=== PATIENT | male | born 1965 | race Caucasian/White ===

== ENCOUNTER 2019-04-03 09:02 | Inpatient (IN) | payer OTHER ==
--- NOTE | 2019-04-03 09:32 | ED ---
General Adult HPI - General Chief complaint: Shortness of Breath Stated complaint: Diff Breathing Time Seen by Provider: 04/03/19 09:10 Source: patient Mode of arrival: ambulatory Limitations: no limitations - History of Present Illness Initial comments: Dictation was produced using [employer] dictation software. please excuse any grammatical, word or spelling errors. Chief Complaint: 53-year-old male past medical history of anemia, atrial fibrillation, dyslipidemia presents with shortness of breath and 20 pound weight gain. History of Present Illness: Is a 53-year-old male chief complaint is dyspnea. Patient states he's been short of breath that spent acutely worsening for the last several days. Patient has a history of this. He states the last time he was short of breath he was found to have critically low anemia with a hemoglobin level in the sixes. He received transfusion and felt fine. Patient had endosco py and GI workup for concerns of anemia. States he had negative workup so for. Patient denies any history of heart failure. He states he does take water pills. States that his symptoms are worse with exertion. Symptoms are worse with lying flat. Denies any fever, chills or night sweats. No cough. No constitutional symptoms. The ROS documented in this emergency department record has been reviewed and confirmed by me. Those systems with pertinent positive or negative responses have been documented in the HPI. All other systems are other negative and/or noncontributory. PHYSICAL EXAM: General Impression: Alert and oriented x3, not in acute distress, morbidly obese HEENT: Normocephalic atraumatic, extra-ocular movements intact, pupils equal and reactive to light bilaterally, mucous membranes moist. Cardiovascular: Heart regular rate and rhythm, S1&S2 audible, no murmurs, rubs o r gallops Chest: Lungs clear to auscultation bilaterally, no rhonchi, no wheeze, no rales Abdomen: Bowel sounds present, abdomen soft, non-tender, non-distended, no organomegaly Musculoskeletal: Pulses present and equal in all extremities, no peripheral edema Motor: no focal deficits noted Neurological: CN II-XII grossly intact, no focal motor or sensory deficits noted Skin: Intact with no visualized rashes Psych: Normal affect and mood Rectal: No gross blood, no melanotic stool ED course: 53-year-old male presents with exertional shortness of breath. Upon arrival shows 86% on oxygen, rest of vital signs within acceptable limits. Laboratory evaluation obtained. Hemoglobin of 7.6 with elevated RDW, metabolic panel is unremarkable. Stool occult blood is negative. Cardiac enzymes negati ve. Prematurity peptide is 631. Chest x-ray obtained. Chest x-ray shows fluid overload likely on the basis of congestive heart failure with trace pleural effusion and pulmonary vascular prominence. Discussed patient case with Dr. Ramos who is willing to accept patients care. Dr. Ramos request the patient be given transfusion 1 unit of blood and to have a high resolution CT ordered for his chest. Dr. Ramos will follow up with the results. EKG interpretation: Ventricular rate 72, normal sinus rhythm,. Interval 172, QS 114, QTc 422. No MA prolongation, no QTC prolongation, no ST or T-wave changes noted. EKG compared to 02/18/2018 showing no changes. Overall, this EKG is unremarkable - Related Data Home Medications Medication Instructions Recorded Confirmed Albuterol Inhaler [Ventolin Hfa 2 puff INHALATION RT-Q4H PRN 04/08/15 04/03/19 Inhaler] Carvedilol [Coreg*] 12.5 mg PO BID 04/08/15 04/03/19 Gabapentin 600 mg PO TID 04/08/15 04/03/19 Levothyroxine Sodium [Synthroid] 50 mcg PO DAILY 04/08/15 04/03/19 metFORMIN HCL [metFORMIN HCL ER] 1,000 mg PO BID 04/08/15 04/03/19 Atorvastatin [Lipitor] 20 mg PO QAM 02/18/18 04/03/19 Furosemide [Lasix] 40 mg PO BID 02/18/18 04/03/19 Potassium Chloride ER [K-Dur 20] 20 meq PO HS 02/18/18 04/03/19 Rivaroxaban [Xarelto] 20 mg PO HS 02/18/18 04/03/19 Acetaminophen Tab [Tylenol Tab] 325 mg PO Q4H PRN 04/03/19 04/03/19 Allopurinol [Zyloprim] 300 mg PO DAILY 04/03/19 04/03/19 Cetirizine HCl [Zyrtec] 10 mg PO DAILY 04/03/19 04/03/19 Fluticasone Nasal [place] [Flonase 1 spray EA NOSTRIL DAILY 04/03/19 04/03/19 Nasal [place]] Multivitamins, Thera [Multivitamin 1 tab PO HS 04/03/19 04/03/19 (formulary)] diphenhydrAMINE HCL [Benadryl] 25 mg PO HS 04/03/19 04/03/19 Allergies Allergy/AdvReac Type Severity Reaction Status Date / Time No Known Allergies Allergy Verified 04/03/19 09:51 Review of Systems ROS Statement: Those systems with pertinent positive or pertinent negative responses have been documented in the HPI. ROS Other: All systems not noted in ROS Statement are negative. Past Medical History Past Medical History: Atrial Fibrillation, Diabetes Mellitus, Hyperlipidemia, Hypertension, Thyroid Disorder Additional Past Medical History / Comment(s): nerve pain, chronic back pain History of Any Multi-Drug Resistant Organisms: MRSA Date of last positivie culture/infection: 2012 MDRO Source:: unknown Past Surgical History: Orthopedic Surgery, Tonsillectomy Additional Past Surgical History / Comment(s): right knee, right shoulder Past Anesthesia/Blood Transfusion Reactions: No Reported Reaction Past Psychological History: No Psychological Hx Reported Smoking Status: Former smoker Past Alcohol Use History: Heavy Past Drug Use History: None Reported - Past Family History Father Family Medical History: No Reported History Mother Family Medical History: No Reported History General Exam Limitations: no limitations Course Vital Signs 04/03/19 04/03/19 09:05 10:08 Temperature 99.2 F 98.3 F Pulse Rate 77 78 Respiratory 20 20 Rate Blood Pressure 130/74 154/67 O2 Sat by Pulse 86 L 96 Oximetry Medical Decision Making - Lab Data Result diagrams: 04/03/19 10:12 04/03/19 10:12 Lab Results 04/03/19 04/03/19 04/03/19 Range/Units 10:12 10:12 10:12 WBC 6.2 (3.8-10.6) k/uL RBC 3.02 L (4.30-5.90) m/uL Hgb 7.6 L (13.0-17.5) gm/dL Hct 25.6 L (39.0-53.0) % MCV 84.7 (80.0-100.0) fL MCH 25.0 (25.0-35.0) pg MCHC 29.6 L (31.0-37.0) g/dL RDW 19.5 H (11.5-15.5) % Plt Count 193 (150-450) k/uL Neutrophils % 81 % Lymphocytes % 8 % Monocytes % 5 % Eosinophils % 3 % Basophils % 1 % Neutrophils # 5.1 (1.3-7.7) k/uL Lymphocytes # 0.5 L (1.0-4.8) k/uL Monocytes # 0.3 (0-1.0) k/uL Eosinophils # 0.2 (0-0.7) k/uL Basophils # 0.1 (0-0.2) k/uL Hypochromasia Marked Poikilocytosis Slight Anisocytosis Slight Microcytosis Slight Sodium 140 (137-145) mmol/L Potassium 4.7 (3.5-5.1) mmol/L Chloride 101 (98-107) mmol/L Carbon Dioxide 34 H (22-30) mmol/L Anion Gap 5 mmol/L BUN 15 (9-20) mg/dL Creatinine 0.96 (0.66-1.25) mg/dL Est GFR (CKD-EPI)AfAm >90 (>60 ml/min/1.73 sqM) Est GFR (CKD-EPI)NonAf 90 (>60 ml/min/1.73 sqM) Glucose 127 H (74-99) mg/dL Calcium 8.8 (8.4-10.2) mg/dL Troponin I (0.000-0.034) ng/mL NT-Pro-B Natriuret Pep 631 pg/mL Stool Occult Blood (Negative) 04/03/19 04/03/19 Range/Units 10:12 10:12 WBC (3.8-10.6) k/uL RBC (4.30-5.90) m/uL Hgb (13.0-17.5) gm/dL Hct (39.0-53.0) % MCV (80.0-100.0) fL MCH (25.0-35.0) pg MCHC (31.0-37.0) g/dL RDW (11.5-15.5) % Plt Count (150-450) k/uL Neutrophils % % Lymphocytes % % Monocytes % % Eosinophils % % Basophils % % Neutrophils # (1.3-7.7) k/uL Lymphocytes # (1.0-4.8) k/uL Monocytes # (0-1.0) k/uL Eosinophils # (0-0.7) k/uL Basophils # (0-0.2) k/uL Hypochromasia Poikilocytosis Anisocytosis Microcytosis Sodium (137-145) mmol/L Potassium (3.5-5.1) mmol/L Chloride (98-107) mmol/L Carbon Dioxide (22-30) mmol/L Anion Gap mmol/L BUN (9-20) mg/dL Creatinine (0.66-1.25) mg/dL Est GFR (CKD-EPI)AfAm (>60 ml/min/1.73 sqM) Est GFR (CKD-EPI)NonAf (>60 ml/min/1.73 sqM) Glucose (74-99) mg/dL Calcium (8.4-10.2) mg/dL Troponin I <0.012 (0.000-0.034) ng/mL NT-Pro-B Natriuret Pep pg/mL Stool Occult Blood Negative (Negative) Disposition Clinical Impression: Dyspnea Disposition: ADMITTED IP TO THIS HOSP Condition: Fair Referrals: Levar Crystal MD [Primary Care Provider] - 1-2 days Decision Time: 11:44
--- NOTE | 2019-04-03 10:35 | XR ---
EXAMINATION TYPE: XR chest 2V DATE OF EXAM: 04/03/2019 COMPARISON: 02/18/2018 HISTORY: Shortness of breath and low hemoglobin. TECHNIQUE: Frontal and lateral views of the chest are obtained. FINDINGS: There are trace bilateral pleural effusions blunting the costophrenic angles. Cardiomedias tinal silhouette is enlarged as seen on the prior. Very mild pulmonary vascular prominence. Mild dege nerative changes of the spine. IMPRESSION: Fluid overload, likely on the basis of congestive heart failure with trace pleural effus ions and mild pulmonary vascular prominence.
[2019-04-03 10:48] LABS: African American GFR (CKD) >90 (>60 ml/min/1.73 sqM); Anion Gap 5 mmol/L; Blood Urea Nitrogen 15 mg/dL (9-20); Calcium 8.8 mg/dL (8.4-10.2); Carbon Dioxide 34 mmol/L (22-30); Chloride 101 mmol/L (98-107); Glucose 127 mg/dL (74-99); Potassium 4.7 mmol/L (3.5-5.1); Sodium 140 mmol/L (137-145)
[2019-04-03 11:00] LABS: Anisocytosis Slight; Basophils # (A) 0.1 k/uL (0-0.2); Basophils % (A) 1 %; Eosinophils # (A) 0.2 k/uL (0-0.7); Eosinophils % (A) 3 %; HCT 25.6 % (39.0-53.0); HGB 7.6 gm/dL (13.0-17.5); Hypochromasia Marked; Lymphocytes # (A) 0.5 k/uL (1.0-4.8); Lymphocytes % (A) 8 %; MCHC 29.6 g/dL (31.0-37.0); MCV 84.7 fL (80.0-100.0); Mean Platelet Volume 6.7; Microcytosis Slight; Monocytes # (A) 0.3 k/uL (0-1.0); Monocytes % (A) 5 %; Neutrophils # (A) 5.1 k/uL (1.3-7.7); Neutrophils % (A) 81 %; Platelet Count 193 k/uL (150-450); Poikilocytosis Slight; RBC 3.02 m/uL (4.30-5.90); RDW 19.5 % (11.5-15.5); WBC 6.2 k/uL (3.8-10.6)
[2019-04-03] MEDS ORDERED: SODIUM CHLORIDE 0.9% 1,000 ML IV SCH (11:45)
[2019-04-03] MEDS ORDERED: NALOXONE 0.4 MG/ML 1 ML VIAL IV PRN (11:45)
--- NOTE | 2019-04-03 12:47 | CT ---
EXAMINATION TYPE: CT chest wo con DATE OF EXAM: 04/03/2019 COMPARISON: Chest x-ray 04/03/2019 HISTORY: Shortness of breath. CT DLP: 943.7 mGycm. Automated Exposure Control for Dose Reduction was Utilized. TECHNIQUE: CT scan of the thorax is performed without IV contrast. FINDINGS: The heart is enlarged. Coronary artery calcification noted. There is groundglass interstitial changes with bilateral consolidation and small effusion. Respiratory motion artifact noted. No sizable pneumothorax. Tiny pericardial effusion noted. Aorta of normal caliber with mild atherosclerotic changes. Hypertrophic changes and degenerative espinosa ge of the vertebral column. Assessment for adenopathy limited due to noncontrast high-resolution technique. No gross pathologic. The thyroid is symmetric in appearance. IMPRESSION: 1. Cardiomegaly with bilateral pleural effusions and consolidation correlate for pneumonia, interstit ial pneumonitis or very mild venous congestion. There is no significant interlobular septal thickenin g as visualized to suggest chronic interstitial lung disease or pulmonary fibrosis. 2. Tiny pericardial effusion.
[2019-04-03 13:53] VITALS: BMI 56.2
[2019-04-03] MEDS ORDERED: INFLUENZA VACCINE (6 MOS+) 60 MCG/0.5 ML SYRINGE IM ONE (13:58)
[2019-04-03 16:25] LABS: Appearance,Urine Clear (Clear); Bacteria,Urine Rare /hpf; Bilirubin,Urine Negative (Negative); Blood,Urine Negative (Negative); Color,Urine Yellow; Glucose,Urine (UA) Negative (Negative); Hyaline Casts,Urine 3 /lpf (0-2); Ketones,Urine Negative (Negative); Leukocyte Esterase,Urine Trace (Negative); Mucus,Urine Rare /hpf; Nitrite,Urine Negative (Negative); Protein,Urine 1+ (Negative); RBC,Urine 1 /hpf (0-5); Specific Gravity,Urine 1.016 (1.001-1.035); Urobilinogen,Urine <2.0 mg/dL (<2.0); WBC,Urine 4 /hpf (0-5)
[2019-04-03 20:44] LABS: Glucose,Whole Blood 119 mg/dL (75-99)
[2019-04-03] MEDS ORDERED: RIVAROXABAN 20 MG TAB PO SCH (21:00)
[2019-04-03] MEDS: metFORMIN 500 MG TAB PO SCH (22:16)
[2019-04-03] MEDS: MULTIVITAMINS, THERA 1 EACH TAB PO SCH (22:16)
[2019-04-03] MEDS: GABAPENTIN 300 MG CAP PO SCH (22:17)
[2019-04-03] MEDS: CARVEDILOL 12.5 MG TAB PO SCH (22:17)
[2019-04-03] MEDS: ACETAMINOPHEN TAB 500 MG TAB PO PRN (22:17)
[2019-04-03] MEDS: POTASSIUM CHLORIDE ER 20 MEQ TAB.ER PO SCH (22:17)
[2019-04-03] MEDS: diphenhydrAMINE 25 MG CAP PO SCH (22:17)
[2019-04-04] MEDS: IPRATROPIUM-ALBUTEROL 3 ML NEB INHALATION SCH ×5 (02:25→19:20)
[2019-04-04] MEDS ORDERED: FUROSEMIDE 10 MG/ML 10 ML VIAL IV STA (05:16)
[2019-04-04 06:05] LABS: Glucose,Whole Blood 125 mg/dL (75-99)
[2019-04-04] MEDS: CARVEDILOL 12.5 MG TAB PO SCH ×2 (06:42→15:05)
[2019-04-04] MEDS: LEVOTHYROXINE 50 MCG TAB PO SCH (06:42)
[2019-04-04 07:20] LABS: African American GFR (CKD) >90 (>60 ml/min/1.73 sqM); Anion Gap 6 mmol/L; Anisocytosis Slight; Basophils # (A) 0.1 k/uL (0-0.2); Basophils % (A) 1 %; Blood Urea Nitrogen 16 mg/dL (9-20); Calcium 9.1 mg/dL (8.4-10.2); Carbon Dioxide 35 mmol/L (22-30); Chloride 100 mmol/L (98-107); Eosinophils # (A) 0.2 k/uL (0-0.7); Eosinophils % (A) 3 %; Glucose 131 mg/dL (74-99); HCT 28.5 % (39.0-53.0); HGB 8.5 gm/dL (13.0-17.5); Hypochromasia Marked; Lymphocytes # (A) 0.5 k/uL (1.0-4.8); Lymphocytes % (A) 8 %; MCH 25.4 pg (25.0-35.0); MCHC 29.7 g/dL (31.0-37.0); MCV 85.4 fL (80.0-100.0); Mean Platelet Volume 6.9; Microcytosis Slight; Monocytes # (A) 0.3 k/uL (0-1.0); Monocytes % (A) 6 %; Neutrophils # (A) 4.7 k/uL (1.3-7.7); Neutrophils % (A) 79 %; Platelet Count 183 k/uL (150-450); Poikilocytosis Slight; Potassium 4.4 mmol/L (3.5-5.1); Prothrombin Time 10.6 sec (9.0-12.0); RBC 3.34 m/uL (4.30-5.90); RDW 19.3 % (11.5-15.5); Sodium 141 mmol/L (137-145); WBC 5.9 k/uL (3.8-10.6)
--- NOTE | 2019-04-04 07:39 | XR ---
EXAMINATION TYPE: XR chest 1V portable DATE OF EXAM: 04/04/2019 COMPARISON: 04/03/2019 chest x-ray and CT HISTORY: Congestive heart failure. Shortness of breath. TECHNIQUE: Single frontal view of the chest is obtained. FINDINGS: Cardiomediastinal silhouette is mildly enlarged. Bibasilar hazy opacities are seen with pa rtial obscuration of the hemidiaphragms. Mild pulmonary vascular congestion. Trace pleural effusions blunt the costophrenic angles. No acute osseous pathology. IMPRESSION: Findings similar to the prior CT chest dated 04/03/2019 with trace pleural effusions and mild pulmonary vascular congestion as well as bibasilar atelectasis. Consider congestive heart failu re are less likely noncardiogenic fluid overload.
[2019-04-04 08:22] LABS: Glucose,Whole Blood 116 mg/dL (75-99)
[2019-04-04] MEDS: GABAPENTIN 300 MG CAP PO SCH ×3 (09:44→21:56)
[2019-04-04] MEDS: FUROSEMIDE 40 MG TAB PO SCH ×2 (09:44→22:01)
[2019-04-04] MEDS: LORATADINE 10 MG TAB PO SCH (09:44)
[2019-04-04] MEDS: metFORMIN 500 MG TAB PO SCH ×2 (09:44→21:56)
[2019-04-04] MEDS: ATORVASTATIN 20 MG TAB PO SCH (09:44)
[2019-04-04] MEDS: ALLOPURINOL 300 MG TAB PO SCH (10:00)
[2019-04-04] MEDS: ACETAMINOPHEN TAB 500 MG TAB PO PRN (12:09)
--- NOTE | 2019-04-04 12:48 | ECHOF ---
Referral Reason:Shortness of breath MEASUREMENTS -------- HEIGHT: 175.3 cm WEIGHT: 172.8 kg BP: RVIDd: 3.7 cm (< 3.3) IVSd: 1.3 cm (0.6 - 1.1) LVIDd: 5.8 cm (3.9 - 5.3) LVPWd: 1.6 cm (0.6 - 1.1) IVSs: 1.4 cm LVIDs: 3.7 cm LVPWs: 2.1 cm LA Diam: 3.9 cm (2.7 - 3.8) Ao Diam: 3.4 cm (2.0 - 3.7) AV Cusp: 1.9 cm (1.5 - 2.6) LA Diam: 4.0 cm (2.7 - 3.8) MV EXCURSION: 27.202 mm (> 18.000) MV EF SLOPE: 87 mm/s (70 - 150) EPSS: 0.7 cm MV E Jonnathan: 0.74 m/s MV DecT: 190 ms MV A Jonnathan: 0.60 m/s MV E/A Ratio: 1.22 RAP: 5.00 mmHg RVSP: 32.71 mmHg FINDINGS -------- Sinus rhythm. Morbid Obesity This was a techncally difficult study with suboptimal views, , Lumason utilized for enhancement of im ages. The left ventricular size is normal. There is mild concentric left ventricular hypertrophy. Overa ll left ventricular systolic function is normal with, an EF between 55 - 60 %. The right ventricle is mild to moderately enlarged. The left atrial size is normal. The right atrial size is normal. 5.0mg OF Lumason UTLIZED: 2 OR MORE WALL SEGMENTS NOT VISUALIZED. The aortic valve was not well visualized. Mild mitral regurgitation is present. The tricuspid valve was not well visualized. The pulmonic valve was not well visualized. The aortic root size is normal. There is no pericardial effusion. CONCLUSIONS -------- 1. Sinus rhythm. 2. Morbid Obesity 3. This was a techncally difficult study with suboptimal views, , Lumason utilized for enhancement of images. 4. The left ventricular size is normal. 5. There is mild concentric left ventricular hypertrophy. 6. Overall left ventricular systolic function is normal with, an EF between 55 - 60 %. 7. The right ventricle is mild to moderately enlarged. 8. The left atrial size is normal. 9. The right atrial size is normal. 10. 5.0mg OF Lumason UTLIZED: 2 OR MORE WALL SEGMENTS NOT VISUALIZED. 11. The aortic valve was not well visualized. 12. Mild mitral regurgitation is present. 13. The tricuspid valve was not well visualized. 14. The pulmonic valve was not well visualized. 15. The aortic root size is normal. 16. There is no pericardial effusion. DISABILITY COORDINATOR: Brianna Naqvi RDCS
--- NOTE | 2019-04-04 13:01 | P.CRDCN ---
History of Present Illness History of present illness: This is Amber Desai PA-C dictating a consult on this patient The patient was interviewed and examined by me as well as by Dr. Bravo Case discussed with Dr. Bravo and he agrees with the plan of care IMPRESSION / ASSESSMENT: Increased shortness of breath likely secondary to combination of anemia and fluid overload, pleural effusions on chest x-ray Anemia status post blood transfusion, hemoglobin 8.5 History of atrial fibrillation, anticoagulation on hold secondary to anemia Diabetes Hypertension, blood pressure has been elevated in the 150s to 160s systolic over 90s diastolic previous echocardiogram showed EF 50-55% PLAN: A repeat echocardiogram has been ordered Add losartan 25 mg daily for blood pressure control, patient is a diabetic Continue with Lasix Continue holding Xarelto for now 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 Patient states that he recently moved so he has been off of his Lasix 40 mg daily for e last 2-3 weeks. He has had progressively worsening shortness of breath on exertion and orthopnea. No palpitations or chest pain. He was also recently diagnosed with anemia and received a blood transfusion at [facility] [place]. He underwent workup with an EGD and colonoscopy and states that there were no sources of bleeding found. States he follows with a drug safety specialist in the [place] area. He had a stress test 3 years ago and it was negative per the patient. He does not believe he's ever had an angiogram. He has also been diagnosed with atrial fibrillation a few years ago and takes Xarelto. He was seen here in the emergency department about a month ago after he had been drinking heavily and fell. Echocardiogram at that time showed LV systolic function low normal with EF 50-55%. Upon presentation to the emergency department yesterday his oxygen saturation was 86%. Chest x-ray showed trace pleural effusions and mild pulmonary vascular prominence. EKG showed sinus mechanism with incomplete right bundle branch block, no acute ST or T-wave abnormalities. Chest CT showed bilat eral pleural effusions concerning for possible pneumonia, interstitial pneumonitis, or mild venous congestion. Labs were significant for hemoglobin of 7.6. Troponin negative 1. TSH 0.654. He did receive a blood transfusion. He was transferred to the ICU and started on Lasix. Patient seen and examined sitting in bed. States his breathing has improved somewhat but he remained short of breath. Denies any chest pain, dizziness lightheadedness or syncope. ROS: No fevers, chills or rigors, no cough, phlegm or expectoration, no nausea, vomiting or diarrhea, no hematuria, dysuria, no musculoskeletal complaints, no strokes or seizures, no skin lesions. EXAMINATION: Patient is afebrile, pulse 66, respirations 15, blood pressure 153/92, oxygen saturation 95% on 5 L nasal cannula Patient seen and examined sitting up in bed, appears comfortable, no acute distress Lungs are mildly diminished at the bases Heart is regular, normal S1-S2, no murmurs noted Trace lower extremity edema No elevated JVD REVIEW OF LABS, ECG & MEDICAL DATA WBC 5.4, hemoglobin 8.5, platelets 183, potassium 4.4, BUN 16, creatinine 1.01 Past Medical History Past Medical History: Atrial Fibrillation, Heart Failure, COPD, Diabetes Mellitus, Hyperlipidemia, Hypertension, Thyroid Disorder Additional Past Medical History / Comment(s): NIDDM type II, neuropathy bilateral feet, 2012 acute respiratory failure-d/t obesity/hypoventilatory syndrome/DELORES/bronchospasms, DELORES-pt states he has not been wearing device lately, trach/vent-had renal failure with dialysis for 5 weeks, chronic anemia, hypothyroid, gout L arm, pt states he is a binge drinker. History of Any Multi-Drug Resistant Organisms: MRSA Date of last positivie culture/infection: 2012 MDRO Source:: bronchial washing Past Surgical History: Orthopedic Surgery, Tonsillectomy Additional Past Surgical History / Comment(s): EGD, colonoscopies, R knee arthroscopy, R shoulder arthroscopy, trach, peg, BAL left lower lobe, cardioversion. Past Anesthesia/Blood Transfusion Reactions: No Reported Reaction Additional Past Anesthesia/Blood Transfusion Reaction / Comment(s): Pt has received blood in past without reaction. Smoking Status: Former smoker - Past Family History Father History Unknown: Yes Family Medical History: No Reported History Mother Family Medical History: No Reported History Additional Family Medical History / Comment(s): Mother is healthy. Medications and Allergies Home Medications Medication Instructions Recorded Confirmed Type Albuterol Inhaler [Ventolin Hfa 2 puff INHALATION RT-Q4H PRN 04/08/15 04/03/19 History Inhaler] Carvedilol [Coreg*] 12.5 mg PO BID 04/08/15 04/03/19 History Gabapentin 600 mg PO TID 04/08/15 04/03/19 History Levothyroxine Sodium [Synthroid] 50 mcg PO DAILY 04/08/15 04/03/19 History metFORMIN HCL [metFORMIN HCL ER] 1,000 mg PO BID 04/08/15 04/03/19 History Atorvastatin [Lipitor] 20 mg PO QAM 02/18/18 04/03/19 History Furosemide [Lasix] 40 mg PO BID 02/18/18 04/03/19 History Potassium Chloride ER [K-Dur 20] 20 meq PO HS 02/18/18 04/03/19 History Rivaroxaban [Xarelto] 20 mg PO HS 02/18/18 04/03/19 History Acetaminophen Tab [Tylenol Tab] 325 mg PO Q4H PRN 04/03/19 04/03/19 History Allopurinol [Zyloprim] 300 mg PO DAILY 04/03/19 04/03/19 History Cetirizine HCl [Zyrtec] 10 mg PO DAILY 04/03/19 04/03/19 History Fluticasone Nasal [place] [Flonase 1 spray EA NOSTRIL DAILY 04/03/19 04/03/19 History Nasal [place]] Multivitamins, Thera [Multivitamin 1 tab PO HS 04/03/19 04/03/19 History (formulary)] diphenhydrAMINE HCL [Benadryl] 25 mg PO HS 04/03/19 04/03/19 History Allergies Allergy/AdvReac Type Severity Reaction Status Date / Time No Known Allergies Allergy Verified 04/03/19 09:51 Physical Exam Vitals: Vital Signs Temp Pulse Pulse Resp BP BP Pulse Ox 04/04/19 12:04 66 04/04/19 11:58 69 04/04/19 11:00 71 20 145/66 95 04/04/19 10:00 68 20 174/93 97 04/04/19 09:00 66 15 153/92 95 04/04/19 08:12 64 04/04/19 08:00 97.9 F 64 20 131/77 94 L 04/04/19 07:00 97.8 F 20 182/85 92 L 04/04/19 06:05 72 04/04/19 05:27 72 22 180/92 90 L 04/04/19 03:58 20 04/04/19 02:40 84 04/04/19 02:25 84 04/04/19 00:24 20 04/03/19 23:52 98.3 F 82 17 161/80 92 L 04/03/19 23:13 80 04/03/19 23:05 72 95 04/03/19 20:15 20 04/03/19 20:11 99.1 F 78 20 169/76 93 L 04/03/19 16:23 16 04/03/19 15:00 97.9 F 80 16 173/91 93 L 04/03/19 13:47 98.9 F 76 20 162/75 04/03/19 13:31 98.3 F 04/03/19 13:17 98.3 F 76 20 167/53 04/03/19 13:07 98.5 F 75 18 163/74 Intake and Output 04/03/19 04/04/19 04/04/19 22:59 06:59 14:59 Intake Total 310 240 Output Total 600 3800 Balance 310 600 -3560 Intake: Oral 240 Blood Product 310 Rc As-1 Unit 310 [id number] Output: Urine 600 3800 Other: Voiding Method Toilet Urinal # Voids 3 1 # Bowel Movements 1 Results 04/04/19 06:28 04/04/19 06:28 Coagulation 04/04/19 Range/Units 06:28 PT 10.6 (9.0-12.0) sec CBC 04/04/19 Range/Units 06:28 WBC 5.9 (3.8-10.6) k/uL RBC 3.34 L (4.30-5.90) m/uL Hgb 8.5 L (13.0-17.5) gm/dL Hct 28.5 L (39.0-53.0) % Plt Count 183 (150-450) k/uL Comprehensive Metabolic Panel 04/04/19 Range/Units 06:28 Sodium 141 (137-145) mmol/L Potassium 4.4 (3.5-5.1) mmol/L Chloride 100 (98-107) mmol/L Carbon Dioxide 35 H (22-30) mmol/L BUN 16 (9-20) mg/dL Creatinine 1.01 (0.66-1.25) mg/dL Glucose 131 H (74-99) mg/dL Calcium 9.1 (8.4-10.2) mg/dL Current Medications Generic Name Dose Route Start Last Admin Trade Name Freq PRN Reason Stop Dose Admin Acetaminophen 500 mg 04/03/19 22:03 04/04/19 12:09 Tylenol Tab PO 500 mg Q6HR PRN Administration Fever and/ or Pain Albuterol/Ipratropium 3 ml 04/04/19 04:00 04/04/19 11:56 Duoneb 0.5 Mg-3 Mg/3 Ml Soln INHALATION 3 ml RT-QID [facility] Administration Allopurinol 300 mg 04/04/19 09:00 04/04/19 10:00 Zyloprim PO 300 mg DAILY [facility] Administration Atorvastatin Calcium 20 mg 04/04/19 09:00 04/04/19 09:44 Lipitor PO 20 mg QAM [place] Administration Carvedilol 12.5 mg 04/03/19 21:15 04/04/19 06:42 Coreg PO 12.5 mg BID-W/MEALS [facility]T Administration Diphenhydramine HCl 25 mg 04/03/19 21:15 04/03/19 22:17 Benadryl PO 25 mg HS [facility] Administration Furosemide 40 mg 04/04/19 09:00 04/04/19 09:44 Lasix PO 40 mg BID [place] Administration Gabapentin 600 mg 04/03/19 22:00 04/04/19 09:44 Neurontin PO 600 mg TID [facility] Administration Levothyroxine Sodium 50 mcg 04/04/19 06:30 04/04/19 06:42 Synthroid PO 50 mcg DAILY@0630 [facility] Administration Loratadine 10 mg 04/04/19 09:00 04/04/19 09:44 Claritin PO 10 mg DAILY [facility] Administration Metformin HCl 1,000 mg 04/03/19 21:15 04/04/19 09:44 Glucophage PO 1,000 mg BID [facility] Administration Multivitamins 1 each 04/03/19 21:15 04/03/19 22:16 Theragran PO 1 each HS [facility] Administration Naloxone HCl 0.2 mg 04/03/19 11:45 Narcan IV Q2M PRN Opioid Reversal Potassium Chloride 20 meq 04/03/19 21:15 04/03/19 22:17 K-Dur 20 PO 20 meq HS [facility] Administration Intake and Output 04/03/19 04/04/19 04/04/19 22:59 06:59 14:59 Intake Total 310 240 Output Total 600 3800 Balance 310 -388 -1765 Intake: Oral 240 Blood Product 310 Rc As-1 Unit 310 [id number] Output: Urine 600 3800 Other: Voiding Method Toilet Urinal # Voids 3 1 # Bowel Movements 1 04/04/19 06:28 04/04/19 06:28
[2019-04-04 13:15] LABS: Reticulocyte % 1.4 % (0.5-2.0)
[2019-04-04] MEDS: LOSARTAN 25 MG TAB PO SCH (13:18)
[2019-04-04 13:25] LABS: C Reactive Protein 64.3 mg/L (<10.0)
--- NOTE | 2019-04-04 16:27 | P.CNPUL ---
History of Present Illness Consult date: 04/04/19 Reason for consult: dyspnea History of present illness: 53-year-old morbidly obese male patient with a BMI 56 with obvious features of obstructive sleep apnea and obesity hypoventilation syndrome who also has history of atrial fibrillation, hypertension and hyperlipidemia and diabetes mellitus. The patient presented yesterday because of significant volume overload as the patient stopped his Lasix for the past 2-3 weeks and he has gained significant amount of weight in excess of 20 pounds. He became progressively more short of breath. He presented to ED yesterday and the patient was also found to be anemic with a hemoglobin of 7.6. He did not have any acute GI bleed.His anemia is chronic. Has undergone previous EGD and colonoscopy in [facility] without any positive findings. Denied having any acute GI bleeding. Patient having any chest pain. He became progressively more short of breath mainly exertional. No dyspnea at rest. No cough or sputum production. No fever chills or night sweats. No pleurisy or hemoptysis. He has not had any previous history of DVT or pulmonary embolism. Overnight, the patient got transferred to the intensive care unit. He was given a unit of packed RBC. He was given a dose of Lasix 60 mg IV push. There was significant improvement following that the patient diuresed more than 4 L. He is not having any shortness of breath this morning. CAT scan of the chest was done yesterday that showed better pleural effusion and interstitial edema and pulmonary vessel congestion. Troponin times all was negative. TSH was 0.6. His subsequent hemoglobin is up to 8.5. He is currently receiving Lasix 40 mg by mouth twice a day. He is on 3 L of oxygen by nasal cannula with a pulse oximeter of 90%. No tachycardia. No fever. No hemodynamic instability. The BP is 150/75. Review of Systems Constitutional: Reports daytime sleepiness, Reports fatigue, Reports weakness, Reports weight gain Eyes: denies blurred vision, denies bulging eye, denies decreased vision Ears: deny: decreased hearing, ear discharge, earache, tinnitus Ears, nose, mouth and throat: Reports as per HPI Cardiovascular: Reports decreased exercise tolerance, Reports dyspnea on exertion, Reports high blood pressure, Reports shortness of breath Respiratory: Reports sleep apnea Gastrointestinal: Reports as per HPI Genitourinary: Reports as per HPI Musculoskeletal: Reports as per HPI Musculoskeletal: bilateral: ankle swelling, absent: ankle pain, ankle stiffness Integumentary: Denies pruritus, Denies rash Neurological: Reports as per HPI Psychiatric: Reports as per HPI Endocrine: Reports as per HPI Hematologic/Lymphatic: Reports as per HPI Allergic/Immunologic: Reports as per HPI Past Medical History Past Medical History: Atrial Fibrillation, Heart Failure, COPD, Diabetes Mellitus, Hyperlipidemia, Hypertension, Thyroid Disorder Additional Past Medical History / Comment(s): NIDDM type II, neuropathy bilateral feet, 2013 acute respiratory failure-d/t obesity/hypoventilatory syndrome/DELORES/bronchospasms, DELORES-pt states he has not been wearing device lately, trach/vent-had renal failure with dialysis for 5 weeks, chronic anemia, hypothyroid, gout L arm, pt states he is a binge drinker. History of Any Multi-Drug Resistant Organisms: MRSA Date of last positivie culture/infection: 2012 MDRO Source:: bronchial washing Past Surgical History: Orthopedic Surgery, Tonsillectomy Additional Past Surgical History / Comment(s): EGD, colonoscopies, R knee arthroscopy, R shoulder arthroscopy, trach, peg, BAL left lower lobe, cardioversion. Past Anesthesia/Blood Transfusion Reactions: No Reported Reaction Additional Past Anesthesia/Blood Transfusion Reaction / Comment(s): Pt has received blood in past without reaction. Smoking Status: Former smoker - Past Family History Father History Unknown: Yes Family Medical History: No Reported History Mother Family Medical History: No Reported History Additional Family Medical History / Comment(s): Mother is healthy. Medications and Allergies Home Medications Medication Instructions Recorded Confirmed Type Albuterol Inhaler [Ventolin Hfa 2 puff INHALATION RT-Q4H PRN 04/08/15 04/03/19 History Inhaler] Carvedilol [Coreg*] 12.5 mg PO BID 04/08/15 04/03/19 History Gabapentin 600 mg PO TID 04/08/15 04/03/19 History Levothyroxine Sodium [Synthroid] 50 mcg PO DAILY 04/08/15 04/03/19 History metFORMIN HCL [metFORMIN HCL ER] 1,000 mg PO BID 04/08/15 04/03/19 History Atorvastatin [Lipitor] 20 mg PO QAM 02/18/18 04/03/19 History Furosemide [Lasix] 40 mg PO BID 02/18/18 04/03/19 History Potassium Chloride ER [K-Dur 20] 20 meq PO HS 02/18/18 04/03/19 History Rivaroxaban [Xarelto] 20 mg PO HS 02/18/18 04/03/19 History Acetaminophen Tab [Tylenol Tab] 325 mg PO Q4H PRN 04/03/19 04/03/19 History Allopurinol [Zyloprim] 300 mg PO DAILY 04/03/19 04/03/19 History Cetirizine HCl [Zyrtec] 10 mg PO DAILY 04/03/19 04/03/19 History Fluticasone Nasal [place] [Flonase 1 spray EA NOSTRIL DAILY 04/03/19 04/03/19 History Nasal [place]] Multivitamins, Thera [Multivitamin 1 tab PO HS 04/03/19 04/03/19 History (formulary)] diphenhydrAMINE HCL [Benadryl] 25 mg PO HS 04/03/19 04/03/19 History Allergies Allergy/AdvReac Type Severity Reaction Status Date / Time No Known Allergies Allergy Verified 04/03/19 09:51 Physical Exam Vitals: Vital Signs Temp Pulse Pulse Resp BP BP Pulse Ox 04/04/19 16:08 68 16 98 04/04/19 14:35 18 04/04/19 14:05 97.9 F 71 18 150/75 97 04/04/19 13:20 156/68 04/04/19 12:04 66 04/04/19 11:58 69 04/04/19 11:00 71 20 145/66 95 04/04/19 10:00 68 20 174/93 97 04/04/19 09:00 66 15 153/92 95 04/04/19 08:12 64 04/04/19 08:00 97.9 F 64 20 131/77 94 L 04/04/19 07:00 97.8 F 20 182/85 92 L 04/04/19 06:05 72 04/04/19 05:27 72 22 180/92 90 L 04/04/19 03:58 20 04/04/19 02:40 84 04/04/19 02:25 84 04/04/19 00:24 20 04/03/19 23:52 98.3 F 82 17 161/80 92 L 04/03/19 23:13 80 04/03/19 23:05 72 95 04/03/19 20:15 20 04/03/19 20:11 99.1 F 78 20 169/76 93 L 04/03/19 16:23 16 Intake and Output 04/04/19 04/04/19 04/04/19 06:59 14:59 22:59 Intake Total 480 540 Output Total 600 4175 Balance -600 -3695 540 Intake: Oral 480 540 Output: Urine 600 4175 Other: Voiding Method Toilet Urinal # Voids 1 # Bowel Movements 1 Amanda is obese, comfortable likely distress. Head exam was generally normal. There was no scleral icterus or corneal arcus. Mucous membranes were moist. Neck was supple and without jugular venous distension, thyromegaly, or carotid bruits. Carotids were easily palpable bilaterally. There was no adenopathy. Mild hepatic as for an significant crowding of posterior pharynx. Lungs sounds are diminished in lung bases bilaterally. Cardiac exam revealed the PMI to be normally situated and sized. The rhythm was regular and no extrasystoles were noted during several minutes of auscultation. The first and second heart sounds were normal and physiologic splitting of the second heart sound was noted. There were no murmurs, rubs, clicks, or gallops. Abdomen is soft CANNOT be accurately palpated due to morbid obesity. No direct tenderness about this or guarding. No ascites. Extremities reveal trace edema and there is no cyanosis or clubbing. Examination of the skin revealed no evidence of significant rashes, suspicious appearing nevi or other concerning lesions. Neurologically awake and alert and there is no focal logical deficits. Results - Laboratory Findings CBC and BMP: 04/04/19 06:28 04/04/19 15:29 PT/INR, D-dimer PT 10.6 sec (9.0-12.0) 04/04/19 06:28 INR 1.0 (<1.2) 04/04/19 06:28 Abnormal lab findings: Abnormal Labs 04/03/19 04/03/19 04/03/19 10:12 10:12 10:12 RBC 3.02 L Hgb 7.6 L Hct 25.6 L MCHC 29.6 L RDW 19.5 H Lymphocytes # 0.5 L ESR Carbon Dioxide 34 H Glucose 127 H POC Glucose (mg/dL) C-Reactive Protein 64.3 H Urine Protein Ur Leukocyte Esterase Urine Bacteria Hyaline Casts Urine Mucus Crossmatch 04/03/19 04/03/19 04/03/19 10:55 16:18 20:36 RBC Hgb Hct MCHC RDW Lymphocytes # ESR Carbon Dioxide Glucose POC Glucose (mg/dL) 119 H C-Reactive Protein Urine Protein 1+ H Ur Leukocyte Esterase Trace H Urine Bacteria Rare H Hyaline Casts 3 H Urine Mucus Rare H Crossmatch See Detail 04/04/19 04/04/19 04/04/19 06:03 06:28 06:28 RBC 3.34 L Hgb 8.5 L Hct 28.5 L MCHC 29.7 L RDW 19.3 H Lymphocytes # 0.5 L ESR Carbon Dioxide 35 H Glucose 131 H POC Glucose (mg/dL) 125 H C-Reactive Protein Urine Protein Ur Leukocyte Esterase Urine Bacteria Hyaline Casts Urine Mucus Crossmatch 04/04/19 04/04/19 06:28 08:20 RBC Hgb Hct MCHC RDW Lymphocytes # ESR 93 H Carbon Dioxide Glucose POC Glucose (mg/dL) 116 H C-Reactive Protein Urine Protein Ur Leukocyte Esterase Urine Bacteria Hyaline Casts Urine Mucus Crossmatch - Diagnostic Findings Chest x-ray: image reviewed Assessment and Plan Plan: 1 chronic dyspnea with acute exacerbation of shortness of breath likely secondary to fluid overload as the patient reports 20 pound weight gain while being off his diuretics. In addition the patient had worsening in his anemia which have contributed to her shortness of breath. Transfused with a unit of packed RBC. Given Lasix. Clinically improved. 2 chronic anemia with interval drop in hemoglobin. Currently under investigation. EGD and colonoscopy apparently done over the past year was negative. The patient was taken IV iron the past. 3 history of atrial fibrillation current rhythm is sinus. Patient is on long- term anticoagulation. 4 diabetes mellitus 5 hypertension 6 hyperlipidemia 7 hypothyroidism 8 morbid obesity with BMI 56 9 structures sleep apnea and obesity hypoventilation syndrome not wearing a CPAP therapy at this point 10 diabetic peripheral neuropathy involving lower extremity 11 previous history of ventilator dependent respiratory failure due to complications of kidney failure 12 gout 13 major alcohol drinker Plan We will continue diuretics with oral Lasix. Obtain a follow-up echocardiogram. Hematology evaluation regarding the anemia. Check TSH, B12 and folate and iron studies. Resume outpatient medication. The patient can which is out of the intensive care unit. Cardiology consultation. We'll continue to follow.
[2019-04-04 18:31] LABS: Rheumatoid Factor <4 IU/mL (0-13)
[2019-04-04 18:40] LABS: Folate, Serum 16.6 ng/mL; Iron Saturation 5.14 (15.00-50.00)
--- NOTE | 2019-04-04 19:09 | P.CONS ---
History of Present Illness - Reason for Consult Consult date: 04/04/19 Chronic Anemia Requesting physician: Giorgio Bishop - Chief Complaint Symptomatic anemia sob - History of Present Illness 53-year-old male patient with sleep apnea and obesity, atrial fibrillation, hypertension and hyperlipidemia and diabetes mellitus and chronic anemia. The patient presented yesterday with increased SOB apparently he stopped his Lasix for the past 2-3 weeks, unknown why, on presentation had gained significant amount of weight His CC was short of breath. His hemoglobin of 7.6. Denied any Signs of bleeding. Has undergone previous EGD and colonoscopy in [facility] without any positive findings. Denied having any acute GI bleeding. No fever chills or night sweats. He has not had any previous history of DVT or pulmonary embolism. Overnight, the patient got transferred to the intensive care unit. He was given a unit of packed RBC. He was given a dose of Lasix 60 mg IV push. He is feeling better without significant shortness of breath during evaluation this am. CT scan of the chest showed evidence of pleural effusion and interstitial edema and pulmonary vessel congestion. Troponin times all was negative. He denies ever seeing handle maker or finding cause of anemia. Review of Systems A 14 point review of systems was assessed and completed and are all negative ex cept for HPI Past Medical History Past Medical History: Atrial Fibrillation, Heart Failure, COPD, Diabetes Mellitus, Hyperlipidemia, Hypertension, Thyroid Disorder Additional Past Medical History / Comment(s): NIDDM type II, neuropathy bilateral feet, 2013 acute respiratory failure-d/t obesity/hypoventilatory syndrome/DELORES/bronchospasms, DELORES-pt states he has not been wearing device lately, trach/vent-had renal failure with dialysis for 5 weeks, chronic anemia, hypothyroid, gout L arm, pt states he is a binge drinker. History of Any Multi-Drug Resistant Organisms: MRSA Year Discovered:: 2012 MDRO Source:: bronchial washing Past Surgical History: Orthopedic Surgery, Tonsillectomy Additional Past Surgical History / Comment(s): EGD, colonoscopies, R knee arthroscopy, R shoulder arthroscopy, trach, peg, BAL left lower lobe, cardioversion. Past Anesthesia/Blood Transfusion Reactions: No Reported Reaction Additional Past Anesthesia/Blood Transfusion Reaction / Comm: Pt has received blood in past without reaction. Smoking Status: Former smoker - Past Family History Father History Unknown: Yes Family Medical History: No Reported History Mother Family Medical History: No Reported History Additional Family Medical History / Comment(s): Mother is healthy. Medications and Allergies Home Medications Medication Instructions Recorded Confirmed Type Albuterol Inhaler [Ventolin Hfa 2 puff INHALATION RT-Q4H PRN 04/08/15 04/03/19 History Inhaler] Carvedilol [Coreg*] 12.5 mg PO BID 04/08/15 04/03/19 History Gabapentin 600 mg PO TID 04/08/15 04/03/19 History Levothyroxine Sodium [Synthroid] 50 mcg PO DAILY 04/08/15 04/03/19 History metFORMIN HCL [metFORMIN HCL ER] 1,000 mg PO BID 04/08/15 04/03/19 History Atorvastatin [Lipitor] 20 mg PO QAM 02/18/18 04/03/19 History Furosemide [Lasix] 40 mg PO BID 02/18/18 04/03/19 History Potassium Chloride ER [K-Dur 20] 20 meq PO HS 02/18/18 04/03/19 History Rivaroxaban [Xarelto] 20 mg PO HS 02/18/18 04/03/19 History Acetaminophen Tab [Tylenol Tab] 325 mg PO Q4H PRN 04/03/19 04/03/19 History Allopurinol [Zyloprim] 300 mg PO DAILY 04/03/19 04/03/19 History Cetirizine HCl [Zyrtec] 10 mg PO DAILY 04/03/19 04/03/19 History Fluticasone Nasal [place] [Flonase 1 spray EA NOSTRIL DAILY 04/03/19 04/03/19 History Nasal [place]] Multivitamins, Thera [Multivitamin 1 tab PO HS 04/03/19 04/03/19 History (formulary)] diphenhydrAMINE HCL [Benadryl] 25 mg PO HS 04/03/19 04/03/19 History Allergies Allergy/AdvReac Type Severity Reaction Status Date / Time No Known Allergies Allergy Verified 04/03/19 09:51 Physical Exam Vitals: Vital Signs Temp Pulse Pulse Resp BP BP Pulse Ox 04/04/19 12:04 66 04/04/19 11:58 69 04/04/19 11:00 71 20 145/66 95 04/04/19 10:00 68 20 174/93 97 04/04/19 09:00 66 15 153/92 95 04/04/19 08:12 64 04/04/19 08:00 97.9 F 64 20 131/77 94 L 04/04/19 07:00 97.8 F 20 182/85 92 L 04/04/19 06:05 72 04/04/19 05:27 72 22 180/92 90 L 04/04/19 03:58 20 04/04/19 02:40 84 04/04/19 02:25 84 04/04/19 00:24 20 04/03/19 23:52 98.3 F 82 17 161/80 92 L 04/03/19 23:13 80 04/03/19 23:05 72 95 04/03/19 20:15 20 04/03/19 20:11 99.1 F 78 20 169/76 93 L 04/03/19 16:23 16 04/03/19 15:00 97.9 F 80 16 173/91 93 L 04/03/19 13:47 98.9 F 76 20 162/75 04/03/19 13:31 98.3 F 04/03/19 13:17 98.3 F 76 20 167/53 04/03/19 13:07 98.5 F 75 18 163/74 Intake and Output 04/03/19 04/04/19 04/04/19 22:59 06:59 14:59 Intake Total 310 480 Output Total 600 4175 Balance 310 -322 -3695 Intake: Oral 480 Blood Product 310 Rc As-1 Unit 310 [id number] Output: Urine 600 4175 Other: Voiding Method Toilet Urinal # Voids 3 1 # Bowel Movements 1 Gen: Alert and Oriented, NAD Head: NCNT Neck Supple Heart RRR Lungs No increased effort CTA B Abdomen: S/ND/NT Ext: No Rash, No Edema, Equal Strength Psych: Calm and Coroperative Neuro: No Focal Deficits Noted. Results CBC & Chem 7: 04/04/19 06:28 04/04/19 15:29 Labs: Abnormal Lab Results - Last 24 Hours (Table) 04/03/19 04/03/19 04/03/19 Range/Units 10:55 16:18 20:36 RBC (4.30-5.90) m/uL Hgb (13.0-17.5) gm/dL Hct (39.0-53.0) % MCHC (31.0-37.0) g/dL RDW (11.5-15.5) % Lymphocytes # (1.0-4.8) k/uL Carbon Dioxide (22-30) mmol/L Glucose (74-99) mg/dL POC Glucose (mg/dL) 119 H (75-99) mg/dL Urine Protein 1+ H (Negative) Ur Leukocyte Esterase Trace H (Negative) Urine Bacteria Rare H (None) /hpf Hyaline Casts 3 H (0-2) /lpf Urine Mucus Rare H (None) /hpf Crossmatch See Detail 04/04/19 04/04/19 04/04/19 Range/Units 06:03 06:28 06:28 RBC 3.34 L (4.30-5.90) m/uL Hgb 8.5 L (13.0-17.5) gm/dL Hct 28.5 L (39.0-53.0) % MCHC 29.7 L (31.0-37.0) g/dL RDW 19.3 H (11.5-15.5) % Lymphocytes # 0.5 L (1.0-4.8) k/uL Carbon Dioxide 35 H (22-30) mmol/L Glucose 131 H (74-99) mg/dL POC Glucose (mg/dL) 125 H (75-99) mg/dL Urine Protein (Negative) Ur Leukocyte Esterase (Negative) Urine Bacteria (None) /hpf Hyaline Casts (0-2) /lpf Urine Mucus (None) /hpf Crossmatch 04/04/19 Range/Units 08:20 RBC (4.30-5.90) m/uL Hgb (13.0-17.5) gm/dL Hct (39.0-53.0) % MCHC (31.0-37.0) g/dL RDW (11.5-15.5) % Lymphocytes # (1.0-4.8) k/uL Carbon Dioxide (22-30) mmol/L Glucose (74-99) mg/dL POC Glucose (mg/dL) 116 H (75-99) mg/dL Urine Protein (Negative) Ur Leukocyte Esterase (Negative) Urine Bacteria (None) /hpf Hyaline Casts (0-2) /lpf Urine Mucus (None) /hpf Crossmatch Assessment and Plan Plan: Assessment and Recommendations: Normocytic anemia: Likely from multifact chronic inflammation - Full anemia work-up in progress, iron studies maybe altered secondary to transfusions All other medical problems per primary team, cardiology and pulmonary. Will follow with further recs Physician attest: I have completed the full history and physcial and agree with above dictation by diamante moyer, Dictated as a scribe.
--- NOTE | 2019-04-04 21:52 | P.HPIM ---
History of Present Illness H&P Date: 04/04/19 Chief Complaint: Short of breath History of presenting complaint: This is a 53-year-old patient, who follows with Dr. Crystal. Chronic stable medical conditions include paroxysmal atrial fibrillation for which she's on 02, diabetes mellitus type 2, hypertension, hyperlipidemia, hypothyroid, chronic low back pain. Patient is a long-standing history of increased alcohol intake. For last 2 weeks patient's process of moving about 2 miles from his current residence. Because he was busy with the [employer] decided not to drink any alcohol also not take his Lasix. He progressively became very short of breath. No cough no fever no chills. Increasing edema lower extremity. More bloating of the abdomen. Was admitted for pulmonary edema. Was admitted to the medical floor. That became more hypoxic and was transferred to the ICU. Dr. Bishop. Did receive IV Lasix and diuresed well. Breathing improved. Review of systems: GEN.: Tired EYES: None HEENT: None NECK: None RESPIRATORY: As above CARDIOVASCULAR: As above GASTROINTESTINAL: None GENITOURINARY: None MUSCULOSKELETAL: Back pain LYMPHATICS: None HEMATOLOGICAL: None PSYCHIATRY: None NEUROLOGICAL: None Social history: History of significant alcohol intake. Did smoke for about 10 years stopped about 10 years ago. Lives with his fiance. Is on disability. Family history: Reviewed, noncontributory to presentation Physical examination: VITAL SIGNS: 99.2, 77, 20, 130/74, 86% room air GENERAL: BMI 56.3, laying in bed tired. EYES: Pupils equal. Conjunctiva normal. HEENT: External appearance of nose and ears normal, oral cavity grossly normal. NECK: JVD unable to assess; masses not palpable. HEART: Distant heart sounds, edema present;. LUNGS: Respiratory rate increased, distant breath sounds. ABDOMEN: Soft, distended, nontender, liver spleen not palpable, no masses palpable. PSYCH: Alert and oriented x3; mood and affect normal. NEUROLOGICAL: Cranial nerves grossly intact; no facial asymmetry, power and sensation grossly intact. LYMPHATICS: No lymph nodes palpable in the axilla and neck INVESTIGATIONS, reviewed in the clinical context: White count 6.2 hemoglobin 7.6 MCV 25.6 platelets 193 progression 4.7. 15 creatinine 0.96 proBNP 631 EKG tracing personally reviewed by me-right bundle-branch block 2-D echo-EF 55-60% Chest x-ray film-personally reviewed by me shows pulmonary edema Chest CTA negative for any probably fibrosis Assessment: -Securing chronic congestive heart failure from diastolic dysfunction EF 55-60% -Morbid obesity BMI 56.3 -History of excessive chronic alcohol intake -Macrocytic anemia cause undetermined, could be a slow bleed GI tract lesion. Note that patient is on Xarelto -Paroxysmal atrial fibrillation, chronically anticoagulated -Diabetes because type II on oral hypoglycemic -Hyperlipidemia -Essential hypertension -Hypothyroid -Chronic low back pain from arthritis Plan: Patient is to report to the ICU. Did get IV Lasix. That is really well. Patient did improve. Put back on oral Lasix. 2-D echo results noted. Cardiology consulted. Given the microcytic anemia and being on Xarelto also get a GI consultation regarding r endoscopy. Also hematology consultation was requested. Care was discussed with the patient. Compliance of medication and abstinence from alcohol was discussed. Past Medical History Past Medical History: Atrial Fibrillation, Heart Failure, COPD, Diabetes Mellitus, Hyperlipidemia, Hypertension, Thyroid Disorder Additional Past Medical History / Comment(s): NIDDM type II, neuropathy bilateral feet, 2012 acute respiratory failure-d/t obesity/hypoventilatory syndrome/DELORES/bronchospasms, DELORES-pt states he has not been wearing device lately, trach/vent-had renal failure with dialysis for 5 weeks, chronic anemia, hypothyroid, gout L arm, pt states he is a binge drinker. History of Any Multi-Drug Resistant Organisms: MRSA Date of last positivie culture/infection: 2012 MDRO Source:: bronchial washing Past Surgical History: Orthopedic Surgery, Tonsillectomy Additional Past Surgical History / Comment(s): EGD, colonoscopies, R knee arthroscopy, R shoulder arthroscopy, trach, peg, BAL left lower lobe, cardioversion. Past Anesthesia/Blood Transfusion Reactions: No Reported Reaction Additional Past Anesthesia/Blood Transfusion Reaction / Comment(s): Pt has recei cynthia blood in past without reaction. Smoking Status: Former smoker - Past Family History Father History Unknown: Yes Family Medical History: No Reported History Mother Family Medical History: No Reported History Additional Family Medical History / Comment(s): Mother is healthy. Medications and Allergies Home Medications Medication Instructions Recorded Confirmed Type Albuterol Inhaler [Ventolin Hfa 2 puff INHALATION RT-Q4H PRN 04/08/15 04/03/19 History Inhaler] Carvedilol [Coreg*] 12.5 mg PO BID 04/08/15 04/03/19 History Gabapentin 600 mg PO TID 04/08/15 04/03/19 History Levothyroxine Sodium [Synthroid] 50 mcg PO DAILY 04/08/15 04/03/19 History metFORMIN HCL [metFORMIN HCL ER] 1,000 mg PO BID 04/08/15 04/03/19 History Atorvastatin [Lipitor] 20 mg PO QAM 02/18/18 04/03/19 History Furosemide [Lasix] 40 mg PO BID 02/18/18 04/03/19 History Potassium Chloride ER [K-Dur 20] 20 meq PO HS 02/18/18 04/03/19 History Rivaroxaban [Xarelto] 20 mg PO HS 02/18/18 04/03/19 History Acetaminophen Tab [Tylenol Tab] 325 mg PO Q4H PRN 04/03/19 04/03/19 History Allopurinol [Zyloprim] 300 mg PO DAILY 04/03/19 04/03/19 History Cetirizine HCl [Zyrtec] 10 mg PO DAILY 04/03/19 04/03/19 History Fluticasone Nasal Jewell [Flonase 1 spray EA NOSTRIL DAILY 04/03/19 04/03/19 History Nasal Jewell] Multivitamins, Thera [Multivitamin 1 tab PO HS 04/03/19 04/03/19 History (formulary)] diphenhydrAMINE HCL [Benadryl] 25 mg PO HS 04/03/19 04/03/19 History Allergies Allergy/AdvReac Type Severity Reaction Status Date / Time No Known Allergies Allergy Verified 04/03/19 09:51 Physical Exam Vitals: Vital Signs Temp Pulse Pulse Resp BP BP Pulse Ox 04/04/19 09:00 66 15 153/92 95 04/04/19 08:12 64 04/04/19 08:00 97.9 F 64 20 131/77 94 L 04/04/19 07:00 97.8 F 20 182/85 92 L 04/04/19 06:05 72 04/04/19 05:27 72 22 180/92 90 L 04/04/19 03:58 20 04/04/19 02:40 84 04/04/19 02:25 84 04/04/19 00:24 20 04/03/19 23:52 98.3 F 82 17 161/80 92 L 04/03/19 23:13 80 04/03/19 23:05 72 95 04/03/19 20:15 20 04/03/19 20:11 99.1 F 78 20 169/76 93 L 04/03/19 16:23 16 04/03/19 15:00 97.9 F 80 16 173/91 93 L 04/03/19 13:47 98.9 F 76 20 162/75 04/03/19 13:31 98.3 F 04/03/19 13:17 98.3 F 76 20 167/53 04/03/19 13:07 98.5 F 75 18 163/74 04/03/19 12:00 98.5 F 74 18 150/79 97 04/03/19 11:00 70 21 165/63 94 L 04/03/19 10:30 79 17 90 L 04/03/19 10:08 98.3 F 78 20 154/67 96 Intake and Output 04/03/19 04/04/19 04/04/19 22:59 06:59 14:59 Intake Total 310 240 Output Total 600 3800 Balance 310 600 -3560 Intake: Oral 240 Blood Product 310 Rc As-1 Unit 310 [id number] Output: Urine 600 3800 Other: # Voids 3 1 # Bowel Movements 1 Results CBC & Chem 7: 04/04/19 06:28 04/04/19 15:29 Labs: Abnormal Lab Results - Last 24 Hours (Table) 04/03/19 04/03/19 04/03/19 Range/Units 10:12 10:12 10:55 RBC 3.02 L (4.30-5.90) m/uL Hgb 7.6 L (13.0-17.5) gm/dL Hct 25.6 L (39.0-53.0) % MCHC 29.6 L (31.0-37.0) g/dL RDW 19.5 H (11.5-15.5) % Lymphocytes # 0.5 L (1.0-4.8) k/uL Carbon Dioxide 34 H (22-30) mmol/L Glucose 127 H (74-99) mg/dL POC Glucose (mg/dL) (75-99) mg/dL Urine Protein (Negative) Ur Leukocyte Esterase (Negative) Urine Bacteria (None) /hpf Hyaline Casts (0-2) /lpf Urine Mucus (None) /hpf Crossmatch See Detail 04/03/19 04/03/19 04/04/19 Range/Units 16:18 20:36 06:03 RBC (4.30-5.90) m/uL Hgb (13.0-17.5) gm/dL Hct (39.0-53.0) % MCHC (31.0-37.0) g/dL RDW (11.5-15.5) % Lymphocytes # (1.0-4.8) k/uL Carbon Dioxide (22-30) mmol/L Glucose (74-99) mg/dL POC Glucose (mg/dL) 119 H 125 H (75-99) mg/dL Urine Protein 1+ H (Negative) Ur Leukocyte Esterase Trace H (Negative) Urine Bacteria Rare H (None) /hpf Hyaline Casts 3 H (0-2) /lpf Urine Mucus Rare H (None) /hpf Crossmatch 04/04/19 04/04/19 04/04/19 Range/Units 06:28 06:28 08:20 RBC 3.34 L (4.30-5.90) m/uL Hgb 8.5 L (13.0-17.5) gm/dL Hct 28.5 L (39.0-53.0) % MCHC 29.7 L (31.0-37.0) g/dL RDW 19.3 H (11.5-15.5) % Lymphocytes # 0.5 L (1.0-4.8) k/uL Carbon Dioxide 35 H (22-30) mmol/L Glucose 131 H (74-99) mg/dL POC Glucose (mg/dL) 116 H (75-99) mg/dL Urine Protein (Negative) Ur Leukocyte Esterase (Negative) Urine Bacteria (None) /hpf Hyaline Casts (0-2) /lpf Urine Mucus (None) /hpf Crossmatch Thrombosis Risk Factor Assmnt - Choose All That Apply Any of the Below Risk Factors Present?: Yes Each Factor Represents 1 point: Age 41-60 years, Obesity (BMI >25) Other Risk Factors: No Other congenital or acquired thrombophilia - If yes, enter type in comment: No Thrombosis Risk Factor Assessment Total Risk Factor Score: 2 Thrombosis Risk Factor Assessment Level: Low Risk
[2019-04-04] MEDS ORDERED: IPRATROPIUM-ALBUTEROL 3 ML NEB INHALATION SCH (21:54)
[2019-04-04] MEDS: MULTIVITAMINS, THERA 1 EACH TAB PO SCH (21:56)
[2019-04-04] MEDS: POTASSIUM CHLORIDE ER 20 MEQ TAB.ER PO SCH (21:56)
[2019-04-04] MEDS: diphenhydrAMINE 25 MG CAP PO SCH (21:57)
[2019-04-05 01:11] LABS: Ferritin 24.2 ng/mL (22.0-322.0)
[2019-04-05 01:55] LABS: Protein, Total 5.7 g/dL (6.2-8.2)
[2019-04-05] MEDS: LEVOTHYROXINE 50 MCG TAB PO SCH (06:16)
[2019-04-05] MEDS: LORATADINE 10 MG TAB PO SCH (07:38)
[2019-04-05] MEDS: FUROSEMIDE 40 MG TAB PO SCH (07:38)
[2019-04-05] MEDS: ALLOPURINOL 300 MG TAB PO SCH (07:38)
[2019-04-05] MEDS: GABAPENTIN 300 MG CAP PO SCH (07:38)
[2019-04-05] MEDS: LOSARTAN 25 MG TAB PO SCH (07:38)
[2019-04-05] MEDS: CARVEDILOL 12.5 MG TAB PO SCH (07:38)
[2019-04-05] MEDS: metFORMIN 500 MG TAB PO SCH (07:38)
[2019-04-05] MEDS: ATORVASTATIN 20 MG TAB PO SCH (07:38)
--- NOTE | 2019-04-05 07:39 | XR ---
EXAMINATION TYPE: XR chest 1V portable DATE OF EXAM: 04/05/2019 HISTORY: CHF. REFERENCE: Previous study dated 04/04/2019. FINDINGS: The heart is enlarged. There is vascular congestion and pulmonary edema. Suspect small effu sions. IMPRESSION: CONTINUING CHANGES OF CONGESTIVE HEART FAILURE.
[2019-04-05] MEDS: IPRATROPIUM-ALBUTEROL 3 ML NEB INHALATION SCH ×2 (08:02→11:23)
[2019-04-05 08:06] LABS: Anisocytosis Slight; Basophils % (A) 1 %; Eosinophils # (A) 0.3 k/uL (0-0.7); Eosinophils % (A) 4 %; HCT 29.5 % (39.0-53.0); HGB 8.4 gm/dL (13.0-17.5); Hypochromasia Marked; Lymphocytes # (A) 0.5 k/uL (1.0-4.8); Lymphocytes % (A) 8 %; MCH 24.7 pg (25.0-35.0); MCHC 28.4 g/dL (31.0-37.0); MCV 86.7 fL (80.0-100.0); Mean Platelet Volume 7.6; Monocytes # (A) 0.4 k/uL (0-1.0); Monocytes % (A) 7 %; Neutrophils # (A) 4.8 k/uL (1.3-7.7); Neutrophils % (A) 78 %; Platelet Count 206 k/uL (150-450); Poikilocytosis Slight; RDW 19.5 % (11.5-15.5); WBC 6.1 k/uL (3.8-10.6)
[2019-04-05 08:20] LABS: African American GFR (CKD) >90 (>60 ml/min/1.73 sqM); Anion Gap 5 mmol/L; Blood Urea Nitrogen 19 mg/dL (9-20); Calcium 8.6 mg/dL (8.4-10.2); Carbon Dioxide 37 mmol/L (22-30); Chloride 97 mmol/L (98-107); Glucose 139 mg/dL (74-99); Potassium 4.1 mmol/L (3.5-5.1); Sodium 139 mmol/L (137-145)
--- NOTE | 2019-04-05 10:43 | P.PN ---
Subjective Progress Note Date: 04/05/19 53-year-old morbidly obese male patient with a BMI 56 with obvious features of obstructive sleep apnea and obesity hypoventilation syndrome who also has history of atrial fibrillation, hypertension and hyperlipidemia and diabetes mellitus. The patient presented yesterday because of significant volume ov erload as the patient stopped his Lasix for the past 2-3 weeks and he has gained significant amount of weight in excess of 20 pounds. He became progressively more short of breath. He presented to ED yesterday and the patient was also found to be anemic with a hemoglobin of 7.6. He did not have any acute GI bleed.His anemia is chronic. Has undergone previous EGD and colonoscopy in [facility] without any positive findings. Denied having any acute GI bleeding. Patient having any chest pain. He became progressively more short of breath mainly exertional. No dyspnea at rest. No cough or sputum production. No fever chills or night sweats. No pleurisy or hemoptysis. He has not had any previous history of DVT or pulmonary embolism. Overnight, the patient got transferred to the intensive care unit. He was given a unit of packed RBC. He was given a dose of Lasix 60 mg IV push. There was significant improvement following that the patient diuresed more than 4 L. He is not having any shortness of breath this morning. CAT scan of the chest was done yesterday that showed better pleural effusion and interstitial edema and pulmonary vessel congestion. Troponin times all was negative. TSH was 0.6. His subsequent hemoglobin is up to 8.5. He is currently receiving Lasix 40 mg by mouth twice a day. He is on 3 L of oxygen by nasal cannula with a pulse oximeter of 90%. No tachycardia. No fever. No hemodynamic instability. The BP is 150/75. On 04/05/2019 and seeing this patient for a follow-up. Overall the patient is doing well. He got transferred to the medical floor. He has no specific complaints. His been on oxygen which is currently at 6 L per minute cannula. The patient is still being diuresed. He underwent an echocardiogram that showed a normal LV function with an EF of around 55-60%. No significant valvular abnormalities. Chest x-ray from today shows small lung volumes and there is still pulmonary vessel congestion. The patient remains on IV Lasix. Hemoglobin is stable. might he is in a negative fluid balance of 1.6 L over the past 24 hours. His current weight is 172 KG's. His communicating. Denies having any chest pain. No fever or chills. He does have home oxygen. The serum iron was low at 9.1. Hematology consultation was requested. Objective - Vital Signs Vital signs: Vital Signs Temp 97.8 F 04/05/19 05:00 Pulse 68 04/05/19 08:13 Resp 20 04/05/19 05:00 BP 170/70 04/05/19 05:00 Pulse Ox 95 04/05/19 05:00 Intake & Output 04/04/19 04/05/19 04/05/19 18:59 06:59 18:59 Intake Total 1560 1000 200 Output Total 4175 0 Balance -2615 1000 200 Intake: Oral 1560 1000 200 Output: Urine 4175 0 Other: Voiding Method Toilet Toilet Urinal Urinal # Voids 1 2 # Bowel Movements 1 0 - Exam Amanda is obese, comfortable likely distress. Head exam was generally normal. There was no scleral icterus or corneal arcus. Mucous membranes were moist. Neck was supple and without jugular venous distension, thyromegaly, or carotid bruits. Carotids were easily palpable bilaterally. There was no adenopathy. Mild hepatic as for an significant crowding of posterior pharynx. Lungs sounds are diminished in lung bases bilaterally. Cardiac exam revealed the PMI to be normally situated and sized. The rhythm was regular and no extrasystoles were noted during several minutes of auscultation. The first and second heart sounds were normal and physiologic splitting of the second heart sound was noted. There were no murmurs, rubs, clicks, or gallops. Abdomen is soft CANNOT be accurately palpated due to morbid obesity. No direct tenderness about this or guarding. No ascites. Extremities reveal trace edema and there is no cyanosis or clubbing. Examination of the skin revealed no evidence of significant rashes, suspicious appearing nevi or other concerning lesions. Neurologically awake and alert and there is no focal logical deficits. - Labs CBC & Chem 7: 04/05/19 07:31 04/05/19 07:31 Labs: Abnormal Lab Results - Last 24 Hours (Table) 04/03/19 04/04/19 04/04/19 Range/Units 10:12 06:28 06:28 RBC (4.30-5.90) m/uL Hgb (13.0-17.5) gm/dL Hct (39.0-53.0) % MCH (25.0-35.0) pg MCHC (31.0-37.0) g/dL RDW (11.5-15.5) % Lymphocytes # (1.0-4.8) k/uL ESR 93 H (0-15) mm/hr Chloride (98-107) mmol/L Carbon Dioxide (22-30) mmol/L Glucose (74-99) mg/dL Iron 18 L (65-175) ug/dL Iron Saturation 5.14 L (15.00-50.00) C-Reactive Protein 64.3 H (<10.0) mg/L Total Protein (PEP) (6.2-8.2) g/dL 04/04/19 04/05/19 04/05/19 Range/Units 15:29 07:31 07:31 RBC 3.40 L (4.30-5.90) m/uL Hgb 8.4 L (13.0-17.5) gm/dL Hct 29.5 L (39.0-53.0) % MCH 24.7 L (25.0-35.0) pg MCHC 28.4 L (31.0-37.0) g/dL RDW 19.5 H (11.5-15.5) % Lymphocytes # 0.5 L (1.0-4.8) k/uL ESR (0-15) mm/hr Chloride 97 L (98-107) mmol/L Carbon Dioxide 37 H (22-30) mmol/L Glucose 139 H (74-99) mg/dL Iron (65-175) ug/dL Iron Saturation (15.00-50.00) C-Reactive Protein (<10.0) mg/L Total Protein (PEP) 5.7 L (6.2-8.2) g/dL Assessment and Plan Plan: 1 chronic dyspnea with acute exacerbation of shortness of breath likely secondary to fluid overload as the patient reports 20 pound weight gain while being off his diuretics. In addition the patient had worsening in his anemia which have contributed to her shortness of breath. Transfused with a unit of packed RBC. Given Lasix. Clinically improved. The patient continues to be on 6 L of oxygen by nasal cannula. This needs to be gradually weaned off. His chronic hypoxic and has chronic hypoxic and hypercapnic respiratory failure related to his obesity and a breast hypoventilation syndrome. His hemoglobin is stable. He was diagnosed having iron deficiency anemia. 2 chronic anemia with interval drop in hemoglobin. Currently under investigation. EGD and colonoscopy apparently done over the past year was negative. The patient was taken IV iron the past. The blood work shows iron deficiency and the serum total iron is 9. 3 history of atrial fibrillation current rhythm is sinus. Patient is on long- term anticoagulation. 4 diabetes mellitus 5 hypertension 6 hyperlipidemia 7 hypothyroidism 8 morbid obesity with BMI 56 9 structures sleep apnea and obesity hypoventilation syndrome not wearing a CPAP therapy at this point 10 diabetic peripheral neuropathy involving lower extremity 11 previous history of ventilator dependent respiratory failure due to complications of kidney failure 12 gout 13 major alcohol drinker Plan The patient needs to be started on iron replacement therapy. The patient is on oral Lasix 40 mg by mouth twice a day. He is diuresing well. We should be able to wean off his oxygen tubing and down below 5 L knowing that the patient is on 4 L at home. Discharge planning is in progress. Patient follow-up regarding noninvasive positive pressure ventilation regarding his obesity hypoventilation syndrome and treatment of his DELORES
[2019-04-05] MEDS ORDERED: guaiFENesin-DM 100-10MG/5ML 10 ML CUP PO PRN (10:57)
[2019-04-05 11:21] VITALS: BP 144/69; RESP 16; TEMP 98.5
[2019-04-05 11:38] VITALS: PULSE 70
--- NOTE | 2019-04-05 11:40 | P.PN ---
Subjective Progress Note Date: 04/05/19 Patient is a 53-year-old male with a past medical history significant for atrial fibrillation, anemia, diabetes, hypertension, dyslipidemia who presented with complaints of worsening shortness of breath and 20 pound weight gain. Patient states that he recently moved so he has been off of his Lasix 40 mg daily for the last 2-3 weeks. He has had progressively worsening shortness of breath on exertion and orthopnea. No palpitations or chest pain. He was also recently diagnosed with anemia and received a blood transfusion at [facility]. He underwent workup with an EGD and colonoscopy and states that there were no sources of bleeding found. States he follows with a inside sales territory manager in the [place] area. He had a stress test 3 years ago and it was negative per the patient. He does not believe he's ever had an angiogram. He has also been diagnosed with atrial fibrillation a few years ago and takes Xarelto. He was seen here in the emergency department about a month ago after he had been drinking heavily and fell. Echocardiogram at that time showed LV systolic function low normal with EF 50-55%. Upon presentation to the emergency department yesterday his oxygen saturation was 86%. Chest x-ray showed trace pleural effusions and mild pulmonary vascular prominence. EKG showed sinus mechanism with incomplete right bundle branch block, no acute ST or T-wave abnormalities. Chest CT showed bilateral pleural effusions concerning for possible pneumonia, interstitial pneumonitis, or mild venous congestion. Labs were significant for hemoglobin of 7.6. Troponin negative 1. TSH 0.654. He did receive a blood transfusion. He was transferred to the ICU and started on Lasix. 04/04/19 Breathing improved. Repeat echocardiogram. Add losartan 25 mg daily for blood pressure control and contiue Lasix. Continue to hold Xarelto for anemia. 04/05/19 patient states he is overall doing well. He only gets short of breath when he is up ambulating to the restroom without his oxygen. Continue current medication regimen, however we will consider increasing ARB for blood pressure management. his hemoglobin continues to be stable at 8.4. Objective - Vital Signs Vital signs: Vital Signs Temp 98.5 F 04/05/19 11:20 Pulse 72 04/05/19 11:24 Resp 16 04/05/19 11:20 BP 144/69 10/19/19 11:20 Pulse Ox 97 04/05/19 11:20 Intake & Output 04/04/19 04/05/19 04/05/19 18:59 06:59 18:59 Intake Total 1560 1000 200 Output Total 4175 0 Balance -2615 1000 200 Intake: Oral 1560 1000 200 Output: Urine 4175 0 Other: Voiding Method Toilet Toilet Urinal Urinal # Voids 1 2 # Bowel Movements 1 0 - Exam GENERAL: Well-appearing, well-nourished and in no acute distress. NECK: Supple without JVD or thyromegaly. LUNGS: Breath sounds clear to auscultation bilaterally. Respiration equal and unlabored. bilateral expiratory wheezes noted. No rales or rhonchi. HEART: Regular rate and rhythm without murmurs, rubs or gallops. S1 and S2 heard. EXTREMITIES: Normal range of motion, mild edema. No clubbing or cyanosis. Perip heral pulses intact and strong. - Labs CBC & Chem 7: 04/05/19 07:31 04/05/19 07:31 Labs: Abnormal Lab Results - Last 24 Hours (Table) 04/03/19 04/04/19 04/04/19 Range/Units 10:12 06:28 06:28 RBC (4.30-5.90) m/uL Hgb (13.0-17.5) gm/dL Hct (39.0-53.0) % MCH (25.0-35.0) pg MCHC (31.0-37.0) g/dL RDW (11.5-15.5) % Lymphocytes # (1.0-4.8) k/uL ESR 93 H (0-15) mm/hr Chloride (98-107) mmol/L Carbon Dioxide (22-30) mmol/L Glucose (74-99) mg/dL Iron 18 L (65-175) ug/dL Iron Saturation 5.14 L (15.00-50.00) C-Reactive Protein 64.3 H (<10.0) mg/L Total Protein (PEP) (6.2-8.2) g/dL 04/04/19 04/05/19 04/05/19 Range/Units 15:29 07:31 07:31 RBC 3.40 L (4.30-5.90) m/uL Hgb 8.4 L (13.0-17.5) gm/dL Hct 29.5 L (39.0-53.0) % MCH 24.7 L (25.0-35.0) pg MCHC 28.4 L (31.0-37.0) g/dL RDW 19.5 H (11.5-15.5) % Lymphocytes # 0.5 L (1.0-4.8) k/uL ESR (0-15) mm/hr Chloride 97 L (98-107) mmol/L Carbon Dioxide 37 H (22-30) mmol/L Glucose 139 H (74-99) mg/dL Iron (65-175) ug/dL Iron Saturation (15.00-50.00) C-Reactive Protein (<10.0) mg/L Total Protein (PEP) 5.7 L (6.2-8.2) g/dL Assessment and Plan Assessment: Increased shortness of breath likely secondary to combination of anemia and fluid overload Bilateral pleural effusions Anemia status post blood transfusion, hemoglobin 8.5 History of atrial fibrillation, anticoagulation on hold secondary to anemia Diabetes Hypertension, uncontrolled Plan: echocardiogram to be performed today. No changes to current medication regimen. Continue to monitor.
[2019-04-05 11:45] LABS: Immunoglobulin M 83.7 mg/dL (40.0-280.0)
[2019-04-05] MEDS ORDERED: FUROSEMIDE 40 MG TAB PO SCH (16:00)
--- NOTE | 2019-04-06 00:54 | P.PN ---
Subjective Progress Note Date: 04/03/19 The patient denies any new complaints. No fever/chills/nausea/ vomiting. No obvious bleeding. No or recurrence of chest pain or shortness of breath Objective - Vital Signs Vital signs: Vital Signs Temp 98.5 F 04/05/19 11:20 Pulse 70 04/05/19 11:37 Resp 16 04/05/19 11:20 BP 144/69 04/05/19 11:20 Pulse Ox 97 04/05/19 11:20 Intake & Output 04/05/19 04/05/19 04/06/19 06:59 18:59 06:59 Intake Total 1000 200 Output Total 0 Balance 1000 200 Intake: Oral 1000 200 Output: Urine 0 Other: Voiding Method Toilet Urinal # Voids 2 # Bowel Movements 0 - Constitutional General appearance: Present: no acute distress - EENT Eyes: Present: EOMI ENT: Present: hearing grossly normal, normal oropharynx - Respiratory Respiratory: bilateral: CTA - Cardiovascular Rhythm: regular Heart sounds: normal: S1, S2 - Gastrointestinal General gastrointestinal: Present: normal bowel sounds, soft - Integumentary Integumentary: Present: normal - Neurologic Neurologic: Present: CNII-XII intact - Musculoskeletal Musculoskeletal: Present: generalized weakness, strength equal bilaterally - Labs CBC & Chem 7: 04/05/19 07:31 04/05/19 07:31 Labs: Abnormal Lab Results - Last 24 Hours (Table) 04/04/19 04/05/19 04/05/19 Range/Units 15:29 07:31 07:31 RBC 3.40 L (4.30-5.90) m/uL Hgb 8.4 L (13.0-17.5) gm/dL Hct 29.5 L (39.0-53.0) % MCH 24.7 L (25.0-35.0) pg MCHC 28.4 L (31.0-37.0) g/dL RDW 19.5 H (11.5-15.5) % Lymphocytes # 0.5 L (1.0-4.8) k/uL Haptoglobin 302.0 H (31.2-198.0) mg/dL Chloride 97 L (98-107) mmol/L Carbon Dioxide 37 H (22-30) mmol/L Glucose 139 H (74-99) mg/dL Total Protein (PEP) 5.7 L (6.2-8.2) g/dL Free [place] LC, Quant 6.90 H (0.33-1.94) mg/dL Free Lambda LC, Quant 5.97 H (0.57-2.63) mg/dL Assessment and Plan (1) Anemia Narrative/Plan: labs indicate iron deficiency. This is despite treatment having received blood transfusions recently. 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 Plan IV iron as outpatient Status: Acute Code(s): D64.9 - ANEMIA, UNSPECIFIED SNOMED Code(s): 158427516 (2) Chest pain Narrative/Plan: this has resolved and not recurred. Symptoms may improve as hemoglobin recovers as expected after IV iron Status: Acute Code(s): R07.9 - CHEST PAIN, UNSPECIFIED SNOMED Code(s): 81176522
--- NOTE | 2019-04-07 00:35 | P.DS ---
Providers Date of admission: 04/03/19 11:45 Expected date of discharge: 04/05/19 Attending physician: Eugenio Ramos Consults: 04/03/19 22:06 Consult Physician Routine Consulting Provider: Giorgio Bishop Consult Reason/Comments: Dyspnea Do you want consulting provider notified?: Yes, Notify in am 04/03/19 22:07 Consult Physician Routine Consulting Provider: Stanton Zeng Consult Reason/Comments: Dyspnea Do you want consulting provider notified?: Yes, Notify in am 04/04/19 11:25 Consult Physician Routine Consulting Provider: Nehemiah Henderson Consult Reason/Comments: Chronic anemia Do you want consulting provider notified?: Yes 04/04/19 21:42 Consult Physician Routine Consulting Provider: Dana Cavazos Consult Reason/Comments: Anemia Do you want consulting provider notified?: Yes Primary care physician: Levar Crystal [facility] Course: Chief Complaint: Short of breath Hospital course: This is a 53-year-old patient, who follows with Dr. Crystal. Chronic stable medical conditions include paroxysmal atrial fibrillation for which she's on 02, diabetes mellitus type 2, hypertension, hyperlipidemia, hypothyroid, chronic low back pain. Patient is a long-standing history of increased alcohol intake. For last 2 weeks patient's process of moving about 2 miles from his current residence. Because he was busy with the moving, he decided not to drink any alcohol also not take his Lasix. He progressively became very short of breath. No cough no fever no chills. Increasing edema lower extremity. More bloating of the abdomen. Was admitted for pulmonary edema. Was admitted to the medical floor. That became more hypoxic and was transferred to the ICU. Dr. Bishop. Did receive IV Lasix and diuresed well. Breathing improved. Patient very keen to go home. We'll follow with his consultants. Anemia felt to be from chronic GI bleed. Consultants: Dr. Henderson from hematology Dr. Bravo from cardiology Dr. Bishop from pulmonary Physical examination: VITAL SIGNS: 98.5, 69, 16, 144/69, 97% on room air GENERAL: Sitting up in a chair, comfortable EYES: Pupils equal. Conjunctiva normal. HEENT: External appearance of nose and ears normal, oral cavity grossly normal. NECK: JVD unable to assess; masses not palpable. HEART: Distant heart sounds, edema present;. LUNGS: Respiratory rate increased, distant breath sounds. ABDOMEN: Soft, distended, nontender, liver spleen not palpable, no masses palpable. PSYCH: Alert and oriented x3; mood and affect normal. INVESTIGATIONS, reviewed in the clinical context: White count 6.1 hemoglobin 8.4 crit is 206 creatinine 0.97 Previous testing White count 6.2 hemoglobin 7.6 MCV 25.6 platelets 193 progression 4.7. 15 creatinine 0.96 proBNP 631 EKG tracing personally reviewed by me-right bundle-branch block 2-D echo-EF 55-60% Chest x-ray film-personally reviewed by me shows pulmonary edema Chest CTA negative for any probably fibrosis Hyaline lower 18 iron saturation low at 5.14 TIBC 354 rate normal TSH 0.654 lety B12 604 Free couple light chain increased at 6.90, free lambda light chain increased at 5.97 Discharge diagnosis: -Acute on chronic congestive heart failure from diastolic dysfunction EF 55-60% -Morbid obesity BMI 56.3 -History of excessive chronic alcohol intake -Macrocytic anemia cause undetermined, could be a slow bleed GI tract lesion. Note that patient is on Xarelto -Paroxysmal atrial fibrillation, chronically anticoagulated -Diabetes because type II on oral hypoglycemic -Hyperlipidemia -Essential hypertension -Hypothyroid -Chronic low back pain from arthritis Disposition: Home Patient Condition at Discharge: Stable Plan - Discharge Summary Discharge Rx Participant: No New Discharge Prescriptions: New Melatonin 3 mg PO HS #30 tablet Continue Gabapentin 600 mg PO TID Albuterol Inhaler [Ventolin Hfa Inhaler] 2 puff INHALATION RT-Q4H PRN PRN Reason: Shortness Of Breath Levothyroxine Sodium [Synthroid] 50 mcg PO DAILY Carvedilol [Coreg*] 12.5 mg PO BID metFORMIN HCL [metFORMIN HCL ER] 1,000 mg PO BID Rivaroxaban [Xarelto] 20 mg PO HS Potassium Chloride ER [K-Dur 20] 20 meq PO HS Furosemide [Lasix] 40 mg PO BID Atorvastatin [Lipitor] 20 mg PO QAM Multivitamins, Thera [Multivitamin (formulary)] 1 tab PO HS Fluticasone Nasal [place] [Flonase Nasal [place]] 1 spray EA NOSTRIL DAILY Acetaminophen Tab [Tylenol] 325 mg PO Q4H PRN PRN Reason: Pain Cetirizine HCl [Zyrtec] 10 mg PO DAILY Allopurinol [Zyloprim] 300 mg PO DAILY Discontinued diphenhydrAMINE HCL [Benadryl] 25 mg PO HS Discharge Medication List Albuterol Inhaler [Ventolin Hfa Inhaler] 2 puff INHALATION RT-Q4H PRN 04/08/15 [History] Carvedilol [Coreg*] 12.5 mg PO BID 04/08/15 [History] Gabapentin 600 mg PO TID 04/08/15 [History] Levothyroxine Sodium [Synthroid] 50 mcg PO DAILY 04/08/15 [History] metFORMIN HCL [metFORMIN HCL ER] 1,000 mg PO BID 04/08/15 [History] Atorvastatin [Lipitor] 20 mg PO QAM 02/18/18 [History] Furosemide [Lasix] 40 mg PO BID 02/18/18 [History] Potassium Chloride ER [K-Dur 20] 20 meq PO HS 02/18/18 [History] Rivaroxaban [Xarelto] 20 mg PO HS 02/18/18 [History] Acetaminophen Tab [Tylenol] 325 mg PO Q4H PRN 04/03/19 [History] Allopurinol [Zyloprim] 300 mg PO DAILY 04/03/19 [History] Cetirizine HCl [Zyrtec] 10 mg PO DAILY 04/03/19 [History] Fluticasone Nasal [place] [Flonase Nasal [place]] 1 spray EA NOSTRIL DAILY 04/03/19 [History] Multivitamins, Thera [Multivitamin (formulary)] 1 tab PO HS 04/03/19 [History] Melatonin 3 mg PO HS #30 tablet 04/05/19 [Rx] Follow up Appointment(s)/Referral(s): [facility] [Other] - 1 Week Nehemiah Henderson MD [STAFF PHYSICIAN] - 1 Week Levar Crystal MD [Primary Care Provider] - 1-2 days [facility] [NON-STAFF] - As Needed (Provider that can work through your insurance to supply home and portable oxygen concentration if you choose to change DME suppliers. ) Ambulatory/Diagnostic Orders: Basic Metabolic Panel [LAB.AMB] Time Frame: 3 Days, Location: None Selected Complete Blood Count w/diff [LAB.AMB] Time Frame: 3 Days, Location: None Selected Patient Instructions/Handouts: Heart Failure (DC), Iron Deficiency Anemia (DC) Discharge Disposition: HOME SELF-CARE
[2019-04-09 11:34] LABS: Gamma Globulin 1.01 g/dL (0.70-1.50)
== END 2019-04-05 13:00 | disposition home or self-care (01) | DRG 292 ==
LOC: EC 09:02 → 4SSUR 11:45 → 2SICU 04-04 06:43 → 4MS4W 04-04 14:16
PROVIDERS: ADMIT Hospitalist; ATTEND Hospitalist
PROC: 30233N1 Transfusion of Nonautologous Red Blood Cells into Peripheral Vein, Percutaneous Approach (ICD-10-PCS; principal; 2019-04-03)
DX: I11.0 Hypertensive heart disease with heart failure (principal); E66.2 Morbid (severe) obesity with alveolar hypoventilation; Z68.43 Body mass index [BMI] 50.0-59.9, adult; I50.33 Acute on chronic diastolic (congestive) heart failure; D50.9 Iron deficiency anemia, unspecified; D53.9 Nutritional anemia, unspecified; E03.9 Hypothyroidism, unspecified; E11.9 Type 2 diabetes mellitus without complications; E78.5 Hyperlipidemia, unspecified; G89.29 Other chronic pain; I45.10 Unspecified right bundle-branch block; I48.0 Paroxysmal atrial fibrillation; J44.9 Chronic obstructive pulmonary disease, unspecified; K55.20 Angiodysplasia of colon without hemorrhage; M19.90 Unspecified osteoarthritis, unspecified site; R09.02 Hypoxemia; Z79.01 Long term (current) use of anticoagulants; Z79.890 Hormone replacement therapy; Z79.899 Other long term (current) drug therapy; Z87.891 Personal history of nicotine dependence; Z79.51 Long term (current) use of inhaled steroids; Z86.14 Personal history of Methicillin resistant Staphylococcus aureus infection; Y63.6 Underdosing and nonadministration of necessary drug, medicament or biological substance; M54.5 Low back pain
CPT/HCPCS: 36415; 36430; 71045; 71046; 71250; 80048; 81001; 82272; 82607; 82668; 82728; 82746; 82784; 83010; 83540; 83550; 83615; 83880; 83883; 83921; 84132; 84165; 84443; 84484; 85025; 85045; 85610; 85652; 86038; 86140; 86334; 86431; 86850; 86900; 86901; 86920; 93005; 93306; 94640; 94760; 99285

== ENCOUNTER 2020-02-23 14:36 | Inpatient (IN) | payer OTHER ==
[2020-02-23 15:37] LABS: Anisocytosis Slight; Basophils % (A) 0 %; Eosinophils # (A) 0.5 k/uL (0-0.7); Eosinophils % (A) 6 %; HCT 23.1 % (39.0-53.0); Hypochromasia Marked; Lymphocytes # (A) 0.2 k/uL (1.0-4.8); Lymphocytes % (A) 3 %; MCHC 28.8 g/dL (31.0-37.0); MCV 83.3 fL (80.0-100.0); Mean Platelet Volume 9.1; Monocytes # (A) 0.3 k/uL (0-1.0); Monocytes % (A) 4 %; Neutrophils # (A) 6.4 k/uL (1.3-7.7); Neutrophils % (A) 85 %; Platelet Count 196 k/uL (150-450); RBC 2.77 m/uL (4.30-5.90); RDW 17.5 % (11.5-15.5); WBC 7.5 k/uL (3.8-10.6)
[2020-02-23 15:38] LABS: HGB 6.7 gm/dL (13.0-17.5)
[2020-02-23 15:39] LABS: Partial Thromboplastin Time 30.2 sec (22.0-30.0); Prothrombin Time 10.5 sec (9.0-12.0)
[2020-02-23 15:47] LABS: Albumin 3.2 g/dL (3.5-5.0); Calcium 8.1 mg/dL (8.4-10.2); Potassium 4.6 mmol/L (3.5-5.1); Total Bilirubin 0.5 mg/dL (0.2-1.3); Total Protein 6.2 g/dL (6.3-8.2)
--- NOTE | 2020-02-23 15:53 | XR ---
EXAMINATION TYPE: XR chest 2V DATE OF EXAM: 02/23/2020 COMPARISON: 04/05/2019 HISTORY: 54 year-old male shortness of breath, difficulty breathing TECHNIQUE: AP and lateral views FINDINGS: Heart is mild to moderately enlarged. Diffuse interstitial/vascular prominence. Trace effusions on th e lateral view. IMPRESSION: Mild to moderate cardiomegaly with vascular prominence and trace effusions. Correlate for mild CHF.
--- NOTE | 2020-02-23 16:11 | ED ---
SOB HPI - General Chief Complaint: Shortness of Breath Stated Complaint: JONE Time Seen by Provider: 02/23/20 14:40 Source: patient, EMS Mode of arrival: EMS Limitations: no limitations - History of Present Illness Initial Comments: Patient is a 54-year-old male with past medical history of A. fib, COPD, diabetes, chronically on 3 L of home O2 presents emergency room with reported shortness of breath. Patient reports that for the past week he has been extremely weak and short of breath. Reports exertional shortness of breath. Denies any chest pain. Admits cough, chills with productive yellow sputum. Also has concern for covid as he has been exposed to positive contacts. Patient admits to chronic lower externally swelling which is mildly worse. Does have a history of heart failure and is on Lasix. Has been taking his medications as directed. Patient has had history of similar in the past. Reported that he was anemic and required blood transfusion 2. Patient does not know the reason behind his anemia. He continues to takes her also for his A. fib. Denies any melanic stools or hematochezia. No hematuria. Denies hemoptysis. Review the patient's chart demonstrates anemia felt to be chronic GI bleed. - Related Data Home Medications Medication Instructions Recorded Confirmed Gabapentin 600 mg PO TID@0830,1430,202904/08/15 02/23/20 Levothyroxine Sodium [Synthroid] 50 mcg PO QAM 04/08/15 02/23/20 carvediloL [Coreg*] 12.5 mg PO BID@0830,202904/08/15 02/23/20 Atorvastatin [Lipitor] 20 mg PO QAM 02/18/18 02/23/20 Furosemide [Lasix] 40 mg PO BID@0830,202902/18/18 02/23/20 Rivaroxaban [Xarelto] 20 mg PO HS 02/18/18 02/23/20 Acetaminophen Tab [Tylenol] 325 mg PO Q4H PRN 04/03/19 02/23/20 Cetirizine HCl [Zyrtec] 10 mg PO QAM 04/03/19 02/23/20 Fluticasone Nasal [place] [Flonase 1 spray EA NOSTRIL DAILY PRN 04/03/19 02/23/20 Nasal [place]] Multivitamins, Thera [Multivitamin 1 tab PO HS 04/03/19 02/23/20 (formulary)] allopurinoL [Zyloprim] 300 mg PO HS 04/03/19 02/23/20 Albuterol Inhaler [Ventolin Hfa 2 puff INHALATION RT-Q4H PRN 02/23/20 02/23/20 Inhaler] Cholecalciferol [Vitamin D3 (25 2,000 unit PO HS 02/23/20 02/23/20 Mcg = 1000 Iu)] Fluticasone/Salmeterol 1 puff INHALATION RT-BID 02/23/20 02/23/20 [Fluticasone-Salmeterol 232-14] Losartan [Cozaar] 25 mg PO QAM 02/23/20 02/23/20 Omeprazole [PriLOSEC] 40 mg PO QAM 02/23/20 02/23/20 Vitamin E 450mg 1 tab PO HS 02/23/20 02/23/20 diphenhydrAMINE [Benadryl] 50 mg PO HS 02/23/20 02/23/20 metFORMIN HCL 1,000 mg PO BID@0830,2030 02/23/20 02/23/20 Allergies Allergy/AdvReac Type Severity Reaction Status Date / Time No Known Allergies Allergy Verified 02/23/20 20:38 Review of Systems ROS Statement: Those systems with pertinent positive or pertinent negative responses have been documented in the HPI. ROS Other: All systems not noted in ROS Statement are negative. Past Medical History Past Medical History: Atrial Fibrillation, Heart Failure, COPD, Diabetes Mellitus, Hyperlipidemia, Hypertension, Thyroid Disorder Additional Past Medical History / Comment(s): NIDDM type II, neuropathy bilateral feet, 2012 acute respiratory failure-d/t obesity/hypoventilatory syndrome/DELORES/bronchospasms, DELORES-pt states he has not been wearing device lately, trach/vent-had renal failure with dialysis for 5 weeks, chronic anemia, hypothyroid, gout L arm, pt states he is a binge drinker. History of Any Multi-Drug Resistant Organisms: MRSA Date of last positivie culture/infection: 2012 MDRO Source:: bronchial washing Past Surgical History: Orthopedic Surgery, Tonsillectomy Additional Past Surgical History / Comment(s): EGD, colonoscopies, R knee arthroscopy, R shoulder arthroscopy, trach, peg, BAL left lower lobe, cardioversion. Past Anesthesia/Blood Transfusion Reactions: No Reported Reaction Additional Past Anesthesia/Blood Transfusion Reaction / Comment(s): Pt has received blood in past without reaction. Past Psychological History: No Psychological Hx Reported Smoking Status: Former smoker Past Alcohol Use History: Abuse, Heavy Past Drug Use History: None Reported - Past Family History Father History Unknown: Yes Family Medical History: No Reported History Mother Family Medical History: No Reported History Additional Family Medical History / Comment(s): Mother is healthy. General Exam Limitations: no limitations General appearance: alert, in no apparent distress, obese Head exam: Present: atraumatic, normocephalic, normal inspection Eye exam: Present: normal appearance, PERRL, EOMI. Absent: scleral icterus, conjunctival injection, periorbital swelling ENT exam: Present: normal exam, mucous membranes moist Neck exam: Present: normal inspection. Absent: tenderness, meningismus, lymphadenopathy Respiratory exam: Present: normal lung sounds bilaterally. Absent: respiratory distress, wheezes, rales, rhonchi, stridor Cardiovascular Exam: Present: regular rate, normal rhythm, normal heart sounds. Absent: systolic murmur, diastolic murmur, rubs, gallop, clicks GI/Abdominal exam: Present: soft, normal bowel sounds. Absent: distended, te nderness, guarding, rebound, rigid Extremities exam: Present: normal inspection, full ROM, normal capillary refill. Absent: tenderness, pedal edema, joint swelling, calf tenderness Back exam: Present: normal inspection Neurological exam: Present: alert, oriented X3, CN II-XII intact Psychiatric exam: Present: normal affect, normal mood Skin exam: Present: warm, dry, intact, normal color. 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 A thorough history and physical exam was performed. Peripheral IV is established. 12-lead EKG is performed which demonstrates of the patient's in a controlled A. fib rhythm. Laboratory studies were conducted which demonstrates a hemoglobin of 6.7. This is fall from patient's previous value of 8.4. Sodium 134. BUN 164. Creatinine 6.4. BNP elevated at 4810. A fecal occult was performed and is negative. Patient has no pain in his abdomen. Denies any retention. He was given a 500 mL bolus because his prerenal azotemia. Cort[place] was placed. Specimen sent for urinalysis. I discussed case with Dr. Mathew who accepted admission for the patient. Patient was informed of all of his laboratory results. He did consent for transfusion of 1 unit of blood. Patient remains in hemodynamically stable condition. Dr. Angulo presents to the emergency department to evaluate the patient. Patient is awaiting transfer to the floor in stable condition - Lab Data Result diagrams: 02/28/20 06:15 02/28/20 06:15 Lab Results 02/23/20 02/23/20 02/23/20 Range/Units 15:23 15:23 15:23 WBC 7.5 (3.8-10.6) k/uL RBC 2.77 L (4.30-5.90) m/uL Hgb 6.7 L* (13.0-17.5) gm/dL Hct 23.1 L (39.0-53.0) % MCV 83.3 (80.0-100.0) fL MCH 24.0 L (25.0-35.0) pg MCHC 28.8 L (31.0-37.0) g/dL RDW 17.5 H (11.5-15.5) % Plt Count 196 (150-450) k/uL Neutrophils % 85 % Lymphocytes % 3 % Monocytes % 4 % Eosinophils % 6 % Basophils % 0 % Neutrophils # 6.4 (1.3-7.7) k/uL Lymphocytes # 0.2 L (1.0-4.8) k/uL Monocytes # 0.3 (0-1.0) k/uL Eosinophils # 0.5 (0-0.7) k/uL Basophils # 0.0 (0-0.2) k/uL Hypochromasia Marked Anisocytosis Slight PT 10.5 (9.0-12.0) sec INR 1.0 (<1.2) APTT 30.2 H (22.0-30.0) sec Sodium 134 L (137-145) mmol/L Potassium 4.6 (3.5-5.1) mmol/L Chloride 93 L (98-107) mmol/L Carbon Dioxide 27 (22-30) mmol/L Anion Gap 14 mmol/L BUN 164 H* (9-20) mg/dL Creatinine 6.45 H (0.66-1.25) mg/dL Est GFR (CKD-EPI)AfAm 10 (>60 ml/min/1.73 sqM) Est GFR (CKD-EPI)NonAf 9 (>60 ml/min/1.73 sqM) Glucose 175 H (74-99) mg/dL Plasma Lactic Acid Ishan (0.7-2.0) mmol/L Calcium 8.1 L (8.4-10.2) mg/dL Total Bilirubin 0.5 (0.2-1.3) mg/dL AST 16 L (17-59) U/L ALT 10 (4-49) U/L Alkaline Phosphatase 99 (38-126) U/L Creatine Kinase 37 L (55-170) U/L Troponin I (0.000-0.034) ng/mL NT-Pro-B Natriuret Pep pg/mL Total Protein 6.2 L (6.3-8.2) g/dL Albumin 3.2 L (3.5-5.0) g/dL Stool Occult Blood (Negative) Coronavirus (PCR) (Not Detected) 02/23/20 02/23/20 02/23/20 Range/Units 15:23 15:23 15:23 WBC (3.8-10.6) k/uL RBC (4.30-5.90) m/uL Hgb (13.0-17.5) gm/dL Hct (39.0-53.0) % MCV (80.0-100.0) fL MCH (25.0-35.0) pg MCHC (31.0-37.0) g/dL RDW (11.5-15.5) % Plt Count (150-450) k/uL Neutrophils % % Lymphocytes % % Monocytes % % Eosinophils % % Basophils % % Neutrophils # (1.3-7.7) k/uL Lymphocytes # (1.0-4.8) k/uL Monocytes # (0-1.0) k/uL Eosinophils # (0-0.7) k/uL Basophils # (0-0.2) k/uL Hypochromasia Anisocytosis PT (9.0-12.0) sec INR (<1.2) APTT (22.0-30.0) sec Sodium (137-145) mmol/L Potassium (3.5-5.1) mmol/L Chloride (98-107) mmol/L Carbon Dioxide (22-30) mmol/L Anion Gap mmol/L BUN (9-20) mg/dL Creatinine (0.66-1.25) mg/dL Est GFR (CKD-EPI)AfAm (>60 ml/min/1.73 sqM) Est GFR (CKD-EPI)NonAf (>60 ml/min/1.73 sqM) Glucose (74-99) mg/dL Plasma Lactic Acid Ishan 0.9 (0.7-2.0) mmol/L Calcium (8.4-10.2) mg/dL Total Bilirubin (0.2-1.3) mg/dL AST (17-59) U/L ALT (4-49) U/L Alkaline Phosphatase (38-126) U/L Creatine Kinase (55-170) U/L Troponin I <0.012 (0.000-0.034) ng/mL NT-Pro-B Natriuret Pep 4810 pg/mL Total Protein (6.3-8.2) g/dL Albumin (3.5-5.0) g/dL Stool Occult Blood (Negative) Coronavirus (PCR) (Not Detected) 02/23/20 02/23/20 Range/Units 15:23 16:14 WBC (3.8-10.6) k/uL RBC (4.30-5.90) m/uL Hgb (13.0-17.5) gm/dL Hct (39.0-53.0) % MCV (80.0-100.0) fL MCH (25.0-35.0) pg MCHC (31.0-37.0) g/dL RDW (11.5-15.5) % Plt Count (150-450) k/uL Neutrophils % % Lymphocytes % % Monocytes % % Eosinophils % % Basophils % % Neutrophils # (1.3-7.7) k/uL Lymphocytes # (1.0-4.8) k/uL Monocytes # (0-1.0) k/uL Eosinophils # (0-0.7) k/uL Basophils # (0-0.2) k/uL Hypochromasia Anisocytosis PT (9.0-12.0) sec INR (<1.2) APTT (22.0-30.0) sec Sodium (137-145) mmol/L Potassium (3.5-5.1) mmol/L Chloride (98-107) mmol/L Carbon Dioxide (22-30) mmol/L Anion Gap mmol/L BUN (9-20) mg/dL Creatinine (0.66-1.25) mg/dL Est GFR (CKD-EPI)AfAm (>60 ml/min/1.73 sqM) Est GFR (CKD-EPI)NonAf (>60 ml/min/1.73 sqM) Glucose (74-99) mg/dL Plasma Lactic Acid Ishan (0.7-2.0) mmol/L Calcium (8.4-10.2) mg/dL Total Bilirubin (0.2-1.3) mg/dL AST (17-59) U/L ALT (4-49) U/L Alkaline Phosphatase (38-126) U/L Creatine Kinase (55-170) U/L Troponin I (0.000-0.034) ng/mL NT-Pro-B Natriuret Pep pg/mL Total Protein (6.3-8.2) g/dL Albumin (3.5-5.0) g/dL Stool Occult Blood Negative (Negative) Coronavirus (PCR) Not Detected (Not Detected) - EKG Data EKG Comments: EKG demonstrates A. fib with a ventricular rate of 92. QRS 120. QTC is 457. No specific elevations or depressions concerning for ischemic changes Critical Care Time Critical Care Time: Yes Critical Care Time: 32 minutes Disposition Clinical Impression: Anemia, Congestive heart failure, GI bleed, PRIYANKA (acute kidney injury), Prerenal azotemia Disposition: ADMITTED IP TO THIS HOSP Condition: Serious Is patient prescribed a controlled substance at d/c from ED?: No Decision to Admit Reason: Admit from EC Decision Date: 02/23/20 Decision Time: 16:23
[2020-02-23] MEDS ORDERED: SODIUM CHLORIDE 0.9% 500 ML 500 ML IV ONE (16:24)
[2020-02-23] MEDS ORDERED: NALOXONE 0.4 MG/ML 1 ML VIAL IV PRN ×2 (16:40→17:15)
[2020-02-23] MEDS ORDERED: SODIUM CHLORIDE 0.9% 1,000 ML IV SCH (16:45)
[2020-02-23] MEDS ORDERED: FUROSEMIDE 10 MG/ML 4 ML VIAL IV PRN (17:17)
[2020-02-23 17:57] LABS: Amorphous Sediment,Urine Rare /hpf; Appearance,Urine Clear (Clear); Bacteria,Urine Rare /hpf; Bilirubin,Urine Negative (Negative); Blood,Urine Negative (Negative); Color,Urine Light Yellow; Glucose,Urine (UA) Negative (Negative); Ketones,Urine Negative (Negative); Leukocyte Esterase,Urine Small (Negative); Mucus,Urine Rare /hpf; Nitrite,Urine Negative (Negative); Protein,Urine Negative (Negative); RBC,Urine 4 /hpf (0-5); Specific Gravity,Urine 1.012 (1.001-1.035); Urobilinogen,Urine <2.0 mg/dL (<2.0); WBC,Urine 5 /hpf (0-5)
--- NOTE | 2020-02-23 17:58 | P.HPIM ---
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 Patient tells me that for the last week he's been experiencing increasing swelling in his legs, belly, and has felt acutely short of breath with even minimal exertion. In addition to this is also felt disoriented upon sitting or standing and immediate short of breath, much better on his baseline. He tells me that preceding the symptoms, approximately 10 days ago he had a viral type syndrome and thought he had the flu, has never been tested for covid. During that episode he had fevers, chills, muscle aches, however, has since recovered from the symptoms. He denies sick contacts with coronavirus. Presently, he complains of headache, dyspnea on exertion, orthopnea. Otherwise, denies: There is, chills, nausea, vomiting, chest pain, abdominal pain, dysuria, dyschezia, loss of appetite, numbness/weakness of the extremities. On arrival patient was afebrile, 134/56, heart rate 102, 100% requiring 4 L of nasal cannula. CBC is significant for hemoglobin of 6.7 down from previous value of 8.4, lymphopenia of 0.2, PTT of 30. Chemistries are remarkable for sodium of 134, chloride of 93, BUN 164, creatinine of 6.5, glucose 175. Calcium was 8.1. Lactic acid was 0.9. BNP was 4810. Troponin was negative. LFTs are otherwise at baseline. Fecal occult blood was negative. Chest x-ray showed significant vascular congestion as well as cardiomegaly and trace bilateral pleural effusions. Review of Systems All Systems reviewed and pertinent positives and negatives noted in HPI, all other symptoms are negative Past Medical History Past Medical History: Atrial Fibrillation, Heart Failure, COPD, Diabetes Mellitus, Hyperlipidemia, Hypertension, Thyroid Disorder Additional Past Medical History / Comment(s): NIDDM type II, neuropathy bilat eral feet, 2013 acute respiratory failure-d/t obesity/hypoventilatory syndrome/DELORES/bronchospasms, DELORES-pt states he has not been wearing device lately, trach/vent-had renal failure with dialysis for 5 weeks, chronic anemia, hypothyroid, gout L arm, pt states he is a binge drinker. History of Any Multi-Drug Resistant Organisms: MRSA Date of last positivie culture/infection: 2012 MDRO Source:: bronchial washing Past Surgical History: Orthopedic Surgery, Tonsillectomy Additional Past Surgical History / Comment(s): EGD, colonoscopies, R knee arthroscopy, R shoulder arthroscopy, trach, peg, BAL left lower lobe, cardioversion. Past Anesthesia/Blood Transfusion Reactions: No Reported Reaction Additional Past Anesthesia/Blood Transfusion Reaction / Comment(s): Pt has received blood in past without reaction. Past Psychological History: No Psychological Hx Reported Smoking Status: Former smoker Past Alcohol Use History: Abuse, Heavy Past Drug Use History: None Reported - Past Family History Father History Unknown: Yes Family Medical History: No Reported History Mother Family Medical History: No Reported History Additional Family Medical History / Comment(s): Mother is healthy. Medications and Allergies Home Medications Medication Instructions Recorded Confirmed Type Albuterol Inhaler (Mhu) [Ventolin 2 puff INHALATION RT-Q4H PRN 04/08/15 04/03/19 History Hfa Inhaler (Mhu)] Gabapentin 600 mg PO TID 04/08/15 04/03/19 History Levothyroxine Sodium [Synthroid] 50 mcg PO DAILY 04/08/15 04/03/19 History carvediloL [Coreg*] 12.5 mg PO BID 04/08/15 04/03/19 History metFORMIN HCL [metFORMIN HCL ER] 1,000 mg PO BID 04/08/15 04/03/19 History Atorvastatin [Lipitor] 20 mg PO QAM 02/18/18 04/03/19 History Furosemide [Lasix] 40 mg PO BID 02/18/18 04/03/19 History Potassium Chloride ER [K-Dur 20] 20 meq PO HS 02/18/18 04/03/19 History Rivaroxaban [Xarelto] 20 mg PO HS 02/18/18 04/03/19 History Acetaminophen Tab [Tylenol] 325 mg PO Q4H PRN 04/03/19 04/03/19 History Cetirizine HCl [Zyrtec] 10 mg PO DAILY 04/03/19 04/03/19 History Fluticasone Nasal [place] [Flonase 1 spray EA NOSTRIL DAILY 04/03/19 04/03/19 History Nasal [place]] Multivitamins, Thera [Multivitamin 1 tab PO HS 04/03/19 04/03/19 History (formulary)] allopurinoL [Zyloprim] 300 mg PO DAILY 04/03/19 04/03/19 History Melatonin 3 mg PO HS #30 tablet 04/05/19 Rx Allergies Allergy/AdvReac Type Severity Reaction Status Date / Time No Known Allergies Allergy Verified 04/03/19 09:51 Physical Exam Osteopathic Statement: *. No significant issues noted on an osteopathic structural exam other than those noted in the History and Physical/Consult. Vitals: Vital Signs Temp Pulse Resp BP Pulse Ox 02/23/20 16:18 22 02/23/20 14:41 98.2 F 102 H 22 134/56 100 Intake and Output 02/23/20 02/23/20 02/23/20 06:59 14:59 22:59 Other: Weight 178.262 kg Gen: awake, alert, obese HEENT: normocephalic, atraumatic, good hearing acuity, moist mucous membranes Resp: Diffuse posterior crackles and end-expiratory wheezing, no accessory muscle use CVS: good distal perfusion x 4, RRR, no murmurs, clicks, gallops GI: soft, NTTP, ND : no SPT, no CVAT, collazo catheter not present MSK: + pitting edema, no clubbing Neuro: non-focal, no sensory deficits, appropriate tone Psych: cooperative, euthymic mood Results CBC & Chem 7: 02/23/20 15:23 02/23/20 15:23 Labs: Abnormal Lab Results - Last 24 Hours (Table) 02/23/20 02/23/20 02/23/20 Range/Units 15:23 15:23 15:23 RBC 2.77 L (4.30-5.90) m/uL Hgb 6.7 L* (13.0-17.5) gm/dL Hct 23.1 L (39.0-53.0) % MCH 24.0 L (25.0-35.0) pg MCHC 28.8 L (31.0-37.0) g/dL RDW 17.5 H (11.5-15.5) % Lymphocytes # 0.2 L (1.0-4.8) k/uL APTT 30.2 H (22.0-30.0) sec Sodium 134 L (137-145) mmol/L Chloride 93 L (98-107) mmol/L BUN 164 H* (9-20) mg/dL Creatinine 6.45 H (0.66-1.25) mg/dL Glucose 175 H (74-99) mg/dL Calcium 8.1 L (8.4-10.2) mg/dL AST 16 L (17-59) U/L Creatine Kinase 37 L (55-170) U/L Total Protein 6.2 L (6.3-8.2) g/dL Albumin 3.2 L (3.5-5.0) g/dL Assessment and Plan Assessment: 1. Acute on chronic hypoxemic respiratory failure 2. Acute on chronic diastolic heart failure exacerbation 3. Acute kidney injury 4. COPD exacerbation 5. Anemia of chronic disease 6. Chronic atrial fibrillation, rate controlled 7. Obstructive sleep apnea/obesity hypoventilation syndrome 8. 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 Type 2 diabetes, uncontrolled with polyneuropathy 10. Hypertension, essential 11. Hyperlipidemia 12. 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 Plan: #RF #HF #PRIYANKA #Anemia - I/Os, daily weights - repeat echocardiogram to ensure no reduction in EF in this last week or pericardial fluid - lasix 60mg IV BID, anticipate improvement in kidney function with optimization of overall fluid status, but monitor closely - nephrology c/s - cardiology c/s - oxygen PRN, now requiring 4L to baseline 3L of oxygen - PT/OT - transfuse for goal Hgb > 7, 1U PRBCs (02/22) - GI c/s to rule out GI Bleed, low suspicion given chronicity and negative FOBT - will hold xarelto, resume if appropriate response to blood transfusion #COPD #DELORES/OHS #Pulmonary HTN - duonebs q4h - will hold off on steroids/abx as I anticipate improvement with diuretics - pulm c/s #DM Type II - accuchecks qAC/HS - low dose SSI aspart Chronic Conditions: #HTN #HLD #Hypothyroidism - will reconcile remaining home meds pending confirmation of med history DNAR DVT PPx: deferred for anemia I expended greater than 60 minutes in the care of this patient.
[2020-02-23] MEDS: INSULIN ASPART (NovoLOG) 100 UNIT/ML VIAL SQ SCH (19:26)
[2020-02-23] MEDS: ACETAMINOPHEN TAB 325 MG TAB PO PRN (19:59)
[2020-02-23] MEDS: IPRATROPIUM-ALBUTEROL 3 ML NEB INHALATION SCH ×2 (20:15→23:38)
[2020-02-23 20:19] LABS: Glucose,Whole Blood 180 mg/dL (75-99)
[2020-02-23] MEDS ORDERED: ACETAMINOPHEN TAB 325 MG TAB PO PRN (22:09)
[2020-02-23] MEDS ORDERED: MORPHINE SULFATE 4 MG/ML SYRINGE IVP PRN (22:18)
[2020-02-23] MEDS: diphenhydrAMINE 25 MG CAP PO SCH (23:10)
[2020-02-23] MEDS: carvediloL 12.5 MG TAB PO SCH (23:10)
[2020-02-23] MEDS: FUROSEMIDE 10 MG/ML 10 ML VIAL IV SCH (23:11)
[2020-02-23] MEDS: PANTOPRAZOLE 40 MG TABLET PO SCH (23:21)
[2020-02-24] MEDS: IPRATROPIUM-ALBUTEROL 3 ML NEB INHALATION SCH ×5 (03:47→20:00)
[2020-02-24 06:16] LABS: Glucose,Whole Blood 128 mg/dL (75-99)
[2020-02-24] MEDS: INSULIN ASPART (NovoLOG) 100 UNIT/ML VIAL SQ SCH ×3 (06:31→17:18)
[2020-02-24] MEDS: LEVOTHYROXINE 50 MCG TAB PO SCH (06:36)
[2020-02-24] MEDS: PANTOPRAZOLE 40 MG TABLET PO SCH ×2 (06:49→17:18)
[2020-02-24 07:14] LABS: Anisocytosis Slight; Basophils % (A) 1 %; Eosinophils # (A) 0.5 k/uL (0-0.7); Eosinophils % (A) 9 %; HCT 22.7 % (39.0-53.0); Hypochromasia Marked; Lymphocytes # (A) 0.4 k/uL (1.0-4.8); Lymphocytes % (A) 7 %; MCH 24.4 pg (25.0-35.0); MCHC 29.4 g/dL (31.0-37.0); MCV 83.1 fL (80.0-100.0); Mean Platelet Volume 7.8; Monocytes # (A) 0.4 k/uL (0-1.0); Monocytes % (A) 7 %; Neutrophils # (A) 4.5 k/uL (1.3-7.7); Neutrophils % (A) 75 %; Platelet Count 189 k/uL (150-450); RBC 2.73 m/uL (4.30-5.90); RDW 17.3 % (11.5-15.5)
[2020-02-24 07:37] LABS: HGB 6.7 gm/dL (13.0-17.5)
[2020-02-24 07:44] LABS: Calcium 7.5 mg/dL (8.4-10.2); Magnesium 1.9 mg/dL (1.6-2.3); Potassium 4.7 mmol/L (3.5-5.1)
[2020-02-24] MEDS: Fluticasone/Salmeterol [Fluticasone-Salmeterol 232-14] 1 PUFF INHALATION SCH ×2 (08:05→20:00)
[2020-02-24] MEDS: ATORVASTATIN 20 MG TAB PO SCH (08:21)
[2020-02-24] MEDS: carvediloL 12.5 MG TAB PO SCH ×2 (08:21→21:29)
[2020-02-24] MEDS: LORATADINE 10 MG TAB PO SCH (08:21)
[2020-02-24 09:06] LABS: C Reactive Protein 163.4 mg/L (<10.0)
--- NOTE | 2020-02-24 10:15 | US ---
EXAMINATION TYPE: US venous doppler duplex LE DATE OF EXAM: 02/24/2020 8:53 AM COMPARISON: NONE CLINICAL HISTORY: swelling, high d-dimer. SIDE PERFORMED: Bilateral TECHNIQUE: The lower extremity deep venous system is examined utilizing real time linear array sonog sebastian with graded compression, doppler sonography and color-flow sonography. VESSELS IMAGED: Femoral Vein Popliteal Vein Small Saphenous Vein * Patient morbidly obese with limited mobility. Unable to lift his panus for technologist. Right Leg: Appears negative for DVT in this very limited exam due to technical difficulties. The onl y vessels able to be visualized were femoral vein and popliteal vein in color doppler only. Left Leg: Appears negative for DVT in this very limited exam due to technical difficulties. The only vessels able to be visualized were femoral vein and popliteal vein in color doppler only. Grayscale, color doppler, spectral doppler imaging performed of the deep veins of the bilateral lower extremities as attempted. IMPRESSION: Suboptimal study, no ultrasound evidence for acute DVT on images saved. Bilateral lower extremity pain however cannot be visualized in their entirety.
--- NOTE | 2020-02-24 10:23 | US ---
EXAMINATION TYPE: US kidneys/renal and bladder DATE OF EXAM: 02/24/2020 COMPARISON: Renal ultrasound April 18, 2013. CLINICAL HISTORY: PRIYANKA. EXAM MEASUREMENTS: Right Kidney: 12.7 x 6.6 x 6.2 cm Left Kidney: 14.2 x 6.8 x 6.9 cm Morbidly obese patient, technically difficult very limited study. Right Kidney: no obvious masses, unable to well assess, measures large Left Kidney: no obvious masses, unable to well assess, measures large Bladder: unable to visualize/patient large panus prohibits this. Suboptimal study due to patient's large body habitus. No obvious concerning solid or cystic renal mas s on the images saved. Kidneys remain normal in size without hydronephrosis. Bladder cannot be assess ed. IMPRESSION: Suboptimal study without hydronephrosis noted bilaterally.
--- NOTE | 2020-02-24 11:03 | P.CRDCN ---
History of Present Illness Consult date: 02/24/20 History of present illness: CHIEF COMPLAINT: Heart failure, A. fib HISTORY OF PRESENT ILLNESS: 54-year-old male with history of atrial fibrillation, congestive heart failure, COPD, diabetes mellitus, hyperlipidemia, hypertension, COPD with home O2 use, and obstructive sleep apnea who presented to the emergency room with a chief complaint short of breath. Patient follows up outpatient with Dr. Bravo's physician construction management assistant. Patient examined this point I think. He reports he has been feeling short of breath for the last 7 days. He states his shortness got worse yesterday so he came to the ER for evaluation. He also reports swelling in his lower extremities. He denies chest pain or pressure. Denies palpitations. Patient's creatinine was 6.45 on admission. His creatinine 2019 was 0.97. Patient states he has an appointment outpatient with a seating upholsterer soon. Patient's hemoglobin was also found to be 6.7 on admission. He takes Xarelto for his atrial fibrillation. He denies any bright red blood in his stools or dark tarry stools. He received 1 unit of RBCs yesterday. Repeat hemoglobin today is 6.7. DIAGNOSTICS: EKG reveals atrial fibrillation. Heart rate 92. Chest xray mild to moderate cardiomegaly with vascular prominence and trace effusions. Correlate for mild CHF Laboratory data: WBC 6.0. Hemoglobin 6.7. Platelet count 189. Sodium 134. Potassium 4.7. BUN 162. Creatinine 6.80. Troponin negative 1. BNP 4810. Current home cardiac medications include Coreg 12.5 mg twice a day, Lasix 40 mg by mouth twice a day, Cozaar 25 mg daily, Xarelto 20 mg daily, and Lipitor 20 mg daily REVIEW OF SYSTEMS: CONSTITUTIONAL: Denies fever or chills. HEENT: Denies blurred vision, vision changes, or eye pain. Denies hemoptysis CARDIOVASCULAR: Denies chest pain, orthopnea, PND or palpitations RESPIRATORY: Reports shortness of breath. GASTROINTESTINAL: Denies abdominal pain. Denies nausea or vomiting. HEMATOLOGIC: Denies bleeding disorders. GENITOURINARY: Denies any blood in urine. SKIN: Denies pruitis. Denies rash. PHYSICAL EXAM: VITAL SIGNS: Reviewed. GENERAL: Well-developed in no acute distress. HEENT: Head is normocephalic. Pupils are equal, round. Sclerae anicteric. Mucous membranes of the mouth are moist. Neck supple. No JVD or thyromegaly LUNGS: Respirations even and unlabored. Lungs essentially clear to auscultation bilaterally. HEART: Irregular rate and rhythm. S1 and S2 heard. ABDOMEN: Soft. Nondistended. Nontender. EXTREMITIES: Normal range of motion. No clubbing or cyanosis. Peripheral pulses intact. 2-3+ bilateral lower extremity edema NEUROLOGIC: Awake and alert. Oriented x 3. ASSESSMENT: Acute exacerbation of diastolic congestive heart failure, ejection fraction 55-6 0% in 2019 Chronic atrial fibrillation, on long-term anticoagulation with Xarelto Anemia, rule out acute blood loss anemia Acute kidney injury Hypertension Hyperlipidemia COPD with home O2 use Obstructive sleep apnea Diabetes mellitus, type II Morbid obesity: BMI 58.0 Alcohol abuse PLAN: Continue IV Lasix Daily weight Accurate I&O Nephrology consulted for evaluation of PRIYANKA Dr. Cavazos consulted for anemia. Await evaluation Repeat 2-D echo to assess cardiac structure and function Nurse practitioner note has been reviewed by physician. Signing provider agrees with the documented findings, assessment, and plan of care. Past Medical History Past Medical History: Atrial Fibrillation, Heart Failure, COPD, Diabetes Mellitus, Hyperlipidemia, Hypertension, Thyroid Disorder Additional Past Medical History / Comment(s): NIDDM type II, neuropathy bilateral feet, 2012 acute respiratory failure-d/t obesity/hypoventilatory syndrome/DELORES/bronchospasms, DELORES-pt states he has not been wearing device lately, trach/vent-had renal failure with dialysis for 5 weeks, chronic anemia, hypothyroid, gout L arm, pt states he is a binge drinker. History of Any Multi-Drug Resistant Organisms: MRSA Date of last positivie culture/infection: 2012 MDRO Source:: bronchial washing Past Surgical History: Orthopedic Surgery, Tonsillectomy Additional Past Surgical History / Comment(s): EGD, colonoscopies, R knee arthroscopy, R shoulder arthroscopy, trach, peg, BAL left lower lobe, cardioversion. Past Anesthesia/Blood Transfusion Reactions: No Reported Reaction Additional Past Anesthesia/Blood Transfusion Reaction / Comment(s): Pt has received blood in past without reaction. Past Psychological History: No Psychological Hx Reported Smoking Status: Former smoker Past Alcohol Use History: Abuse, Heavy Past Drug Use History: None Reported - Past Family History Father History Unknown: Yes Family Medical History: No Reported History Mother Family Medical History: No Reported History Additional Family Medical History / Comment(s): Mother is healthy. Medications and Allergies Home Medications Medication Instructions Recorded Confirmed Type Gabapentin 600 mg PO TID@0830,1430,202904/08/15 02/23/20 History Levothyroxine Sodium [Synthroid] 50 mcg PO QAM 04/08/15 02/23/20 History carvediloL [Coreg*] 12.5 mg PO BID@0830,202904/08/15 02/23/20 History Atorvastatin [Lipitor] 20 mg PO QAM 02/18/18 02/23/20 History Furosemide [Lasix] 40 mg PO BID@0830,202902/18/18 02/23/20 History Rivaroxaban [Xarelto] 20 mg PO HS 02/18/18 02/23/20 History Acetaminophen Tab [Tylenol] 325 mg PO Q4H PRN 04/03/19 02/23/20 History Cetirizine HCl [Zyrtec] 10 mg PO QAM 04/03/19 02/23/20 History Fluticasone Nasal [place] [Flonase 1 spray EA NOSTRIL DAILY PRN 04/03/19 02/23/20 History Nasal [place]] Multivitamins, Thera [Multivitamin 1 tab PO 04/03/19 02/23/20 History (formulary)] allopurinoL [Zyloprim] 300 mg PO 04/03/19 02/23/20 History Albuterol Inhaler [Ventolin Hfa 2 puff INHALATION RT-Q4H PRN 02/23/20 02/23/20 History Inhaler] Cholecalciferol [Vitamin D3 (25 2,000 unit PO 02/23/20 02/23/20 History Mcg = 1000 Iu)] Fluticasone/Salmeterol 1 puff INHALATION RT-BID 02/23/20 02/23/20 History [Fluticasone-Salmeterol 232-14] Losartan [Cozaar] 25 mg PO QAM 02/23/20 02/23/20 History Omeprazole [PriLOSEC] 40 mg PO QAM 02/23/20 02/23/20 History Vitamin E 450mg 1 tab PO 02/23/20 02/23/20 History diphenhydrAMINE [Benadryl] 50 mg PO HS 02/23/20 02/23/20 History metFORMIN HCL 1,000 mg PO BID@0830,2030 02/23/20 02/23/20 History Allergies Allergy/AdvReac Type Severity Reaction Status Date / Time No Known Allergies Allergy Verified 02/23/20 20:38 Physical Exam Vitals: Vital Signs Temp Pulse Pulse Resp BP BP Pulse Ox 02/24/20 08:00 97.8 F 103 H 16 116/49 100 02/24/20 04:41 98.3 F 18 L 18 114/72 02/24/20 04:00 98.3 F 88 18 112/60 98 02/24/20 02:20 98 18 119/60 02/24/20 02:05 97.7 F 97 18 93/50 02/24/20 01:35 97.9 F 97 16 132/65 98 02/24/20 01:25 98.7 F 89 18 117/14 97 02/24/20 00:00 97.8 F 96 18 145/95 96 02/23/20 20:24 78 02/23/20 20:16 76 02/23/20 20:00 20 02/23/20 19:53 98.2 F 91 20 129/58 99 02/23/20 17:30 98.2 F 909 H 19 94/59 98 02/23/20 16:54 98.1 F 86 18 146/65 94 L 02/23/20 16:18 22 02/23/20 14:41 98.2 F 102 H 22 134/56 100 Intake and Output 02/23/20 02/24/20 02/24/20 22:59 06:59 14:59 Intake Total 1930 240 Output Total 550 700 Balance -550 1230 240 Intake: Oral 1620 240 Blood Product 310 Rc As-3 Unit 310 [id number] Output: Urine 550 700 Uretheral ([place]) 550 Other: Voiding Method Indwelling Catheter Indwelling Catheter Weight 178.262 kg Results 02/24/20 06:13 02/24/20 06:13 Cardiac Enzymes 02/23/20 02/23/20 02/24/20 Range/Units 15:23 15:23 06:13 AST 16 L (17-59) U/L Lactate Dehydrogenase 376 (313-618) U/L Troponin I <0.012 (0.000-0.034) ng/mL Coagulation 02/23/20 Range/Units 15:23 PT 10.5 (9.0-12.0) sec APTT 30.2 H (22.0-30.0) sec CBC 02/23/20 02/24/20 Range/Units 15:23 06:13 WBC 7.5 6.0 (3.8-10.6) k/uL RBC 2.77 L 2.73 L (4.30-5.90) m/uL Hgb 6.7 L* 6.7 L* (13.0-17.5) gm/dL Hct 23.1 L 22.7 L (39.0-53.0) % Plt Count 196 189 (150-450) k/uL Comprehensive Metabolic Panel 02/23/20 02/24/20 Range/Units 15:23 06:13 Sodium 134 L 134 L (137-145) mmol/L Potassium 4.6 4.7 (3.5-5.1) mmol/L Chloride 93 L 92 L (98-107) mmol/L Carbon Dioxide 27 29 (22-30) mmol/L BUN 164 H* 162 H* (9-20) mg/dL Creatinine 6.45 H 6.80 H (0.66-1.25) mg/dL Glucose 175 H 112 H (74-99) mg/dL Calcium 8.1 L 7.5 L (8.4-10.2) mg/dL AST 16 L (17-59) U/L ALT 10 (4-49) U/L Alkaline Phosphatase 99 (38-126) U/L Total Protein 6.2 L (6.3-8.2) g/dL Albumin 3.2 L (3.5-5.0) g/dL Current Medications Generic Name Dose Route Start Last Admin Trade Name Freq PRN Reason Stop Dose Admin Acetaminophen 650 mg 02/23/20 17:17 02/23/20 19:59 Tylenol Tab PO 650 mg Q6HR PRN Administration Mild Pain or Fever > 100.5 Acetaminophen 325 mg 02/23/20 22:09 Tylenol Tab PO Q4H PRN Pain Albuterol/Ipratropium 3 ml 02/23/20 20:00 02/24/20 08:04 Duoneb 0.5 Mg-3 Mg/3 Ml Soln INHALATION 3 ml RT-Q4H [facility] Administration Atorvastatin Calcium 20 mg 02/24/20 09:00 02/24/20 08:21 Lipitor PO 20 mg QAM [facility] Administration Carvedilol 12.5 mg 02/23/20 22:09 02/24/20 08:21 Coreg PO 12.5 mg BID@0830,2030 [facility] Administration Diphenhydramine HCl 50 mg 02/23/20 22:15 02/23/20 23:10 Benadryl PO 50 mg HS [facility] Administration Furosemide 60 mg 02/23/20 21:00 02/23/20 23:11 Lasix IV 60 mg Q12HR [facility] Administration Insulin Aspart 0 unit 02/23/20 17:30 02/24/20 06:31 Novolog SQ Not Given AC-TID [facility] Protocol Levothyroxine Sodium 50 mcg 02/24/20 06:30 02/24/20 06:36 Synthroid PO 50 mcg QAM@0630 [facility] Administration Loratadine 10 mg 02/24/20 09:00 02/24/20 08:21 Claritin PO 10 mg QAM [facility] Administration Morphine Sulfate 4 mg 02/23/20 22:18 02/23/20 23:10 Morphine Sulfate (Inj) IVP 4 mg Q4HR PRN Administration Pain Naloxone HCl 0.2 mg 02/23/20 16:40 Narcan IV Q2M PRN Opioid Reversal Naloxone HCl 0.2 mg 02/23/20 17:15 Narcan IV Q2M PRN Opioid Reversal Fluticasone/ 1 puff 02/24/20 08:00 02/24/20 08:05 Salmeterol [ INHALATION Not Given Fluticasone- RT-BID [facility] Salmeterol 232-14] 1 Puff Pantoprazole Sodium 40 mg 02/23/20 22:30 02/24/20 06:49 Protonix PO 40 mg AC-BID [facility] Administration Intake and Output 02/23/20 02/24/20 02/24/20 22:59 06:59 14:59 Intake Total 1930 240 Output Total 550 700 Balance -550 1230 240 Intake: Oral 1620 240 Blood Product 310 Rc As-3 Unit 310 [id number] Output: Urine 550 700 Uretheral ([place]) 550 Other: Voiding Method Indwelling Catheter Indwelling Catheter Weight 178.262 kg 02/24/20 06:13 02/24/20 06:13
[2020-02-24 11:08] LABS: Ferritin 78.1 ng/mL (22.0-322.0)
--- NOTE | 2020-02-24 11:18 | P.NPCON ---
History of Present Illness - Reason for Consult acute renal failure - History of Present Illness Reason for consultation: Acute kidney injury History of present illness: Patient is a 54-year-old male seen in renal consultation for acute kidney injury. Patient's creatinine in March 2019 was near 1. He was elevated at 6.45 this admission and is 6.8 today. Patient presented to the hospital for shortness of breath and generalized weakness. He denies any melena or hematochezia. Good urine output. No hematuria or dysuria. Currently has a Cortez catheter. Nonoliguric. Chest x-ray suggestive of fluid overload. He does have history of diabetes and is maintained on metformin. Denies use of nonsteroidals. Denies family history of renal disease. Oral intake is good. No vomiting or diarrhea. Hemoglobin was 6.7 on admission and he did receive a unit of blood on admission and is currently receiving second unit. No fever or chills. No cough. Vital signs are stable. General: The patient appeared well nourished and normally developed. HEENT: Head exam is unremarkable. Neck is without jugular venous distension. LUNGS: Breath sounds decreased. HEART: Rate and Rhythm are regular. ABDOMEN: Soft, nontender. Obese. EXTREMITITES: 1+ edema. Past Medical History Past Medical History: Atrial Fibrillation, Heart Failure, COPD, Diabetes Mellitus, Hyperlipidemia, Hypertension, Thyroid Disorder Additional Past Medical History / Comment(s): NIDDM type II, neuropathy bilateral feet, 2012 acute respiratory failure-d/t obesity/hypoventilatory syndrome/DELORES/bronchospasms, DELORES-pt states he has not been wearing device lately, trach/vent-had renal failure with dialysis for 5 weeks, chronic anemia, hypothyroid, gout L arm, pt states he is a binge drinker. History of Any Multi-Drug Resistant Organisms: MRSA Date of last positivie culture/infection: 2012 MDRO Source:: bronchial washing Past Surgical History: Orthopedic Surgery, Tonsillectomy Additional Past Surgical History / Comment(s): EGD, colonoscopies, R knee arthroscopy, R shoulder arthroscopy, trach, peg, BAL left lower lobe, cardioversion. Past Anesthesia/Blood Transfusion Reactions: No Reported Reaction Additional Past Anesthesia/Blood Transfusion Reaction / Comment(s): Pt has received blood in past without reaction. Past Psychological History: No Psychological Hx Reported Smoking Status: Former smoker Past Alcohol Use History: Abuse, Heavy Past Drug Use History: None Reported - Past Family History Father History Unknown: Yes Family Medical History: No Reported History Mother Family Medical History: No Reported History Additional Family Medical History / Comment(s): Mother is healthy. Medications and Allergies Home Medications Medication Instructions Recorded Confirmed Type Gabapentin 600 mg PO TID@0830,1430,202904/08/15 02/23/20 History Levothyroxine Sodium [Synthroid] 50 mcg PO QAM 04/08/15 02/23/20 History carvediloL [Coreg*] 12.5 mg PO BID@0830,202904/08/15 02/23/20 History Atorvastatin [Lipitor] 20 mg PO QAM 02/18/18 02/23/20 History Furosemide [Lasix] 40 mg PO BID@0830,202902/18/18 02/23/20 History Rivaroxaban [Xarelto] 20 mg PO 02/18/18 02/23/20 History Acetaminophen Tab [Tylenol] 325 mg PO Q4H PRN 04/03/19 02/23/20 History Cetirizine HCl [Zyrtec] 10 mg PO QAM 04/03/19 02/23/20 History Fluticasone Nasal [place] [Flonase 1 spray EA NOSTRIL DAILY PRN 04/03/19 02/23/20 History Nasal [place]] Multivitamins, Thera [Multivitamin 1 tab PO 04/03/19 02/23/20 History (formulary)] allopurinoL [Zyloprim] 300 mg PO 04/03/19 02/23/20 History Albuterol Inhaler [Ventolin Hfa 2 puff INHALATION RT-Q4H PRN 02/23/20 02/23/20 History Inhaler] Cholecalciferol [Vitamin D3 (25 2,000 unit PO HS 02/23/20 02/23/20 History Mcg = 1000 Iu)] Fluticasone/Salmeterol 1 puff INHALATION RT-BID 02/23/20 02/23/20 History [Fluticasone-Salmeterol 232-14] Losartan [Cozaar] 25 mg PO QAM 02/23/20 02/23/20 History Omeprazole [PriLOSEC] 40 mg PO QAM 02/23/20 02/23/20 History Vitamin E 450mg 1 tab PO HS 02/23/20 02/23/20 History diphenhydrAMINE [Benadryl] 50 mg PO HS 02/23/20 02/23/20 History metFORMIN HCL 1,000 mg PO BID@0830,2030 02/23/20 02/23/20 History Allergies Allergy/AdvReac Type Severity Reaction Status Date / Time No Known Allergies Allergy Verified 02/23/20 20:38 Physical Exam Vitals: Vital Signs Temp Pulse Pulse Resp BP BP Pulse Ox 02/24/20 11:05 97.6 F 91 18 118/51 97 02/24/20 10:55 98.3 F 86 16 99/46 97 02/24/20 08:00 97.8 F 103 H 16 116/49 100 02/24/20 04:41 98.3 F 18 L 18 114/72 02/24/20 04:00 98.3 F 88 18 112/60 98 02/24/20 02:20 98 18 119/60 02/24/20 02:05 97.7 F 97 18 93/50 02/24/20 01:35 97.9 F 97 16 132/65 98 02/24/20 01:25 98.7 F 89 18 117/14 97 02/24/20 00:00 97.8 F 96 18 145/95 96 02/23/20 20:24 78 02/23/20 20:16 76 02/23/20 20:00 20 02/23/20 19:53 98.2 F 91 20 129/58 99 02/23/20 17:30 98.2 F 909 H 19 94/59 98 02/23/20 16:54 98.1 F 86 18 146/65 94 L 02/23/20 16:18 22 02/23/20 14:41 98.2 F 102 H 22 134/56 100 Intake and Output 02/23/20 02/24/20 02/24/20 22:59 06:59 14:59 Intake Total 1930 240 Output Total 550 700 Balance -550 1230 240 Intake: Oral 1620 240 Blood Product 310 0 Rc As-1 Unit 0 [id number] Rc As-3 Unit 310 [id number] Output: Urine 550 700 Uretheral ([place]ez) 550 Other: Voiding Method Indwelling Catheter Indwelling Catheter Indwelling Catheter Weight 178.262 kg Results - Lab Results Most recent lab results Calcium 7.5 mg/dL (8.4-10.2) L 02/24/20 06:13 Magnesium 1.9 mg/dL (1.6-2.3) 02/24/20 06:13 02/24/20 06:13 02/24/20 06:13 Assessment and Plan Plan: Assessment: 1. Acute kidney injury secondary to ATN secondary to acute blood loss anemia. Also component of cardiorenal syndrome. Creatinine 6.8 today. Baseline creatinine near 1 from March 2019. No evidence of hydronephrosis noted on kidney ultrasound. 2. Acute blood loss anemia. Hemoglobin 6.7. Currently receiving second unit of blood. GI consulted. 3. Fluid overload. 4. CHF. Prior ejection fraction normal. Plan: Maintain IV Lasix 60 mg twice daily. Monitor hemoglobin and transfuse as needed. IV DDAVP 1 dose today. Add Aranesp. Follow-up echocardiogram. No urgent need for renal replacement therapy at this time. Continue to assess on daily basis. Discussed with the patient. Thank you for the consultation. I will continue to follow the patient with you during his hospital stay.
[2020-02-24] MEDS ORDERED: DESMOPRESSIN ACETATE 22 MCG in SODIUM CHLORIDE 0.9% 50 ML IVPB ONE (11:30)
[2020-02-24 12:23] LABS: Glucose,Whole Blood 140 mg/dL (75-99)
--- NOTE | 2020-02-24 13:00 | ECHOF ---
Referral Reason:cardiomyopathy MEASUREMENTS -------- HEIGHT: 152.4 cm WEIGHT: 181.4 kg BP: RVIDd: 3.9 cm (< 3.3) IVSd: 1.2 cm (0.6 - 1.1) LVIDd: 5.9 cm (3.9 - 5.3) LVPWd: 1.4 cm (0.6 - 1.1) IVSs: 1.5 cm LVIDs: 5.6 cm LVPWs: 1.6 cm LA Diam: 4.5 cm (2.7 - 3.8) Ao Diam: 3.4 cm (2.0 - 3.7) FINDINGS -------- Sinus rhythm. Morbid Obesity This was a techncally difficult study with suboptimal views, , Lumason utilized for enhancement of im ages. The left ventricular size is normal. Overall left ventricular systolic function is low-normal with, an EF between 50 - 55 %. The right ventricle is moderately enlarged. The left atrium is moderately dilated. The right atrial size is normal. 5.0mg OF Lumason UTLIZED: 2 OR MORE WALL SEGMENTS NOT VISUALIZED. The aortic valve was not well visualized. The mitral valve was not well visualized. The tricuspid valve was not well visualized. The pulmonic valve was not well visualized. The aortic root size is normal. There is a small, generalized pericardial effusion present. CONCLUSIONS -------- 1. Morbid Obesity 2. This was a techncally difficult study with suboptimal views, , Lumason utilized for enhancement of images. 3. The left ventricular size is normal. 4. Overall left ventricular systolic function is low-normal with, an EF between 50 - 55 %. 5. The right ventricle is moderately enlarged. 6. The left atrium is moderately dilated. 7. The right atrial size is normal. 8. 5.0mg OF Lumason UTLIZED: 2 OR MORE WALL SEGMENTS NOT VISUALIZED. 9. The aortic valve was not well visualized. 10. The mitral valve was not well visualized. 11. The tricuspid valve was not well visualized. 12. The pulmonic valve was not well visualized. 13. The aortic root size is normal. 14. There is a small, generalized pericardial effusion present. JV BASEBALL COACH: Brianna Naqvi RDCS
[2020-02-24] MEDS: FUROSEMIDE 10 MG/ML 10 ML VIAL IV SCH ×2 (13:29→21:29)
[2020-02-24 16:48] LABS: Glucose,Whole Blood 162 mg/dL (75-99)
[2020-02-24] MEDS: DARBEPOETIN ALFA 40 MCG/0.4 ML SYRINGE SQ SCH (16:59)
--- NOTE | 2020-02-24 17:26 | P.PN ---
Subjective Progress Note Date: 02/24/20 Patient is awake and alert. Hemoglobin remained low despite one unit of blood transfusion last night. No improvement in his creatinine. No evidence of GI bleed. Objective - Vital Signs Vital signs: Vital Signs Temp 97.7 F 02/24/20 16:39 Pulse 100 02/24/20 16:39 Resp 17 02/24/20 16:39 BP 96/56 02/24/20 16:39 Pulse Ox 93 L 02/24/20 16:39 Intake & Output 02/23/20 02/24/20 02/24/20 18:59 06:59 18:59 Intake Total 1930 650 Output Total 550 700 350 Balance -550 1230 300 Weight 178.262 kg Intake: Oral 1620 340 Blood Product 310 310 Rc As-1 Unit 310 [id number] Rc As-3 Unit 310 [id number] Output: Urine 550 700 350 Uretheral ([place]) 550 Other: Voiding Method Indwelling Catheter Indwelling Catheter - Exam General: The patient is awake and alert, in no distress Eye: there is normal conjunctiva bilaterally. Neck: The neck is supple, there is no JVD. Cardiovascular: Normal S1-S2, no S3-S4, no murmurs. Respiratory: Lungs clear to auscultation bilaterally Gastrointestinal: Abdomen is soft, nontender Musculoskeletal: There is +2 pedal edema. Neurological:. Speech is normal. Skin: Skin is warm and dry - Labs CBC & Chem 7: 02/24/20 06:13 02/24/20 06:13 Labs: Abnormal Lab Results - Last 24 Hours (Table) 02/23/20 02/23/20 02/23/20 Range/Units 16:45 16:47 20:18 RBC (4.30-5.90) m/uL Hgb (13.0-17.5) gm/dL Hct (39.0-53.0) % MCH (25.0-35.0) pg MCHC (31.0-37.0) g/dL RDW (11.5-15.5) % Lymphocytes # (1.0-4.8) k/uL D-Dimer (<0.60) mg/L FEU Sodium (137-145) mmol/L Chloride (98-107) mmol/L BUN (9-20) mg/dL Creatinine (0.66-1.25) mg/dL Glucose (74-99) mg/dL POC Glucose (mg/dL) 180 H (75-99) mg/dL Calcium (8.4-10.2) mg/dL C-Reactive Protein (<10.0) mg/L Procalcitonin (0.02-0.09) ng/mL Ur Leukocyte Esterase Small H (Negative) Amorphous Sediment Rare H (None) /hpf Urine Bacteria Rare H (None) /hpf Urine Mucus Rare H (None) /hpf Crossmatch See Detail 02/24/20 02/24/20 02/24/20 Range/Units 06:13 06:13 06:13 RBC (4.30-5.90) m/uL Hgb (13.0-17.5) gm/dL Hct (39.0-53.0) % MCH (25.0-35.0) pg MCHC (31.0-37.0) g/dL RDW (11.5-15.5) % Lymphocytes # (1.0-4.8) k/uL D-Dimer 1.62 H (<0.60) mg/L FEU Sodium 134 L (137-145) mmol/L Chloride 92 L (98-107) mmol/L BUN 162 H* (9-20) mg/dL Creatinine 6.80 H (0.66-1.25) mg/dL Glucose 112 H (74-99) mg/dL POC Glucose (mg/dL) (75-99) mg/dL Calcium 7.5 L (8.4-10.2) mg/dL C-Reactive Protein 163.4 H (<10.0) mg/L Procalcitonin 0.58 H (0.02-0.09) ng/mL Ur Leukocyte Esterase (Negative) Amorphous Sediment (None) /hpf Urine Bacteria (None) /hpf Urine Mucus (None) /hpf Crossmatch 02/24/20 02/24/20 02/24/20 Range/Units 06:13 06:14 12:21 RBC 2.73 L (4.30-5.90) m/uL Hgb 6.7 L* (13.0-17.5) gm/dL Hct 22.7 L (39.0-53.0) % MCH 24.4 L (25.0-35.0) pg MCHC 29.4 L (31.0-37.0) g/dL RDW 17.3 H (11.5-15.5) % Lymphocytes # 0.4 L (1.0-4.8) k/uL D-Dimer (<0.60) mg/L FEU Sodium (137-145) mmol/L Chloride (98-107) mmol/L BUN (9-20) mg/dL Creatinine (0.66-1.25) mg/dL Glucose (74-99) mg/dL POC Glucose (mg/dL) 128 H 140 H (75-99) mg/dL Calcium (8.4-10.2) mg/dL C-Reactive Protein (<10.0) mg/L Procalcitonin (0.02-0.09) ng/mL Ur Leukocyte Esterase (Negative) Amorphous Sediment (None) /hpf Urine Bacteria (None) /hpf Urine Mucus (None) /hpf Crossmatch 02/24/20 Range/Units 16:46 RBC (4.30-5.90) m/uL Hgb (13.0-17.5) gm/dL Hct (39.0-53.0) % MCH (25.0-35.0) pg MCHC (31.0-37.0) g/dL RDW (11.5-15.5) % Lymphocytes # (1.0-4.8) k/uL D-Dimer (<0.60) mg/L FEU Sodium (137-145) mmol/L Chloride (98-107) mmol/L BUN (9-20) mg/dL Creatinine (0.66-1.25) mg/dL Glucose (74-99) mg/dL POC Glucose (mg/dL) 162 H (75-99) mg/dL Calcium (8.4-10.2) mg/dL C-Reactive Protein (<10.0) mg/L Procalcitonin (0.02-0.09) ng/mL Ur Leukocyte Esterase (Negative) Amorphous Sediment (None) /hpf Urine Bacteria (None) /hpf Urine Mucus (None) /hpf Crossmatch Assessment and Plan Assessment: This is a 54-year-old male with complex past medical history noted below who presented to the emergency room with worsening shortness of breath. Patient was evaluated and admitted to the hospital for further management of his medical problems noted below 1. Acute on chronic hypoxemic respiratory failure: Secondary to CHF exacerbation. Wean off O2 as tolerated for O2 sats greater than 90%. 2. Acute on chronic diastolic heart failure exacerbation: Continue diuresis with IV Lasix as directed by cardiology. Strict I's and O's. Fluid restriction. Daily weight. 3. Acute kidney injury: Creatinine 6.8 on presentation. Mostly secondary to ATN and acute on chronic anemia. Questionable cardiorenal syndrome. Seen and evaluated by nephrology. Ultrasound showed no hydronephrosis. Received 1 dose of DDAVP as ordered by nephrology. 4. COPD with no evidence of exacerbation exacerbation with chronic hypoxic respiratory failure on 3 L of oxygen at home 5. Anemia of chronic disease: Aranesp added by nephrology. GI consulted given severity of anemia. Hemoccult is negative. No evidence of active GI bleed. May benefit from upper and lower endoscopy when stable 6. Chronic atrial fibrillation, rate controlled. Anticoagulation on hold given severe anemia 7. Obstructive sleep apnea/obesity hypoventilation syndrome 8. 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 Type 2 diabetes, uncontrolled with polyneuropathy 10. Hypertension, essential 11. Hyperlipidemia 12. Hypothyroidism Today, I reviewed his medication list and lab work results. Continue current management. Appreciate principal consultant's recommendations. Repeat lab work in the morning.
--- NOTE | 2020-02-24 17:40 | CONS ---
CONSULTATION PULMONARY/CRITICAL CARE CONSULTATION: DATE OF SERVICE: 02/24/2020 This is a 54-year-old male who apparently presented to the emergency room via EMS with complaints of shortness of breath. He apparently carries with him a diagnosis of atrial fibrillation, COPD, diabetes mellitus, chronic hypoxemic respiratory failure, on home oxygen at 3 L, and obesity. Apparently for the last week or so he has been feeling very weak and short of breath. In addition, he has gained quite a bit of weight and has some significant lower extremity edema. He apparently was also complaining of a cough and chills with productive yellow phlegm. He apparently had been exposed to individuals with COVID infection. Because of these reasons, he came in to be evaluated. He does have a history of congestive heart failure and currently takes Lasix for that. He believes his current issue relates to fluid overload and heart failure. He apparently has been compliant with his medications. He denies any chest pain or chest pressure. He denied any nausea, vomiting or diarrhea. In addition, he apparently has a history of chronic anemia and required a couple of units of blood. That may have caused his fluid overload state. Currently he is resting comfortably lying nearly flat in bed. He states he is feeling a bit better. He was a bit upset because apparently a number of doctors have come into the room today to ask him about his history. His home medications are reviewed. He is on a Ventolin inhaler, gabapentin, Synthroid, Coreg, metformin, Lipitor, Lasix, potassium, Xarelto, Tylenol, Zyrtec, Flonase nasal spray, multivitamins and Zyloprim. He also was previously or is on melatonin. ALLERGIES: DENIED. MEDICAL HISTORY: His medical history is extensive and includes obesity, atrial fibrillation, CHF, COPD, diabetes, hyperlipidemia, hypertension and hypothyroidism. In addition, he suffers from diabetic neuropathy, an episode of acute respiratory failure back in 2012, sleep apnea syndrome, previous long-term mechanical ventilation with tracheostomy, and hemodialysis. In addition, the patient does have a history of gout, and he is a binge drinker. He has also had previous history of MRSA infection. SURGICAL HISTORY: Surgical history includes EGD, colonoscopy, right knee arthroscopy, right shoulder arthroscopy, tracheostomy, PEG tube placement, bronchoscopy with BAL, cardioversion and tonsillectomy. SOCIAL HISTORY: Positive for previous heavy tobacco use. He does have a history of heavy alcohol abuse. He denies illicit drug use. FAMILY HISTORY: Family history is apparently essentially negative. Both mother and father were healthy. REVIEW OF SYSTEMS: CONSTITUTIONAL: Weakness. NEUROLOGIC: Negative. HEENT: Negative. CARDIOVASCULAR: Negative. PULMONARY: Shortness of breath. GI: Negative. : Negative. RHEUMATOLOGIC: Negative. IMMUNOLOGIC: Negative. ENDOCRINOLOGIC: Negative. DERMATOLOGIC: Negative. PHYSICAL EXAMINATION: VITAL SIGNS: Current vital signs are reviewed. Temperature is 97.6, heart rate 83, respiratory rate 18, blood pressure 98/68, mean 78. Saturations are 94% on 3 L. Since he has been here in this hospital, he has been afebrile. GENERAL APPEARANCE: He appears in no acute distress. Lying nearly flat in bed. No respiratory difficulty. Nasal oxygen in place. NECK: Supple. Full range of motion. No adenopathy. Neck veins are flat. CARDIOVASCULAR: Examination reveals regular rhythm and rate. Heart sounds are very distant. Heart rate about mid 80s. S1, S2 normal. LUNGS: Lungs reveal bibasilar crackles. There are some coarse rhonchi. No wheezes. ABDOMEN: Obese. Bowel sounds are heard. EXTREMITIES: Extremities reveal edema. It is 1 to 2+. There is pitting. He also has significant erythema of his lower extremities. No cyanosis or clubbing. SKIN: Without rash. NEUROLOGIC: Neurologic examination is brief but nonfocal. LABS: Reviewed. White count 6, hemoglobin 6.7, hematocrit 22.7, platelet count 189,000. D- dimer 1.62. Sodium 134, potassium 4.7, chloride 92, CO2 29. Anion gap 13. BUN and creatinine were 162 and 6.80. Procalcitonin 0.58. N-terminal proBNP is 4810. Microbiology is pending or negative. Chest x-ray is consistent with mild CHF with venous congestion and cardiomegaly. Dopplers of the legs are negative for DVT. CURRENT MEDICATIONS: Reviewed. He is on Tylenol, Lipitor, Coreg, Aranesp, Benadryl, Advair, Lasix, insulin, DuoNeb, levothyroxine, loratadine, morphine, Narcan and Protonix. ASSESSMENT: 1. Shortness of breath, likely multifactorial, probably mostly related to underlying congestive heart failure, but certainly components of chronic obstructive pulmonary disease exacerbation and/or pneumonia could be contributing factors. 2. History of atrial fibrillation. 3. Congestive heart failure. 4. Chronic obstructive pulmonary disease. 5. Diabetes mellitus. 6. Hyperlipidemia. 7. Diabetic neuropathy. 8. Hypertension. 9. Hypothyroidism. 10.Morbid obesity. 11.History of sleep apnea syndrome, noncompliant with CPAP. 12.Prior episode of acute respiratory failure requiring long-term intubation and mechanical ventilation and subsequent tracheostomy and PEG tube placement. 13.History of chronic tobacco use. 14.History of chronic alcohol use/abuse. PLAN: Currently the patient's medications are appropriate. We will continue to follow. He looks very comfortable. The patient's procalcitonin is elevated. We will place him on some oral antibiotic. Additional recommendations and suggestions are forthcoming. Prognosis is guarded. He remains on Advair and DuoNeb. He should have outpatient followup. [id number] / KAYLA: [id number] /
[2020-02-24 18:23] LABS: Anisocytosis Slight; HCT 23.6 % (39.0-53.0); Hypochromasia Marked; MCH 24.8 pg (25.0-35.0); MCHC 29.8 g/dL (31.0-37.0); Mean Platelet Volume 7.7; Platelet Count 166 k/uL (150-450); Poikilocytosis Slight; RBC 2.85 m/uL (4.30-5.90); WBC 6.1 k/uL (3.8-10.6)
[2020-02-24 20:37] LABS: Glucose,Whole Blood 181 mg/dL (75-99)
[2020-02-24] MEDS: AMOXIC-POT CLAV 500-125 MG 1 EACH TAB PO SCH (21:29)
[2020-02-24] MEDS: diphenhydrAMINE 25 MG CAP PO SCH (21:30)
[2020-02-25] MEDS: IPRATROPIUM-ALBUTEROL 3 ML NEB INHALATION SCH ×6 (01:01→19:47)
[2020-02-25 03:46] LABS: Glucose,Whole Blood 170 mg/dL (75-99)
[2020-02-25 06:08] LABS: Glucose,Whole Blood 149 mg/dL (75-99)
[2020-02-25 07:06] LABS: Glucose,Whole Blood 172 mg/dL (75-99)
[2020-02-25] MEDS: INSULIN ASPART (NovoLOG) 100 UNIT/ML VIAL SQ SCH ×3 (07:08→17:16)
[2020-02-25] MEDS: LEVOTHYROXINE 50 MCG TAB PO SCH (07:08)
[2020-02-25] MEDS: PANTOPRAZOLE 40 MG TABLET PO SCH ×2 (07:08→17:16)
--- NOTE | 2020-02-25 07:35 | P.CONS ---
History of Present Illness - Reason for Consult Consult date: 02/24/20 Anemia Requesting physician: Griselda Mathew - Chief Complaint Anemia - History of Present Illness 54-year-old male with multiple medical comorbidities including morbid obesity, atrial fibrillation, congestive heart failure, pulmonary hypertension, COPD on home oxygen therapy who presented due to increasing swelling and shortness of breath. Patient has a known history of anemia and has been evaluated in the past. He underwent EGD and colonoscopy within the past year which were negative for any source of bleeding, he also reports evaluation with EGD and colonoscopy at the age of 49 or 19 were also normal. Patient has never had any video capsule endoscopy. He denies any signs or symptoms of GI bleeding. He denies any abdominal pain. He denies any nausea or vomiting. Fecal occult testing on presentation was negative. Previously he has been seen by the hematology service in evaluation of his anemia with suspicion for small bowel source of bleeding as a cause of his anemia. Laboratory evaluation on presentation significant for WBC 6, hemoglobin 6.7, platelet count 188,000, INR 1.0, total bilirubin 0.5, alkaline phosphatase 99, AST 16 and ALT 10. Review of Systems REVIEW OF SYSTEMS: CONSTITUTIONAL: Denies any fevers, chills, weight change or fatigue. CARDIOVASCULAR: Denies any chest pain, palpitations high or low blood pressures RESPIRATORY: Denies any hemoptysis or cough, but does report to shortness of breath. GENITOURINARY: No dysuria or hematuria. MUSCULOSKELETAL: No weakness reported. SKIN: Denies any new rashes or lesions, jaundice or pallor. PSYCHIATRIC: Denies any depression or anxiety. NEUROLOGY: Denies headache, denies any new focal deficits. EARS/NOSE/THROAT: No recent hearing change, congestion, nasal discharge or sore throat. EYES: No pain in eyes, discharge or change in vision. GASTROINTESTINAL: As per HPI. Past Medical History Past Medical History: Atrial Fibrillation, Heart Failure, COPD, Diabetes Mellitus, Hyperlipidemia, Hypertension, Thyroid Disorder Additional Past Medical History / Comment(s): NIDDM type II, neuropathy bilateral feet, 2012 acute respiratory failure-d/t obesity/hypoventilatory syndrome/DELORES/bronchospasms, DELORES-pt states he has not been wearing device lately, trach/vent-had renal failure with dialysis for 5 weeks, chronic anemia, hypothyroid, gout L arm, pt states he is a binge drinker. History of Any Multi-Drug Resistant Organisms: MRSA Year Discovered:: 2012 MDRO Source:: bronchial washing Past Surgical History: Orthopedic Surgery, Tonsillectomy Additional Past Surgical History / Comment(s): EGD, colonoscopies, R knee arthroscopy, R shoulder arthroscopy, trach, peg, BAL left lower lobe, cardioversion. Past Anesthesia/Blood Transfusion Reactions: No Reported Reaction Additional Past Anesthesia/Blood Transfusion Reaction / Comm: Pt has received blood in past without reaction. Past Psychological History: No Psychological Hx Reported Smoking Status: Former smoker Past Alcohol Use History: Abuse, Heavy Past Drug Use History: None Reported - Past Family History Father History Unknown: Yes Family Medical History: No Reported History Mother Family Medical History: No Reported History Additional Family Medical History / Comment(s): Mother is healthy. Medications and Allergies Home Medications Medication Instructions Recorded Confirmed Type Gabapentin 600 mg PO TID@0830,1430,202904/08/15 02/23/20 History Levothyroxine Sodium [Synthroid] 50 mcg PO QAM 04/08/15 02/23/20 History carvediloL [Coreg*] 12.5 mg PO BID@0830,202904/08/15 02/23/20 History Atorvastatin [Lipitor] 20 mg PO QAM 02/18/18 02/23/20 History Furosemide [Lasix] 40 mg PO BID@0830,202902/18/18 02/23/20 History Rivaroxaban [Xarelto] 20 mg PO HS 02/18/18 02/23/20 History Acetaminophen Tab [Tylenol] 325 mg PO Q4H PRN 04/03/19 02/23/20 History Cetirizine HCl [Zyrtec] 10 mg PO QAM 04/03/19 02/23/20 History Fluticasone Nasal Bernard [Flonase 1 spray EA NOSTRIL DAILY PRN 04/03/19 02/23/20 History Nasal Bernard] Multivitamins, Thera [Multivitamin 1 tab PO HS 04/03/19 02/23/20 History (formulary)] allopurinoL [Zyloprim] 300 mg PO HS 04/03/19 02/23/20 History Albuterol Inhaler [Ventolin Hfa 2 puff INHALATION RT-Q4H PRN 02/23/20 02/23/20 History Inhaler] Cholecalciferol [Vitamin D3 (25 2,000 unit PO HS 02/23/20 02/23/20 History Mcg = 1000 Iu)] Fluticasone/Salmeterol 1 puff INHALATION RT-BID 02/23/20 02/23/20 History [Fluticasone-Salmeterol 232-14] Losartan [Cozaar] 25 mg PO QAM 02/23/20 02/23/20 History Omeprazole [PriLOSEC] 40 mg PO QAM 02/23/20 02/23/20 History Vitamin E 450mg 1 tab PO HS 02/23/20 02/23/20 History diphenhydrAMINE [Benadryl] 50 mg PO HS 02/23/20 02/23/20 History metFORMIN HCL 1,000 mg PO BID@0830,2030 02/23/20 02/23/20 History Allergies Allergy/AdvReac Type Severity Reaction Status Date / Time No Known Allergies Allergy Verified 02/23/20 20:38 Physical Exam Vitals: Vital Signs Temp Pulse Pulse Resp BP BP Pulse Ox 02/24/20 16:39 97.7 F 100 17 96/56 93 L 02/24/20 15:34 88 02/24/20 15:21 92 02/24/20 13:21 97.6 F 83 18 98/68 94 L 02/24/20 11:35 97.8 F 90 18 124/66 98 02/24/20 11:29 96 02/24/20 11:19 88 02/24/20 11:05 97.6 F 91 18 118/51 97 02/24/20 10:55 98.3 F 86 16 99/46 97 02/24/20 08:20 80 02/24/20 08:06 76 02/24/20 08:00 97.8 F 103 H 16 116/49 100 02/24/20 04:41 98.3 F 18 L 18 114/72 02/24/20 04:00 98.3 F 88 18 112/60 98 02/24/20 02:20 98 18 119/60 02/24/20 02:05 97.7 F 97 18 93/50 02/24/20 01:35 97.9 F 97 16 132/65 98 02/24/20 01:25 98.7 F 89 18 117/14 97 02/24/20 00:00 97.8 F 96 18 145/95 96 02/23/20 20:24 78 02/23/20 20:16 76 02/23/20 20:00 20 02/23/20 19:53 98.2 F 91 20 129/58 99 Intake and Output 02/24/20 02/24/20 02/24/20 06:59 14:59 22:59 Intake Total 1930 650 Output Total 700 350 Balance 1230 300 Intake: Oral 1620 340 Blood Product 310 310 Rc As-1 Unit 310 [id number] Rc As-3 Unit 310 [id number] Output: Urine 700 350 Other: Voiding Method Indwelling Catheter Indwelling Catheter On physical examination, patient appears comfortable in no apparent distress. HEAD: Normocephalic, atraumatic. EYES: No scleral icterus. No conjunctival injection. MOUTH: No lesions, tongue midline. NECK: Trachea midline, no gross abnormalities. CHEST: decreased air entry in all zimmerman. HEART: S1-S2 appreciated. ABDOMEN: Soft, morbidly obese. Bowel sounds are positive. No organomegaly. No guarding or rigidity. EXTREMITIES: Bilateral pedal edema. SKIN: No rashes, no jaundice. NEUROLOGIC: Alert and oriented x3. No focal deficits. Results CBC & Chem 7: 02/24/20 17:57 02/24/20 06:13 Labs: Abnormal Lab Results - Last 24 Hours (Table) 02/23/20 02/23/20 02/23/20 Range/Units 16:45 16:47 20:18 RBC (4.30-5.90) m/uL Hgb (13.0-17.5) gm/dL Hct (39.0-53.0) % MCH (25.0-35.0) pg MCHC (31.0-37.0) g/dL RDW (11.5-15.5) % Lymphocytes # (1.0-4.8) k/uL D-Dimer (<0.60) mg/L FEU Sodium (137-145) mmol/L Chloride (98-107) mmol/L BUN (9-20) mg/dL Creatinine (0.66-1.25) mg/dL Glucose (74-99) mg/dL POC Glucose (mg/dL) 180 H (75-99) mg/dL Calcium (8.4-10.2) mg/dL C-Reactive Protein (<10.0) mg/L Procalcitonin (0.02-0.09) ng/mL Ur Leukocyte Esterase Small H (Negative) Amorphous Sediment Rare H (None) /hpf Urine Bacteria Rare H (None) /hpf Urine Mucus Rare H (None) /hpf Crossmatch See Detail 02/24/20 02/24/20 02/24/20 Range/Units 06:13 06:13 06:13 RBC (4.30-5.90) m/uL Hgb (13.0-17.5) gm/dL Hct (39.0-53.0) % MCH (25.0-35.0) pg MCHC (31.0-37.0) g/dL RDW (11.5-15.5) % Lymphocytes # (1.0-4.8) k/uL D-Dimer 1.62 H (<0.60) mg/L FEU Sodium 134 L (137-145) mmol/L Chloride 92 L (98-107) mmol/L BUN 162 H* (9-20) mg/dL Creatinine 6.80 H (0.66-1.25) mg/dL Glucose 112 H (74-99) mg/dL POC Glucose (mg/dL) (75-99) mg/dL Calcium 7.5 L (8.4-10.2) mg/dL C-Reactive Protein 163.4 H (<10.0) mg/L Procalcitonin 0.58 H (0.02-0.09) ng/mL Ur Leukocyte Esterase (Negative) Amorphous Sediment (None) /hpf Urine Bacteria (None) /hpf Urine Mucus (None) /hpf Crossmatch 02/24/20 02/24/20 02/24/20 Range/Units 06:13 06:14 12:21 RBC 2.73 L (4.30-5.90) m/uL Hgb 6.7 L* (13.0-17.5) gm/dL Hct 22.7 L (39.0-53.0) % MCH 24.4 L (25.0-35.0) pg MCHC 29.4 L (31.0-37.0) g/dL RDW 17.3 H (11.5-15.5) % Lymphocytes # 0.4 L (1.0-4.8) k/uL D-Dimer (<0.60) mg/L FEU Sodium (137-145) mmol/L Chloride (98-107) mmol/L BUN (9-20) mg/dL Creatinine (0.66-1.25) mg/dL Glucose (74-99) mg/dL POC Glucose (mg/dL) 128 H 140 H (75-99) mg/dL Calcium (8.4-10.2) mg/dL C-Reactive Protein (<10.0) mg/L Procalcitonin (0.02-0.09) ng/mL Ur Leukocyte Esterase (Negative) Amorphous Sediment (None) /hpf Urine Bacteria (None) /hpf Urine Mucus (None) /hpf Crossmatch 02/24/20 Range/Units 16:46 RBC (4.30-5.90) m/uL Hgb (13.0-17.5) gm/dL Hct (39.0-53.0) % MCH (25.0-35.0) pg MCHC (31.0-37.0) g/dL RDW (11.5-15.5) % Lymphocytes # (1.0-4.8) k/uL D-Dimer (<0.60) mg/L FEU Sodium (137-145) mmol/L Chloride (98-107) mmol/L BUN (9-20) mg/dL Creatinine (0.66-1.25) mg/dL Glucose (74-99) mg/dL POC Glucose (mg/dL) 162 H (75-99) mg/dL Calcium (8.4-10.2) mg/dL C-Reactive Protein (<10.0) mg/L Procalcitonin (0.02-0.09) ng/mL Ur Leukocyte Esterase (Negative) Amorphous Sediment (None) /hpf Urine Bacteria (None) /hpf Urine Mucus (None) /hpf Crossmatch US - abdomen: report reviewed (no hydronephrosis noted on ultrasound of the kidneys) Assessment and Plan (1) Anemia Narrative/Plan: 54-year-old male with multiple medical comorbidities and a known history of anemia, evaluated in the past year with EGD and colonoscopy which were negative for source of bleeding. No prior video capsule endoscopy. Denies any signs or symptoms of GI bleeding. Previously seen by the hematology service who felt that the patient had an iron deficiency anemia which was likely secondary to an occultsmall bowel GI bleed. Stool testing on current presentation negative for occult blood. Patient has multiple medical comorbidities. Anemia likely multifactorial and secondary to anemia of chronic disease, cannot rule out a component of GI bleed and will plan for video capsule endoscopy for completeness of evaluationand to rule out any small bowel source of bleeding. Current Visit: Yes Status: Acute Code(s): D64.9 - ANEMIA, UNSPECIFIED SNOMED Code(s): 271598805 Plan: supportive care Clear liquid diet Plan for magnesium citrate tomorrow and for video capsule endoscopy the following day Continue to monitor hemoglobin and hematocrit Would recommend hematology consult Repeatlaboratory evaluation of anemia No plans for EGD or colonoscopy at this time given recent evaluation will plan for video capsule endoscopy Thank you for allowing us to participate in the care of the patient
[2020-02-25 07:41] LABS: Anisocytosis Slight; Basophils % (A) 0 %; Eosinophils # (A) 0.4 k/uL (0-0.7); Eosinophils % (A) 5 %; HCT 23.8 % (39.0-53.0); Hypochromasia Marked; Lymphocytes # (A) 0.3 k/uL (1.0-4.8); Lymphocytes % (A) 3 %; MCH 24.6 pg (25.0-35.0); MCHC 29.3 g/dL (31.0-37.0); Mean Platelet Volume 8.3; Monocytes # (A) 0.4 k/uL (0-1.0); Monocytes % (A) 5 %; Neutrophils # (A) 6.8 k/uL (1.3-7.7); Neutrophils % (A) 85 %; Platelet Count 178 k/uL (150-450); Poikilocytosis Slight; RBC 2.84 m/uL (4.30-5.90)
[2020-02-25 07:54] LABS: Calcium 7.7 mg/dL (8.4-10.2); Magnesium 1.9 mg/dL (1.6-2.3); Potassium 4.8 mmol/L (3.5-5.1)
[2020-02-25] MEDS: FUROSEMIDE 10 MG/ML 10 ML VIAL IV SCH ×2 (08:26→22:39)
[2020-02-25] MEDS: ATORVASTATIN 20 MG TAB PO SCH (08:26)
[2020-02-25] MEDS: carvediloL 12.5 MG TAB PO SCH ×2 (08:26→22:40)
[2020-02-25] MEDS: LORATADINE 10 MG TAB PO SCH (08:26)
[2020-02-25] MEDS: AMOXIC-POT CLAV 500-125 MG 1 EACH TAB PO SCH ×2 (08:26→22:40)
[2020-02-25] MEDS: Fluticasone/Salmeterol [Fluticasone-Salmeterol 232-14] 1 PUFF INHALATION SCH ×2 (08:34→19:47)
--- NOTE | 2020-02-25 09:39 | P.PN ---
Subjective patient is seen in follow-up for acute kidney injury. No improvement in creatinine.maintained on IV Lasix. Nonoliguric. Urine output over 2 L in the last 24 hours. Does complain of dyspnea. Oral intake is fair. No active bleeding. Hemoglobin 7.0 today. Vital signs are stable. General: The patient appeared well nourished and normally developed. HEENT: Head exam is unremarkable. Neck is without jugular venous distension. LUNGS: Breath sounds decreased. HEART: Rate and Rhythm are regular. ABDOMEN: soft, nontender. Obese. EXTREMITITES: 1+ edema. Objective - Vital Signs Vital signs: Vital Signs Temp 98.5 F 02/25/20 08:00 Pulse 101 H 02/25/20 08:00 Resp 18 02/25/20 08:00 BP 110/62 02/25/20 08:00 Pulse Ox 98 02/25/20 08:00 Intake & Output 02/24/20 02/25/20 02/25/20 18:59 06:59 18:59 Intake Total 890 540 240 Output Total 950 650 Balance -60 -110 240 Weight 185.5 kg Intake: Oral 580 540 240 Blood Product 310 Rc As-1 Unit 310 [id number] Output: Urine 950 650 Other: Voiding Method Indwelling Catheter Indwelling Catheter Indwelling Catheter - Labs CBC & Chem 7: 02/25/20 06:49 02/25/20 06:49 Labs: Abnormal Lab Results - Last 24 Hours (Table) 02/23/20 02/24/20 02/24/20 Range/Units 16:45 06:13 12:21 RBC (4.30-5.90) m/uL Hgb (13.0-17.5) gm/dL Hct (39.0-53.0) % MCH (25.0-35.0) pg MCHC (31.0-37.0) g/dL RDW (11.5-15.5) % Lymphocytes # (1.0-4.8) k/uL Sodium (137-145) mmol/L Chloride (98-107) mmol/L BUN (9-20) mg/dL Creatinine (0.66-1.25) mg/dL Glucose (74-99) mg/dL POC Glucose (mg/dL) 140 H (75-99) mg/dL Calcium (8.4-10.2) mg/dL Procalcitonin 0.58 H (0.02-0.09) ng/mL Crossmatch See Detail 02/24/20 02/24/20 02/24/20 Range/Units 16:46 17:57 20:35 RBC 2.85 L (4.30-5.90) m/uL Hgb 7.0 L (13.0-17.5) gm/dL Hct 23.6 L (39.0-53.0) % MCH 24.8 L (25.0-35.0) pg MCHC 29.8 L (31.0-37.0) g/dL RDW 17.0 H (11.5-15.5) % Lymphocytes # (1.0-4.8) k/uL Sodium (137-145) mmol/L Chloride (98-107) mmol/L BUN (9-20) mg/dL Creatinine (0.66-1.25) mg/dL Glucose (74-99) mg/dL POC Glucose (mg/dL) 162 H 181 H (75-99) mg/dL Calcium (8.4-10.2) mg/dL Procalcitonin (0.02-0.09) ng/mL Crossmatch 02/25/20 02/25/20 02/25/20 Range/Units 03:45 06:07 06:49 RBC (4.30-5.90) m/uL Hgb (13.0-17.5) gm/dL Hct (39.0-53.0) % MCH (25.0-35.0) pg MCHC (31.0-37.0) g/dL RDW (11.5-15.5) % Lymphocytes # (1.0-4.8) k/uL Sodium 134 L (137-145) mmol/L Chloride 94 L (98-107) mmol/L BUN 169 H* (9-20) mg/dL Creatinine 6.74 H (0.66-1.25) mg/dL Glucose 134 H (74-99) mg/dL POC Glucose (mg/dL) 170 H 149 H (75-99) mg/dL Calcium 7.7 L (8.4-10.2) mg/dL Procalcitonin (0.02-0.09) ng/mL Crossmatch 02/25/20 02/25/20 Range/Units 06:49 07:05 RBC 2.84 L (4.30-5.90) m/uL Hgb 7.0 L (13.0-17.5) gm/dL Hct 23.8 L (39.0-53.0) % MCH 24.6 L (25.0-35.0) pg MCHC 29.3 L (31.0-37.0) g/dL RDW 17.0 H (11.5-15.5) % Lymphocytes # 0.3 L (1.0-4.8) k/uL Sodium (137-145) mmol/L Chloride (98-107) mmol/L BUN (9-20) mg/dL Creatinine (0.66-1.25) mg/dL Glucose (74-99) mg/dL POC Glucose (mg/dL) 172 H (75-99) mg/dL Calcium (8.4-10.2) mg/dL Procalcitonin (0.02-0.09) ng/mL Crossmatch Assessment and Plan Plan: Assessment: 1. Acute kidney injury secondary to ATN secondary to acute blood loss anemia. Also component of cardiorenal syndrome. Creatinine 6.74 today. Baseline creatinine near 1 from March 2019. No evidence of hydronephrosis noted on [facility] ultrasound. urinalysis is benign. R/o myeloma/monoclonal gammopathy. 2. Acute blood loss anemia. status post 2 units of blood transfusion. status post IV DDAVP on February 23. Hemoglobin 7.0 today. No active bleeding noted. GI following. 3. Fluid overload. 4. acute on chronic diastolic CHF. Plan: Maintain IV Lasix 60 mg twice daily. transfuse 1 unit of packed red blood cells today. maintain Aranesp. No urgent need for renal replacement therapy at this time. Continue to assess on daily basis. Discussed with the patient. capsule endoscopy pending. check electrophoresis studies and immunofixation. repeat chest x-ray tomorrow.
--- NOTE | 2020-02-25 10:21 | CT ---
EXAMINATION TYPE: CT abdomen pelvis wo con DATE OF EXAM: 02/25/2020 COMPARISON: Anemia HISTORY: Anemia. CT DLP: 3045 mGycm Automated exposure control for dose reduction was used. TECHNIQUE: Helical acquisition of images was performed from the lung bases through the pelvis. FINDINGS: Exam limited by motion artifact. LUNG BASES: Heart is enlarged and there is coronary artery calcification with bilateral consolidation and small effusion. LIVER/GB: No significant abnormality is appreciated. PANCREAS: No significant abnormality is seen. SPLEEN: No significant abnormality is seen. ADRENALS: No significant abnormality is seen. KIDNEYS: Nonobstructing 3 mm left renal calculus noted with additional bilateral punctate 1 to 2 mm c alculi. No hydronephrosis. RETROPERITONEAL ADENOPATHY: None visualized REPRODUCTIVE ORGANS: No significant abnormality is seen URINARY BLADDER: Bladder is nondistended and there is air within the bladder correlate for Cortez cat heter placement.. PELVIC ADENOPATHY: None visualized. OSSEOUS STRUCTURES: Hypertrophic and degenerative changes of the spine.. BOWEL: No significant abnormality is seen. OTHER: Subcutaneous edema compatible with anasarca. Atherosclerotic change aorta. No evidence of aneu rysm. IMPRESSION: 1. Bilateral nephrolithiasis with no evidence of hydronephrosis. 2. Nonspecific gas pattern with no obstruction. 3. Bilateral lower lobe infiltrate 4. Cardiomegaly with coronary artery calcification
[2020-02-25] MEDS: ACETAMINOPHEN TAB 325 MG TAB PO PRN (10:37)
--- NOTE | 2020-02-25 11:23 | P.PN ---
Subjective Progress Note Date: 02/25/20 Patient is awake and alert. No evidence of bleeding since admission. Hemoglobin is still 7.0 after 2 units of PRBCs. Creatinine not improving significantly. Good urine output. Patient himself denies any shortness of breath or chest pain. No abdominal pain. Objective - Vital Signs Vital signs: Vital Signs Temp 98.8 F 02/25/20 11:08 Pulse 94 02/25/20 11:08 Resp 18 02/25/20 11:08 BP 95/54 02/25/20 11:08 Pulse Ox 97 02/25/20 11:08 Intake & Output 02/24/20 02/25/20 02/25/20 18:59 06:59 18:59 Intake Total 890 540 240 Output Total 950 650 475 Balance -60 -110 -235 Weight 185.5 kg Intake: Oral 580 540 240 Blood Product 310 0 Rc As-1 Unit 310 [id number] Rc Irr As1 Unit 0 [id number] Output: Urine 950 650 475 Other: Voiding Method Indwelling Catheter Indwelling Catheter Indwelling Catheter - Exam General: The patient is awake and alert, in no distress Eye: there is normal conjunctiva bilaterally. Neck: The neck is supple, there is no JVD. Cardiovascular: Normal S1-S2, no S3-S4, no murmurs. Respiratory: Lungs clear to auscultation bilaterally Gastrointestinal: Abdomen is soft, nontender Musculoskeletal: There is +2 pedal edema. Neurological:. Speech is normal. Skin: Skin is warm and dry - Labs CBC & Chem 7: 02/25/20 06:49 02/25/20 06:49 Labs: Abnormal Lab Results - Last 24 Hours (Table) 02/23/20 02/24/20 02/24/20 Range/Units 16:45 06:13 12:21 RBC (4.30-5.90) m/uL Hgb (13.0-17.5) gm/dL Hct (39.0-53.0) % MCH (25.0-35.0) pg MCHC (31.0-37.0) g/dL RDW (11.5-15.5) % Lymphocytes # (1.0-4.8) k/uL Sodium (137-145) mmol/L Chloride (98-107) mmol/L BUN (9-20) mg/dL Creatinine (0.66-1.25) mg/dL Glucose (74-99) mg/dL POC Glucose (mg/dL) 140 H (75-99) mg/dL Calcium (8.4-10.2) mg/dL Procalcitonin 0.58 H (0.02-0.09) ng/mL Crossmatch See Detail 02/24/20 02/24/20 02/24/20 Range/Units 16:46 17:57 20:35 RBC 2.85 L (4.30-5.90) m/uL Hgb 7.0 L (13.0-17.5) gm/dL Hct 23.6 L (39.0-53.0) % MCH 24.8 L (25.0-35.0) pg MCHC 29.8 L (31.0-37.0) g/dL RDW 17.0 H (11.5-15.5) % Lymphocytes # (1.0-4.8) k/uL Sodium (137-145) mmol/L Chloride (98-107) mmol/L BUN (9-20) mg/dL Creatinine (0.66-1.25) mg/dL Glucose (74-99) mg/dL POC Glucose (mg/dL) 162 H 181 H (75-99) mg/dL Calcium (8.4-10.2) mg/dL Procalcitonin (0.02-0.09) ng/mL Crossmatch 02/25/20 02/25/20 02/25/20 Range/Units 03:45 06:07 06:49 RBC (4.30-5.90) m/uL Hgb (13.0-17.5) gm/dL Hct (39.0-53.0) % MCH (25.0-35.0) pg MCHC (31.0-37.0) g/dL RDW (11.5-15.5) % Lymphocytes # (1.0-4.8) k/uL Sodium 134 L (137-145) mmol/L Chloride 94 L (98-107) mmol/L BUN 169 H* (9-20) mg/dL Creatinine 6.74 H (0.66-1.25) mg/dL Glucose 134 H (74-99) mg/dL POC Glucose (mg/dL) 170 H 149 H (75-99) mg/dL Calcium 7.7 L (8.4-10.2) mg/dL Procalcitonin (0.02-0.09) ng/mL Crossmatch 02/25/20 02/25/20 Range/Units 06:49 07:05 RBC 2.84 L (4.30-5.90) m/uL Hgb 7.0 L (13.0-17.5) gm/dL Hct 23.8 L (39.0-53.0) % MCH 24.6 L (25.0-35.0) pg MCHC 29.3 L (31.0-37.0) g/dL RDW 17.0 H (11.5-15.5) % Lymphocytes # 0.3 L (1.0-4.8) k/uL Sodium (137-145) mmol/L Chloride (98-107) mmol/L BUN (9-20) mg/dL Creatinine (0.66-1.25) mg/dL Glucose (74-99) mg/dL POC Glucose (mg/dL) 172 H (75-99) mg/dL Calcium (8.4-10.2) mg/dL Procalcitonin (0.02-0.09) ng/mL Crossmatch Assessment and Plan Assessment: This is a 54-year-old male with complex past medical history noted below who presented to the emergency room with worsening shortness of breath. Patient was evaluated and admitted to the hospital for further management of his medical problems noted below 1. Acute on chronic hypoxemic respiratory failure: Secondary to CHF exacerbation. Wean off O2 as tolerated for O2 sats greater than 90%. 2. Acute on chronic diastolic heart failure exacerbation: Continue diuresis with IV Lasix as directed by cardiology. Strict I's and O's. Fluid restriction. Daily weight. 3. Acute kidney injury: Creatinine 6.8 on presentation. Mostly secondary to ATN and acute on chronic anemia. Questionable cardiorenal syndrome. Seen and evaluated by nephrology. Ultrasound showed no hydronephrosis. Received DDAVP as ordered by nephrology. 4. COPD with no evidence of exacerbation exacerbation with chronic hypoxic respiratory failure on 3 L of oxygen at home 5. Acute on chronic anemia, status post 3 units of PRBC transfusion. I will consult hematology for further evaluation. Probably anemia of chronic disease: Aranesp added by nephrology. No evidence of GI bleed. Hemoccult is negative. Noncontrast CT of the abdomen with no intra-abdominal bleed or hematoma. Seen and evaluated by GI. Patient had upper and lower scope within the past year reported unremarkable per GI notes. Scheduled for capsule endoscopy. 6. Chronic atrial fibrillation, rate controlled. Anticoagulation on hold given severe anemia 7. Obstructive sleep apnea/obesity hypoventilation syndrome 8. 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 Type 2 diabetes, uncontrolled with polyneuropathy 10. Hypertension, essential 11. Hyperlipidemia 12. Hypothyroidism Today, I reviewed his medication list and lab work results. Continue current management. Appreciate storage consultant's recommendations. Repeat lab work in the morning.
[2020-02-25 11:26] LABS: Protein/Creatinine Ratio,Urine 0.231
[2020-02-25 11:59] LABS: Glucose,Whole Blood 174 mg/dL (75-99)
--- NOTE | 2020-02-25 12:38 | P.PN ---
Subjective Progress Note Date: 02/25/20 Principal diagnosis: Shortness of breath, multifactorial, related to CHF, COPD, and possibility of pneumonia On 02/25/2020 patient seen in follow-up on selective care unit, he is awake and alert, calm and comfortable, sitting up in a chair in no acute distress, he is currently on 3 L of oxygen the pulse ox 95%, hemodynamically patient is stable, no fever or chills, no reports of chest pain. No altered mentation. No evidence of any active bleeding, complaints of abdominal pain, today's hemoglobin is 7, patient is status post transfusion with 2 units of packed red blood cells, and his third and is transfusing this morning. Blood pressure is 95/54 on today's vital signs. Objective - Vital Signs Vital signs: Vital Signs Temp 98.1 F 02/25/20 12:00 Pulse 92 02/25/20 12:00 Resp 18 02/25/20 12:00 BP 96/53 02/25/20 12:00 Pulse Ox 95 02/25/20 12:00 Intake & Output 02/24/20 02/25/20 02/25/20 18:59 06:59 18:59 Intake Total 890 540 240 Output Total 950 650 475 Balance -60 -110 -235 Weight 185.5 kg Intake: Oral 580 540 240 Blood Product 310 0 Rc As-1 Unit 310 [id number] Rc Irr As1 Unit 0 [id number] Output: Urine 950 650 475 Other: Voiding Method Indwelling Catheter Indwelling Catheter Indwelling Catheter - Exam GENERAL EXAM: Alert, very pleasant, 54-year-old white male, on 3 L of oxygen with pulse ox of 95% comfortable in no apparent distress. HEAD: Normocephalic/atraumatic. EYES: Normal reaction of pupils, equal size. Conjunctiva pink, sclera white. NOSE: Clear with pink turbinates. THROAT: No erythema or exudates. NECK: No masses, no JVD, no thyroid enlargement, no adenopathy. CHEST: No chest wall deformity. Symmetrical expansion. LUNGS: Equal air entry with no crackles, wheeze, rhonchi or dullness. CVS: Regular rate and rhythm, normal S1 and S2, no gallops, no murmurs, no rubs ABDOMEN: Soft, nontender. No hepatosplenomegaly, normal bowel sounds, no guarding or rigidity. EXTREMITIES: No clubbing, no edema, no cyanosis, 2+ pulses and upper and lower extremities. MUSCULOSKELETAL: Muscle strength and tone normal. SPINE: No scoliosis or deformity SKIN: No rashes CENTRAL NERVOUS SYSTEM: Alert and oriented -3. No focal deficits, tone is normal in all 4 extremities. PSYCHIATRIC: Alert and oriented -3. Appropriate affect. Intact judgment and insight. - Labs CBC & Chem 7: 02/25/20 06:49 02/25/20 06:49 Labs: Abnormal Lab Results - Last 24 Hours (Table) 02/23/20 02/24/20 02/24/20 Range/Units 16:45 16:46 17:57 RBC 2.85 L (4.30-5.90) m/uL Hgb 7.0 L (13.0-17.5) gm/dL Hct 23.6 L (39.0-53.0) % MCH 24.8 L (25.0-35.0) pg MCHC 29.8 L (31.0-37.0) g/dL RDW 17.0 H (11.5-15.5) % Lymphocytes # (1.0-4.8) k/uL Sodium (137-145) mmol/L Chloride (98-107) mmol/L BUN (9-20) mg/dL Creatinine (0.66-1.25) mg/dL Glucose (74-99) mg/dL POC Glucose (mg/dL) 162 H (75-99) mg/dL Calcium (8.4-10.2) mg/dL Crossmatch See Detail 02/24/20 02/25/20 02/25/20 Range/Units 20:35 03:45 06:07 RBC (4.30-5.90) m/uL Hgb (13.0-17.5) gm/dL Hct (39.0-53.0) % MCH (25.0-35.0) pg MCHC (31.0-37.0) g/dL RDW (11.5-15.5) % Lymphocytes # (1.0-4.8) k/uL Sodium (137-145) mmol/L Chloride (98-107) mmol/L BUN (9-20) mg/dL Creatinine (0.66-1.25) mg/dL Glucose (74-99) mg/dL POC Glucose (mg/dL) 181 H 170 H 149 H (75-99) mg/dL Calcium (8.4-10.2) mg/dL Crossmatch 02/25/20 02/25/20 02/25/20 Range/Units 06:49 06:49 07:05 RBC 2.84 L (4.30-5.90) m/uL Hgb 7.0 L (13.0-17.5) gm/dL Hct 23.8 L (39.0-53.0) % MCH 24.6 L (25.0-35.0) pg MCHC 29.3 L (31.0-37.0) g/dL RDW 17.0 H (11.5-15.5) % Lymphocytes # 0.3 L (1.0-4.8) k/uL Sodium 134 L (137-145) mmol/L Chloride 94 L (98-107) mmol/L BUN 169 H* (9-20) mg/dL Creatinine 6.74 H (0.66-1.25) mg/dL Glucose 134 H (74-99) mg/dL POC Glucose (mg/dL) 172 H (75-99) mg/dL Calcium 7.7 L (8.4-10.2) mg/dL Crossmatch 02/25/20 Range/Units 11:57 RBC (4.30-5.90) m/uL Hgb (13.0-17.5) gm/dL Hct (39.0-53.0) % MCH (25.0-35.0) pg MCHC (31.0-37.0) g/dL RDW (11.5-15.5) % Lymphocytes # (1.0-4.8) k/uL Sodium (137-145) mmol/L Chloride (98-107) mmol/L BUN (9-20) mg/dL Creatinine (0.66-1.25) mg/dL Glucose (74-99) mg/dL POC Glucose (mg/dL) 174 H (75-99) mg/dL Calcium (8.4-10.2) mg/dL Crossmatch Assessment and Plan Plan: Assessment: #1. Shortness of breath, multifactorial, mostly related to underlying congest ramonita heart failure, component of COPD, and possibility of pneumonia is considered less likely, in addition to anemia #2. History of chronic atrial fibrillation, normally on Zarontin which is currently on hold #3. Chronic hypoxemic restaurant failure related to a history of COPD #4. Chronic congestive heart failure with diastolic dysfunction #5. Acute kidney injury #6. Anemia, rule out acute blood loss anemia #7. Hypertension #8. Hyperlipidemia #9. Diabetes poultice type II Plan: Continue current oral antibiotics, patient denies any dyspnea, no significant cough or congestion. Continue nebulized bronchodilator, no chest pain, no hemoptysis. He is receiving another unit of packed red blood cells, he remains on IV Lasix 60 mg every 12 hours, nephrology is following. No fever or chills, no altered mentation, no obvious evidence of bleeding. Continue with daily labs, daily electrolytes H&H's, and renal profile. Follow-up chest x-ray in the morning I performed a history & physical examination of the patient and discussed their management with my nurse practitioner, Pily Aguilera. I reviewed the nurse practitioner's note and agree with the documented findings and plan of care. Lung sounds are positive for diminished breath sounds. The findings and the impression was discussed with the patient. I attest to the documentation by the nurse practitioner. Time with Patient: Less than 30
--- NOTE | 2020-02-25 13:32 | P.PN ---
Subjective Progress Note Date: 02/25/20 CHIEF COMPLAINT: Heart failure, A. fib HISTORY OF PRESENT ILLNESS: Patient examined this morning at the bedside. Patient denies chest pain. Denies shortness of breath at rest. Patient's hemoglobin remains low at 7.0. He has had 2 units of RBCs and is due to receive a third unit today. Patient is also scheduled to have a CT of the abdomen and a small bowel capsule study performed tomorrow. Creatinine today 6.74. He is being followed by nephrology. He remains on IV Lasix. His lower extremity edema is improving. Echocardiogram completed yesterday revealing ejection fraction between 50 and 55%. PHYSICAL EXAM: VITAL SIGNS: Reviewed. GENERAL: Well-developed in no acute distress. HEENT: Head is normocephalic. Pupils are equal, round. Sclerae anicteric. Mucous membranes of the mouth are moist. Neck supple. No JVD or thyromegaly LUNGS: Respirations even and unlabored. Lungs essentially clear to auscultation bilaterally. HEART: Irregular rate and rhythm. S1 and S2 heard. ABDOMEN: Soft. Nondistended. Nontender. EXTREMITIES: Normal range of motion. No clubbing or cyanosis. Peripheral pulses intact. 2-3+ bilateral lower extremity edema NEUROLOGIC: Awake and alert. Oriented x 3. ASSESSMENT: Acute exacerbation of diastolic congestive heart failure, ejection fraction 50- 55% Chronic atrial fibrillation, on long-term anticoagulation with Xarelto Anemia, rule out acute blood loss anemia Acute kidney injury Hypertension Hyperlipidemia COPD with home O2 use Obstructive sleep apnea Diabetes mellitus, type II Morbid obesity: BMI 58.0 Alcohol abuse PLAN: Continue IV Lasix per nephrology Monitor kidney function Daily weight Accurate I&O Continue to hold Xarelto secondary to anemia GI following. Patient scheduled for capsule study tomorrow Nurse practitioner note has been reviewed by physician. Signing provider agrees with the documented findings, assessment, and plan of care. Objective - Vital Signs Vital signs: Vital Signs Temp 98.9 F 02/25/20 13:01 Pulse 97 02/25/20 13:01 Resp 18 02/25/20 13:01 BP 95/52 02/25/20 13:01 Pulse Ox 98 02/25/20 13:01 Intake & Output 02/24/20 02/25/20 02/25/20 18:59 06:59 18:59 Intake Total 890 540 550 Output Total 950 650 475 Balance -60 -110 75 Weight 185.5 kg Intake: Oral 580 540 240 Blood Product 310 310 Rc As-1 Unit 310 [id number] Rc Irr As1 Unit 310 [id number] Output: Urine 950 650 475 Other: Voiding Method Indwelling Catheter Indwelling Catheter Indwelling Catheter - Labs CBC & Chem 7: 02/25/20 06:49 02/25/20 06:49 Labs: Abnormal Lab Results - Last 24 Hours (Table) 02/23/20 02/24/20 02/24/20 Range/Units 16:45 16:46 17:57 RBC 2.85 L (4.30-5.90) m/uL Hgb 7.0 L (13.0-17.5) gm/dL Hct 23.6 L (39.0-53.0) % MCH 24.8 L (25.0-35.0) pg MCHC 29.8 L (31.0-37.0) g/dL RDW 17.0 H (11.5-15.5) % Lymphocytes # (1.0-4.8) k/uL Sodium (137-145) mmol/L Chloride (98-107) mmol/L BUN (9-20) mg/dL Creatinine (0.66-1.25) mg/dL Glucose (74-99) mg/dL POC Glucose (mg/dL) 162 H (75-99) mg/dL Calcium (8.4-10.2) mg/dL Crossmatch See Detail 02/24/20 02/25/20 02/25/20 Range/Units 20:35 03:45 06:07 RBC (4.30-5.90) m/uL Hgb (13.0-17.5) gm/dL Hct (39.0-53.0) % MCH (25.0-35.0) pg MCHC (31.0-37.0) g/dL RDW (11.5-15.5) % Lymphocytes # (1.0-4.8) k/uL Sodium (137-145) mmol/L Chloride (98-107) mmol/L BUN (9-20) mg/dL Creatinine (0.66-1.25) mg/dL Glucose (74-99) mg/dL POC Glucose (mg/dL) 181 H 170 H 149 H (75-99) mg/dL Calcium (8.4-10.2) mg/dL Crossmatch 02/25/20 02/25/20 02/25/20 Range/Units 06:49 06:49 07:05 RBC 2.84 L (4.30-5.90) m/uL Hgb 7.0 L (13.0-17.5) gm/dL Hct 23.8 L (39.0-53.0) % MCH 24.6 L (25.0-35.0) pg MCHC 29.3 L (31.0-37.0) g/dL RDW 17.0 H (11.5-15.5) % Lymphocytes # 0.3 L (1.0-4.8) k/uL Sodium 134 L (137-145) mmol/L Chloride 94 L (98-107) mmol/L BUN 169 H* (9-20) mg/dL Creatinine 6.74 H (0.66-1.25) mg/dL Glucose 134 H (74-99) mg/dL POC Glucose (mg/dL) 172 H (75-99) mg/dL Calcium 7.7 L (8.4-10.2) mg/dL Crossmatch 02/25/20 Range/Units 11:57 RBC (4.30-5.90) m/uL Hgb (13.0-17.5) gm/dL Hct (39.0-53.0) % MCH (25.0-35.0) pg MCHC (31.0-37.0) g/dL RDW (11.5-15.5) % Lymphocytes # (1.0-4.8) k/uL Sodium (137-145) mmol/L Chloride (98-107) mmol/L BUN (9-20) mg/dL Creatinine (0.66-1.25) mg/dL Glucose (74-99) mg/dL POC Glucose (mg/dL) 174 H (75-99) mg/dL Calcium (8.4-10.2) mg/dL Crossmatch
--- NOTE | 2020-02-25 15:07 | P.PN ---
Subjective Progress Note Date: 02/25/20 Patient was seen and examined at the bedside. He denies any acute changes through the night. Patient denies any bleeding or melena. Patient denies any abdominal pain, cramping, nausea or vomiting. The patient underwent a CT of the abdomen and pelvis showed bilateral nephrolithiasis with no evidence of hydronephrosis, nonspecific gas pattern with no obstruction, bilateral lower lobe infiltrate, and cardiomegaly with coronary artery calcification. Today's hemoglobin was 7.0 which was stable. He has received a total of 3 units of packed red blood cells admission. Objective - Vital Signs Vital signs: Vital Signs Temp 98.9 F 02/25/20 13:01 Pulse 97 02/25/20 13:01 Resp 18 02/25/20 13:01 BP 95/52 02/25/20 13:01 Pulse Ox 98 02/25/20 13:01 Intake & Output 02/24/20 02/25/20 02/25/20 18:59 06:59 18:59 Intake Total 890 540 550 Output Total 950 650 475 Balance -60 -110 75 Weight 185.5 kg Intake: Oral 580 540 240 Blood Product 310 310 Rc As-1 Unit 310 [id number] Rc Irr As1 Unit 310 [id number] Output: Urine 950 650 475 Other: Voiding Method Indwelling Catheter Indwelling Catheter Indwelling Catheter - Exam On physical examination, patient appears comfortable in no apparent distress. HEAD: Normocephalic, atraumatic. EYES: No scleral icterus. No conjunctival injection. MOUTH: No lesions, tongue midline. NECK: Trachea midline, no gross abnormalities. CHEST: decreased air entry in all zimmerman. HEART: S1-S2 appreciated. ABDOMEN: Soft, morbidly obese. Bowel sounds are positive. No organomegaly. No guarding or rigidity. EXTREMITIES: Bilateral pedal edema. SKIN: No rashes, no jaundice. NEUROLOGIC: Alert and oriented x3. No focal deficits. - Labs CBC & Chem 7: 02/25/20 06:49 02/25/20 06:49 Labs: Abnormal Lab Results - Last 24 Hours (Table) 02/23/20 02/24/20 02/24/20 Range/Units 16:45 16:46 17:57 RBC 2.85 L (4.30-5.90) m/uL Hgb 7.0 L (13.0-17.5) gm/dL Hct 23.6 L (39.0-53.0) % MCH 24.8 L (25.0-35.0) pg MCHC 29.8 L (31.0-37.0) g/dL RDW 17.0 H (11.5-15.5) % Lymphocytes # (1.0-4.8) k/uL Sodium (137-145) mmol/L Chloride (98-107) mmol/L BUN (9-20) mg/dL Creatinine (0.66-1.25) mg/dL Glucose (74-99) mg/dL POC Glucose (mg/dL) 162 H (75-99) mg/dL Calcium (8.4-10.2) mg/dL Crossmatch See Detail 02/24/20 02/25/20 02/25/20 Range/Units 20:35 03:45 06:07 RBC (4.30-5.90) m/uL Hgb (13.0-17.5) gm/dL Hct (39.0-53.0) % MCH (25.0-35.0) pg MCHC (31.0-37.0) g/dL RDW (11.5-15.5) % Lymphocytes # (1.0-4.8) k/uL Sodium (137-145) mmol/L Chloride (98-107) mmol/L BUN (9-20) mg/dL Creatinine (0.66-1.25) mg/dL Glucose (74-99) mg/dL POC Glucose (mg/dL) 181 H 170 H 149 H (75-99) mg/dL Calcium (8.4-10.2) mg/dL Crossmatch 02/25/20 02/25/20 02/25/20 Range/Units 06:49 06:49 07:05 RBC 2.84 L (4.30-5.90) m/uL Hgb 7.0 L (13.0-17.5) gm/dL Hct 23.8 L (39.0-53.0) % MCH 24.6 L (25.0-35.0) pg MCHC 29.3 L (31.0-37.0) g/dL RDW 17.0 H (11.5-15.5) % Lymphocytes # 0.3 L (1.0-4.8) k/uL Sodium 134 L (137-145) mmol/L Chloride 94 L (98-107) mmol/L BUN 169 H* (9-20) mg/dL Creatinine 6.74 H (0.66-1.25) mg/dL Glucose 134 H (74-99) mg/dL POC Glucose (mg/dL) 172 H (75-99) mg/dL Calcium 7.7 L (8.4-10.2) mg/dL Crossmatch 02/25/20 Range/Units 11:57 RBC (4.30-5.90) m/uL Hgb (13.0-17.5) gm/dL Hct (39.0-53.0) % MCH (25.0-35.0) pg MCHC (31.0-37.0) g/dL RDW (11.5-15.5) % Lymphocytes # (1.0-4.8) k/uL Sodium (137-145) mmol/L Chloride (98-107) mmol/L BUN (9-20) mg/dL Creatinine (0.66-1.25) mg/dL Glucose (74-99) mg/dL POC Glucose (mg/dL) 174 H (75-99) mg/dL Calcium (8.4-10.2) mg/dL Crossmatch Assessment and Plan Assessment: (1) Anemia Narrative/Plan: 54-year-old male with multiple medical comorbidities and a known history of anemia, evaluated in the past year with EGD and colonoscopy which were negative for source of bleeding. No prior video capsule endoscopy. Denies any signs or symptoms of GI bleeding. Previously seen by the hematology service who felt that the patient had an iron deficiency anemia which was likely secondary to an occultsmall bowel GI bleed. Stool testing on current presentation negative for occult blood. Patient has multiple medical comorbidities. Anemia likely multifactorial and secondary to anemia of chronic disease, cannot rule out a component of GI bleed and will plan for video capsule endoscopy for completeness of evaluationand to rule out any small bowel source of bleeding. Current Visit: Yes Status: Acute Code(s): D64.9 - ANEMIA, UNSPECIFIED SNOMED Code(s): 297396430 Plan: supportive care Clear liquid diet, NPO after midnight Magnesium citrate this evening Small bowel capsule endoscopy tomorrow morning Continue to monitor hemoglobin and hematocrit Would recommend hematology consult Repeat laboratory evaluation of anemia No plans for EGD or colonoscopy at this time given recent evaluation will plan f or video capsule endoscopy Thank you for allowing us to participate in the care of the patient The impression and plan of care has been dictated as directed. I performed a history and examination of this patient, discussed the same with the dictator. I agree with the dictator's note ,documented as a scribe. Any additional findings or plans will be noted.
[2020-02-25 17:00] LABS: Glucose,Whole Blood 247 mg/dL (75-99)
[2020-02-25] MEDS ORDERED: MAGNESIUM CITRATE 296 ML BOTTLE PO ONE (18:00)
[2020-02-25 19:28] LABS: Ferritin 80.4 ng/mL (22.0-322.0)
[2020-02-25 20:24] LABS: % Iron Saturation 6.71 (15.00-50.00); Folate, Serum 19.8 ng/mL; Protein, Total 5.8 g/dL (6.2-8.2)
[2020-02-25 20:32] LABS: Glucose,Whole Blood 139 mg/dL (75-99)
[2020-02-25] MEDS: diphenhydrAMINE 25 MG CAP PO SCH (22:39)
[2020-02-26] MEDS: IPRATROPIUM-ALBUTEROL 3 ML NEB INHALATION SCH ×7 (00:15→23:56)
[2020-02-26 06:13] LABS: Glucose,Whole Blood 146 mg/dL (75-99)
[2020-02-26] MEDS: LEVOTHYROXINE 50 MCG TAB PO SCH (06:50)
[2020-02-26] MEDS: INSULIN ASPART (NovoLOG) 100 UNIT/ML VIAL SQ SCH ×3 (06:50→17:29)
[2020-02-26 06:51] LABS: Anisocytosis Slight; Basophils % (A) 0 %; Eosinophils # (A) 0.4 k/uL (0-0.7); Eosinophils % (A) 5 %; HCT 23.9 % (39.0-53.0); Hypochromasia Marked; Lymphocytes # (A) 0.4 k/uL (1.0-4.8); Lymphocytes % (A) 5 %; MCH 24.9 pg (25.0-35.0); MCHC 29.2 g/dL (31.0-37.0); MCV 85.1 fL (80.0-100.0); Mean Platelet Volume 8.1; Monocytes # (A) 0.4 k/uL (0-1.0); Monocytes % (A) 5 %; Neutrophils # (A) 6.6 k/uL (1.3-7.7); Neutrophils % (A) 83 %; Platelet Count 163 k/uL (150-450); RBC 2.81 m/uL (4.30-5.90); WBC 7.9 k/uL (3.8-10.6)
[2020-02-26] MEDS ORDERED: SIMETHICONE 40 MG/0.6 ML DROPS 2,000 MG/30 ML BOTTLE PO ONE (07:25)
--- NOTE | 2020-02-26 07:31 | XR ---
EXAMINATION TYPE: XR chest 1V portable DATE OF EXAM: 02/26/2020 COMPARISON: 02/23/2020 HISTORY: Shortness of breath TECHNIQUE: Frontal and lateral views of the chest are obtained. FINDINGS: Scattered senescent parenchymal changes noted. Hyperinflation compatible with COPD. No evidence for infiltrate. No evidence for atelectasis. Heart size is stable. Mediastinal structures are stable and grossly unremarkable. No evidence for hilar prominence. Degenerative changes dorsal spine. IMPRESSION: 1. No evidence for acute pulmonary disease.
[2020-02-26 07:35] LABS: Calcium 7.8 mg/dL (8.4-10.2); Magnesium 2.3 mg/dL (1.6-2.3); Potassium 4.9 mmol/L (3.5-5.1)
[2020-02-26] MEDS: Fluticasone/Salmeterol [Fluticasone-Salmeterol 232-14] 1 PUFF INHALATION SCH ×2 (08:36→19:46)
[2020-02-26 09:07] LABS: Free Kappa Lt Chain Qnt, Serum 17.8 mg/dL (0.33-1.94)
--- NOTE | 2020-02-26 09:45 | P.PN ---
Subjective patient is seen in follow-up for acute kidney injury. No improvement in creatinine. maintained on IV Lasix. Nonoliguric. Urine output over 1 L ov ernight. no chest pain or shortness of breath. Chest x-ray clear. Oral intake is fair. No active bleeding. Hemoglobin 7.0 today. Vital signs are stable. General: The patient appeared well nourished and normally developed. HEENT: Head exam is unremarkable. Neck is without jugular venous distension. LUNGS: Breath sounds decreased. HEART: Rate and Rhythm are regular. ABDOMEN: soft, nontender. Obese. EXTREMITITES: 1+ edema. Objective - Vital Signs Vital signs: Vital Signs Temp 98.3 F 02/26/20 08:00 Pulse 88 02/26/20 08:00 Resp 18 02/26/20 08:00 BP 98/58 02/26/20 08:00 Pulse Ox 98 02/26/20 08:00 Intake & Output 02/25/20 02/26/20 02/26/20 18:59 06:59 18:59 Intake Total 1270 Output Total 1075 Balance 195 Weight 171 kg Intake: Oral 960 Blood Product 310 Rc Irr As1 Unit 310 [id number] Output: Urine 1075 Other: Voiding Method Indwelling Catheter Indwelling Catheter - Labs CBC & Chem 7: 02/26/20 05:23 02/26/20 05:23 Labs: Abnormal Lab Results - Last 24 Hours (Table) 02/23/20 02/25/20 02/25/20 Range/Units 16:45 06:49 06:49 RBC (4.30-5.90) m/uL Hgb (13.0-17.5) gm/dL Hct (39.0-53.0) % MCH (25.0-35.0) pg MCHC (31.0-37.0) g/dL RDW (11.5-15.5) % Lymphocytes # (1.0-4.8) k/uL Sodium (137-145) mmol/L Chloride (98-107) mmol/L BUN (9-20) mg/dL Creatinine (0.66-1.25) mg/dL Glucose (74-99) mg/dL POC Glucose (mg/dL) (75-99) mg/dL Calcium (8.4-10.2) mg/dL Iron 19 L (65-175) ug/dL % Saturation 6.71 L (15.00-50.00) Total Protein (PEP) 5.8 L (6.2-8.2) g/dL Vitamin B12 1143.0 H (200.0-944.0) pg/mL Free Edinburgh LC, Quant (0.33-1.94) mg/dL Free Lambda LC, Quant (0.57-2.63) mg/dL Crossmatch See Detail 02/25/20 02/25/20 02/25/20 Range/Units 06:49 11:57 16:58 RBC (4.30-5.90) m/uL Hgb (13.0-17.5) gm/dL Hct (39.0-53.0) % MCH (25.0-35.0) pg MCHC (31.0-37.0) g/dL RDW (11.5-15.5) % Lymphocytes # (1.0-4.8) k/uL Sodium (137-145) mmol/L Chloride (98-107) mmol/L BUN (9-20) mg/dL Creatinine (0.66-1.25) mg/dL Glucose (74-99) mg/dL POC Glucose (mg/dL) 174 H 247 H (75-99) mg/dL Calcium (8.4-10.2) mg/dL Iron (65-175) ug/dL % Saturation (15.00-50.00) Total Protein (PEP) (6.2-8.2) g/dL Vitamin B12 (200.0-944.0) pg/mL Free Edinburgh LC, Quant 17.80 H (0.33-1.94) mg/dL Free Lambda LC, Quant 17.10 H (0.57-2.63) mg/dL Crossmatch 02/25/20 02/26/20 02/26/20 Range/Units 20:30 05:23 05:23 RBC 2.81 L (4.30-5.90) m/uL Hgb 7.0 L (13.0-17.5) gm/dL Hct 23.9 L (39.0-53.0) % MCH 24.9 L (25.0-35.0) pg MCHC 29.2 L (31.0-37.0) g/dL RDW 17.0 H (11.5-15.5) % Lymphocytes # 0.4 L (1.0-4.8) k/uL Sodium 134 L (137-145) mmol/L Chloride 91 L (98-107) mmol/L BUN 162 H* (9-20) mg/dL Creatinine 6.70 H (0.66-1.25) mg/dL Glucose 104 H (74-99) mg/dL POC Glucose (mg/dL) 139 H (75-99) mg/dL Calcium 7.8 L (8.4-10.2) mg/dL Iron (65-175) ug/dL % Saturation (15.00-50.00) Total Protein (PEP) (6.2-8.2) g/dL Vitamin B12 (200.0-944.0) pg/mL Free Edinburgh LC, Quant (0.33-1.94) mg/dL Free Lambda LC, Quant (0.57-2.63) mg/dL Crossmatch 02/26/20 Range/Units 06:11 RBC (4.30-5.90) m/uL Hgb (13.0-17.5) gm/dL Hct (39.0-53.0) % MCH (25.0-35.0) pg MCHC (31.0-37.0) g/dL RDW (11.5-15.5) % Lymphocytes # (1.0-4.8) k/uL Sodium (137-145) mmol/L Chloride (98-107) mmol/L BUN (9-20) mg/dL Creatinine (0.66-1.25) mg/dL Glucose (74-99) mg/dL POC Glucose (mg/dL) 146 H (75-99) mg/dL Calcium (8.4-10.2) mg/dL Iron (65-175) ug/dL % Saturation (15.00-50.00) Total Protein (PEP) (6.2-8.2) g/dL Vitamin B12 (200.0-944.0) pg/mL Free Edinburgh LC, Quant (0.33-1.94) mg/dL Free Lambda LC, Quant (0.57-2.63) mg/dL Crossmatch Assessment and Plan Plan: Assessment: 1. Acute kidney injury secondary to ATN secondary to acute blood loss anemia. Also component of cardiorenal syndrome. Creatinine 6.7 today. Baseline creatinine near 1 from March 2019. No evidence of hydronephrosis noted on kidney ultrasound. urinalysis is benign. R/o myeloma/monoclonal gammopathy. UPC 0.2 g. 2. Acute blood loss anemia. status post 2 units of blood transfusion. status post IV DDAVP on February 23. Hemoglobin 7.0 today. No active bleeding noted. GI following. 3. Fluid overload. Better. 4. acute on chronic diastolic CHF. Plan: discontinue Lasix. maintain Aranesp. capsule endoscopy pending. follow-up electrophoresis studies and immunofixation. with severely depressed GFR and no improvement in renal function, I will initiate temporary renal replacement therapy. Plan for first treatment of hemodialysis today and another treatment tomorrow. Expect renal function to improve over the next few days.
--- NOTE | 2020-02-26 10:41 | P.PN ---
Subjective Patient is awake and alert. He had a capsule endoscopy to started this morning. No acute events overnight. No bowel movement since admission. No evidence of ongoing bleed anywhere. Objective - Vital Signs Vital signs: Vital Signs Temp 98.3 F 02/26/20 08:00 Pulse 88 02/26/20 08:00 Resp 18 02/26/20 08:00 BP 98/58 02/26/20 08:00 Pulse Ox 98 02/26/20 08:00 Intake & Output 02/25/20 02/26/20 02/26/20 18:59 06:59 18:59 Intake Total 1270 Output Total 1075 Balance 195 Weight 171 kg Intake: Oral 960 Blood Product 310 Rc Irr As1 Unit 310 [id number] Output: Urine 1075 Other: Voiding Method Indwelling Catheter Indwelling Catheter Indwelling Catheter - Exam General: The patient is awake and alert, in no distress Eye: there is normal conjunctiva bilaterally. Neck: The neck is supple, there is no JVD. Cardiovascular: Normal S1-S2, no S3-S4, no murmurs. Respiratory: Lungs clear to auscultation bilaterally Gastrointestinal: Abdomen is soft, nontender Musculoskeletal: There is +2 pedal edema. Neurological:. Speech is normal. Skin: Skin is warm and dry - Labs CBC & Chem 7: 02/26/20 05:23 02/26/20 05:23 Labs: Abnormal Lab Results - Last 24 Hours (Table) 02/23/20 02/25/20 02/25/20 Range/Units 16:45 06:49 06:49 RBC (4.30-5.90) m/uL Hgb (13.0-17.5) gm/dL Hct (39.0-53.0) % MCH (25.0-35.0) pg MCHC (31.0-37.0) g/dL RDW (11.5-15.5) % Lymphocytes # (1.0-4.8) k/uL Sodium (137-145) mmol/L Chloride (98-107) mmol/L BUN (9-20) mg/dL Creatinine (0.66-1.25) mg/dL Glucose (74-99) mg/dL POC Glucose (mg/dL) (75-99) mg/dL Calcium (8.4-10.2) mg/dL Iron 19 L (65-175) ug/dL % Saturation 6.71 L (15.00-50.00) Total Protein (PEP) 5.8 L (6.2-8.2) g/dL Vitamin B12 1143.0 H (200.0-944.0) pg/mL Free [place] LC, Quant (0.33-1.94) mg/dL Free [place]ambda LC, Quant (0.57-2.63) mg/dL Crossmatch See Detail 02/25/20 02/25/20 02/25/20 Range/Units 06:49 11:57 16:58 RBC (4.30-5.90) m/uL Hgb (13.0-17.5) gm/dL Hct (39.0-53.0) % MCH (25.0-35.0) pg MCHC (31.0-37.0) g/dL RDW (11.5-15.5) % Lymphocytes # (1.0-4.8) k/uL Sodium (137-145) mmol/L Chloride (98-107) mmol/L BUN (9-20) mg/dL Creatinine (0.66-1.25) mg/dL Glucose (74-99) mg/dL POC Glucose (mg/dL) 174 H 247 H (75-99) mg/dL Calcium (8.4-10.2) mg/dL Iron (65-175) ug/dL % Saturation (15.00-50.00) Total Protein (PEP) (6.2-8.2) g/dL Vitamin B12 (200.0-944.0) pg/mL Free [place] LC, Quant 17.80 H (0.33-1.94) mg/dL Free [place] LC, Quant 17.10 H (0.57-2.63) mg/dL Crossmatch 02/25/20 02/26/20 02/26/20 Range/Units 20:30 05:23 05:23 RBC 2.81 L (4.30-5.90) m/uL Hgb 7.0 L (13.0-17.5) gm/dL Hct 23.9 L (39.0-53.0) % MCH 24.9 L (25.0-35.0) pg MCHC 29.2 L (31.0-37.0) g/dL RDW 17.0 H (11.5-15.5) % Lymphocytes # 0.4 L (1.0-4.8) k/uL Sodium 134 L (137-145) mmol/L Chloride 91 L (98-107) mmol/L BUN 162 H* (9-20) mg/dL Creatinine 6.70 H (0.66-1.25) mg/dL Glucose 104 H (74-99) mg/dL POC Glucose (mg/dL) 139 H (75-99) mg/dL Calcium 7.8 L (8.4-10.2) mg/dL Iron (65-175) ug/dL % Saturation (15.00-50.00) Total Protein (PEP) (6.2-8.2) g/dL Vitamin B12 (200.0-944.0) pg/mL Free [place] LC, Quant (0.33-1.94) mg/dL Free [place]ambda LC, Quant (0.57-2.63) mg/dL Crossmatch 02/26/20 Range/Units 06:11 RBC (4.30-5.90) m/uL Hgb (13.0-17.5) gm/dL Hct (39.0-53.0) % MCH (25.0-35.0) pg MCHC (31.0-37.0) g/dL RDW (11.5-15.5) % Lymphocytes # (1.0-4.8) k/uL Sodium (137-145) mmol/L Chloride (98-107) mmol/L BUN (9-20) mg/dL Creatinine (0.66-1.25) mg/dL Glucose (74-99) mg/dL POC Glucose (mg/dL) 146 H (75-99) mg/dL Calcium (8.4-10.2) mg/dL Iron (65-175) ug/dL % Saturation (15.00-50.00) Total Protein (PEP) (6.2-8.2) g/dL Vitamin B12 (200.0-944.0) pg/mL Free [place] LC, Quant (0.33-1.94) mg/dL Free [place]ambda LC, Quant (0.57-2.63) mg/dL Crossmatch Assessment and Plan Assessment: This is a 54-year-old male with complex past medical history noted below who presented to the emergency room with worsening shortness of breath. Patient was evaluated and admitted to the hospital for further management of his medical problems noted below 1. Acute on chronic hypoxemic respiratory failure: Secondary to CHF exacerbation. Wean off O2 as tolerated for O2 sats greater than 90%. 2. Acute on chronic diastolic heart failure exacerbation: Continue diuresis with IV Lasix as directed by cardiology. Strict I's and O's. Fluid restriction. Daily weight. 3. Acute kidney injury: Creatinine 6.8 on presentation. Mostly secondary to ATN and acute on chronic anemia. Questionable cardiorenal syndrome. Seen and evaluated by nephrology. Ultrasound showed no hydronephrosis. Received DDAVP as ordered by nephrology. Kidney function is not improving. No indication for dialysis. 4. COPD with no evidence of exacerbation exacerbation with chronic hypoxic respiratory failure on 3 L of oxygen at home 5. Acute on chronic anemia, status post 3 units of PRBC transfusion. I will consult hematology for further evaluation. Probably anemia of chronic disease: Aranesp added by nephrology. No evidence of GI bleed. Hemoccult is negative. Noncontrast CT of the abdomen with no intra-abdominal bleed or hematoma. Seen and evaluated by GI. Patient had upper and lower scope within the past year reported unremarkable per GI notes. Scheduled for capsule endoscopy. 6. Chronic atrial fibrillation, rate controlled. Anticoagulation on hold given severe anemia 7. Obstructive sleep apnea/obesity hypoventilation syndrome 8. 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 Type 2 diabetes, uncontrolled with polyneuropathy 10. Hypertension, essential 11. Hyperlipidemia 12. Hypothyroidism Today, I reviewed his medication list and lab work results. Continue current management. Appreciate compensation consultant's recommendations. Repeat lab work in the morning.
[2020-02-26] MEDS: FUROSEMIDE 10 MG/ML 10 ML VIAL IV SCH (11:36)
[2020-02-26] MEDS: LORATADINE 10 MG TAB PO SCH (12:06)
[2020-02-26] MEDS: PANTOPRAZOLE 40 MG TABLET PO SCH ×2 (12:06→17:29)
[2020-02-26] MEDS: ATORVASTATIN 20 MG TAB PO SCH (12:06)
[2020-02-26] MEDS: AMOXIC-POT CLAV 500-125 MG 1 EACH TAB PO SCH ×2 (12:06→21:10)
[2020-02-26] MEDS: carvediloL 12.5 MG TAB PO SCH ×2 (12:06→21:10)
[2020-02-26 12:14] LABS: Glucose,Whole Blood 115 mg/dL (75-99)
--- NOTE | 2020-02-26 12:37 | P.PN ---
Subjective Progress Note Date: 02/26/20 CHIEF COMPLAINT: Heart failure, A. fib HISTORY OF PRESENT ILLNESS: Patient examined this morning at the bedside. Patient denies chest pain. Denies shortness of breath at rest. Patient's hemoglobin remains low at 7.0. He has had 3 units of RBCs. Capsule study is in progress. Creatinine today 6.70. He is being followed by nephrology. He remains on IV Lasix. His lower extremity edema is improving. PHYSICAL EXAM: VITAL SIGNS: Reviewed. GENERAL: Well-developed in no acute distress. HEENT: Head is normocephalic. Pupils are equal, round. Sclerae anicteric. Mucous membranes of the mouth are moist. Neck supple. No JVD or thyromegaly LUNGS: Respirations even and unlabored. Lungs essentially clear to auscultation bilaterally. HEART: Irregular rate and rhythm. S1 and S2 heard. ABDOMEN: Soft. Nondistended. Nontender. EXTREMITIES: Normal range of motion. No clubbing or cyanosis. Peripheral pulses intact. 2-3+ bilateral lower extremity edema NEUROLOGIC: Awake and alert. Oriented x 3. ASSESSMENT: Acute exacerbation of diastolic congestive heart failure, ejection fraction 50- 55% Chronic atrial fibrillation, on long-term anticoagulation with Xarelto Anemia, rule out acute blood loss anemia Acute kidney injury Hypertension Hyperlipidemia COPD with home O2 use Obstructive sleep apnea Diabetes mellitus, type II Morbid obesity: BMI 58.0 Alcohol abuse PLAN: Lasix discontinued per nephrology Monitor kidney function. Plan is to begin hemodialysis Continue to hold Xarelto secondary to anemia GI following. Capsule study underway. Await results. Nurse practitioner note has been reviewed by physician. Signing provider agrees with the documented findings, assessment, and plan of care. Objective - Vital Signs Vital signs: Vital Signs Temp 98.3 F 02/26/20 08:00 Pulse 88 02/26/20 08:00 Resp 18 02/26/20 08:00 BP 98/58 02/26/20 08:00 Pulse Ox 98 02/26/20 08:00 Intake & Output 02/25/20 02/26/20 02/26/20 18:59 06:59 18:59 Intake Total 1270 Output Total 1075 Balance 195 Weight 171 kg 171 kg Intake: Oral 960 Blood Product 310 Rc Irr As1 Unit 310 [id number] Output: Urine 1075 Other: Voiding Method Indwelling Catheter Indwelling Catheter Indwelling Catheter - Labs CBC & Chem 7: 02/26/20 05:23 02/26/20 05:23 Labs: Abnormal Lab Results - Last 24 Hours (Table) 02/23/20 02/25/20 02/25/20 Range/Units 16:45 06:49 06:49 RBC (4.30-5.90) m/uL Hgb (13.0-17.5) gm/dL Hct (39.0-53.0) % MCH (25.0-35.0) pg MCHC (31.0-37.0) g/dL RDW (11.5-15.5) % Lymphocytes # (1.0-4.8) k/uL Sodium (137-145) mmol/L Chloride (98-107) mmol/L BUN (9-20) mg/dL Creatinine (0.66-1.25) mg/dL Glucose (74-99) mg/dL POC Glucose (mg/dL) (75-99) mg/dL Calcium (8.4-10.2) mg/dL Iron 19 L (65-175) ug/dL % Saturation 6.71 L (15.00-50.00) Total Protein (PEP) 5.8 L (6.2-8.2) g/dL Vitamin B12 1143.0 H (200.0-944.0) pg/mL Free [place] LC, Quant (0.33-1.94) mg/dL Free Lambda LC, Quant (0.57-2.63) mg/dL Crossmatch See Detail 02/25/20 02/25/20 02/25/20 Range/Units 06:49 16:58 20:30 RBC (4.30-5.90) m/uL Hgb (13.0-17.5) gm/dL Hct (39.0-53.0) % MCH (25.0-35.0) pg MCHC (31.0-37.0) g/dL RDW (11.5-15.5) % Lymphocytes # (1.0-4.8) k/uL Sodium (137-145) mmol/L Chloride (98-107) mmol/L BUN (9-20) mg/dL Creatinine (0.66-1.25) mg/dL Glucose (74-99) mg/dL POC Glucose (mg/dL) 247 H 139 H (75-99) mg/dL Calcium (8.4-10.2) mg/dL Iron (65-175) ug/dL % Saturation (15.00-50.00) Total Protein (PEP) (6.2-8.2) g/dL Vitamin B12 (200.0-944.0) pg/mL Free [place] LC, Quant 17.80 H (0.33-1.94) mg/dL Free [place] LC, Quant 17.10 H (0.57-2.63) mg/dL Crossmatch 02/26/20 02/26/20 02/26/20 Range/Units 05:23 05:23 06:11 RBC 2.81 L (4.30-5.90) m/uL Hgb 7.0 L (13.0-17.5) gm/dL Hct 23.9 L (39.0-53.0) % MCH 24.9 L (25.0-35.0) pg MCHC 29.2 L (31.0-37.0) g/dL RDW 17.0 H (11.5-15.5) % Lymphocytes # 0.4 L (1.0-4.8) k/uL Sodium 134 L (137-145) mmol/L Chloride 91 L (98-107) mmol/L BUN 162 H* (9-20) mg/dL Creatinine 6.70 H (0.66-1.25) mg/dL Glucose 104 H (74-99) mg/dL POC Glucose (mg/dL) 146 H (75-99) mg/dL Calcium 7.8 L (8.4-10.2) mg/dL Iron (65-175) ug/dL % Saturation (15.00-50.00) Total Protein (PEP) (6.2-8.2) g/dL Vitamin B12 (200.0-944.0) pg/mL Free [place] LC, Quant (0.33-1.94) mg/dL Free [place]ambda LC, Quant (0.57-2.63) mg/dL Crossmatch 02/26/20 Range/Units 12:08 RBC (4.30-5.90) m/uL Hgb (13.0-17.5) gm/dL Hct (39.0-53.0) % MCH (25.0-35.0) pg MCHC (31.0-37.0) g/dL RDW (11.5-15.5) % Lymphocytes # (1.0-4.8) k/uL Sodium (137-145) mmol/L Chloride (98-107) mmol/L BUN (9-20) mg/dL Creatinine (0.66-1.25) mg/dL Glucose (74-99) mg/dL POC Glucose (mg/dL) 115 H (75-99) mg/dL Calcium (8.4-10.2) mg/dL Iron (65-175) ug/dL % Saturation (15.00-50.00) Total Protein (PEP) (6.2-8.2) g/dL Vitamin B12 (200.0-944.0) pg/mL Free [place] LC, Quant (0.33-1.94) mg/dL Free Lambda LC, Quant (0.57-2.63) mg/dL Crossmatch
--- NOTE | 2020-02-26 13:26 | P.PN ---
Subjective Progress Note Date: 02/26/20 Principal diagnosis: Anemia Patient seen and examined at the bedside. He received his capsule endoscopy this morning. He denies any abdominal pain, nausea, vomiting, or diarrhea. He denies any signs or symptoms of GI bleed. Objective - Vital Signs Vital signs: Vital Signs Temp 98.0 F 02/26/20 12:00 Pulse 91 02/26/20 12:00 Resp 18 02/26/20 12:00 BP 94/51 02/26/20 12:00 Pulse Ox 97 02/26/20 12:00 Intake & Output 02/25/20 02/26/20 02/26/20 18:59 06:59 18:59 Intake Total 1270 Output Total 1075 Balance 195 Weight 171 kg 171 kg Intake: Oral 960 Blood Product 310 Rc Irr As1 Unit 310 [id number] Output: Urine 1075 Other: Voiding Method Indwelling Catheter Indwelling Catheter Indwelling Catheter - Exam On physical examination, patient appears comfortable in no apparent distress. Morbidly Obese HEAD: Normocephalic, atraumatic. EYES: No scleral icterus. No conjunctival injection. MOUTH: No lesions, tongue midline. NECK: Trachea midline, no gross abnormalities. CHEST: decreased air entry in all zimmerman. HEART: S1-S2 appreciated. ABDOMEN: Soft, morbidly obese. Bowel sounds are positive. No organomegaly. No guarding or rigidity. EXTREMITIES: Bilateral pedal edema. SKIN: No rashes, no jaundice. NEUROLOGIC: Alert and oriented x3. No focal deficits. - Labs CBC & Chem 7: 02/26/20 05:23 02/26/20 05:23 Labs: Abnormal Lab Results - Last 24 Hours (Table) 02/25/20 02/25/20 02/25/20 Range/Units 06:49 06:49 06:49 RBC (4.30-5.90) m/uL Hgb (13.0-17.5) gm/dL Hct (39.0-53.0) % MCH (25.0-35.0) pg MCHC (31.0-37.0) g/dL RDW (11.5-15.5) % Lymphocytes # (1.0-4.8) k/uL Sodium (137-145) mmol/L Chloride (98-107) mmol/L BUN (9-20) mg/dL Creatinine (0.66-1.25) mg/dL Glucose (74-99) mg/dL POC Glucose (mg/dL) (75-99) mg/dL Calcium (8.4-10.2) mg/dL Iron 19 L (65-175) ug/dL % Saturation 6.71 L (15.00-50.00) Total Protein (PEP) 5.8 L (6.2-8.2) g/dL Vitamin B12 1143.0 H (200.0-944.0) pg/mL Free [place] LC, Quant 17.80 H (0.33-1.94) mg/dL Free [place] LC, Quant 17.10 H (0.57-2.63) mg/dL 02/25/20 02/25/20 02/26/20 Range/Units 16:58 20:30 05:23 RBC (4.30-5.90) m/uL Hgb (13.0-17.5) gm/dL Hct (39.0-53.0) % MCH (25.0-35.0) pg MCHC (31.0-37.0) g/dL RDW (11.5-15.5) % Lymphocytes # (1.0-4.8) k/uL Sodium 134 L (137-145) mmol/L Chloride 91 L (98-107) mmol/L BUN 162 H* (9-20) mg/dL Creatinine 6.70 H (0.66-1.25) mg/dL Glucose 104 H (74-99) mg/dL POC Glucose (mg/dL) 247 H 139 H (75-99) mg/dL Calcium 7.8 L (8.4-10.2) mg/dL Iron (65-175) ug/dL % Saturation (15.00-50.00) Total Protein (PEP) (6.2-8.2) g/dL Vitamin B12 (200.0-944.0) pg/mL Free [place] LC, Quant (0.33-1.94) mg/dL Free [place] LC, Quant (0.57-2.63) mg/dL 02/26/20 02/26/20 02/26/20 Range/Units 05:23 06:11 12:08 RBC 2.81 L (4.30-5.90) m/uL Hgb 7.0 L (13.0-17.5) gm/dL Hct 23.9 L (39.0-53.0) % MCH 24.9 L (25.0-35.0) pg MCHC 29.2 L (31.0-37.0) g/dL RDW 17.0 H (11.5-15.5) % Lymphocytes # 0.4 L (1.0-4.8) k/uL Sodium (137-145) mmol/L Chloride (98-107) mmol/L BUN (9-20) mg/dL Creatinine (0.66-1.25) mg/dL Glucose (74-99) mg/dL POC Glucose (mg/dL) 146 H 115 H (75-99) mg/dL Calcium (8.4-10.2) mg/dL Iron (65-175) ug/dL % Saturation (15.00-50.00) Total Protein (PEP) (6.2-8.2) g/dL Vitamin B12 (200.0-944.0) pg/mL Free [place] LC, Quant (0.33-1.94) mg/dL Free [place]ambda LC, Quant (0.57-2.63) mg/dL Assessment and Plan Assessment: (1) Anemia Narrative/Plan: 54-year-old male with multiple medical comorbidities and a known history of anemia, evaluated in the past year with EGD and colonoscopy which were negative for source of bleeding. No prior video capsule endoscopy. Denies any signs or symptoms of GI bleeding. Previously seen by the hematology service who felt that the patient had an iron deficiency anemia which was likely secondary to an occultsmall bowel GI bleed. Stool testing on current presentation negative for occult blood. Patient has multiple medical comorbidities. Anemia likely multifactorial and secondary to anemia of chronic disease, cannot rule out a component of GI bleed and will plan for video capsule endoscopy for completeness of evaluationand to rule out any small bowel source of bleeding. Current Visit: Yes Status: Acute Code(s): D64.9 - ANEMIA, UNSPECIFIED SNOMED Code(s): 349789993 Plan: supportive care Advance to consistent carbohydrate diet Small bowel capsule endoscopy today, results pending Continue to monitor hemoglobin and hematocrit Would recommend hematology consult Repeat laboratory evaluation of anemia No plans for EGD or colonoscopy at this time given recent evaluation will plan for video capsule endoscopy Thank you for allowing us to participate in the care of the patient The impression and plan of care has been dictated as directed. I performed a history and examination of this patient, discussed the same with the dictator. I agree with the dictator's note ,documented as a scribe. Any additional findings or plans will be noted.
[2020-02-26] MEDS ORDERED: fentaNYL (PF) 50 MCG/ML 2 ML AMP IV ONE (15:52)
[2020-02-26] MEDS ORDERED: MIDAZOLAM 2 MG/2 ML VIAL IVP ONE (15:52)
[2020-02-26] MEDS ORDERED: SODIUM CHLORIDE 0.9% 500 ML 500 ML IV ONE (15:53)
[2020-02-26] MEDS ORDERED: LIDOCAINE 1% INJ 10MG/ML (20 ML MDV) SQ ONE (15:56)
[2020-02-26] MEDS ORDERED: FUROSEMIDE 40 MG TAB PO SCH (16:00)
--- NOTE | 2020-02-26 16:31 | P.PN ---
Subjective Progress Note Date: 02/26/20 Principal diagnosis: Shortness of breath, multifactorial, related to CHF, COPD, and possibility of pneumonia On 02/25/2020 patient seen in follow-up on selective care unit, he is awake and alert, calm and comfortable, sitting up in a chair in no acute distress, he is currently on 3 L of oxygen the pulse ox 95%, hemodynamically patient is stable, no fever or chills, no reports of chest pain. No altered mentation. No evidence of any active bleeding, complaints of abdominal pain, today's hemoglobin is 7, patient is status post transfusion with 2 units of packed red blood cells, and his third and is transfusing this morning. Blood pressure is 95/54 on today's vital signs. On 02/26/2020 patient seen in follow-up on selective care unit. She is awake and alert, in no acute distress, denies any abdominal pain, no nausea vomiting no diarrhea, no signs have been stable, hemodynamically he has been stable, he received his Endoscopy This Morning. GI Service Is Following, his hemoglobin today is 7.0. Renal profile is relatively stable, with B UN of 162, creatinine 6.7. COVID 19 negative. Denies any chest pain or shortness of breath, today's chest x-ray showed no evidence for acute pulmonary disease. Objective - Vital Signs Vital signs: Vital Signs Temp 97.9 F 02/26/20 15:27 Pulse 85 02/26/20 15:34 Resp 16 02/26/20 15:34 BP 100/54 02/26/20 15:27 Pulse Ox 98 02/26/20 15:27 Intake & Output 02/25/20 02/26/20 02/26/20 18:59 06:59 18:59 Intake Total 1270 25 Output Total 1075 Balance 195 25 Weight 171 kg 171 kg Intake: IV 25 Oral 960 Blood Product 310 Rc Irr As1 Unit 310 [id number] Output: Urine 1075 Other: Voiding Method Indwelling Catheter Indwelling Catheter Indwelling Catheter # Bowel Movements 0 - Exam GENERAL EXAM: Alert, very pleasant, 54-year-old white male, on 3 L of oxygen with pulse ox of 98% comfortable in no apparent distress. HEAD: Normocephalic/atraumatic. EYES: Normal reaction of pupils, equal size. Conjunctiva pink, sclera white. NOSE: Clear with pink turbinates. THROAT: No erythema or exudates. NECK: No masses, no JVD, no thyroid enlargement, no adenopathy. CHEST: No chest wall deformity. Symmetrical expansion. LUNGS: Equal air entry with no crackles, wheeze, rhonchi or dullness. CVS: Regular rate and rhythm, normal S1 and S2, no gallops, no murmurs, no rubs ABDOMEN: Soft, nontender. No hepatosplenomegaly, normal bowel sounds, no guarding or rigidity. EXTREMITIES: No clubbing, no edema, no cyanosis, 2+ pulses and upper and lower extremities. MUSCULOSKELETAL: Muscle strength and tone normal. SPINE: No scoliosis or deformity SKIN: No rashes CENTRAL NERVOUS SYSTEM: Alert and oriented -3. No focal deficits, tone is normal in all 4 extremities. PSYCHIATRIC: Alert and oriented -3. Appropriate affect. Intact judgment and insight. - Labs CBC & Chem 7: 02/26/20 05:23 02/26/20 05:23 Labs: Abnormal Lab Results - Last 24 Hours (Table) 02/25/20 02/25/20 02/25/20 Range/Units 06:49 06:49 06:49 RBC (4.30-5.90) m/uL Hgb (13.0-17.5) gm/dL Hct (39.0-53.0) % MCH (25.0-35.0) pg MCHC (31.0-37.0) g/dL RDW (11.5-15.5) % Lymphocytes # (1.0-4.8) k/uL Sodium (137-145) mmol/L Chloride (98-107) mmol/L BUN (9-20) mg/dL Creatinine (0.66-1.25) mg/dL Glucose (74-99) mg/dL POC Glucose (mg/dL) (75-99) mg/dL Calcium (8.4-10.2) mg/dL Iron 19 L (65-175) ug/dL % Saturation 6.71 L (15.00-50.00) Total Protein (PEP) 5.8 L (6.2-8.2) g/dL Vitamin B12 1143.0 H (200.0-944.0) pg/mL Free [place] LC, Quant 17.80 H (0.33-1.94) mg/dL Free [place]ambda LC, Quant 17.10 H (0.57-2.63) mg/dL 02/25/20 02/25/20 02/26/20 Range/Units 16:58 20:30 05:23 RBC (4.30-5.90) m/uL Hgb (13.0-17.5) gm/dL Hct (39.0-53.0) % MCH (25.0-35.0) pg MCHC (31.0-37.0) g/dL RDW (11.5-15.5) % Lymphocytes # (1.0-4.8) k/uL Sodium 134 L (137-145) mmol/L Chloride 91 L (98-107) mmol/L BUN 162 H* (9-20) mg/dL Creatinine 6.70 H (0.66-1.25) mg/dL Glucose 104 H (74-99) mg/dL POC Glucose (mg/dL) 247 H 139 H (75-99) mg/dL Calcium 7.8 L (8.4-10.2) mg/dL Iron (65-175) ug/dL % Saturation (15.00-50.00) Total Protein (PEP) (6.2-8.2) g/dL Vitamin B12 (200.0-944.0) pg/mL Free [place] LC, Quant (0.33-1.94) mg/dL Free Lambda LC, Quant (0.57-2.63) mg/dL 02/26/20 02/26/20 02/26/20 Range/Units 05:23 06:11 12:08 RBC 2.81 L (4.30-5.90) m/uL Hgb 7.0 L (13.0-17.5) gm/dL Hct 23.9 L (39.0-53.0) % MCH 24.9 L (25.0-35.0) pg MCHC 29.2 L (31.0-37.0) g/dL RDW 17.0 H (11.5-15.5) % Lymphocytes # 0.4 L (1.0-4.8) k/uL Sodium (137-145) mmol/L Chloride (98-107) mmol/L BUN (9-20) mg/dL Creatinine (0.66-1.25) mg/dL Glucose (74-99) mg/dL POC Glucose (mg/dL) 146 H 115 H (75-99) mg/dL Calcium (8.4-10.2) mg/dL Iron (65-175) ug/dL % Saturation (15.00-50.00) Total Protein (PEP) (6.2-8.2) g/dL Vitamin B12 (200.0-944.0) pg/mL Free [place] LC, Quant (0.33-1.94) mg/dL Free Lambda LC, Quant (0.57-2.63) mg/dL Assessment and Plan Plan: Assessment: #1. Shortness of breath, multifactorial, mostly related to underlying congestive heart failure, component of COPD, and possibility of pneumonia is considered less likely, in addition to anemia #2. History of chronic atrial fibrillation, normally on Xarelto which is currently on hold #3. Chronic hypoxemic restaurant failure related to a history of COPD #4. Chronic congestive heart failure with diastolic dysfunction #5. Acute kidney injury #6. Anemia, rule out acute blood loss anemia #7. Hypertension #8. Hyperlipidemia #9. Diabetes poultice type II Plan: Continue current antibiotic coverage, patient is afebrile wean FiO2, hemodynamically patient stable, remains on Lasix, lower extremity edema is improving, creatinine is stable, vital signs are stable, no evidence of active bleeding, Xarelto on hold. Nephrology to begin hemodialysis, continue monitoring H&H, and renal function, electrolytes. No worsening dyspnea, today's chest x-ray showed no acute pulmonary process. I performed a history & physical examination of the patient and discussed their management with my nurse practitioner, Pily Aguilera. I reviewed the nurse practitioner's note and agree with the documented findings and plan of care. Lung sounds are positive for diminished breath sounds. The findings and the impression was discussed with the patient. I attest to the documentation by the nurse practitioner. Time with Patient: Less than 30
--- NOTE | 2020-02-26 16:33 | IR ---
EXAMINATION TYPE: IR cvc insert non tunneled DATE OF EXAM: 02/26/2020 CLINICAL HISTORY: Failed dialysis. TECHNIQUE: Fluoroscopy. COMPARISON: None. FINDINGS: Fluoroscopic guidance was provided during right femoral venous dialysis catheter insertion procedure performed by Dr. Lopez. A total of 12 seconds of fluoroscopic time was utilized during the procedure and two spot images was acquired. Images show portion of right femoral catheter extending into iliac vein. IMPRESSION: As Above.
[2020-02-26 17:37] LABS: Glucose,Whole Blood 159 mg/dL (75-99)
[2020-02-26] MEDS: guaiFENesin SYRUP 100MG/5ML 200 MG/10 ML CUP PO PRN (18:23)
--- NOTE | 2020-02-26 18:40 | OP ---
OPERATIVE REPORT PREOPERATIVE DIAGNOSIS: Acute chronic renal failure. PROCEDURE: Placement of ultrasound-guided 30 cm dialysis catheter via the right femoral approach. PROCEDURE DESCRIPTION: This patient was brought to the cleaner laboratory equipment. Right groin was prepped and draped in sterile manner. Lidocaine 1% was infiltrated. Ultrasound-guided micropuncture was introduced into the right femoral vein. Micropuncture guidewire was passed and 4-Maori dilator was passed. Then we passed a regular guidewire under fluoroscopy control and the dilator was advanced. A 30 cm dialysis catheter was placed on the top of the guidewire. Free flow noted. Flushed with heparin saline and hep-locked, secured with 3-0 nylon. Patient tolerated the procedure well. MMODL / IJN: [id number] /
[2020-02-26 19:01] LABS: Anisocytosis Slight; Basophils % (A) 1 %; Eosinophils # (A) 0.3 k/uL (0-0.7); Eosinophils % (A) 5 %; HCT 23.9 % (39.0-53.0); HGB 7.2 gm/dL (13.0-17.5); Hypochromasia Marked; Lymphocytes # (A) 0.2 k/uL (1.0-4.8); Lymphocytes % (A) 3 %; MCH 25.2 pg (25.0-35.0); MCHC 30.1 g/dL (31.0-37.0); MCV 83.8 fL (80.0-100.0); Mean Platelet Volume 8.4; Monocytes # (A) 0.2 k/uL (0-1.0); Monocytes % (A) 3 %; Neutrophils # (A) 6.2 k/uL (1.3-7.7); Neutrophils % (A) 87 %; Platelet Count 181 k/uL (150-450); RBC 2.85 m/uL (4.30-5.90); RDW 17.5 % (11.5-15.5); WBC 7.1 k/uL (3.8-10.6)
[2020-02-26 20:23] LABS: Hepatitis B Surface AB- Quant 3.5 mIU/mL; Hepatitis B Surface Antibody Non-Reactive (Non-Reactive); Hepatitis B Surface Antigen Non-Reactive (Non-Reactive)
[2020-02-26 20:39] LABS: Glucose,Whole Blood 176 mg/dL (75-99)
[2020-02-26] MEDS: DOCUSATE 100 MG CAP PO PRN (21:10)
[2020-02-26] MEDS: diphenhydrAMINE 25 MG CAP PO SCH (21:10)
[2020-02-27] MEDS: ACETAMINOPHEN TAB 325 MG TAB PO PRN
[2020-02-27] MEDS ORDERED: bisacodyL 5 MG TABLET.DR PO PRN (00:02)
--- NOTE | 2020-02-27 00:36 | P.CONS ---
History of Present Illness - Reason for Consult Consult date: 02/26/20 anemia - History of Present Illness Mr Simeon is a 54-year-old white male with multiple medical problems.The p atient was seen initially in 04/05 and consult because of anemia with hemoglobin in the 8 range. Labs at that time were consistent with iron deficiency. Baseline creatinine at that time was normal at 0.9. The patient received a dose of IV iron .He had a upper and lower endoscopy that was negative. It was therefore felt that he likely had small bowel AVM related blood loss, likely exacerbated by xarelto. It was recommended that he follow up as an outpatient for monitoring and ongoing iron supplementation. However the patient did not follow-up in the office as he states that he was unable to arrange for transportation. The patient was admitted this time with increasing weakness and shortness of breath. He states that about 10 days prior to that he had a flulike illness with fever, chills and myalgias. Did not seek medical attention at that time. On admission he was found to have a hemoglobin down to 6.7. He had bilateral lung infiltrates as well as lower extremity swelling most consistent with vascular condition and fluid overload. Creatinine was up to 6.45. He was there fore admitted for further management and had a blood transfusion. He denied any obvious bleeding. He has been continuing on xarelto and this was held at the time of admission. Review of Systems Constitutional: Reports fatigue, Reports weakness Eyes: denies blurred vision, denies pain Ears: deny: decreased hearing, ear discharge, earache, tinnitus Ears, nose, mouth and throat: Denies headache, Denies sore throat Cardiovascular: Reports edema, Reports orthopnea, Reports shortness of breath Respiratory: Reports dyspnea Gastrointestinal: Denies abdominal pain, Denies diarrhea, Denies nausea, Denies vomiting Genitourinary: Reports as per HPI Musculoskeletal: Reports muscle weakness Integumentary: Denies pruritus, Denies rash Neurological: Reports weakness Psychiatric: Denies anxiety, Denies depression Endocrine: Reports fatigue, Reports high blood sugars Hematologic/Lymphatic: Reports as per HPI Past Medical History Past Medical History: Atrial Fibrillation, Heart Failure, COPD, Diabetes Mellitus, Hyperlipidemia, Hypertension, Thyroid Disorder Additional Past Medical History / Comment(s): NIDDM type II, neuropathy bilateral feet, 2013 acute respiratory failure-d/t obesity/hypoventilatory syndrome/DELORES/bronchospasms, DELORES-pt states he has not been wearing device lately, trach/vent-had renal failure with dialysis for 5 weeks, chronic anemia, h ypothyroid, gout L arm, pt states he is a binge drinker. History of Any Multi-Drug Resistant Organisms: MRSA Year Discovered:: 2012 MDRO Source:: bronchial washing Past Surgical History: Orthopedic Surgery, Tonsillectomy Additional Past Surgical History / Comment(s): EGD, colonoscopies, R knee arthroscopy, R shoulder arthroscopy, trach, peg, BAL left lower lobe, cardiovers ion. Past Anesthesia/Blood Transfusion Reactions: No Reported Reaction Additional Past Anesthesia/Blood Transfusion Reaction / Comm: Pt has received b lood in past without reaction. Past Psychological History: No Psychological Hx Reported Smoking Status: Former smoker Past Alcohol Use History: Abuse, Heavy Past Drug Use History: None Reported - Past Family History Father History Unknown: Yes Family Medical History: No Reported History Mother Family Medical History: No Reported History Additional Family Medical History / Comment(s): Mother is healthy. Medications and Allergies Home Medications Medication Instructions Recorded Confirmed Type Gabapentin 600 mg PO TID@0830,1430,202904/08/15 02/23/20 History Levothyroxine Sodium [Synthroid] 50 mcg PO QAM 04/08/15 02/23/20 History carvediloL [Coreg*] 12.5 mg PO BID@0830,202904/08/15 02/23/20 History Atorvastatin [Lipitor] 20 mg PO QAM 02/18/18 02/23/20 History Furosemide [Lasix] 40 mg PO BID@0830,202902/18/18 02/23/20 History Rivaroxaban [Xarelto] 20 mg PO HS 02/18/18 02/23/20 History Acetaminophen Tab [Tylenol] 325 mg PO Q4H PRN 04/03/19 02/23/20 History Cetirizine HCl [Zyrtec] 10 mg PO QAM 04/03/19 02/23/20 History Fluticasone Nasal [place] [Flonase 1 spray EA NOSTRIL DAILY PRN 04/03/19 02/23/20 History Nasal [place]] Multivitamins, Thera [Multivitamin 1 tab PO 04/03/19 02/23/20 History (formulary)] allopurinoL [Zyloprim] 300 mg PO HS 04/03/19 02/23/20 History Albuterol Inhaler [Ventolin Hfa 2 puff INHALATION RT-Q4H PRN 02/23/20 02/23/20 History Inhaler] Cholecalciferol [Vitamin D3 (25 2,000 unit PO HS 02/23/20 02/23/20 History Mcg = 1000 Iu)] Fluticasone/Salmeterol 1 puff INHALATION RT-BID 02/23/20 02/23/20 History [Fluticasone-Salmeterol 232-14] Losartan [Cozaar] 25 mg PO QAM 02/23/20 02/23/20 History Omeprazole [PriLOSEC] 40 mg PO QAM 02/23/20 02/23/20 History Vitamin E 450mg 1 tab PO HS 02/23/20 02/23/20 History diphenhydrAMINE [Benadryl] 50 mg PO HS 02/23/20 02/23/20 History metFORMIN HCL 1,000 mg PO BID@0830,2030 02/23/20 02/23/20 History Allergies Allergy/AdvReac Type Severity Reaction Status Date / Time No Known Allergies Allergy Verified 02/23/20 20:38 Physical Exam Vitals: Vital Signs Temp Pulse Resp BP Pulse Ox 02/26/20 21:00 98.4 F 86 16 111/67 98 02/26/20 20:49 97.6 F 86 16 114/59 02/26/20 15:34 85 16 02/26/20 15:27 97.9 F 85 16 100/54 98 02/26/20 12:00 98.0 F 91 18 94/51 97 02/26/20 08:00 98.3 F 88 18 98/58 98 02/26/20 04:00 98.1 F 79 18 124/78 98 Intake and Output 02/26/20 02/26/20 02/27/20 14:59 22:59 06:59 Intake Total 1105 Output Total 2500 Balance -1395 Intake: IV 25 Oral 780 Hemodialysis 300 Output: Urine 1200 Hemodialysis 1300 Other: Voiding Method Indwelling Catheter Indwelling Catheter # Bowel Movements 0 Weight 171 kg - Constitutional General appearance: no acute distress - EENT Eyes: EOMI, PERRLA ENT: hearing grossly normal, normal oropharynx - Neck Neck: no lymphadenopathy Thyroid: bilateral: normal size - Respiratory Respiratory: bilateral: rales - Cardiovascular Rhythm: irregularly irregular Heart sounds: normal: S1, S2 - Gastrointestinal General gastrointestinal: normal bowel sounds, soft - Integumentary Integumentary: normal - Neurologic Neurologic: CNII-XII intact, focal deficits - Musculoskeletal Musculoskeletal: generalized weakness, strength equal bilaterally - Psychiatric Psychiatric: A&O x's 3, appropriate affect Results CBC & Chem 7: 02/26/20 18:40 02/26/20 05:23 Labs: Abnormal Lab Results - Last 24 Hours (Table) 02/25/20 02/26/20 02/26/20 Range/Units 06:49 05:23 05:23 RBC 2.81 L (4.30-5.90) m/uL Hgb 7.0 L (13.0-17.5) gm/dL Hct 23.9 L (39.0-53.0) % MCH 24.9 L (25.0-35.0) pg MCHC 29.2 L (31.0-37.0) g/dL RDW 17.0 H (11.5-15.5) % Lymphocytes # 0.4 L (1.0-4.8) k/uL Sodium 134 L (137-145) mmol/L Chloride 91 L (98-107) mmol/L BUN 162 H* (9-20) mg/dL Creatinine 6.70 H (0.66-1.25) mg/dL Glucose 104 H (74-99) mg/dL POC Glucose (mg/dL) (75-99) mg/dL Calcium 7.8 L (8.4-10.2) mg/dL Free Bricelyn LC, Quant 17.80 H (0.33-1.94) mg/dL Free Lambda LC, Quant 17.10 H (0.57-2.63) mg/dL 02/26/20 02/26/20 02/26/20 Range/Units 06:11 12:08 17:11 RBC (4.30-5.90) m/uL Hgb (13.0-17.5) gm/dL Hct (39.0-53.0) % MCH (25.0-35.0) pg MCHC (31.0-37.0) g/dL RDW (11.5-15.5) % Lymphocytes # (1.0-4.8) k/uL Sodium (137-145) mmol/L Chloride (98-107) mmol/L BUN (9-20) mg/dL Creatinine (0.66-1.25) mg/dL Glucose (74-99) mg/dL POC Glucose (mg/dL) 146 H 115 H 159 H (75-99) mg/dL Calcium (8.4-10.2) mg/dL Free Bricelyn LC, Quant (0.33-1.94) mg/dL Free Lambda LC, Quant (0.57-2.63) mg/dL 02/26/20 02/26/20 Range/Units 18:40 20:37 RBC 2.85 L (4.30-5.90) m/uL Hgb 7.2 L (13.0-17.5) gm/dL Hct 23.9 L (39.0-53.0) % MCH (25.0-35.0) pg MCHC 30.1 L (31.0-37.0) g/dL RDW 17.5 H (11.5-15.5) % Lymphocytes # 0.2 L (1.0-4.8) k/uL Sodium (137-145) mmol/L Chloride (98-107) mmol/L BUN (9-20) mg/dL Creatinine (0.66-1.25) mg/dL Glucose (74-99) mg/dL POC Glucose (mg/dL) 176 H (75-99) mg/dL Calcium (8.4-10.2) mg/dL Free Bricelyn LC, Quant (0.33-1.94) mg/dL Free Lambda LC, Quant (0.57-2.63) mg/dL Chest x-ray: report reviewed CT scan - abdomen: report reviewed CT scan - pelvis: report reviewed US - abdomen: report reviewed Venous US: report reviewed Assessment and Plan (1) Anemia Narrative/Plan: The patient was previously seen for anemia which appear to be due to iron deficiency, with medical etiology as noted in the HPI. The patient did not follow-up in in the office for monitoring and iron infusions. He states that he was not on any oral iron supplementation either. He has continued on xarelto Therefore the etiology of his anemia is likely to be the same, that is occult GI blood loss, probably exacerbated by acute kidney injury. Iron studies done this admission show saturation less than 20%, with ferritin less than 100, consistent with iron deficiency in acute illness. - Agree with transfusion to keep hemoglobin greater than 7 - It was again discussed with the patient that he would need continued monitoring as an outpatient with aggressive iron supplementation as needed especially if he is to continue on xarelto. He stated that he does have a better social situation now and will be able to follow-up. - Start IV iron inpatient once infection is ruled out Current Visit: Yes Status: Acute Code(s): D64.9 - ANEMIA, UNSPECIFIED SNOMED Code(s): 177197411 Plan: Defer to the admitting service for management of his other multiple medical problems
[2020-02-27] MEDS: IPRATROPIUM-ALBUTEROL 3 ML NEB INHALATION SCH ×5 (04:00→23:50)
[2020-02-27 06:08] LABS: Glucose,Whole Blood 172 mg/dL (75-99)
[2020-02-27 06:35] LABS: Anisocytosis Slight; Basophils % (A) 0 %; Eosinophils # (A) 0.4 k/uL (0-0.7); Eosinophils % (A) 6 %; Hypochromasia Marked; Lymphocytes # (A) 0.4 k/uL (1.0-4.8); Lymphocytes % (A) 5 %; MCH 24.9 pg (25.0-35.0); MCHC 29.3 g/dL (31.0-37.0); MCV 84.7 fL (80.0-100.0); Mean Platelet Volume 8.3; Monocytes # (A) 0.4 k/uL (0-1.0); Monocytes % (A) 6 %; Neutrophils # (A) 5.7 k/uL (1.3-7.7); Neutrophils % (A) 81 %; Platelet Count 186 k/uL (150-450); RBC 2.83 m/uL (4.30-5.90); RDW 17.1 % (11.5-15.5)
[2020-02-27] MEDS: PANTOPRAZOLE 40 MG TABLET PO SCH ×2 (06:36→18:08)
[2020-02-27] MEDS: INSULIN ASPART (NovoLOG) 100 UNIT/ML VIAL SQ SCH ×3 (06:37→18:07)
[2020-02-27] MEDS: LEVOTHYROXINE 50 MCG TAB PO SCH (06:37)
[2020-02-27 06:48] LABS: Calcium 7.8 mg/dL (8.4-10.2); Magnesium 2.4 mg/dL (1.6-2.3); Phosphorus 6.8 mg/dL (2.5-4.5); Potassium 4.8 mmol/L (3.5-5.1)
[2020-02-27] MEDS: guaiFENesin SYRUP 100MG/5ML 200 MG/10 ML CUP PO PRN ×3 (08:34→22:18)
[2020-02-27] MEDS: carvediloL 12.5 MG TAB PO SCH ×2 (08:35→20:20)
[2020-02-27] MEDS: LORATADINE 10 MG TAB PO SCH (08:35)
[2020-02-27] MEDS: ATORVASTATIN 20 MG TAB PO SCH (08:35)
[2020-02-27] MEDS: AMOXIC-POT CLAV 500-125 MG 1 EACH TAB PO SCH ×2 (08:35→20:21)
[2020-02-27] MEDS: SODIUM FERRIC GLUCONAT-SUCROSE 125 MG in SODIUM CHLORIDE 0.9% 100 ML IVPB SCH (09:55)
--- NOTE | 2020-02-27 10:00 | CONS ---
CONSULTATION This is a 54-year-old gentleman with morbid obesity, who I was consulted for placement of urgent dialysis catheter. The patient has history of pulmonary hypertension, COPD, atrial fibrillation, diabetes mellitus, hyperlipidemia, thyroid disorder. SOCIAL HISTORY: Former smoker. PHYSICAL EXAMINATION: He is normocephalic. Diffuse crackles of the lung bases. First and second sounds present. Abdomen is protuberant. Femoral pulses are 1+. PLAN: Placement of the dialysis catheter. Risks and complications discussed. [id number] / IJN: [id number] /
--- NOTE | 2020-02-27 10:11 | P.PN ---
Subjective patient is seen in follow-up for acute kidney injury. started on hemodialysis February 25. tolerated near 1 L ultrafiltration yesterday. Tolerating dialysis well today. Nonoliguric. no chest pain or shortness of breath. Oral intake is fair. No active bleeding. Hemoglobin 7.0 today. Vital signs are stable. General: The patient appeared well nourished and normally developed. HEENT: Head exam is unremarkable. Neck is without jugular venous distension. LUNGS: Breath sounds decreased. HEART: Rate and Rhythm are regular. ABDOMEN: soft, nontender. Obese. EXTREMITITES: 1+ edema. Objective - Vital Signs Vital signs: Vital Signs Temp 98.1 F 02/27/20 04:07 Pulse 81 02/27/20 04:07 Resp 18 02/27/20 04:07 BP 106/42 02/27/20 04:07 Pulse Ox 99 02/27/20 04:07 Intake & Output 02/26/20 02/27/20 02/27/20 18:59 06:59 18:59 Intake Total 265 840 120 Output Total 1200 2000 Balance -935 -1160 120 Weight 171 kg 223.6 kg Intake: IV 25 Oral 240 540 120 Hemodialysis 300 Output: Urine 1200 700 Hemodialysis 1300 Other: Voiding Method Indwelling Catheter Indwelling Catheter # Bowel Movements 0 - Labs CBC & Chem 7: 02/27/20 06:03 02/27/20 06:03 Labs: Abnormal Lab Results - Last 24 Hours (Table) 02/26/20 02/26/20 02/26/20 Range/Units 12:08 17:11 18:40 RBC 2.85 L (4.30-5.90) m/uL Hgb 7.2 L (13.0-17.5) gm/dL Hct 23.9 L (39.0-53.0) % MCH (25.0-35.0) pg MCHC 30.1 L (31.0-37.0) g/dL RDW 17.5 H (11.5-15.5) % Lymphocytes # 0.2 L (1.0-4.8) k/uL Sodium (137-145) mmol/L Chloride (98-107) mmol/L Carbon Dioxide (22-30) mmol/L BUN (9-20) mg/dL Creatinine (0.66-1.25) mg/dL Glucose (74-99) mg/dL POC Glucose (mg/dL) 115 H 159 H (75-99) mg/dL Calcium (8.4-10.2) mg/dL Phosphorus (2.5-4.5) mg/dL Magnesium (1.6-2.3) mg/dL 02/26/20 02/27/20 02/27/20 Range/Units 20:37 06:03 06:03 RBC 2.83 L (4.30-5.90) m/uL Hgb 7.0 L (13.0-17.5) gm/dL Hct 24.0 L (39.0-53.0) % MCH 24.9 L (25.0-35.0) pg MCHC 29.3 L (31.0-37.0) g/dL RDW 17.1 H (11.5-15.5) % Lymphocytes # 0.4 L (1.0-4.8) k/uL Sodium 134 L (137-145) mmol/L Chloride 95 L (98-107) mmol/L Carbon Dioxide 31 H (22-30) mmol/L BUN 122 H* (9-20) mg/dL Creatinine 5.08 H (0.66-1.25) mg/dL Glucose 152 H (74-99) mg/dL POC Glucose (mg/dL) 176 H (75-99) mg/dL Calcium 7.8 L (8.4-10.2) mg/dL Phosphorus 6.8 H (2.5-4.5) mg/dL Magnesium 2.4 H (1.6-2.3) mg/dL 02/27/20 Range/Units 06:06 RBC (4.30-5.90) m/uL Hgb (13.0-17.5) gm/dL Hct (39.0-53.0) % MCH (25.0-35.0) pg MCHC (31.0-37.0) g/dL RDW (11.5-15.5) % Lymphocytes # (1.0-4.8) k/uL Sodium (137-145) mmol/L Chloride (98-107) mmol/L Carbon Dioxide (22-30) mmol/L BUN (9-20) mg/dL Creatinine (0.66-1.25) mg/dL Glucose (74-99) mg/dL POC Glucose (mg/dL) 172 H (75-99) mg/dL Calcium (8.4-10.2) mg/dL Phosphorus (2.5-4.5) mg/dL Magnesium (1.6-2.3) mg/dL Assessment and Plan Plan: Assessment: 1. Acute kidney injury secondary to ATN secondary to acute blood loss anemia. Also component of cardiorenal syndrome. Baseline creatinine near 1 from March 2019. No evidence of hydronephrosis noted on kidney ultrasound. urinalysis is benign. R/o myeloma/monoclonal gammopathy. UPC 0.2 g. started on hemodialysis on February 25. 2. Acute blood loss anemia. status post 2 units of blood transfusion. status post IV DDAVP on February 23. Hemoglobin 7.0 today. No active bleeding noted. GI following. maintained on Aranesp. also receiving IV iron. 3. Fluid overload. Better. 4. acute on chronic diastolic CHF. 5. Hyperphosphatemia secondary to acute kidney injury. Plan: currently seen while undergoing hemodialysis. follow-up electrophoresis studies and immunofixation. continue to assess daily for need for renal replacement therapy. Monitor for renal recovery. transfuse 1 unit of packed red cells today. Add PhosLo with meals.
[2020-02-27] MEDS ORDERED: MIDODRINE 5 MG TAB PO PRN (10:16)
--- NOTE | 2020-02-27 11:49 | P.PN ---
Subjective Progress Note Date: 02/27/20 Principal diagnosis: Shortness of breath, multifactorial, related to CHF, COPD, and possibility of pneumonia On 02/25/2020 patient seen in follow-up on selective care unit, he is awake and alert, calm and comfortable, sitting up in a chair in no acute distress, he is currently on 3 L of oxygen the pulse ox 95%, hemodynamically patient is stable, no fever or chills, no reports of chest pain. No altered mentation. No evidence of any active bleeding, complaints of abdominal pain, today's hemoglobin is 7, patient is status post transfusion with 2 units of packed red blood cells, and his third and is transfusing this morning. Blood pressure is 95/54 on today's vital signs. On 02/26/2020 patient seen in follow-up on selective care unit. She is awake and alert, in no acute distress, denies any abdominal pain, no nausea vomiting no diarrhea, no signs have been stable, hemodynamically he has been stable, he received his Endoscopy This Morning. GI Service Is Following, his hemoglobin today is 7.0. Renal profile is relatively stable, with B UN of 162, creatinine 6.7. COVID 19 negative. Denies any chest pain or shortness of breath, today's chest x-ray showed no evidence for acute pulmonary disease. On 02/27/2020 patient seen in follow-up on selective care unit, he is currently having a hemodialysis treatment, he denies any acute distress, no cough, no chest congestion, no convincing chest pain, he is currently on 3 L of oxygen with a pulse ox of 95-99%, hemodynamically patient has remained stable, the goal is to remove 2 L of fluid today, lower extremity edema slightly better, still some residual swelling and redness involving lower extremities, but no weeping, no open areas. Lung sounds are clear, diminished at the bases. Yesterday patient had hemodialysis with removal of 1 L of fluid, the recorded weight in the computer is 223.6, this is quite a discrepancy from yesterday's weight which was recorded at 171 kg, patient needs to be reweighed today. No evidence of active bleeding, today's hemoglobin is 7.0. Objective - Vital Signs Vital signs: Vital Signs Temp 97.5 F L 02/27/20 08:00 Pulse 81 02/27/20 08:00 Resp 20 02/27/20 08:00 BP 109/56 02/27/20 08:00 Pulse Ox 95 02/27/20 08:00 Intake & Output 02/26/20 02/27/20 02/27/20 18:59 06:59 18:59 Intake Total 265 840 120 Output Total 1200 2000 Balance -935 -1160 120 Weight 171 kg 223.6 kg Intake: IV 25 Oral 240 540 120 Hemodialysis 300 Output: Urine 1200 700 Hemodialysis 1300 Other: Voiding Method Indwelling Catheter Indwelling Catheter Indwelling Catheter # Bowel Movements 0 - Exam GENERAL EXAM: Alert, very pleasant, 54-year-old white male, on 3 L of oxygen with pulse ox of 95% comfortable in no apparent distress. HEAD: Normocephalic/atraumatic. EYES: Normal reaction of pupils, equal size. Conjunctiva pink, sclera white. NOSE: Clear with pink turbinates. THROAT: No erythema or exudates. NECK: No masses, no JVD, no thyroid enlargement, no adenopathy. CHEST: No chest wall deformity. Symmetrical expansion. LUNGS: Equal air entry with no crackles, wheeze, rhonchi or dullness. CVS: Regular rate and rhythm, normal S1 and S2, no gallops, no murmurs, no rubs ABDOMEN: Soft, nontender. No hepatosplenomegaly, normal bowel sounds, no guarding or rigidity. EXTREMITIES: No clubbing, 1+ lower extremity edema, with some mild erythema, no warmth, no weeping in bilateral lower extremities, no cyanosis, 2+ pulses and upper and lower extremities. MUSCULOSKELETAL: Muscle strength and tone normal. SPINE: No scoliosis or deformity SKIN: No rashes CENTRAL NERVOUS SYSTEM: Alert and oriented -3. No focal deficits, tone is normal in all 4 extremities. PSYCHIATRIC: Alert and oriented -3. Appropriate affect. Intact judgment and insight. - Labs CBC & Chem 7: 02/27/20 06:03 02/27/20 06:03 Labs: Abnormal Lab Results - Last 24 Hours (Table) 02/26/20 02/26/20 02/26/20 Range/Units 12:08 17:11 18:40 RBC 2.85 L (4.30-5.90) m/uL Hgb 7.2 L (13.0-17.5) gm/dL Hct 23.9 L (39.0-53.0) % MCH (25.0-35.0) pg MCHC 30.1 L (31.0-37.0) g/dL RDW 17.5 H (11.5-15.5) % Lymphocytes # 0.2 L (1.0-4.8) k/uL Sodium (137-145) mmol/L Chloride (98-107) mmol/L Carbon Dioxide (22-30) mmol/L BUN (9-20) mg/dL Creatinine (0.66-1.25) mg/dL Glucose (74-99) mg/dL POC Glucose (mg/dL) 115 H 159 H (75-99) mg/dL Calcium (8.4-10.2) mg/dL Phosphorus (2.5-4.5) mg/dL Magnesium (1.6-2.3) mg/dL 02/26/20 02/27/20 02/27/20 Range/Units 20:37 06:03 06:03 RBC 2.83 L (4.30-5.90) m/uL Hgb 7.0 L (13.0-17.5) gm/dL Hct 24.0 L (39.0-53.0) % MCH 24.9 L (25.0-35.0) pg MCHC 29.3 L (31.0-37.0) g/dL RDW 17.1 H (11.5-15.5) % Lymphocytes # 0.4 L (1.0-4.8) k/uL Sodium 134 L (137-145) mmol/L Chloride 95 L (98-107) mmol/L Carbon Dioxide 31 H (22-30) mmol/L BUN 122 H* (9-20) mg/dL Creatinine 5.08 H (0.66-1.25) mg/dL Glucose 152 H (74-99) mg/dL POC Glucose (mg/dL) 176 H (75-99) mg/dL Calcium 7.8 L (8.4-10.2) mg/dL Phosphorus 6.8 H (2.5-4.5) mg/dL Magnesium 2.4 H (1.6-2.3) mg/dL 02/27/20 Range/Units 06:06 RBC (4.30-5.90) m/uL Hgb (13.0-17.5) gm/dL Hct (39.0-53.0) % MCH (25.0-35.0) pg MCHC (31.0-37.0) g/dL RDW (11.5-15.5) % Lymphocytes # (1.0-4.8) k/uL Sodium (137-145) mmol/L Chloride (98-107) mmol/L Carbon Dioxide (22-30) mmol/L BUN (9-20) mg/dL Creatinine (0.66-1.25) mg/dL Glucose (74-99) mg/dL POC Glucose (mg/dL) 172 H (75-99) mg/dL Calcium (8.4-10.2) mg/dL Phosphorus (2.5-4.5) mg/dL Magnesium (1.6-2.3) mg/dL Assessment and Plan Plan: Assessment: #1. Shortness of breath, multifactorial, mostly related to underlying congestive heart failure, component of COPD, and possibility of pneumonia is considered less likely, in addition to anemia #2. History of chronic atrial fibrillation, normally on Xarelto which is currently on hold #3. Chronic hypoxemic restaurant failure related to a history of COPD #4. Chronic congestive heart failure with diastolic dysfunction #5. Acute kidney injury #6. Anemia, rule out acute blood loss anemia #7. Hypertension #8. Hyperlipidemia #9. Diabetes poultice type II Plan: No fever or chills, hemodynamically stable, patient continues on oral Augmentin for empiric antibiotic coverage, no cough, no congestion, no hemoptysis, having on a hemodialysis treatment today, needs to be reweighed today, lower extremity edema is improving. Tolerating oral intake, no nausea or vomiting. No active bleeding. I performed a history & physical examination of the patient and discussed their management with my nurse practitioner, Pily Aguilera. I reviewed the nurse practitioner's note and agree with the documented findings and plan of care. Lung sounds are positive for diminished breath sounds. The findings and the impression was discussed with the patient. I attest to the documentation by the nurse practitioner. Time with Patient: Less than 30
[2020-02-27 12:04] LABS: Glucose,Whole Blood 127 mg/dL (75-99)
--- NOTE | 2020-02-27 12:28 | P.PN ---
Subjective Progress Note Date: 02/27/20 CHIEF COMPLAINT: Heart failure, A. fib HISTORY OF PRESENT ILLNESS: Patient examined this morning at the bedside. Patient denies chest pain. Denies shortness of breath at rest. Patient underwent hemodialysis yesterday and is receiving hemodialysis again this m orning. Creatinine 5.08. Hemoglobin 7.0. PHYSICAL EXAM: VITAL SIGNS: Reviewed. GENERAL: Well-developed in no acute distress. HEENT: Head is normocephalic. Pupils are equal, round. Sclerae anicteric. Mucous membranes of the mouth are moist. Neck supple. No JVD or thyromegaly LUNGS: Respirations even and unlabored. Lungs essentially clear to auscultation bilaterally. HEART: Irregular rate and rhythm. S1 and S2 heard. ABDOMEN: Soft. Nondistended. Nontender. EXTREMITIES: Normal range of motion. No clubbing or cyanosis. Peripheral pulses intact. 2+ bilateral lower extremity edema NEUROLOGIC: Awake and alert. Oriented x 3. ASSESSMENT: Acute exacerbation of diastolic congestive heart failure, ejection fraction 50- 55% Chronic atrial fibrillation, on long-term anticoagulation with Xarelto Anemia, rule out acute blood loss anemia Acute kidney injury Hypertension Hyperlipidemia COPD with home O2 use Obstructive sleep apnea Diabetes mellitus, type II Morbid obesity: BMI 58.0 Alcohol abuse PLAN: Monitor kidney function. Nephrology following. Continue hemodialysis per nephrology 1 unit packed RBCs today per nephrology Continue to hold Xarelto secondary to anemia GI following. Capsule study completed yesterday. Await results. Nurse practitioner note has been reviewed by physician. Signing provider agrees with the documented findings, assessment, and plan of care. Objective - Vital Signs Vital signs: Vital Signs Temp 97.5 F L 02/27/20 08:00 Pulse 78 02/27/20 12:00 Resp 18 02/27/20 12:00 BP 145/53 02/27/20 12:00 Pulse Ox 95 02/27/20 12:00 Intake & Output 02/26/20 02/27/20 02/27/20 18:59 06:59 18:59 Intake Total 265 840 120 Output Total 1200 2000 Balance -935 -1160 120 Weight 171 kg 223.6 kg Intake: IV 25 Oral 240 540 120 Hemodialysis 300 Output: Urine 1200 700 Hemodialysis 1300 Other: Voiding Method Indwelling Catheter Indwelling Catheter Indwelling Catheter # Bowel Movements 0 - Labs CBC & Chem 7: 02/27/20 06:03 02/27/20 06:03 Labs: Abnormal Lab Results - Last 24 Hours (Table) 02/26/20 02/26/20 02/26/20 Range/Units 17:11 18:40 20:37 RBC 2.85 L (4.30-5.90) m/uL Hgb 7.2 L (13.0-17.5) gm/dL Hct 23.9 L (39.0-53.0) % MCH (25.0-35.0) pg MCHC 30.1 L (31.0-37.0) g/dL RDW 17.5 H (11.5-15.5) % Lymphocytes # 0.2 L (1.0-4.8) k/uL Sodium (137-145) mmol/L Chloride (98-107) mmol/L Carbon Dioxide (22-30) mmol/L BUN (9-20) mg/dL Creatinine (0.66-1.25) mg/dL Glucose (74-99) mg/dL POC Glucose (mg/dL) 159 H 176 H (75-99) mg/dL Calcium (8.4-10.2) mg/dL Phosphorus (2.5-4.5) mg/dL Magnesium (1.6-2.3) mg/dL Crossmatch 02/27/20 02/27/20 02/27/20 Range/Units 06:03 06:03 06:06 RBC 2.83 L (4.30-5.90) m/uL Hgb 7.0 L (13.0-17.5) gm/dL Hct 24.0 L (39.0-53.0) % MCH 24.9 L (25.0-35.0) pg MCHC 29.3 L (31.0-37.0) g/dL RDW 17.1 H (11.5-15.5) % Lymphocytes # 0.4 L (1.0-4.8) k/uL Sodium 134 L (137-145) mmol/L Chloride 95 L (98-107) mmol/L Carbon Dioxide 31 H (22-30) mmol/L BUN 122 H* (9-20) mg/dL Creatinine 5.08 H (0.66-1.25) mg/dL Glucose 152 H (74-99) mg/dL POC Glucose (mg/dL) 172 H (75-99) mg/dL Calcium 7.8 L (8.4-10.2) mg/dL Phosphorus 6.8 H (2.5-4.5) mg/dL Magnesium 2.4 H (1.6-2.3) mg/dL Crossmatch 02/27/20 02/27/20 Range/Units 09:30 12:03 RBC (4.30-5.90) m/uL Hgb (13.0-17.5) gm/dL Hct (39.0-53.0) % MCH (25.0-35.0) pg MCHC (31.0-37.0) g/dL RDW (11.5-15.5) % Lymphocytes # (1.0-4.8) k/uL Sodium (137-145) mmol/L Chloride (98-107) mmol/L Carbon Dioxide (22-30) mmol/L BUN (9-20) mg/dL Creatinine (0.66-1.25) mg/dL Glucose (74-99) mg/dL POC Glucose (mg/dL) 127 H (75-99) mg/dL Calcium (8.4-10.2) mg/dL Phosphorus (2.5-4.5) mg/dL Magnesium (1.6-2.3) mg/dL Crossmatch See Detail
--- NOTE | 2020-02-27 12:31 | P.PN ---
Subjective Progress Note Date: 02/27/20 Principal diagnosis: Anemia Patient seen and examined at the bedside. He received his capsule endoscopy yesterday. He denies any abdominal pain, nausea, vomiting, or diarrhea. He denies any signs or symptoms of GI bleed. His statua post temporary dialysis catheter placement done, is currently receiving hemodialysis. Today's hemoglobin 7.0 he needs getting transfused with 1 unit of packed red blood cells. Objective - Vital Signs Vital signs: Vital Signs Temp 97.5 F L 02/27/20 08:00 Pulse 78 02/27/20 12:00 Resp 18 02/27/20 12:00 BP 145/53 02/27/20 12:00 Pulse Ox 95 02/27/20 12:00 Intake & Output 02/26/20 02/27/20 02/27/20 18:59 06:59 18:59 Intake Total 265 840 120 Output Total 1200 2000 Balance -935 -1160 120 Weight 171 kg 223.6 kg Intake: IV 25 Oral 240 540 120 Hemodialysis 300 Output: Urine 1200 700 Hemodialysis 1300 Other: Voiding Method Indwelling Catheter Indwelling Catheter Indwelling Catheter # Bowel Movements 0 - Exam On physical examination, patient appears comfortable in no apparent distress. Morbidly Obese HEAD: Normocephalic, atraumatic. EYES: No scleral icterus. No conjunctival injection. MOUTH: No lesions, tongue midline. NECK: Trachea midline, no gross abnormalities. CHEST: decreased air entry in all zimmerman. HEART: S1-S2 appreciated. ABDOMEN: Soft, morbidly obese. Bowel sounds are positive. No organomegaly. No guarding or rigidity. EXTREMITIES: Bilateral pedal edema. SKIN: No rashes, no jaundice. NEUROLOGIC: Alert and oriented x3. No focal deficits. - Labs CBC & Chem 7: 02/27/20 06:03 02/27/20 06:03 Labs: Abnormal Lab Results - Last 24 Hours (Table) 02/26/20 02/26/20 02/26/20 Range/Units 17:11 18:40 20:37 RBC 2.85 L (4.30-5.90) m/uL Hgb 7.2 L (13.0-17.5) gm/dL Hct 23.9 L (39.0-53.0) % MCH (25.0-35.0) pg MCHC 30.1 L (31.0-37.0) g/dL RDW 17.5 H (11.5-15.5) % Lymphocytes # 0.2 L (1.0-4.8) k/uL Sodium (137-145) mmol/L Chloride (98-107) mmol/L Carbon Dioxide (22-30) mmol/L BUN (9-20) mg/dL Creatinine (0.66-1.25) mg/dL Glucose (74-99) mg/dL POC Glucose (mg/dL) 159 H 176 H (75-99) mg/dL Calcium (8.4-10.2) mg/dL Phosphorus (2.5-4.5) mg/dL Magnesium (1.6-2.3) mg/dL Crossmatch 02/27/20 02/27/20 02/27/20 Range/Units 06:03 06:03 06:06 RBC 2.83 L (4.30-5.90) m/uL Hgb 7.0 L (13.0-17.5) gm/dL Hct 24.0 L (39.0-53.0) % MCH 24.9 L (25.0-35.0) pg MCHC 29.3 L (31.0-37.0) g/dL RDW 17.1 H (11.5-15.5) % Lymphocytes # 0.4 L (1.0-4.8) k/uL Sodium 134 L (137-145) mmol/L Chloride 95 L (98-107) mmol/L Carbon Dioxide 31 H (22-30) mmol/L BUN 122 H* (9-20) mg/dL Creatinine 5.08 H (0.66-1.25) mg/dL Glucose 152 H (74-99) mg/dL POC Glucose (mg/dL) 172 H (75-99) mg/dL Calcium 7.8 L (8.4-10.2) mg/dL Phosphorus 6.8 H (2.5-4.5) mg/dL Magnesium 2.4 H (1.6-2.3) mg/dL Crossmatch 02/27/20 02/27/20 Range/Units 09:30 12:03 RBC (4.30-5.90) m/uL Hgb (13.0-17.5) gm/dL Hct (39.0-53.0) % MCH (25.0-35.0) pg MCHC (31.0-37.0) g/dL RDW (11.5-15.5) % Lymphocytes # (1.0-4.8) k/uL Sodium (137-145) mmol/L Chloride (98-107) mmol/L Carbon Dioxide (22-30) mmol/L BUN (9-20) mg/dL Creatinine (0.66-1.25) mg/dL Glucose (74-99) mg/dL POC Glucose (mg/dL) 127 H (75-99) mg/dL Calcium (8.4-10.2) mg/dL Phosphorus (2.5-4.5) mg/dL Magnesium (1.6-2.3) mg/dL Crossmatch See Detail Assessment and Plan Assessment: (1) Anemia Narrative/Plan: 54-year-old male with multiple medical comorbidities and a known history of anemia, evaluated in the past year with EGD and colonoscopy which were negative for source of bleeding. No prior video capsule endoscopy. Denies any signs or symptoms of GI bleeding. Previously seen by the hematology service who felt that the patient had an iron deficiency anemia which was likely secondary to an occultsmall bowel GI bleed. Stool testing on current presentation negative for occult blood. Patient has multiple medical comorbidities. Anemia likely multifactorial and secondary to anemia of chronic disease, cannot rule out a component of GI bleed and will plan for video capsule endoscopy for completeness of evaluationand to rule out any small bowel source of bleeding. Current Visit: Yes Status: Acute Code(s): D64.9 - ANEMIA, UNSPECIFIED SNOMED Code(s): 385718988 Plan: supportive care NPO after midnight Small bowel capsule endoscopy completed with findings that include gastritis with possible oozing Recommend repeat EGD tomorrow Continue to monitor hemoglobin and hematocrit Agree with PRBC transfusion Would recommend hematology consult Repeat laboratory evaluation of anemia Thank you for allowing us to participate in the care of the patient The impression and plan of care has been dictated as directed. I performed a history and examination of this patient, discussed the same with the dictator. I agree with the dictator's note ,documented as a scribe. Any additional findings or plans will be noted.
[2020-02-27] MEDS: CALCIUM ACETATE 667 MG TAB PO SCH ×2 (12:32→18:08)
[2020-02-27] MEDS ORDERED: MAG HYDROX/AL HYDROX/SIMETH 30 ML CUP PO PRN (12:41)
--- NOTE | 2020-02-27 12:45 | P.PN ---
Subjective Progress Note Date: 02/27/20 Patient is having first dialysis treatment this morning. No acute events overnight reported by nursing staff. Objective - Vital Signs Vital signs: Vital Signs Temp 97.5 F L 02/27/20 08:00 Pulse 78 02/27/20 12:00 Resp 18 02/27/20 12:00 BP 145/53 02/27/20 12:00 Pulse Ox 95 02/27/20 12:00 Intake & Output 02/26/20 02/27/20 02/27/20 18:59 06:59 18:59 Intake Total 265 840 120 Output Total 1200 2000 Balance -935 -1160 120 Weight 171 kg 223.6 kg Intake: IV 25 Oral 240 540 120 Hemodialysis 300 Output: Urine 1200 700 Hemodialysis 1300 Other: Voiding Method Indwelling Catheter Indwelling Catheter Indwelling Catheter # Bowel Movements 0 - Exam General: The patient is awake and alert, in no distress Eye: there is normal conjunctiva bilaterally. Neck: The neck is supple, there is no JVD. Cardiovascular: Normal S1-S2, no S3-S4, no murmurs. Respiratory: Lungs clear to auscultation bilaterally Gastrointestinal: Abdomen is soft, nontender Musculoskeletal: There is +1 pedal edema. Neurological:. Speech is normal. Skin: Skin is warm and dry - Labs CBC & Chem 7: 02/27/20 06:03 02/27/20 06:03 Labs: Abnormal Lab Results - Last 24 Hours (Table) 02/26/20 02/26/20 02/26/20 Range/Units 17:11 18:40 20:37 RBC 2.85 L (4.30-5.90) m/uL Hgb 7.2 L (13.0-17.5) gm/dL Hct 23.9 L (39.0-53.0) % MCH (25.0-35.0) pg MCHC 30.1 L (31.0-37.0) g/dL RDW 17.5 H (11.5-15.5) % Lymphocytes # 0.2 L (1.0-4.8) k/uL Sodium (137-145) mmol/L Chloride (98-107) mmol/L Carbon Dioxide (22-30) mmol/L BUN (9-20) mg/dL Creatinine (0.66-1.25) mg/dL Glucose (74-99) mg/dL POC Glucose (mg/dL) 159 H 176 H (75-99) mg/dL Calcium (8.4-10.2) mg/dL Phosphorus (2.5-4.5) mg/dL Magnesium (1.6-2.3) mg/dL Crossmatch 02/27/20 02/27/20 02/27/20 Range/Units 06:03 06:03 06:06 RBC 2.83 L (4.30-5.90) m/uL Hgb 7.0 L (13.0-17.5) gm/dL Hct 24.0 L (39.0-53.0) % MCH 24.9 L (25.0-35.0) pg MCHC 29.3 L (31.0-37.0) g/dL RDW 17.1 H (11.5-15.5) % Lymphocytes # 0.4 L (1.0-4.8) k/uL Sodium 134 L (137-145) mmol/L Chloride 95 L (98-107) mmol/L Carbon Dioxide 31 H (22-30) mmol/L BUN 122 H* (9-20) mg/dL Creatinine 5.08 H (0.66-1.25) mg/dL Glucose 152 H (74-99) mg/dL POC Glucose (mg/dL) 172 H (75-99) mg/dL Calcium 7.8 L (8.4-10.2) mg/dL Phosphorus 6.8 H (2.5-4.5) mg/dL Magnesium 2.4 H (1.6-2.3) mg/dL Crossmatch 02/27/20 02/27/20 Range/Units 09:30 12:03 RBC (4.30-5.90) m/uL Hgb (13.0-17.5) gm/dL Hct (39.0-53.0) % MCH (25.0-35.0) pg MCHC (31.0-37.0) g/dL RDW (11.5-15.5) % Lymphocytes # (1.0-4.8) k/uL Sodium (137-145) mmol/L Chloride (98-107) mmol/L Carbon Dioxide (22-30) mmol/L BUN (9-20) mg/dL Creatinine (0.66-1.25) mg/dL Glucose (74-99) mg/dL POC Glucose (mg/dL) 127 H (75-99) mg/dL Calcium (8.4-10.2) mg/dL Phosphorus (2.5-4.5) mg/dL Magnesium (1.6-2.3) mg/dL Crossmatch See Detail Assessment and Plan Assessment: This is a 54-year-old male with complex past medical history noted below who presented to the emergency room with worsening shortness of breath. Patient was evaluated and admitted to the hospital for further management of his medical problems noted below 1. Acute on chronic hypoxemic respiratory failure: Secondary to CHF exacerbation. Wean off O2 as tolerated for O2 sats greater than 90%. 2. Acute on chronic diastolic heart failure exacerbation: Started on diuresis with IV Lasix and currently on dialysis.. Strict I's and O's. Fluid restriction. Daily weight. 3. Acute kidney injury: Requiring hemodialysis during this admission. Creatinine 6.8 on presentation. Mostly secondary to ATN and acute on chronic anemia. Questionable cardiorenal syndrome. Seen and evaluated by nephrology. Ultrasound showed no hydronephrosis. Received DDAVP as ordered by nephrology. Kidney function is not improving. 4. COPD with no evidence of exacerbation exacerbation with chronic hypoxic res piratory failure on 3 L of oxygen at home 5. Acute on chronic anemia, status post 3 units of PRBC transfusion. Seen and evaluated by hematology. [place] to be iron deficiency/anemia of chronic disease: Aranesp added by nephrology. No evidence of GI bleed. Hemoccult is negative. Noncontrast CT of the abdomen with no intra-abdominal bleed or hematoma. Seen and evaluated by GI. Patient had upper and lower scope within the past year reported unremarkable per GI notes. capsule endoscopy done on 02/25 and awaiting report. 6. Chronic atrial fibrillation, rate controlled. Anticoagulation on hold given severe anemia 7. Obstructive sleep apnea/obesity hypoventilation syndrome 8. 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 Type 2 diabetes, uncontrolled with polyneuropathy 10. Hypertension, essential 11. Hyperlipidemia 12. Hypothyroidism Today, I reviewed his medication list and lab work results. Continue current management. Appreciate content management consultant's recommendations. Repeat lab work in the morning.
[2020-02-27] MEDS: Fluticasone/Salmeterol [Fluticasone-Salmeterol 232-14] 1 PUFF INHALATION SCH ×2 (12:51→20:40)
[2020-02-27 15:26] LABS: Albumin 2.37 g/dL (3.80-4.90); Gamma Globulin 1.14 g/dL (0.70-1.50)
[2020-02-27 16:55] LABS: Glucose,Whole Blood 147 mg/dL (75-99)
--- NOTE | 2020-02-27 17:16 | P.PN ---
<Winifred Weiss - Last Filed: 02/27/20 21:13> Subjective Progress Note Date: 02/27/20 Principal diagnosis: Renal Failure and Anemia Improving Objective - Vital Signs Vital signs: Vital Signs Temp 97.5 F L 02/27/20 08:00 Pulse 78 02/27/20 12:00 Resp 18 02/27/20 12:00 BP 145/53 02/27/20 12:00 Pulse Ox 95 02/27/20 12:00 Intake & Output 02/26/20 02/27/20 02/27/20 18:59 06:59 18:59 Intake Total 265 840 120 Output Total 1200 2000 Balance -935 -1160 120 Weight 171 kg 223.6 kg Intake: IV 25 Oral 240 540 120 Hemodialysis 300 Output: Urine 1200 700 Hemodialysis 1300 Other: Voiding Method Indwelling Catheter Indwelling Catheter Indwelling Catheter # Bowel Movements 0 - Exam - Constitutional General appearance: no acute distress - EENT Eyes: EOMI, PERRLA ENT: hearing grossly normal, normal oropharynx - Neck Neck: no lymphadenopathy Thyroid: bilateral: normal size - Respiratory Respiratory: bilateral: rales - Cardiovascular Rhythm: irregularly irregular Heart sounds: normal: S1, S2 - Gastrointestinal General gastrointestinal: normal bowel sounds, soft - Integumentary Integumentary: normal - Neurologic Neurologic: CNII-XII intact, focal deficits - Musculoskeletal Musculoskeletal: generalized weakness, strength equal bilaterally - Psychiatric Psychiatric: A&O x's 3, appropriate affect - Labs CBC & Chem 7: 02/27/20 06:03 02/27/20 06:03 Labs: Abnormal Lab Results - Last 24 Hours (Table) 02/26/20 02/26/20 02/26/20 Range/Units 17:11 18:40 20:37 RBC 2.85 L (4.30-5.90) m/uL Hgb 7.2 L (13.0-17.5) gm/dL Hct 23.9 L (39.0-53.0) % MCH (25.0-35.0) pg MCHC 30.1 L (31.0-37.0) g/dL RDW 17.5 H (11.5-15.5) % Lymphocytes # 0.2 L (1.0-4.8) k/uL Sodium (137-145) mmol/L Chloride (98-107) mmol/L Carbon Dioxide (22-30) mmol/L BUN (9-20) mg/dL Creatinine (0.66-1.25) mg/dL Glucose (74-99) mg/dL POC Glucose (mg/dL) 159 H 176 H (75-99) mg/dL Calcium (8.4-10.2) mg/dL Phosphorus (2.5-4.5) mg/dL Magnesium (1.6-2.3) mg/dL Crossmatch 02/27/20 02/27/20 02/27/20 Range/Units 06:03 06:03 06:06 RBC 2.83 L (4.30-5.90) m/uL Hgb 7.0 L (13.0-17.5) gm/dL Hct 24.0 L (39.0-53.0) % MCH 24.9 L (25.0-35.0) pg MCHC 29.3 L (31.0-37.0) g/dL RDW 17.1 H (11.5-15.5) % Lymphocytes # 0.4 L (1.0-4.8) k/uL Sodium 134 L (137-145) mmol/L Chloride 95 L (98-107) mmol/L Carbon Dioxide 31 H (22-30) mmol/L BUN 122 H* (9-20) mg/dL Creatinine 5.08 H (0.66-1.25) mg/dL Glucose 152 H (74-99) mg/dL POC Glucose (mg/dL) 172 H (75-99) mg/dL Calcium 7.8 L (8.4-10.2) mg/dL Phosphorus 6.8 H (2.5-4.5) mg/dL Magnesium 2.4 H (1.6-2.3) mg/dL Crossmatch 02/27/20 02/27/20 Range/Units 09:30 12:03 RBC (4.30-5.90) m/uL Hgb (13.0-17.5) gm/dL Hct (39.0-53.0) % MCH (25.0-35.0) pg MCHC (31.0-37.0) g/dL RDW (11.5-15.5) % Lymphocytes # (1.0-4.8) k/uL Sodium (137-145) mmol/L Chloride (98-107) mmol/L Carbon Dioxide (22-30) mmol/L BUN (9-20) mg/dL Creatinine (0.66-1.25) mg/dL Glucose (74-99) mg/dL POC Glucose (mg/dL) 127 H (75-99) mg/dL Calcium (8.4-10.2) mg/dL Phosphorus (2.5-4.5) mg/dL Magnesium (1.6-2.3) mg/dL Crossmatch See Detail Assessment and Plan Plan: Chest x-ray: report reviewed CT scan - abdomen: report reviewed CT scan - pelvis: report reviewed US - abdomen: report reviewed Venous US: report reviewed Assessment and Plan Normocytic Hypochromic Anemia - Component of Iron Deficiency, possibly from acute blood loss with treatment o f Atrial fib with Xarelto - Component of acute Kidney Injury - Starting DIalysis today - Epogen initiated by nephrology weekly, patients iron saturation 6%, therefore Parental iron infusions initiated after bacteremia ruled out - Re-enforced importance of complainace and compatient follow-up - Keep Hemoglobin greater than 7, today is 7. CBC in am - GI [id number] within past year was unremarkable, Capsule endoscopy is pending. GI is following Acute on chronic hypoxemic respiratory failure: Secondary to CHF exacerbation. - Primary Team, Pulmonology - Hx: COPD Acute on chronic diastolic heart failure exacerbation and Chronic A fib: - Xarelto on hold for acute anemia and renal function Primary Team Acute kidney injury: Requiring hemodialysis during this admission. Starting today 6. Chronic atrial fibrillation, rate controlled. Anticoagulation on hold given severe anemia <Santiago,Nehemiah - Last Filed: 02/28/20 23:13> Objective - Vital Signs Vital signs: Vital Signs Temp 97.7 F 02/28/20 19:38 Pulse 83 02/28/20 19:38 Resp 18 02/28/20 19:38 BP 135/61 02/28/20 19:38 Pulse Ox 100 02/28/20 19:38 Intake & Output 02/28/20 02/28/20 02/29/20 06:59 18:59 06:59 Intake Total 820 850 Output Total 800 4700 500 Balance 20 -3850 -500 Weight 222.7 kg Intake: IV 250 Intake, IV Titration 100 Amount Sodium Ferric Gluconat- 100 Sucrose 125 mg In Sodium Chloride 0.9% 100 ml @ 100 mls/hr IVPB DAILY [facility] Rx#:[id number] Oral 200 500 Blood Product 620 Rc As-1 Unit 310 [id number] Output: Urine 800 1200 500 Hemodialysis 3500 Other: Voiding Method Indwelling Catheter Indwelling Catheter Indwelling Catheter - Labs CBC & Chem 7: 02/28/20 06:15 02/28/20 06:15 Labs: Abnormal Lab Results - Last 24 Hours (Table) 02/28/20 02/28/20 02/28/20 Range/Units 06:15 06:15 06:20 RBC 3.06 L (4.30-5.90) m/uL Hgb 7.6 L (13.0-17.5) gm/dL Hct 26.1 L (39.0-53.0) % MCH 24.9 L (25.0-35.0) pg MCHC 29.2 L (31.0-37.0) g/dL RDW 17.6 H (11.5-15.5) % Lymphocytes # 0.4 L (1.0-4.8) k/uL Sodium 135 L (137-145) mmol/L BUN 74 H (9-20) mg/dL Creatinine 3.65 H (0.66-1.25) mg/dL Glucose 112 H (74-99) mg/dL POC Glucose (mg/dL) 127 H (75-99) mg/dL Phosphorus 5.4 H (2.5-4.5) mg/dL 02/28/20 02/28/20 02/28/20 Range/Units 09:26 11:46 13:24 RBC (4.30-5.90) m/uL Hgb (13.0-17.5) gm/dL Hct (39.0-53.0) % MCH (25.0-35.0) pg MCHC (31.0-37.0) g/dL RDW (11.5-15.5) % Lymphocytes # (1.0-4.8) k/uL Sodium (137-145) mmol/L BUN (9-20) mg/dL Creatinine (0.66-1.25) mg/dL Glucose (74-99) mg/dL POC Glucose (mg/dL) 118 H 140 H 120 H (75-99) mg/dL Phosphorus (2.5-4.5) mg/dL 02/28/20 02/28/20 Range/Units 16:25 20:13 RBC (4.30-5.90) m/uL Hgb (13.0-17.5) gm/dL Hct (39.0-53.0) % MCH (25.0-35.0) pg MCHC (31.0-37.0) g/dL RDW (11.5-15.5) % Lymphocytes # (1.0-4.8) k/uL Sodium (137-145) mmol/L BUN (9-20) mg/dL Creatinine (0.66-1.25) mg/dL Glucose (74-99) mg/dL POC Glucose (mg/dL) 159 H 162 H (75-99) mg/dL Phosphorus (2.5-4.5) mg/dL Assessment and Plan (1) Anemia Current Visit: Yes Status: Acute Code(s): D64.9 - ANEMIA, UNSPECIFIED SNOMED Code(s): 926504201 Plan: As above. Pt seen and examined. Pt receving IV iron. Advised importance of close monitoring and aggressive iron supplementation, given likely etiology and ongoing Xarelto use
[2020-02-27 18:47] LABS: Hepatitis A Antibody IgM Non-Reactive (Non-Reactive); Hepatitis B Core IgM Non-Reactive (Non-Reactive); Hepatitis B Surface AB- Quant 3.5 mIU/mL; Hepatitis B Surface Antibody Non-Reactive (Non-Reactive); Hepatitis B Surface Antigen Non-Reactive (Non-Reactive); Hepatitis C IgG Antibody Non-Reactive (Non-Reactive)
[2020-02-27 20:03] LABS: Glucose,Whole Blood 151 mg/dL (75-99)
[2020-02-27] MEDS: diphenhydrAMINE 25 MG CAP PO SCH (20:20)
[2020-02-27 22:16] LABS: Anisocytosis Slight; Basophils % (A) 1 %; Eosinophils # (A) 0.3 k/uL (0-0.7); Eosinophils % (A) 6 %; HCT 26.3 % (39.0-53.0); HGB 7.7 gm/dL (13.0-17.5); Hypochromasia Marked; Lymphocytes # (A) 0.3 k/uL (1.0-4.8); Lymphocytes % (A) 5 %; MCH 24.7 pg (25.0-35.0); MCHC 29.1 g/dL (31.0-37.0); MCV 84.8 fL (80.0-100.0); Mean Platelet Volume 9.8; Monocytes # (A) 0.4 k/uL (0-1.0); Monocytes % (A) 7 %; Neutrophils # (A) 4.6 k/uL (1.3-7.7); Neutrophils % (A) 80 %; Platelet Count 165 k/uL (150-450); Poikilocytosis Slight; RDW 17.3 % (11.5-15.5); WBC 5.8 k/uL (3.8-10.6)
[2020-02-28] MEDS: IPRATROPIUM-ALBUTEROL 3 ML NEB INHALATION SCH ×4 (03:25→19:45)
[2020-02-28] MEDS: guaiFENesin SYRUP 100MG/5ML 200 MG/10 ML CUP PO PRN ×5 (03:40→23:49)
[2020-02-28 06:22] LABS: Glucose,Whole Blood 127 mg/dL (75-99)
[2020-02-28 06:44] LABS: Anisocytosis Slight; Basophils % (A) 1 %; Eosinophils # (A) 0.4 k/uL (0-0.7); Eosinophils % (A) 7 %; HCT 26.1 % (39.0-53.0); HGB 7.6 gm/dL (13.0-17.5); Hypochromasia Marked; Lymphocytes # (A) 0.4 k/uL (1.0-4.8); Lymphocytes % (A) 7 %; MCH 24.9 pg (25.0-35.0); MCHC 29.2 g/dL (31.0-37.0); MCV 85.2 fL (80.0-100.0); Mean Platelet Volume 8.6; Monocytes # (A) 0.4 k/uL (0-1.0); Monocytes % (A) 8 %; Neutrophils # (A) 4.3 k/uL (1.3-7.7); Neutrophils % (A) 75 %; Platelet Count 194 k/uL (150-450); Poikilocytosis Slight; RBC 3.06 m/uL (4.30-5.90); RDW 17.6 % (11.5-15.5); WBC 5.8 k/uL (3.8-10.6)
[2020-02-28 06:54] LABS: Calcium 8.7 mg/dL (8.4-10.2); Magnesium 2.3 mg/dL (1.6-2.3); Phosphorus 5.4 mg/dL (2.5-4.5); Potassium 4.4 mmol/L (3.5-5.1)
[2020-02-28] MEDS ORDERED: LIDOCAINE 1% INJ 10MG/ML (20 ML MDV) ONE (08:09)
[2020-02-28] MEDS ORDERED: PROPOFOL 10 MG/ML 20 ML VIAL IV ONE (08:09)
[2020-02-28] MEDS ORDERED: KETAMINE 10 MG/ML 20 ML VIAL ONE (08:09)
[2020-02-28] MEDS ORDERED: SUCCINYLCHOLINE CHLORIDE VIAL 200 MG/10 ML VIAL IV ONE (08:09)
[2020-02-28] MEDS ORDERED: SODIUM CHLORIDE 0.9% 500 ML 500 ML IV ONE ×2 (08:14)
--- NOTE | 2020-02-28 08:59 | P.PCN ---
Date of Procedure: 02/28/20 Description of Procedure: BRIEF HISTORY: 54-year-old male with multiple medical comorbidities including morbid obesity, atrial fibrillation, congestive heart failure, pulmonary hypertension, COPD on home oxygen therapy who presented due to increasing swelling and shortness of breath. Patient has a known history of anemia and has been evaluated in the past. He underwent EGD and colonoscopy within the past year which were negative for any source of bleeding, he also reports evaluation with EGD and colonoscopy at the age of 49 or 19 were also normal. Patient has never had any video capsule endoscopy. He denies any signs or symptoms of GI bleeding. He denies any abdominal pain. He denies any nausea or vomiting. Fecal occult testing on presentation was negative. Previously he has been seen by the hematology service in evaluation of his anemia with suspicion for small bowel source of bleeding as a cause of his anemia. Laboratory evaluation on presentation significant for WBC 6, hemoglobin 6.7, platelet count 188,000, INR 1.0, total bilirubin 0.5, alkaline phosphatase 99, AST 16 and ALT 10. PROCEDURE PERFORMED: Esophagogastroduodenoscopy. PREOPERATIVE DIAGNOSIS: Anemia, abnormal video capsule endoscopy. ESTIMATED BLOOD LOSS: Minimal. IV sedation per anesthesia. PROCEDURE: After informed consent was obtained, the patient was brought into the endoscopy unit. IV sedation was administered by Anesthesia under continuous monitoring. Initially the pediatric video colonoscope was inserted into the mouth. Esophagus intubated without any difficulty. It was gradually advanced into the stomach and duodenum and carefully examined. The bulb and the second, third and fourth part of the duodenum appeared normal. The scope at this time was withdrawn to the stomach, adequately insufflated with air, and upon careful examination, mucosa of the antrum, body, cardia and the fundus appeared normal, except for some diffuse erythema in the body suggestive of portal hypertensive gastropathy. The scope was then withdrawn into the esophagus. The GE junction was located at 45 cm from the incisors. The esophagus appeared normal. There were no erosions or ulcerations seen and the patient tolerated the procedure well. IMPRESSION: 1. Mild portal hypertensive gastropathy. 2. No active bleeding, or old blood noted in entire examined upper GI tract. RECOMMENDATIONS: The findings of this examination were discussed with the patient. Okay to resume diet. Continue management per medical team. Hematology service following the patient. No plans for any further endoscopy at this time.
[2020-02-28 09:30] LABS: Glucose,Whole Blood 118 mg/dL (75-99)
[2020-02-28] MEDS: CALCIUM ACETATE 667 MG TAB PO SCH ×2 (09:49→17:22)
[2020-02-28] MEDS: INSULIN ASPART (NovoLOG) 100 UNIT/ML VIAL SQ SCH ×3 (09:49→17:22)
[2020-02-28] MEDS: Fluticasone/Salmeterol [Fluticasone-Salmeterol 232-14] 1 PUFF INHALATION SCH ×2 (09:49→19:44)
--- NOTE | 2020-02-28 09:57 | P.PN ---
Subjective patient is seen in follow-up for acute kidney injury. started on hemodialysis February 25. Nonoliguric. no chest pain or shortness of breath. Oral intake is fair. No active bleeding. Hemoglobin 7.6 today. underwent EGD this morning which revealed no active bleeding. Vital signs are stable. General: The patient appeared well nourished and normally developed. HEENT: Head exam is unremarkable. Neck is without jugular venous distension. LUNGS: Breath sounds decreased. HEART: Rate and Rhythm are regular. ABDOMEN: soft, nontender. Obese. EXTREMITITES: 1+ edema. Objective - Vital Signs Vital signs: Vital Signs Temp 98.2 F 02/28/20 09:20 Pulse 90 02/28/20 09:20 Resp 18 02/28/20 09:20 BP 124/73 02/28/20 09:20 Pulse Ox 94 L 02/28/20 09:20 Intake & Output 02/27/20 02/28/20 02/28/20 18:59 06:59 18:59 Intake Total 840 820 250 Output Total 225 800 Balance 615 20 250 Weight 222.7 kg Intake: IV 250 Oral 840 200 Blood Product 0 620 Rc As-1 Unit 0 310 [id number] Output: Urine 225 800 Other: Voiding Method Indwelling Catheter Indwelling Catheter Indwelling Catheter # Bowel Movements 1 - Labs CBC & Chem 7: 02/28/20 06:15 02/28/20 06:15 Labs: Abnormal Lab Results - Last 24 Hours (Table) 02/25/20 02/27/20 02/27/20 Range/Units 06:49 09:30 12:03 RBC (4.30-5.90) m/uL Hgb (13.0-17.5) gm/dL Hct (39.0-53.0) % MCH (25.0-35.0) pg MCHC (31.0-37.0) g/dL RDW (11.5-15.5) % Lymphocytes # (1.0-4.8) k/uL Sodium (137-145) mmol/L BUN (9-20) mg/dL Creatinine (0.66-1.25) mg/dL Glucose (74-99) mg/dL POC Glucose (mg/dL) 127 H (75-99) mg/dL Phosphorus (2.5-4.5) mg/dL Albumin (PEP) 2.37 L (3.80-4.90) g/dL Zezid-3-Aodejdvpt 0.50 H (0.10-0.40) g/dL Crossmatch See Detail 02/27/20 02/27/20 02/27/20 Range/Units 16:51 20:02 22:05 RBC 3.10 L (4.30-5.90) m/uL Hgb 7.7 L (13.0-17.5) gm/dL Hct 26.3 L (39.0-53.0) % MCH 24.7 L (25.0-35.0) pg MCHC 29.1 L (31.0-37.0) g/dL RDW 17.3 H (11.5-15.5) % Lymphocytes # 0.3 L (1.0-4.8) k/uL Sodium (137-145) mmol/L BUN (9-20) mg/dL Creatinine (0.66-1.25) mg/dL Glucose (74-99) mg/dL POC Glucose (mg/dL) 147 H 151 H (75-99) mg/dL Phosphorus (2.5-4.5) mg/dL Albumin (PEP) (3.80-4.90) g/dL Lfgsv-9-Qdwvqkzee (0.10-0.40) g/dL Crossmatch 02/28/20 02/28/20 02/28/20 Range/Units 06:15 06:15 06:20 RBC 3.06 L (4.30-5.90) m/uL Hgb 7.6 L (13.0-17.5) gm/dL Hct 26.1 L (39.0-53.0) % MCH 24.9 L (25.0-35.0) pg MCHC 29.2 L (31.0-37.0) g/dL RDW 17.6 H (11.5-15.5) % Lymphocytes # 0.4 L (1.0-4.8) k/uL Sodium 135 L (137-145) mmol/L BUN 74 H (9-20) mg/dL Creatinine 3.65 H (0.66-1.25) mg/dL Glucose 112 H (74-99) mg/dL POC Glucose (mg/dL) 127 H (75-99) mg/dL Phosphorus 5.4 H (2.5-4.5) mg/dL Albumin (PEP) (3.80-4.90) g/dL Nawzj-5-Tadatvvbw (0.10-0.40) g/dL Crossmatch 02/28/20 Range/Units 09:26 RBC (4.30-5.90) m/uL Hgb (13.0-17.5) gm/dL Hct (39.0-53.0) % MCH (25.0-35.0) pg MCHC (31.0-37.0) g/dL RDW (11.5-15.5) % Lymphocytes # (1.0-4.8) k/uL Sodium (137-145) mmol/L BUN (9-20) mg/dL Creatinine (0.66-1.25) mg/dL Glucose (74-99) mg/dL POC Glucose (mg/dL) 118 H (75-99) mg/dL Phosphorus (2.5-4.5) mg/dL Albumin (PEP) (3.80-4.90) g/dL Pnibv-9-Itacdbacq (0.10-0.40) g/dL Crossmatch Assessment and Plan Plan: Assessment: 1. Acute kidney injury secondary to ATN secondary to acute blood loss anemia. Also component of cardiorenal syndrome. Baseline creatinine near 1 from March 2019. No evidence of hydronephrosis noted on kidney ultrasound. urinalysis is benign. no evidence of monoclonal gammopathy. UPC 0.2 g. started on hemodialysis on February 25. 2. Acute blood loss anemia. status post 2 units of blood transfusion. status post IV DDAVP on February 23. Hemoglobin 7.6 today. No active bleeding noted. GI following - status post EGD this morning for which revealed no active blee ding. maintained on Aranesp. also receiving IV iron. 3. Fluid overload. Better. 4. acute on chronic diastolic CHF. 5. Hyperphosphatemia secondary to acute kidney injury maintained on PhosLo. Plan: hemodialysis today. Add Lasix 40 mg IV twice daily. continue to assess daily for need for renal replacement therapy. Monitor for renal recovery. plan to hold hemodialysis tomorrow and reassess renal function on Sunday.
[2020-02-28] MEDS: SODIUM FERRIC GLUCONAT-SUCROSE 125 MG in SODIUM CHLORIDE 0.9% 100 ML IVPB SCH (10:14)
[2020-02-28] MEDS: AMOXIC-POT CLAV 500-125 MG 1 EACH TAB PO SCH (10:15)
[2020-02-28] MEDS: PANTOPRAZOLE 40 MG TABLET PO SCH ×2 (10:15→17:22)
[2020-02-28] MEDS: ATORVASTATIN 20 MG TAB PO SCH (10:15)
[2020-02-28] MEDS: LORATADINE 10 MG TAB PO SCH (10:15)
[2020-02-28] MEDS: carvediloL 12.5 MG TAB PO SCH ×2 (10:15→20:25)
[2020-02-28] MEDS: LEVOTHYROXINE 50 MCG TAB PO SCH (10:15)
[2020-02-28] MEDS: FUROSEMIDE 10 MG/ML 4 ML VIAL IV SCH ×2 (10:18→20:27)
[2020-02-28] MEDS ORDERED: FLUTICASONE 50MCG/SPRAY NASAL 16GM EA NOSTRIL PRN (11:03)
[2020-02-28 11:53] LABS: Glucose,Whole Blood 140 mg/dL (75-99)
--- NOTE | 2020-02-28 11:54 | P.PN ---
Subjective Progress Note Date: 02/28/20 Principal diagnosis: Acute exacerbation of diastolic congestive heart failure, chronic obstructive pulmonary disease On 02/25/2020 patient seen in follow-up on selective care unit, he is awake and alert, calm and comfortable, sitting up in a chair in no acute distress, he is currently on 3 L of oxygen the pulse ox 95%, hemodynamically patient is stable, no fever or chills, no reports of chest pain. No altered mentation. No evidence of any active bleeding, complaints of abdominal pain, today's hemoglobin is 7, patient is status post transfusion with 2 units of packed red blood cells, and his third and is transfusing this morning. Blood pressure is 95/54 on today's vital signs. On 02/26/2020 patient seen in follow-up on [facility] care unit. She is awake and alert, in no acute distress, denies any abdominal pain, no nausea vomiting no diarrhea, no signs have been stable, hemodynamically he has been stable, he received his Endoscopy This Morning. GI Service Is Following, his hemoglobin today is 7.0. Renal profile is relatively stable, with B UN of 162, creatinine 6.7. COVID 19 negative. Denies any chest pain or shortness of breath, today's chest x-ray showed no evidence for acute pulmonary disease. On 02/27/2020 patient seen in follow-up on [facility] care unit, he is currently having a hemodialysis treatment, he denies any acute distress, no cough, no chest congestion, no convincing chest pain, he is currently on 3 L of oxygen with a pulse ox of 95-99%, hemodynamically patient has remained stable, the goal is to remove 2 L of fluid today, lower extremity edema slightly better, still some residual swelling and redness involving lower extremities, but no weeping, no open areas. Lung sounds are clear, diminished at the bases. Yesterday patient had hemodialysis with removal of 1 L of fluid, the recorded weight in the computer is 223.6, this is quite a discrepancy from yesterday's weight which was recorded at 171 kg, patient needs to be reweighed today. No evidence of active bleeding, today's hemoglobin is 7.0. The patient is seen today 02/28/2020 in follow-up on the selective care unit. He is currently sitting up in a chair at the bedside. Awake and alert in no acute distress. He is maintaining good O2 saturations in the 90s on 3 L/m poor nasal cannula. His right groin hemodialysis catheter remains in place and the plan is for EGD again today. He still has some lower extremity edema. He did undergo EGD that revealed mild portal hypertensive gastropathy. No active bleeding or blood noted in the entire exam of the upper GI tract. His diet is resumed. Objective - Vital Signs Vital signs: Vital Signs Temp 98.2 F 02/28/20 09:20 Pulse 83 02/28/20 11:10 Resp 18 02/28/20 11:10 BP 124/64 02/28/20 11:10 Pulse Ox 98 02/28/20 11:10 Intake & Output 02/27/20 02/28/20 02/28/20 18:59 06:59 18:59 Intake Total 840 820 250 Output Total 225 800 Balance 615 20 250 Weight 222.7 kg Intake: IV 250 Oral 840 200 Blood Product 0 620 Rc As-1 Unit 0 310 [id number] Output: Urine 225 800 Other: Voiding Method Indwelling Catheter Indwelling Catheter Indwelling Catheter # Bowel Movements 1 - Exam GENERAL EXAM: Alert, very pleasant, morbidly obese 54-year-old male patient on 3 L of oxygen with pulse ox of 98% comfortable in no apparent distress. HEAD: Normocephalic/atraumatic. EYES: Normal reaction of pupils, equal size. Conjunctiva pink, sclera white. NOSE: Clear with pink turbinates. THROAT: No erythema or exudates. NECK: No masses, no JVD, no thyroid enlargement, no adenopathy. CHEST: No chest wall deformity. Symmetrical expansion. LUNGS: Equal air entry with no crackles, wheeze, rhonchi or dullness. CVS: Regular rate and rhythm, normal S1 and S2, no gallops, no murmurs, no rubs ABDOMEN: Soft, nontender. No hepatosplenomegaly, normal bowel sounds, no guarding or rigidity. EXTREMITIES: No clubbing, 1+ lower extremity edema, with some mild erythema, no warmth, no weeping in bilateral lower extremities, no cyanosis, 2+ pulses and upper and lower extremities. MUSCULOSKELETAL: Muscle strength and tone normal. SPINE: No scoliosis or deformity SKIN: No rashes CENTRAL NERVOUS SYSTEM: No focal deficits, tone is normal in all 4 extremities. PSYCHIATRIC: Alert and oriented -3. Appropriate affect. Intact judgment and insight. - Labs CBC & Chem 7: 02/28/20 06:15 02/28/20 06:15 Labs: Abnormal Lab Results - Last 24 Hours (Table) 02/25/20 02/27/20 02/27/20 Range/Units 06:49 09:30 12:03 RBC (4.30-5.90) m/uL Hgb (13.0-17.5) gm/dL Hct (39.0-53.0) % MCH (25.0-35.0) pg MCHC (31.0-37.0) g/dL RDW (11.5-15.5) % Lymphocytes # (1.0-4.8) k/uL Sodium (137-145) mmol/L BUN (9-20) mg/dL Creatinine (0.66-1.25) mg/dL Glucose (74-99) mg/dL POC Glucose (mg/dL) 127 H (75-99) mg/dL Phosphorus (2.5-4.5) mg/dL Albumin (PEP) 2.37 L (3.80-4.90) g/dL Aqrri-8-Rcktudpxs 0.50 H (0.10-0.40) g/dL Crossmatch See Detail 02/27/20 02/27/20 02/27/20 Range/Units 16:51 20:02 22:05 RBC 3.10 L (4.30-5.90) m/uL Hgb 7.7 L (13.0-17.5) gm/dL Hct 26.3 L (39.0-53.0) % MCH 24.7 L (25.0-35.0) pg MCHC 29.1 L (31.0-37.0) g/dL RDW 17.3 H (11.5-15.5) % Lymphocytes # 0.3 L (1.0-4.8) k/uL Sodium (137-145) mmol/L BUN (9-20) mg/dL Creatinine (0.66-1.25) mg/dL Glucose (74-99) mg/dL POC Glucose (mg/dL) 147 H 151 H (75-99) mg/dL Phosphorus (2.5-4.5) mg/dL Albumin (PEP) (3.80-4.90) g/dL Onhuw-7-Dxhzktztz (0.10-0.40) g/dL Crossmatch 02/28/20 02/28/20 02/28/20 Range/Units 06:15 06:15 06:20 RBC 3.06 L (4.30-5.90) m/uL Hgb 7.6 L (13.0-17.5) gm/dL Hct 26.1 L (39.0-53.0) % MCH 24.9 L (25.0-35.0) pg MCHC 29.2 L (31.0-37.0) g/dL RDW 17.6 H (11.5-15.5) % Lymphocytes # 0.4 L (1.0-4.8) k/uL Sodium 135 L (137-145) mmol/L BUN 74 H (9-20) mg/dL Creatinine 3.65 H (0.66-1.25) mg/dL Glucose 112 H (74-99) mg/dL POC Glucose (mg/dL) 127 H (75-99) mg/dL Phosphorus 5.4 H (2.5-4.5) mg/dL Albumin (PEP) (3.80-4.90) g/dL Ehiwb-1-Ludfjeuaz (0.10-0.40) g/dL Crossmatch 02/28/20 Range/Units 09:26 RBC (4.30-5.90) m/uL Hgb (13.0-17.5) gm/dL Hct (39.0-53.0) % MCH (25.0-35.0) pg MCHC (31.0-37.0) g/dL RDW (11.5-15.5) % Lymphocytes # (1.0-4.8) k/uL Sodium (137-145) mmol/L BUN (9-20) mg/dL Creatinine (0.66-1.25) mg/dL Glucose (74-99) mg/dL POC Glucose (mg/dL) 118 H (75-99) mg/dL Phosphorus (2.5-4.5) mg/dL Albumin (PEP) (3.80-4.90) g/dL Hhpkw-0-Tsuxsyona (0.10-0.40) g/dL Crossmatch Assessment and Plan Assessment: #1. Shortness of breath, multifactorial, mostly related to acute exacerbation of diastolic congestive heart failure, component of COPD, and possibility of pneumonia is considered less likely, in addition to anemia. EGD today revealed no active bleeding. Mild portal hypertensive gastropathy #2. History of chronic atrial fibrillation, normally on Xarelto which is currently on hold #3. Chronic hypoxemic restaurant failure related to a history of COPD #4. Chronic congestive heart failure with diastolic dysfunction #5. Acute kidney injury, receiving hemodialysis, current creatinine 3.65 #6. Anemia, status post 4 units packed red blood cells this admission. Current hemoglobin 7.6, EGD with mild portal hypertensive gastropathy but no active bleeding. #7. Hypertension #8. Hyperlipidemia #9. Diabetes mellitus type II Plan: The patient is seen today by Dr. Bishop Currently stable from the pulmonary standpoint We'll see the patient on as-needed basis I, the cosigning physician, performed a history & physical examination of the patient. Lungs sounds are clear. Maintaining good O2 saturations in the 90s on 3 L/m per nasal cannula. I discussed the assessment and plan of care with my nurse practitioner, Jenni Fernandez. I attest to the above note as dictated by her.
[2020-02-28 13:26] LABS: Glucose,Whole Blood 120 mg/dL (75-99)
[2020-02-28] MEDS ORDERED: ONDANSETRON 4 MG/2 ML VIAL IVP PRN (14:26)
--- NOTE | 2020-02-28 14:28 | P.PN ---
Subjective Progress Note Date: 02/28/20 No acute events overnight reported by nursing staff Objective - Vital Signs Vital signs: Vital Signs Temp 97.8 F 02/28/20 12:53 Pulse 78 02/28/20 12:53 Resp 18 02/28/20 12:53 BP 137/71 02/28/20 12:53 Pulse Ox 98 02/28/20 11:10 Intake & Output 02/27/20 02/28/20 02/28/20 18:59 06:59 18:59 Intake Total 840 820 250 Output Total 870 550 6529 Balance 615 20 -1750 Weight 222.7 kg Intake: IV 250 Oral 840 200 Blood Product 0 620 Rc As-1 Unit 0 310 [id number] Output: Urine 225 800 Hemodialysis 1999 Other: Voiding Method Indwelling Catheter Indwelling Catheter Indwelling Catheter # Bowel Movements 1 - Exam General: The patient is awake and alert, in no distress Eye: there is normal conjunctiva bilaterally. Neck: The neck is supple, there is no JVD. Cardiovascular: Normal S1-S2, no S3-S4, no murmurs. Respiratory: Lungs clear to auscultation bilaterally Gastrointestinal: Abdomen is soft, nontender Musculoskeletal: There is +1 pedal edema. Neurological:. Speech is normal. Skin: Skin is warm and dry - Labs CBC & Chem 7: 02/28/20 06:15 02/28/20 06:15 Labs: Abnormal Lab Results - Last 24 Hours (Table) 02/25/20 02/27/20 02/27/20 Range/Units 06:49 09:30 16:51 RBC (4.30-5.90) m/uL Hgb (13.0-17.5) gm/dL Hct (39.0-53.0) % MCH (25.0-35.0) pg MCHC (31.0-37.0) g/dL RDW (11.5-15.5) % Lymphocytes # (1.0-4.8) k/uL Sodium (137-145) mmol/L BUN (9-20) mg/dL Creatinine (0.66-1.25) mg/dL Glucose (74-99) mg/dL POC Glucose (mg/dL) 147 H (75-99) mg/dL Phosphorus (2.5-4.5) mg/dL Albumin (PEP) 2.37 L (3.80-4.90) g/dL Tycxx-1-Dvuyrvzoj 0.50 H (0.10-0.40) g/dL Crossmatch See Detail 02/27/20 02/27/20 02/28/20 Range/Units 20:02 22:05 06:15 RBC 3.10 L 3.06 L (4.30-5.90) m/uL Hgb 7.7 L 7.6 L (13.0-17.5) gm/dL Hct 26.3 L 26.1 L (39.0-53.0) % MCH 24.7 L 24.9 L (25.0-35.0) pg MCHC 29.1 L 29.2 L (31.0-37.0) g/dL RDW 17.3 H 17.6 H (11.5-15.5) % Lymphocytes # 0.3 L 0.4 L (1.0-4.8) k/uL Sodium (137-145) mmol/L BUN (9-20) mg/dL Creatinine (0.66-1.25) mg/dL Glucose (74-99) mg/dL POC Glucose (mg/dL) 151 H (75-99) mg/dL Phosphorus (2.5-4.5) mg/dL Albumin (PEP) (3.80-4.90) g/dL Nndso-2-Ztgpjkndb (0.10-0.40) g/dL Crossmatch 02/28/20 02/28/20 02/28/20 Range/Units 06:15 06:20 09:26 RBC (4.30-5.90) m/uL Hgb (13.0-17.5) gm/dL Hct (39.0-53.0) % MCH (25.0-35.0) pg MCHC (31.0-37.0) g/dL RDW (11.5-15.5) % Lymphocytes # (1.0-4.8) k/uL Sodium 135 L (137-145) mmol/L BUN 74 H (9-20) mg/dL Creatinine 3.65 H (0.66-1.25) mg/dL Glucose 112 H (74-99) mg/dL POC Glucose (mg/dL) 127 H 118 H (75-99) mg/dL Phosphorus 5.4 H (2.5-4.5) mg/dL Albumin (PEP) (3.80-4.90) g/dL Ubgra-6-Xozswxawt (0.10-0.40) g/dL Crossmatch 02/28/20 02/28/20 Range/Units 11:46 13:24 RBC (4.30-5.90) m/uL Hgb (13.0-17.5) gm/dL Hct (39.0-53.0) % MCH (25.0-35.0) pg MCHC (31.0-37.0) g/dL RDW (11.5-15.5) % Lymphocytes # (1.0-4.8) k/uL Sodium (137-145) mmol/L BUN (9-20) mg/dL Creatinine (0.66-1.25) mg/dL Glucose (74-99) mg/dL POC Glucose (mg/dL) 140 H 120 H (75-99) mg/dL Phosphorus (2.5-4.5) mg/dL Albumin (PEP) (3.80-4.90) g/dL Vifep-0-Mwzvnzimz (0.10-0.40) g/dL Crossmatch Assessment and Plan Assessment: This is a 54-year-old male with complex past medical history noted below who presented to the emergency room with worsening shortness of breath. Patient was evaluated and admitted to the hospital for further management of his medical problems noted below 1. Acute on chronic hypoxemic respiratory failure: Secondary to CHF exacerbation. Wean off O2 as tolerated for O2 sats greater than 90%. 2. Acute on chronic diastolic heart failure exacerbation: Started on diuresis with IV Lasix and currently on dialysis.. Strict I's and O's. Fluid restriction. Daily weight. 3. Acute kidney injury: Requiring hemodialysis during this admission. Creatinine 6.8 on presentation. Mostly secondary to ATN and acute on chronic anemia. Questionable cardiorenal syndrome. Seen and evaluated by nephrology. Ultrasound showed no hydronephrosis. Received DDAVP as ordered by nephrology. 4. COPD with no evidence of exacerbation exacerbation with chronic hypoxic respiratory failure on 3 L of oxygen at home 5. Acute on chronic anemia, status post 4 units of PRBC transfusion during this admission. Seen and evaluated by GI and hematology. Garvin to be iron deficiency/anemia of chronic disease: Aaronp added by nephrology. No evidence of GI bleed. Hemoccult is negative on presentation. Noncontrast CT of the abdomen with no intra-abdominal bleed or hematoma. Patient had upper and lower scope within the past year reported unremarkable per GI notes. Repeat EGD during this admission showed no source of bleeding. capsule endoscopy done on 02/25 and awaiting report. 6. Chronic atrial fibrillation, rate controlled. Anticoagulation on hold given severe anemia, I would discuss with other engineering consultant resuming anticoagulation 7. Obstructive sleep apnea/obesity hypoventilation syndrome 8. 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 Type 2 diabetes, uncontrolled with polyneuropathy 10. Hypertension, essential 11. Hyperlipidemia 12. Hypothyroidism Today, I reviewed his medication list and lab work results. Continue current management. Appreciate engineering consultant's recommendations. Repeat lab work in the morning.
[2020-02-28 16:29] LABS: Glucose,Whole Blood 159 mg/dL (75-99)
[2020-02-28 20:16] LABS: Glucose,Whole Blood 162 mg/dL (75-99)
[2020-02-28] MEDS: diphenhydrAMINE 25 MG CAP PO SCH (20:25)
[2020-02-28] MEDS: ACETAMINOPHEN TAB 325 MG TAB PO PRN (20:26)
[2020-02-28] MEDS ORDERED: FUROSEMIDE 10 MG/ML 4 ML VIAL IV SCH (21:00)
[2020-02-29] MEDS: guaiFENesin SYRUP 100MG/5ML 200 MG/10 ML CUP PO PRN ×5 (04:07→20:09)
[2020-02-29] MEDS: IPRATROPIUM-ALBUTEROL 3 ML NEB INHALATION SCH ×5 (04:29→19:51)
[2020-02-29] MEDS: LEVOTHYROXINE 50 MCG TAB PO SCH (06:13)
[2020-02-29 06:16] LABS: Glucose,Whole Blood 114 mg/dL (75-99)
[2020-02-29] MEDS: INSULIN ASPART (NovoLOG) 100 UNIT/ML VIAL SQ SCH ×4 (06:31→17:30)
[2020-02-29 06:50] LABS: Anisocytosis Slight; Basophils # (A) 0.1 k/uL (0-0.2); Basophils % (A) 1 %; Eosinophils # (A) 0.5 k/uL (0-0.7); Eosinophils % (A) 9 %; HCT 27.8 % (39.0-53.0); HGB 8.3 gm/dL (13.0-17.5); Hypochromasia Marked; Lymphocytes # (A) 0.4 k/uL (1.0-4.8); Lymphocytes % (A) 7 %; MCH 25.6 pg (25.0-35.0); MCV 85.5 fL (80.0-100.0); Monocytes # (A) 0.4 k/uL (0-1.0); Monocytes % (A) 7 %; Neutrophils # (A) 4.4 k/uL (1.3-7.7); Neutrophils % (A) 74 %; Platelet Count 203 k/uL (150-450); Poikilocytosis Slight; RBC 3.25 m/uL (4.30-5.90); RDW 17.4 % (11.5-15.5); WBC 5.9 k/uL (3.8-10.6)
[2020-02-29] MEDS: CALCIUM ACETATE 667 MG TAB PO SCH ×2 (06:52→17:28)
[2020-02-29] MEDS: PANTOPRAZOLE 40 MG TABLET PO SCH ×2 (06:52→17:28)
[2020-02-29 07:05] LABS: Potassium 4.3 mmol/L (3.5-5.1); Total Bilirubin 0.6 mg/dL (0.2-1.3); Total Protein 6.3 g/dL (6.3-8.2)
[2020-02-29] MEDS: Fluticasone/Salmeterol [Fluticasone-Salmeterol 232-14] 1 PUFF INHALATION SCH ×2 (08:10→19:51)
[2020-02-29] MEDS: FUROSEMIDE 10 MG/ML 4 ML VIAL IV SCH ×2 (08:19→20:09)
[2020-02-29] MEDS: ATORVASTATIN 20 MG TAB PO SCH (08:19)
[2020-02-29] MEDS: carvediloL 12.5 MG TAB PO SCH ×2 (08:19→20:09)
[2020-02-29] MEDS: LORATADINE 10 MG TAB PO SCH (08:19)
[2020-02-29] MEDS: SODIUM FERRIC GLUCONAT-SUCROSE 125 MG in SODIUM CHLORIDE 0.9% 100 ML IVPB SCH (08:22)
--- NOTE | 2020-02-29 09:52 | P.PN ---
Subjective patient is seen in follow-up for acute kidney injury. started on hemodialysis February 25. Nonoliguric. no chest pain or shortness of breath. Oral intake is fair. No active bleeding. Hemoglobin 8.3 today. underwent EGD on February 27 which revealed no active bleeding. Vital signs are stable. General: The patient appeared well nourished and normally developed. HEENT: Head exam is unremarkable. Neck is without jugular venous distension. LUNGS: Breath sounds decreased. HEART: Rate and Rhythm are regular. ABDOMEN: soft, nontender. Obese. EXTREMITITES: 1+ edema. Objective - Vital Signs Vital signs: Vital Signs Temp 98 F 02/29/20 08:15 Pulse 90 02/29/20 08:15 Resp 16 02/29/20 08:15 BP 150/76 02/29/20 08:15 Pulse Ox 99 02/29/20 08:15 Intake & Output 02/28/20 02/29/20 02/29/20 18:59 06:59 18:59 Intake Total 850 300 Output Total 4700 1360 Balance -3850 -1060 Weight 218.2 kg Intake: IV 250 Intake, IV Titration 100 Amount Sodium Ferric Gluconat- 100 Sucrose 125 mg In Sodium Chloride 0.9% 100 ml @ 100 mls/hr IVPB DAILY [facility] Rx#:[id number] Oral 500 300 Output: Urine 1200 1360 Hemodialysis 3500 Other: Voiding Method Indwelling Catheter Indwelling Catheter - Labs CBC & Chem 7: 02/29/20 06:14 02/29/20 06:14 Labs: Abnormal Lab Results - Last 24 Hours (Table) 02/28/20 02/28/20 02/28/20 Range/Units 11:46 13:24 16:25 RBC (4.30-5.90) m/uL Hgb (13.0-17.5) gm/dL Hct (39.0-53.0) % MCHC (31.0-37.0) g/dL RDW (11.5-15.5) % Lymphocytes # (1.0-4.8) k/uL Carbon Dioxide (22-30) mmol/L BUN (9-20) mg/dL Creatinine (0.66-1.25) mg/dL Glucose (74-99) mg/dL POC Glucose (mg/dL) 140 H 120 H 159 H (75-99) mg/dL Albumin (3.5-5.0) g/dL 02/28/20 02/29/20 02/29/20 Range/Units 20:13 06:12 06:14 RBC 3.25 L (4.30-5.90) m/uL Hgb 8.3 L (13.0-17.5) gm/dL Hct 27.8 L (39.0-53.0) % MCHC 30.0 L (31.0-37.0) g/dL RDW 17.4 H (11.5-15.5) % Lymphocytes # 0.4 L (1.0-4.8) k/uL Carbon Dioxide (22-30) mmol/L BUN (9-20) mg/dL Creatinine (0.66-1.25) mg/dL Glucose (74-99) mg/dL POC Glucose (mg/dL) 162 H 114 H (75-99) mg/dL Albumin (3.5-5.0) g/dL 02/29/20 Range/Units 06:14 RBC (4.30-5.90) m/uL Hgb (13.0-17.5) gm/dL Hct (39.0-53.0) % MCHC (31.0-37.0) g/dL RDW (11.5-15.5) % Lymphocytes # (1.0-4.8) k/uL Carbon Dioxide 31 H (22-30) mmol/L BUN 50 H (9-20) mg/dL Creatinine 3.14 H (0.66-1.25) mg/dL Glucose 111 H (74-99) mg/dL POC Glucose (mg/dL) (75-99) mg/dL Albumin 3.0 L (3.5-5.0) g/dL Assessment and Plan Plan: Assessment: 1. Acute kidney injury secondary to ATN secondary to acute blood loss anemia. Also component of cardiorenal syndrome. Baseline creatinine near 1 from March 2019. No evidence of hydronephrosis noted on kidney ultrasound. urinalysis is benign. no evidence of monoclonal gammopathy. UPC 0.2 g. started on hemodialysis on February 25 and underwent third treatment of hemodialysis yesterday. 2. Acute blood loss anemia. status post 2 units of blood transfusion. status post IV DDAVP on February 23. Hemoglobin 8.3 today. No active bleeding noted. GI following - status post EGD this admission which revealed no active bleeding. maintained on Aranesp. also receiving IV iron. 3. Fluid overload. Better. 4. acute on chronic diastolic CHF. 5. Hyperphosphatemia secondary to acute kidney injury maintained on PhosLo. Plan: hold hemodialysis today. continue Lasix 40 mg IV twice daily. continue to assess daily for need for renal replacement therapy. Monitor for renal recovery.
--- NOTE | 2020-02-29 10:42 | P.PN ---
Subjective No acute events overnight reported by nursing staff Patient was sitting in the chair this morning when I saw him. He denies any shortness of breath. No acute events overnight. Objective - Vital Signs Vital signs: Vital Signs Temp 98 F 02/29/20 08:15 Pulse 90 02/29/20 08:15 Resp 16 02/29/20 08:15 BP 150/76 02/29/20 08:15 Pulse Ox 99 02/29/20 08:15 Intake & Output 02/28/20 02/29/20 02/29/20 18:59 06:59 18:59 Intake Total 850 300 Output Total 4700 1360 Balance -3850 -1060 Weight 218.2 kg Intake: IV 250 Intake, IV Titration 100 Amount Sodium Ferric Gluconat- 100 Sucrose 125 mg In Sodium Chloride 0.9% 100 ml @ 100 mls/hr IVPB DAILY [facility] Rx#:[id number] Oral 500 300 Output: Urine 1200 1360 Hemodialysis 3500 Other: Voiding Method Indwelling Catheter Indwelling Catheter - Exam General: The patient is awake and alert, in no distress Eye: there is normal conjunctiva bilaterally. Neck: The neck is supple, there is no JVD. Cardiovascular: Normal S1-S2, no S3-S4, no murmurs. Respiratory: Lungs clear to auscultation bilaterally Gastrointestinal: Abdomen is soft, nontender Musculoskeletal: There is +2 pedal edema. Neurological:. Speech is normal. Skin: Skin is warm and dry - Labs CBC & Chem 7: 02/29/20 06:14 02/29/20 06:14 Labs: Abnormal Lab Results - Last 24 Hours (Table) 02/28/20 02/28/20 02/28/20 Range/Units 11:46 13:24 16:25 RBC (4.30-5.90) m/uL Hgb (13.0-17.5) gm/dL Hct (39.0-53.0) % MCHC (31.0-37.0) g/dL RDW (11.5-15.5) % Lymphocytes # (1.0-4.8) k/uL Carbon Dioxide (22-30) mmol/L BUN (9-20) mg/dL Creatinine (0.66-1.25) mg/dL Glucose (74-99) mg/dL POC Glucose (mg/dL) 140 H 120 H 159 H (75-99) mg/dL Albumin (3.5-5.0) g/dL 02/28/20 02/29/20 02/29/20 Range/Units 20:13 06:12 06:14 RBC 3.25 L (4.30-5.90) m/uL Hgb 8.3 L (13.0-17.5) gm/dL Hct 27.8 L (39.0-53.0) % MCHC 30.0 L (31.0-37.0) g/dL RDW 17.4 H (11.5-15.5) % Lymphocytes # 0.4 L (1.0-4.8) k/uL Carbon Dioxide (22-30) mmol/L BUN (9-20) mg/dL Creatinine (0.66-1.25) mg/dL Glucose (74-99) mg/dL POC Glucose (mg/dL) 162 H 114 H (75-99) mg/dL Albumin (3.5-5.0) g/dL 02/29/20 Range/Units 06:14 RBC (4.30-5.90) m/uL Hgb (13.0-17.5) gm/dL Hct (39.0-53.0) % MCHC (31.0-37.0) g/dL RDW (11.5-15.5) % Lymphocytes # (1.0-4.8) k/uL Carbon Dioxide 31 H (22-30) mmol/L BUN 50 H (9-20) mg/dL Creatinine 3.14 H (0.66-1.25) mg/dL Glucose 111 H (74-99) mg/dL POC Glucose (mg/dL) (75-99) mg/dL Albumin 3.0 L (3.5-5.0) g/dL Assessment and Plan Assessment: This is a 54-year-old male with complex past medical history noted below who presented to the emergency room with worsening shortness of breath. Patient was evaluated and admitted to the hospital for further management of his medical problems noted below 1. Acute kidney injury: Requiring hemodialysis during this admission. Creatinine 6.8 on presentation. Mostly secondary to ATN and acute on chronic anemia. Questionable cardiorenal syndrome. Seen and evaluated by nephrology. Ultrasound showed no hydronephrosis. Received DDAVP as ordered by nephrology. 2. Acute on chronic diastolic heart failure exacerbation: Started on diuresis with IV Lasix and currently on dialysis. Strict I's and O's. Fluid restriction. Daily weight. 3. Acute on chronic anemia, status post 4 units of PRBC transfusion during this admission. Seen and evaluated by GI and hematology. [place] to be iron deficiency/anemia of chronic disease: Aranesp added by nephrology. No evidence of GI bleed. Hemoccult is negative on presentation. Noncontrast CT of the abdomen with no intra-abdominal bleed or hematoma. Patient had upper and lower scope within the past year reported unremarkable per GI notes. Repeat EGD during this admission showed no source of bleeding. capsule endoscopy done on 02/25 and awaiting report. 4. Acute on chronic hypoxemic respiratory failure: Secondary to CHF e xacerbation. Wean off O2 as tolerated for O2 sats greater than 90%. 5. COPD with no evidence of exacerbation exacerbation with chronic hypoxic respiratory failure on 3 L of oxygen at home 6. Chronic atrial fibrillation, rate controlled. Anticoagulation on hold given severe anemia, I would discuss with other consultants resuming anticoagulation 7. Obstructive sleep apnea/obesity hypoventilation syndrome 8. 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 Type 2 diabetes, uncontrolled with polyneuropathy 10. Hypertension, essential 11. Hyperlipidemia 12. Hypothyroidism Today, I reviewed his medication list and lab work results. Continue current management. Appreciate learning consultant's recommendations. Repeat lab work in the morning.
[2020-02-29 11:48] LABS: Glucose,Whole Blood 115 mg/dL (75-99)
--- NOTE | 2020-02-29 12:07 | P.PN ---
Subjective Progress Note Date: 02/29/20 The patient was interviewed and examined sitting up in a recliner chair, with legs elevated. He states he is feeling well and is much better since his admission. He is quite eager and anxious to be discharged as he feels as though no additional improvements will be maintained while he is inpatient. He denies any chest pain or chest pressure. No shortness of breath, palpitations, or dizziness. He states he tolerated his dialysis well, however he was experiencing increased fatigue by the end of the day yesterday. GENERAL: This is a 54-year-old obese male in no apparent distress at the time of my examination. HEENT: Head is atraumatic, normocephalic. Pupils are equal, round. Sclerae anicteric. Conjunctivae are clear. Mucous membranes of the mouth are moist. Neck is supple. Neck veins not visible No carotid bruit is heard. LUNGS: Clear to auscultation no wheezes, rales or rhonchi. Diminished air movement in the bases. No chest wall tenderness is noted on palpation or with deep breathing. HEART: Irregular rate and rhythm without murmurs, rubs or gallops. S1 and S2 heard. ABDOMEN: Soft, nontender. Bowel sounds are heard. No organomegaly noted. EXTREMITIES: +2 lower extremity pitting edema and no calf tenderness noted. VASCULAR: Radial and dorsalis pedis pulses palpated, no evidence of clubbing. NEUROLOGIC: Patient is awake, alert and oriented x3. VITALS: 150/76, heart rate 90, temperature 98F, SpO2 99% on 3 L nasal cannula TELEMETRY: Chronic atrial fibrillation. Heart rates in the 80s to 90s LABS: WBC 5.9, hemoglobin 8.3, platelet 17, sodium 137, BUN 50, creatinine 3.14, AST 23, ALT 15 IMPRESSION: #1 diastolic heart failure, acute on chronic, EF 50-55% #2 persistent atrial fibrillation, on Xarelto, currently on hold due to unknown source of anemia #3 acute onset of anemia, colonoscopy and EGD negative for acute bleed #4 acute kidney injury, currently undergoing hemodialysis #5 hypertension #6 hyperlipidemia #7 COPD on home oxygen #8 obstructive sleep apnea #9 diabetes mellitus #10 morbid obesity, BMI 58 #11 history of alcohol use PLAN: Continue current medication regimen. Consider increasing carvedilol to 25 mg twice a day if needed for persistent hypertension. No additional recommendations at this time. Will continue to follow on an as needed basis. Objective - Vital Signs Vital signs: Vital Signs Temp 98 F 02/29/20 08:15 Pulse 90 02/29/20 08:15 Resp 16 02/29/20 08:15 BP 150/76 02/29/20 08:15 Pulse Ox 99 02/29/20 08:15 Intake & Output 02/28/20 02/29/20 02/29/20 18:59 06:59 18:59 Intake Total 850 300 Output Total 4700 1360 Balance -3850 -1060 Weight 218.2 kg Intake: IV 250 Intake, IV Titration 100 Amount Sodium Ferric Gluconat- 100 Sucrose 125 mg In Sodium Chloride 0.9% 100 ml @ 100 mls/hr IVPB DAILY [facility] Rx#:[id number] Oral 500 300 Output: Urine 1200 1360 Hemodialysis 3500 Other: Voiding Method Indwelling Catheter Indwelling Catheter - Labs CBC & Chem 7: 02/29/20 06:14 02/29/20 06:14 Labs: Abnormal Lab Results - Last 24 Hours (Table) 02/28/20 02/28/20 02/28/20 Range/Units 13:24 16:25 20:13 RBC (4.30-5.90) m/uL Hgb (13.0-17.5) gm/dL Hct (39.0-53.0) % MCHC (31.0-37.0) g/dL RDW (11.5-15.5) % Lymphocytes # (1.0-4.8) k/uL Carbon Dioxide (22-30) mmol/L BUN (9-20) mg/dL Creatinine (0.66-1.25) mg/dL Glucose (74-99) mg/dL POC Glucose (mg/dL) 120 H 159 H 162 H (75-99) mg/dL Albumin (3.5-5.0) g/dL 02/29/20 02/29/20 02/29/20 Range/Units 06:12 06:14 06:14 RBC 3.25 L (4.30-5.90) m/uL Hgb 8.3 L (13.0-17.5) gm/dL Hct 27.8 L (39.0-53.0) % MCHC 30.0 L (31.0-37.0) g/dL RDW 17.4 H (11.5-15.5) % Lymphocytes # 0.4 L (1.0-4.8) k/uL Carbon Dioxide 31 H (22-30) mmol/L BUN 50 H (9-20) mg/dL Creatinine 3.14 H (0.66-1.25) mg/dL Glucose 111 H (74-99) mg/dL POC Glucose (mg/dL) 114 H (75-99) mg/dL Albumin 3.0 L (3.5-5.0) g/dL 02/29/20 Range/Units 11:44 RBC (4.30-5.90) m/uL Hgb (13.0-17.5) gm/dL Hct (39.0-53.0) % MCHC (31.0-37.0) g/dL RDW (11.5-15.5) % Lymphocytes # (1.0-4.8) k/uL Carbon Dioxide (22-30) mmol/L BUN (9-20) mg/dL Creatinine (0.66-1.25) mg/dL Glucose (74-99) mg/dL POC Glucose (mg/dL) 115 H (75-99) mg/dL Albumin (3.5-5.0) g/dL
[2020-02-29 12:56] VITALS: BMI 71.0
[2020-02-29] MEDS: DOCUSATE 100 MG CAP PO PRN (15:13)
[2020-02-29 16:44] LABS: Glucose,Whole Blood 134 mg/dL (75-99)
[2020-02-29] MEDS: RIVAROXABAN 20 MG TAB PO SCH (17:28)
--- NOTE | 2020-02-29 18:41 | P.PN ---
Subjective Progress Note Date: 02/29/20 Principal diagnosis: iron deficiency anemia the patient is seen lying in bed today reporting that he is tolerating his diet. No abdominal pain reported. No signs or symptoms of GI bleeding reported. Objective - Vital Signs Vital signs: Vital Signs Temp 98 F 02/29/20 08:15 Pulse 90 02/29/20 08:15 Resp 16 02/29/20 08:15 BP 150/76 02/29/20 08:15 Pulse Ox 99 02/29/20 08:15 Intake & Output 02/28/20 02/29/20 02/29/20 18:59 06:59 18:59 Intake Total 850 300 Output Total 4700 1360 Balance -3850 -1060 Weight 218.2 kg Intake: IV 250 Intake, IV Titration 100 Amount Sodium Ferric Gluconat- 100 Sucrose 125 mg In Sodium Chloride 0.9% 100 ml @ 100 mls/hr IVPB DAILY [facility] Rx#:[id number] Oral 500 300 Output: Urine 1200 1360 Hemodialysis 3500 Other: Voiding Method Indwelling Catheter Indwelling Catheter - Exam On physical examination, patient appears comfortable in no apparent distress. HEAD: Normocephalic, atraumatic. EYES: No scleral icterus. No conjunctival injection. MOUTH: No lesions, tongue midline. NECK: Trachea midline, no gross abnormalities. ABDOMEN: Soft, obese. Bowel sounds are positive. No organomegaly. No guarding or rigidity. EXTREMITIES: bilateral pedal edema. SKIN: No rashes, no jaundice. NEUROLOGIC: Alert and oriented x3. No focal deficits. - Labs CBC & Chem 7: 02/29/20 06:14 02/29/20 06:14 Labs: Abnormal Lab Results - Last 24 Hours (Table) 02/28/20 02/28/20 02/28/20 Range/Units 11:46 13:24 16:25 RBC (4.30-5.90) m/uL Hgb (13.0-17.5) gm/dL Hct (39.0-53.0) % MCHC (31.0-37.0) g/dL RDW (11.5-15.5) % Lymphocytes # (1.0-4.8) k/uL Carbon Dioxide (22-30) mmol/L BUN (9-20) mg/dL Creatinine (0.66-1.25) mg/dL Glucose (74-99) mg/dL POC Glucose (mg/dL) 140 H 120 H 159 H (75-99) mg/dL Albumin (3.5-5.0) g/dL 02/28/20 02/29/20 02/29/20 Range/Units 20:13 06:12 06:14 RBC 3.25 L (4.30-5.90) m/uL Hgb 8.3 L (13.0-17.5) gm/dL Hct 27.8 L (39.0-53.0) % MCHC 30.0 L (31.0-37.0) g/dL RDW 17.4 H (11.5-15.5) % Lymphocytes # 0.4 L (1.0-4.8) k/uL Carbon Dioxide (22-30) mmol/L BUN (9-20) mg/dL Creatinine (0.66-1.25) mg/dL Glucose (74-99) mg/dL POC Glucose (mg/dL) 162 H 114 H (75-99) mg/dL Albumin (3.5-5.0) g/dL 02/29/20 Range/Units 06:14 RBC (4.30-5.90) m/uL Hgb (13.0-17.5) gm/dL Hct (39.0-53.0) % MCHC (31.0-37.0) g/dL RDW (11.5-15.5) % Lymphocytes # (1.0-4.8) k/uL Carbon Dioxide 31 H (22-30) mmol/L BUN 50 H (9-20) mg/dL Creatinine 3.14 H (0.66-1.25) mg/dL Glucose 111 H (74-99) mg/dL POC Glucose (mg/dL) (75-99) mg/dL Albumin 3.0 L (3.5-5.0) g/dL Assessment and Plan (1) Anemia Narrative/Plan: 54-year-old male with multiple medical comorbidities and a known history of anemia, evaluated in the past year with EGD and colonoscopy which were negative for source of bleeding. No prior video capsule endoscopy. Denies any signs or symptoms of GI bleeding. Previously seen by the hematology service who felt that the patient had an iron deficiency anemia which was likely secondary to an occultsmall bowel GI bleed. Stool testing on current presentation negative for occult blood. Patient has multiple medical comorbidities. Anemia likely multifactorial and secondary to anemia of chronic disease, nd possibility of occult small bowel bleeding. Video capsule endoscopy performed with no gross pathology noted there were 2 images suggestive of possible blood in theantrum and proximalsmall bowel and EGD was performed with evaluation of these areas negative for any bleeding or pathology to explain anemia. He is already undergone EGD and colonoscopy earlier in the year which were also negative. Current Visit: Yes Status: Acute Code(s): D64.9 - ANEMIA, UNSPECIFIED SNOMED Code(s): 491501661 Plan: supportive care okay for diet as tolerated EGD and video capsule endoscopy performed with no pathology to explain anemia noted Continueaggressive iron supplementation as per recommendations by hematology service Continue to monitor hemoglobin and hematocrit and transfuse as needed No plans for any further endoscopy at this time okay to resume anticoagulation therapy as needed Thank you for allowing us to participate in the care of the patient, the GI service will stand by please call us back with any questions or concerns
[2020-02-29 20:22] VITALS: RESP 18
[2020-02-29 20:41] LABS: Glucose,Whole Blood 139 mg/dL (75-99)
[2020-02-29] MEDS: diphenhydrAMINE 25 MG CAP PO SCH (22:35)
[2020-03-01] MEDS: IPRATROPIUM-ALBUTEROL 3 ML NEB INHALATION SCH ×7 (00:08→23:52)
[2020-03-01] MEDS: PANTOPRAZOLE 40 MG TABLET PO SCH ×2 (06:31→17:09)
[2020-03-01] MEDS: LEVOTHYROXINE 50 MCG TAB PO SCH (06:31)
[2020-03-01] MEDS: CALCIUM ACETATE 667 MG TAB PO SCH ×2 (06:31→17:09)
[2020-03-01] MEDS: INSULIN ASPART (NovoLOG) 100 UNIT/ML VIAL SQ SCH ×3 (06:42→17:09)
[2020-03-01 06:46] LABS: Glucose,Whole Blood 105 mg/dL (75-99)
[2020-03-01] MEDS: Fluticasone/Salmeterol [Fluticasone-Salmeterol 232-14] 1 PUFF INHALATION SCH ×2 (08:02→19:50)
[2020-03-01] MEDS: ATORVASTATIN 20 MG TAB PO SCH (08:18)
[2020-03-01] MEDS: FUROSEMIDE 10 MG/ML 4 ML VIAL IV SCH ×2 (08:18→19:56)
[2020-03-01] MEDS: carvediloL 12.5 MG TAB PO SCH ×2 (08:18→19:56)
[2020-03-01] MEDS: LORATADINE 10 MG TAB PO SCH (08:19)
[2020-03-01 10:09] LABS: Calcium 9.1 mg/dL (8.4-10.2); Potassium 3.9 mmol/L (3.5-5.1)
[2020-03-01 12:10] LABS: Glucose,Whole Blood 140 mg/dL (75-99)
[2020-03-01] MEDS: guaiFENesin SYRUP 100MG/5ML 200 MG/10 ML CUP PO PRN ×3 (12:31→20:58)
[2020-03-01] MEDS: ACETAMINOPHEN TAB 325 MG TAB PO PRN (12:32)
--- NOTE | 2020-03-01 15:47 | PN ---
PROGRESS NOTE He has had 3 treatment treatments of hemodialysis. Hemodialysis was held yesterday. The patient continues to have good urine output. Serum creatinine staying at about 3.1- 3.3 mg/dL. Today it did go up to 3.3 from 3.4 yesterday. Patient wants to go home. He has an indwelling Cortez catheter with good urine output. A 24 hour urine output documented at about 2.3 L. No nausea, vomiting or abdominal pain noted. Swelling has been improving, patient is maintained on IV Lasix. PHYSICAL EXAMINATION: Today blood pressure 149/72, heart rate 84 per minute, he is afebrile. Examination of the heart S1, S2. Examination of the lungs, bilateral breath sounds are heard. Decreased breath sounds at bases. Abdomen is soft. Morbidly obese. Examination of lower extremities shows 3+ edema orally, exam grossly intact. LABS: Show sodium 137, potassium 3.9, BUN 55, creatinine 3.34. ASSESSMENT: 1. Acute kidney injury ATN nonoliguric, status post 3 treatments of hemodialysis. Last hemodialysis treatment was 02/28/2020. Patient currently has good urine output. Serum creatinine is up slightly from 3.1-3.3. I will continue to hold off on dialysis for now. I have advised the patient that we cannot discharge him today. He will need to wait at least till tomorrow and then we can discontinue the dialysis catheter tomorrow. 2. Acute blood loss anemia status post packed RBCs transfusion. No active bleeding noted. EGD showed no active bleeding. Currently receiving IV iron. 3. Fluid overload, currently improved. 4. Acute on chronic diastolic congestive heart failure. 5. Hyperphosphatemia associated with renal failure, maintained on PhosLo. PLAN: Repeat phosphorus level in a.m. Continue to hold off on dialysis. Repeat labs in a.m. and we can likely DC the dialysis catheter tomorrow and possibly discharge patient as well. If he continues to improve, he will need close monitoring as outpatient. MMODL / IJN: [id number] /
[2020-03-01 17:02] LABS: Glucose,Whole Blood 145 mg/dL (75-99)
[2020-03-01] MEDS: RIVAROXABAN 20 MG TAB PO SCH (17:10)
[2020-03-01 19:49] LABS: Glucose,Whole Blood 134 mg/dL (75-99)
--- NOTE | 2020-03-01 21:03 | P.PN ---
Subjective Progress Note Date: 03/01/20 Principal diagnosis: Renal Failure and Anemia Sitting up in chair, no acute complaints. Eager for discharge, he is hoping tomorrow. No CBC today although stable yesterday. WIll repeat tomorrow prior to discharge. Objective - Vital Signs Vital signs: Vital Signs Temp 98.2 F 03/01/20 15:00 Pulse 69 03/01/20 16:00 Resp 18 03/01/20 16:00 BP 134/74 03/01/20 15:00 Pulse Ox 100 03/01/20 15:00 Intake & Output 03/01/20 03/01/20 03/02/20 06:59 18:59 06:59 Intake Total 600 930 Output Total 1400 1300 Balance -800 -370 Weight 168.1 kg Intake: Oral 600 930 Output: Urine 1400 1300 Other: Voiding Method Indwelling Catheter Indwelling Catheter # Voids 1 1 # Bowel Movements 1 - Exam - Constitutional General appearance: no acute distress - EENT Eyes: EOMI, PERRLA ENT: hearing grossly normal, normal oropharynx - Neck Neck: no lymphadenopathy Thyroid: bilateral: normal size - Respiratory Respiratory: bilateral: rales - Cardiovascular Rhythm: irregularly irregular Heart sounds: normal: S1, S2 - Gastrointestinal General gastrointestinal: normal bowel sounds, soft - Integumentary Integumentary: normal - Neurologic Neurologic: CNII-XII intact, focal deficits - Musculoskeletal Musculoskeletal: generalized weakness, strength equal bilaterally - Psychiatric Psychiatric: A&O x's 3, appropriate affect - Labs CBC & Chem 7: 02/29/20 06:14 03/01/20 09:17 Labs: Abnormal Lab Results - Last 24 Hours (Table) 03/01/20 03/01/20 03/01/20 Range/Units 06:40 09:17 12:09 Carbon Dioxide 33 H (22-30) mmol/L BUN 55 H (9-20) mg/dL Creatinine 3.34 H (0.66-1.25) mg/dL Glucose 157 H (74-99) mg/dL POC Glucose (mg/dL) 105 H 140 H (75-99) mg/dL Phosphorus 5.0 H (2.5-4.5) mg/dL 03/01/20 03/01/20 Range/Units 17:01 19:48 Carbon Dioxide (22-30) mmol/L BUN (9-20) mg/dL Creatinine (0.66-1.25) mg/dL Glucose (74-99) mg/dL POC Glucose (mg/dL) 145 H 134 H (75-99) mg/dL Phosphorus (2.5-4.5) mg/dL Assessment and Plan Plan: Chest x-ray: report reviewed CT scan - abdomen: report reviewed CT scan - pelvis: report reviewed US - abdomen: report reviewed Venous US: report reviewed Assessment and Plan Normocytic Hypochromic Anemia - Component of Iron Deficiency, possibly from acute blood loss with treatment of Atrial fib with Xarelto - Component of acute Kidney Injury - Starting DIalysis today - Epogen initiated by nephrology weekly, patients iron saturation 6%, therefore Parental iron infusions initiated after bacteremia ruled out - Re-enforced importance of complainace and compatient follow-up - Keep Hemoglobin greater than 7, today is 7. CBC in am - GI [id number] within past year was unremarkable, Capsule endoscopy is pending. GI is following Acute on chronic hypoxemic respiratory failure: Secondary to CHF exacerbation. - Primary Team, Pulmonology - Hx: COPD Acute on chronic diastolic heart failure exacerbation and Chronic A fib: - Xarelto on hold for acute anemia and renal function Primary Team Acute kidney injury: tolerating hemodialysis Chronic atrial fibrillation, rate controlled. Anticoagulation on hold given severe anemia Plan: - Continue Epogen per nephrology as outpatient and maintain iron saturation greater than 15%
[2020-03-01] MEDS: diphenhydrAMINE 25 MG CAP PO SCH (22:46)
[2020-03-02 06:15] LABS: Glucose,Whole Blood 120 mg/dL (75-99)
[2020-03-02] MEDS: CALCIUM ACETATE 667 MG TAB PO SCH ×2 (06:16→16:56)
[2020-03-02] MEDS: PANTOPRAZOLE 40 MG TABLET PO SCH ×2 (06:16→16:58)
[2020-03-02] MEDS: LEVOTHYROXINE 50 MCG TAB PO SCH (06:16)
[2020-03-02] MEDS: INSULIN ASPART (NovoLOG) 100 UNIT/ML VIAL SQ SCH ×3 (06:18→16:57)
[2020-03-02 07:21] LABS: Anisocytosis Slight; Basophils # (A) 0.1 k/uL (0-0.2); Basophils % (A) 1 %; Eosinophils # (A) 0.5 k/uL (0-0.7); Eosinophils % (A) 7 %; HCT 30.6 % (39.0-53.0); Hypochromasia Marked; Lymphocytes # (A) 0.5 k/uL (1.0-4.8); Lymphocytes % (A) 7 %; MCH 25.1 pg (25.0-35.0); MCHC 29.4 g/dL (31.0-37.0); MCV 85.4 fL (80.0-100.0); Mean Platelet Volume 7.3; Monocytes # (A) 0.4 k/uL (0-1.0); Monocytes % (A) 6 %; Neutrophils # (A) 5.2 k/uL (1.3-7.7); Neutrophils % (A) 77 %; Platelet Count 242 k/uL (150-450); RBC 3.58 m/uL (4.30-5.90); RDW 17.7 % (11.5-15.5); WBC 6.8 k/uL (3.8-10.6)
[2020-03-02 07:43] LABS: Albumin 3.4 g/dL (3.5-5.0); Calcium 9.2 mg/dL (8.4-10.2); Magnesium 1.8 mg/dL (1.6-2.3); Phosphorus 5.4 mg/dL (2.5-4.5); Total Bilirubin 0.7 mg/dL (0.2-1.3); Total Protein 6.8 g/dL (6.3-8.2)
[2020-03-02] MEDS: Fluticasone/Salmeterol [Fluticasone-Salmeterol 232-14] 1 PUFF INHALATION SCH (08:46)
[2020-03-02] MEDS: IPRATROPIUM-ALBUTEROL 3 ML NEB INHALATION SCH ×3 (08:46→16:03)
[2020-03-02 08:50] VITALS: TEMP 98.1
[2020-03-02] MEDS: DARBEPOETIN ALFA 40 MCG/0.4 ML SYRINGE SQ SCH (08:51)
[2020-03-02] MEDS: LORATADINE 10 MG TAB PO SCH (08:51)
[2020-03-02] MEDS: ATORVASTATIN 20 MG TAB PO SCH (08:51)
[2020-03-02] MEDS: carvediloL 12.5 MG TAB PO SCH (08:51)
[2020-03-02] MEDS: FUROSEMIDE 10 MG/ML 4 ML VIAL IV SCH ×2 (08:51→09:00)
[2020-03-02] MEDS: guaiFENesin SYRUP 100MG/5ML 200 MG/10 ML CUP PO PRN ×2 (08:53→16:53)
[2020-03-02 11:56] LABS: Glucose,Whole Blood 134 mg/dL (75-99)
--- NOTE | 2020-03-02 16:01 | P.PN ---
Progress Note - Text Progress Note Date: 03/01/20 Presenting complaint: Shortness of breath Interval history: Patient admitted with progressive shortness of breath edema. Has home oxygen 3 L. Admitted with-acute on chronic hypoxemic respiratory failure, CHF exacerbation, acute kidney injury, COPD exacerbation. Treated with bronchodilators, d iuretics. Dialysis catheter was placed on February 25. Patient had few dialysis treatments. EGD showed mild portal hypertensive gastropathy no evidence of any bleeding. GI workup in the past, including EGD colonoscopy - unremarkable. This admission capsule small bowel endoscopy also negative. he has been unremarkable. Has persistent atrial fibrillation on xarelto. Patient did receive a total of 4 units of blood. Today-feeling better. Appetite getting better. Edema is coming down. Up to the bathroom. Hemodialysis has been discontinued. Patient is making good urine. Consultants: [facility] Dr. Dario liriano from pulmonary Dr. Guerra from vascular surgery Dr. Jaeger from GI Review of systems: Was done for constitutional, cardiovascular, GI, pulmonary. relevant finding as above Current medications reviewed in today's of chronic system On examination: VITAL SIGNS: 98.2, 69, 18, 134/74, 100% on 3 L GENERAL APPEARANCE: BMI 54.9, sitting up in a chair, awake HEENT: Normal external appearance of nose and ear. Oral cavity normal EYES: Pupils equal. Conjunctiva normal. NECK: JVD unable to assess. Mass not palpable. RESPIRATORY: Respiratory effort increased. Lungs distant breath sounds CARDIOVASCULAR: First and second sounds muffled, edema present ABDOMEN: Soft. Liver and spleen not palpable. No tenderness. No mass palpable. PSYCHIATRY: Alert and oriented x3. Mood and affect normal. INVESTIGATIONS, reviewed in the clinical context: Potassium 3.9 bun 55 creatinine 3.34 Previous testing: Computed tomography scan of the abdomen pelvis without contrast-hard enlarged, coronary artery calcification bilateral consolidation and small effusion, nonobstructing left renal calculi Doppler ultrasound lower extremity-negative for DVT Ultrasound kidney bladder-suboptimal no obvious hydronephrosis 2-D echocardiogram-EF 50-55% Assessment: -Acute on chronic congestive heart failure from diastolic dysfunction EF 50-55% -Morbid obesity BMI 54.9 -Diabetes mellitus type 2 -Obstructive sleep apnea -Chronic hypoxic respiratory failure on 3 L oxygen at home -Hyperlipidemia -Hypertensive kidney disease -Acute kidney injury, ATN nonoliguric received 3 treatments of hemodialysis. -Acute blood loss anemia source unknown. GI workup has been negative. -Hyperphosphatemia secondary with renal failure. On PhosLo. -Nephrolithiasis. Plan: Care was discussed with the patient. Hemodialysis catheter be removed tomorrow. Plan is for patient to go home. Follow-up with the several consultants.
[2020-03-02 16:56] LABS: Glucose,Whole Blood 169 mg/dL (75-99)
[2020-03-02] MEDS: RIVAROXABAN 20 MG TAB PO SCH (16:58)
[2020-03-02 17:19] VITALS: PULSE 83
[2020-03-02 17:20] VITALS: BP 135/92
--- NOTE | 2020-03-02 17:46 | PN ---
PROGRESS NOTE Patient is seen for followup for acute kidney injury. The patient has had good urine output. He is maintained on IV Lasix. Serum creatinine has been staying at about 3.3 mg/dL for the last couple of days. Patient's last dialysis was on 02/28/2020. On examination today, blood pressure was 158/73, heart rate about 80 per minute. Patient is afebrile. EXAMINATION OF THE HEART: S1 and S2. EXAMINATION OF LUNGS: Decreased breath sounds at bases. ABDOMEN: Soft, morbidly obese. Examination of lower extremities shows edema 2+ bilaterally. [employer] exam is grossly intact. Labs show sodium 139, potassium 4.0, BUN 62, serum creatinine 3.32, hemoglobin 9.0 g/dL. ASSESSMENT: 1. Acute kidney injury, acute tubular necrosis, currently improved. Patient has been dialyzed. However, his last treatment was 02/28/2020. We will hold off on dialysis and he can be discharged with plans to follow up in about one week's time. 2. Volume overload, maintained on IV Lasix, currently improving. 3. Acute on chronic diastolic heart failure. 4. Hyperphosphatemia associated with renal failure, maintained on PhosLo. 5. Acute blood loss anemia, status post packed RBCs transfusion, status post IV iron as well. PLAN: Can switch to p.o. Lasix. Discontinue dialysis catheter. Patient can be discharged with plans to follow up in the office in one week and repeat labs in 3 to 4 days post discharge. MMODL / IJN: [id number] /
--- NOTE | 2020-03-02 21:27 | P.DS ---
Providers Date of admission: 02/23/20 16:40 Expected date of discharge: 03/02/20 Attending physician: Eugenio Ramos Consults: 02/23/20 17:17 Consult Physician Stat Consulting Provider: Zoë Amaya Consult Reason/Comments: Renal Failure Do you want consulting provider notified?: Yes 02/23/20 17:19 Consult Physician Routine Consulting Provider: Deidra Quarles Consult Reason/Comments: respiratory failure, COPD, DELORES/OHS Do you want consulting provider notified?: Yes 02/25/20 10:48 Consult Physician Routine Consulting Provider: Nehemiah Henderson Consult Reason/Comments: anemia Do you want consulting provider notified?: Yes 02/26/20 09:06 Consult Physician Urgent Consulting Provider: Jaylen Lopez Consult Reason/Comments: temporary dialysis catheter- plan for HD today Do you want consulting provider notified?: Yes Primary care physician: [facility] Course: Presenting complaint: Shortness of breath Interval history: Patient admitted with progressive shortness of breath edema. Has home oxygen 3 L. Admitted with-acute on chronic hypoxemic respiratory failure, CHF exacerbation, acute kidney injury, COPD exacerbation. Treated with bronchodilators, d iuretics. Dialysis catheter was placed on February 25. Patient had few dialysis treatments. EGD showed mild portal hypertensive gastropathy no evidence of any bleeding. GI workup in the past, including EGD colonoscopy - unremarkable. This admission capsule small bowel endoscopy also negative. he has been unremarkable. Has persistent atrial fibrillation on xarelto. Patient did receive a total of 4 units of blood. Today-feeling better. Did tolerate a diet. Discussed with the patient. Also Dr. Amaya. Dialysis catheter was removed later today. Discussed with discharge planning. Patient be going home. Discussion and discharge planning more than 35 minutes Consultants: [facility] Dr. Dario liriano from pulmonary Dr. Guerra from vascular surgery Dr. Jaeger from GI On examination: VITAL SIGNS: 98.1, 90, 18, 140 95354, 98% on 3 L GENERAL APPEARANCE: Sitting up in a chair, comfortable EYES: Pupils equal. Conjunctiva normal. NECK: JVD unable to assess. Mass not palpable. RESPIRATORY: Respiratory effort increased. Lungs distant breath sounds CARDIOVASCULAR: First and second sounds muffled, edema mild ABDOMEN: Soft. Liver and spleen not palpable. No tenderness. No mass palpable. PSYCHIATRY: Alert and oriented x3. Mood and affect normal. INVESTIGATIONS, reviewed in the clinical context: Potassium 4 creatinine 3.32 hemoglobin 9 Previous testing: Computed tomography scan of the abdomen pelvis without contrast-hard enlarged, coronary artery calcification bilateral consolidation and small effusion, nonobstructing left renal calculi Doppler ultrasound lower extremity-negative for DVT Ultrasound kidney bladder-suboptimal no obvious hydronephrosis 2-D echocardiogram-EF 50-55% Assessment: -Acute on chronic congestive heart failure from diastolic dysfunction EF 50-55% were POA -Morbid obesity BMI 54.9 -Diabetes mellitus type 2 -Obstructive sleep apnea -Chronic hypoxic respiratory failure on 3 L oxygen at home -Hyperlipidemia -Hypertensive kidney disease -Acute kidney injury, ATN nonoliguric received 3 treatments of hemodialysis. -Acute blood loss anemia source unknown. GI workup has been negative. -Hyperphosphatemia secondary with renal failure. On PhosLo. -Nephrolithiasis. Disposition: Home Patient Condition at Discharge: Stable Plan - Discharge Summary New Discharge Prescriptions: New Melatonin 3 mg PO HS #30 tablet Calcium Acetate [PhosLo] 667 mg PO BID-W/MEALS #60 tab allopurinoL [Zyloprim] 100 mg PO DAILY #30 tablet Carvedilol [Coreg] 25 mg PO BID #60 tablet Continue Levothyroxine Sodium [Synthroid] 50 mcg PO QAM Rivaroxaban [Xarelto] 20 mg PO HS Atorvastatin [Lipitor] 20 mg PO QAM Multivitamins, Thera [Multivitamin (formulary)] 1 tab PO HS Fluticasone Nasal [place] [Flonase Nasal [place]] 1 spray EA NOSTRIL DAILY PRN PRN Reason: SEASONAL ALLERGIES Acetaminophen Tab [Tylenol] 325 mg PO Q4H PRN PRN Reason: Pain Cetirizine HCl [Zyrtec] 10 mg PO QAM Cholecalciferol [Vitamin D3 (25 Mcg = 1000 Iu)] 2,000 unit PO HS Albuterol Inhaler [Ventolin Hfa Inhaler] 2 puff INHALATION RT-Q4H PRN PRN Reason: Shortness Of Breath Vitamin E 450mg 1 tab PO HS Fluticasone/Salmeterol [Fluticasone-Salmeterol 232-14] 1 puff INHALATION RT- BID Omeprazole [PriLOSEC] 40 mg PO QAM Changed Gabapentin 600 mg PO HS #0 Furosemide [Lasix] 60 mg PO BID@829,2029 #90 tab Discontinued carvediloL [Coreg*] 12.5 mg PO BID@ allopurinoL [Zyloprim] 300 mg PO HS metFORMIN HCL 1,000 mg PO BID@ Losartan [Cozaar] 25 mg PO QAM diphenhydrAMINE [Benadryl] 50 mg PO HS Discharge Medication List Levothyroxine Sodium [Synthroid] 50 mcg PO QAM 04/08/15 [History] Atorvastatin [Lipitor] 20 mg PO QAM 02/18/18 [History] Rivaroxaban [Xarelto] 20 mg PO HS 02/18/18 [History] Acetaminophen Tab [Tylenol] 325 mg PO Q4H PRN 04/03/19 [History] Cetirizine HCl [Zyrtec] 10 mg PO QAM 04/03/19 [History] Fluticasone Nasal [place] [Flonase Nasal [place]] 1 spray EA NOSTRIL DAILY PRN 04/03/19 [History] Multivitamins, Thera [Multivitamin (formulary)] 1 tab PO HS 04/03/19 [History] Albuterol Inhaler [Ventolin Hfa Inhaler] 2 puff INHALATION RT-Q4H PRN 02/23/20 [History] Cholecalciferol [Vitamin D3 (25 Mcg = 1000 Iu)] 2,000 unit PO HS 02/23/20 [History] Fluticasone/Salmeterol [Fluticasone-Salmeterol 232-14] 1 puff INHALATION RT-BID 02/23/20 [History] Omeprazole [PriLOSEC] 40 mg PO QAM 02/23/20 [History] Vitamin E 450mg 1 tab PO HS 02/23/20 [History] Calcium Acetate [PhosLo] 667 mg PO BID-W/MEALS #60 tab 03/02/20 [Rx] Carvedilol [Coreg] 25 mg PO BID #60 tablet 03/02/20 [Rx] Furosemide [Lasix] 60 mg PO BID@829,2029 #90 tab 03/02/20 [Rx] Gabapentin 600 mg PO HS #0 03/02/20 [Rx] Melatonin 3 mg PO HS #30 tablet 03/02/20 [Rx] allopurinoL [Zyloprim] 100 mg PO DAILY #30 tablet 03/02/20 [Rx] Follow up Appointment(s)/Referral(s): Justo Bravo MD [STAFF PHYSICIAN] - 03/09/20 2:15 pm (Sunday with TECHNOLOGY RESOURCE TEACHER) Nehemiah Henderson MD [STAFF PHYSICIAN] - 1 Week (office will call with follow up appointment date and time) Zoë Amaya MD [STAFF PHYSICIAN] - 03/10/20 11:00 am (Sunday (phone appointment)) Levar Crystal MD [Primary Care Provider] - 03/04/20 10:30 am () Yogi Escobar MD [STAFF PHYSICIAN] - 03/23/20 1:00 pm (Sunday with TECHNOLOGY RESOURCE TEACHER) Patient Instructions/Handouts: Heart Failure (DC), Acute Kidney Injury (DC), Anemia (DC) Activity/Diet/Wound Care/Special Instructions: bmp/cbc - 3 days Discharge Disposition: HOME SELF-CARE
--- NOTE | 2020-03-03 00:28 | PCN ---
PROCEDURE NOTE PROCEDURE: Removal of dialysis catheter right femoral approach. DESCRIPTION OF PROCEDURE: The patient was seen and right groin was prepped and draped in the usual sterile manner. Stitches were removed and dialysis catheter was removed. Patient tolerated the procedure well. JAMIL / LISBETHN: [id number] /
--- NOTE | 2020-03-04 03:33 | CDI ---
Documentation Clarification Form Date: 03/04/2020 From: Raz Schmidt Phone: If you have a question about this query, please contact Annabel Stern, Artist'S Model at [phone] between 8am and 5pm. Admit Date: 02/23/2020 Discharge Date: 03/02/2020 Patient Name: Nabil Simeon Visit Number: [id number] ATTENTION: The Clinical Documentation Specialists (CDI) and [facility] Coding Staff appreciate your assistance in clarifying documentation. Please respond to the clarification below the line at the bottom and electronically sign. The CDI & [facility] Coding staff will review the response and follow-up if needed. Please note: Queries are made part of the Legal Health Record. If you have any questions, please contact the author of this message via ITS. Dear Eugenio Mcelroy MD., CKD is documented in the Acute on Chronic renal failure in 02/25 procedure report. History/Risk Factors: COPD, Obesity, ABLA, ATN Clinical Indicators: Acute on chronic congestive heart failure from diastolic dysfunction EF 50-55%, ATN Current BUN/CR/GFR : 162HH/ 6.80H/ 8 Treatment: Hemodialysis 02/28 Dr. Martinez [facility] note Acute kidney injury secondary to ATN secondary to acute blood loss anemia. Also component of cardiorenal syndrome. DS note "Hypertensive kidney disease". In order to capture the severity of condition, please clarify the stage of the CKD, if known: CKD Stage 1 (GFR > 90) CKD Stage 2 (GFR 60-89) CKD Stage 3 (GFR 30-59) CKD Stage 4 (GFR 15-29) CKD Stage 5 (GFR <15) ESRD Other, please specify Unable to determine NO CKD MTDD
== END 2020-03-02 19:19 | disposition home or self-care (01) | DRG 682 ==
LOC: EC 14:36 → 3SCARD 16:40
PROVIDERS: ADMIT Hospitalist; ATTEND Hospitalist
PROC: 06HY33Z Insertion of Infusion Device into Lower Vein, Percutaneous Approach (ICD-10-PCS; principal; 2020-02-26 07:00)
PROC: 5A1D70Z Performance of Urinary Filtration, Intermittent, Less than 6 Hours Per Day (ICD-10-PCS; principal; 2020-02-26 07:00)
PROC: 0DJ08ZZ Inspection of Upper Intestinal Tract, Via Natural or Artificial Opening Endoscopic (ICD-10-PCS; 2020-02-28)
PROC: 30233N1 Transfusion of Nonautologous Red Blood Cells into Peripheral Vein, Percutaneous Approach (ICD-10-PCS; 2020-02-28)
PROC: 06PYX3Z Removal of Infusion Device from Lower Vein, External Approach (ICD-10-PCS; 2020-03-02)
DX: N17.0 Acute kidney failure with tubular necrosis (principal); I50.33 Acute on chronic diastolic (congestive) heart failure; J96.21 Acute and chronic respiratory failure with hypoxia; I48.19 Other persistent atrial fibrillation; J44.1 Chronic obstructive pulmonary disease with (acute) exacerbation; E66.2 Morbid (severe) obesity with alveolar hypoventilation; D62 Acute posthemorrhagic anemia; K76.6 Portal hypertension; Z68.43 Body mass index [BMI] 50.0-59.9, adult; E78.5 Hyperlipidemia, unspecified; I11.0 Hypertensive heart disease with heart failure; I27.20 Pulmonary hypertension, unspecified; Z66 Do not resuscitate; Z20.828 Contact with and (suspected) exposure to other viral communicable diseases; E83.39 Other disorders of phosphorus metabolism; K31.89 Other diseases of stomach and duodenum; N20.0 Calculus of kidney; N18.9 Chronic kidney disease, unspecified; D50.9 Iron deficiency anemia, unspecified; D63.1 Anemia in chronic kidney disease; F10.20 Alcohol dependence, uncomplicated; E03.9 Hypothyroidism, unspecified; E11.22 Type 2 diabetes mellitus with diabetic chronic kidney disease; E11.42 Type 2 diabetes mellitus with diabetic polyneuropathy; M10.9 Gout, unspecified; Z79.899 Other long term (current) drug therapy; Z79.890 Hormone replacement therapy; Z79.84 Long term (current) use of oral hypoglycemic drugs; Z79.01 Long term (current) use of anticoagulants; Z86.14 Personal history of Methicillin resistant Staphylococcus aureus infection; Z90.89 Acquired absence of other organs; Z98.890 Other specified postprocedural states; Z87.891 Personal history of nicotine dependence; Z99.81 Dependence on supplemental oxygen; Z91.19 Patient's noncompliance with other medical treatment and regimen
CPT/HCPCS: 36415; 36556; 43235; 51702; 71045; 71046; 74176; 76770; 76937; 77001; 80048; 80053; 80074; 81001; 82272; 82550; 82570; 82607; 82728; 82746; 83540; 83550; 83605; 83615; 83735; 83880; 83883; 84100; 84145; 84156; 84165; 84484; 85025; 85027; 85045; 85379; 85610; 85730; 86140; 86334; 86335; 86704; 86705; 86706; 86850; 86900; 86901; 86920; 87340; 90935; 91110; 93005; 93306; 93970; 94640; 96360; 99291

== ENCOUNTER → 2020-03-19 | Outpatient (CLI) | payer OTHER ==
[2020-03-19 12:41] LABS: Anisocytosis Slight; Basophils % (A) 1 %; Eosinophils # (A) 0.4 k/uL (0-0.7); Eosinophils % (A) 7 %; HCT 25.6 % (39.0-53.0); Hypochromasia Marked; Lymphocytes # (A) 0.6 k/uL (1.0-4.8); Lymphocytes % (A) 11 %; MCH 25.2 pg (25.0-35.0); MCHC 29.3 g/dL (31.0-37.0); MCV 86.1 fL (80.0-100.0); Mean Platelet Volume 7.8; Monocytes # (A) 0.3 k/uL (0-1.0); Monocytes % (A) 5 %; Neutrophils # (A) 4.2 k/uL (1.3-7.7); Neutrophils % (A) 73 %; Platelet Count 207 k/uL (150-450); Poikilocytosis Slight; RBC 2.97 m/uL (4.30-5.90); RDW 18.9 % (11.5-15.5); Reticulocyte % 2.4 % (0.5-2.0); WBC 5.7 k/uL (3.8-10.6)
[2020-03-19 12:48] LABS: HGB 7.5 gm/dL (13.0-17.5)
[2020-03-19 22:22] LABS: African American GFR (CKD) 35.7 (60.0-200.0); Albumin 3.8 g/dL (3.80-4.90); Albumin/Globulin Ratio 1.46 (1.60-3.17); Anion Gap 11.4 mmol/L (4.00-12.00); BUN/Creat Ratio 34.78 Ratio (12.00-20.00); Calcium 9.2 mg/dL (8.7-10.3); Carbon Dioxide 39.6 mmol/L (21.6-31.8); Globulin 2.6 g/dL (1.6-3.3); Non-African American GFR(CKD) 30.8 (60.0-200.0); Potassium 3.5 mmol/L (3.5-5.5); Total Bilirubin 0.6 mg/dL (0.3-1.2); Total Protein 6.4 g/dL (6.2-8.2)
== END | disposition home or self-care (01) ==
LOC: LABWHC1 11:00
PROVIDERS: ATTEND Internal Medicine Nephrology
DX: J44.9 Chronic obstructive pulmonary disease, unspecified (principal); J30.9 Allergic rhinitis, unspecified; I10 Essential (primary) hypertension; D64.9 Anemia, unspecified; R09.02 Hypoxemia
CPT/HCPCS: 36415; 80053; 83540; 85025; 85045

== ENCOUNTER 2020-03-30 11:00 | Observation (INO) | payer OTHER ==
--- NOTE | 2020-03-30 11:46 | ED ---
General Adult HPI - General Chief complaint: Recheck/Abnormal Lab/Rx Stated complaint: Need blood transfusion-sent by PCP Time Seen by Provider: 03/30/20 11:17 Source: patient, family, RN notes reviewed, old records reviewed Mode of arrival: wheelchair Limitations: physical limitation - History of Present Illness Initial comments: 54-year-old male presenting with abnormal outpatient labs. Patient was told he had a hemoglobin of 7. He reports easy fatigue and mild dyspnea. He is on home oxygen. He has a history of chronic anemia. He denies any melena or rectal bleeding. He states she's had a complete evaluation of his gastrointestinal tract bleeding and states that he was told that his anemia is related to bone marrow. - Related Data Home Medications Medication Instructions Recorded Confirmed Levothyroxine Sodium [Synthroid] 50 mcg PO QAM 04/08/15 02/23/20 Atorvastatin [Lipitor] 20 mg PO QAM 02/18/18 02/23/20 Rivaroxaban [Xarelto] 20 mg PO HS 02/18/18 02/23/20 Acetaminophen Tab [Tylenol] 325 mg PO Q4H PRN 04/03/19 02/23/20 Cetirizine HCl [Zyrtec] 10 mg PO QAM 04/03/19 02/23/20 Fluticasone Nasal [place] [Flonase 1 spray EA NOSTRIL DAILY PRN 04/03/19 02/23/20 Nasal [place]] Multivitamins, Thera [Multivitamin 1 tab PO HS 04/03/19 02/23/20 (formulary)] Albuterol Inhaler [Ventolin Hfa 2 puff INHALATION RT-Q4H PRN 02/23/20 02/23/20 Inhaler] Cholecalciferol [Vitamin D3 (25 2,000 unit PO HS 02/23/20 02/23/20 Mcg = 1000 Iu)] Fluticasone/Salmeterol 1 puff INHALATION RT-BID 02/23/20 02/23/20 [Fluticasone-Salmeterol 232-14] Omeprazole [PriLOSEC] 40 mg PO QAM 02/23/20 02/23/20 Vitamin E 450mg 1 tab PO 02/23/20 02/23/20 Previous Rx's Medication Instructions Recorded Calcium Acetate [PhosLo] 667 mg PO BID-W/MEALS #60 tab 03/02/20 Carvedilol [Coreg] 25 mg PO BID #60 tablet 03/02/20 Furosemide [Lasix] 60 mg PO BID@0830,2030 #90 tab 03/02/20 Gabapentin 600 mg PO HS #0 03/02/20 Melatonin 3 mg PO HS #30 tablet 03/02/20 allopurinoL [Zyloprim] 100 mg PO DAILY #30 tablet 03/02/20 Allergies Allergy/AdvReac Type Severity Reaction Status Date / Time No Known Allergies Allergy Verified 03/30/20 12:23 Review of Systems ROS Statement: Those systems with pertinent positive or pertinent negative responses have been documented in the HPI. ROS Other: All systems not noted in ROS Statement are negative. Past Medical History Past Medical History: Atrial Fibrillation, Heart Failure, COPD, Diabetes Mellitus, Hyperlipidemia, Hypertension, Thyroid Disorder Additional Past Medical History / Comment(s): NIDDM type II, neuropathy bilateral feet, 2012 acute respiratory failure-d/t obesity/hypoventilatory syndrome/DELORES/bronchospasms, DELORES-pt states he has not been wearing device lately, trach/vent-had renal failure with dialysis for 5 weeks, chronic anemia, hypothyroid, gout L arm, pt states he is a binge drinker. anemia History of Any Multi-Drug Resistant Organisms: MRSA Date of last positivie culture/infection: 2012 MDRO Source:: bronchial washing Past Surgical History: Orthopedic Surgery, Tonsillectomy Additional Past Surgical History / Comment(s): EGD, colonoscopies, R knee arthroscopy, R shoulder arthroscopy, trach, peg, BAL left lower lobe, cardioversion. Past Anesthesia/Blood Transfusion Reactions: No Reported Reaction Additional Past Anesthesia/Blood Transfusion Reaction / Comment(s): Pt has received blood in past without reaction. Past Psychological History: No Psychological Hx Reported Smoking Status: Former smoker Past Alcohol Use History: Abuse, Heavy Past Drug Use History: None Reported - Past Family History Father History Unknown: Yes Family Medical History: No Reported History Mother Family Medical History: No Reported History Additional Family Medical History / Comment(s): Mother is healthy. General Exam Limitations: physical limitation General appearance: alert, in no apparent distress Head exam: Present: atraumatic, normocephalic Eye exam: Present: normal appearance, PERRL ENT exam: Present: normal exam Neck exam: Present: normal inspection. Absent: tenderness, meningismus Respiratory exam: Present: decreased breath sounds. Absent: respiratory distress, wheezes Cardiovascular Exam: Present: regular rate, normal rhythm GI/Abdominal exam: Present: soft. Absent: distended, tenderness, guarding Extremities exam: Present: normal inspection, normal capillary refill. Absent: pedal edema Neurological exam: Present: alert, oriented X3, CN II-XII intact. Absent: motor sensory deficit Psychiatric exam: Present: normal affect, normal mood Skin exam: Present: warm, dry, intact Course Vital Signs 03/30/20 11:12 Temperature 98.0 F Pulse Rate 81 Respiratory 18 Rate Blood Pressure 128/73 O2 Sat by Pulse 93 L Oximetry Medical Decision Making - Medical Decision Making 54-year-old male with anemia, increased dyspnea and fatigue. Hemoglobin 7.9, no history of melena or rectal bleeding. Patient has creatinine which is baseline for this patient at 2.0, history of chronic kidney disease. Patient will be transfused one unit of packed RBCs. He has been admitted to internal medicine, case discussed with Dr. Medrano. - Lab Data Result diagrams: 03/30/20 11:43 03/30/20 11:43 Lab Results 03/30/20 03/30/20 03/30/20 Range/Units 11:43 11:43 11:43 WBC 5.8 (3.8-10.6) k/uL RBC 2.99 L (4.30-5.90) m/uL Hgb 7.9 L (13.0-17.5) gm/dL Hct 27.2 L (39.0-53.0) % MCV 90.9 (80.0-100.0) fL MCH 26.3 (25.0-35.0) pg MCHC 29.0 L (31.0-37.0) g/dL RDW 19.4 H (11.5-15.5) % Plt Count 140 L (150-450) k/uL Neutrophils % 78 % Lymphocytes % 10 % Monocytes % 5 % Eosinophils % 5 % Basophils % 1 % Neutrophils # 4.5 (1.3-7.7) k/uL Lymphocytes # 0.6 L (1.0-4.8) k/uL Monocytes # 0.3 (0-1.0) k/uL Eosinophils # 0.3 (0-0.7) k/uL Basophils # 0.0 (0-0.2) k/uL Hypochromasia Marked Poikilocytosis Slight Anisocytosis Slight PT 11.0 (9.0-12.0) sec INR 1.1 (<1.2) APTT 29.5 (22.0-30.0) sec Sodium 138 (137-145) mmol/L Potassium 3.8 (3.5-5.1) mmol/L Chloride 91 L (98-107) mmol/L Carbon Dioxide 37 H (22-30) mmol/L Anion Gap 10 mmol/L BUN 73 H (9-20) mg/dL Creatinine 2.06 H (0.66-1.25) mg/dL Est GFR (CKD-EPI)AfAm 41 (>60 ml/min/1.73 sqM) Est GFR (CKD-EPI)NonAf 35 (>60 ml/min/1.73 sqM) Glucose 243 H (74-99) mg/dL Calcium 8.9 (8.4-10.2) mg/dL Magnesium 1.9 (1.6-2.3) mg/dL Total Bilirubin 0.9 (0.2-1.3) mg/dL AST 18 (17-59) U/L ALT 16 (4-49) U/L Alkaline Phosphatase 136 H (38-126) U/L Total Protein 7.1 (6.3-8.2) g/dL Albumin 3.6 (3.5-5.0) g/dL Disposition Clinical Impression: Symptomatic anemia Disposition: ADMITTED IP TO THIS [facility] Condition: Stable Is patient prescribed a controlled substance at d/c from ED?: No Referrals: Levar Crystal MD [Primary Care Provider] - 1-2 days Decision to Admit Reason: Admit from EC Decision Date: 03/30/20 Decision Time: 12:31
[2020-03-30 12:09] LABS: Anisocytosis Slight; Basophils % (A) 1 %; Eosinophils # (A) 0.3 k/uL (0-0.7); Eosinophils % (A) 5 %; HCT 27.2 % (39.0-53.0); HGB 7.9 gm/dL (13.0-17.5); Hypochromasia Marked; Lymphocytes # (A) 0.6 k/uL (1.0-4.8); Lymphocytes % (A) 10 %; MCH 26.3 pg (25.0-35.0); MCV 90.9 fL (80.0-100.0); Mean Platelet Volume 8.1; Monocytes # (A) 0.3 k/uL (0-1.0); Monocytes % (A) 5 %; Neutrophils # (A) 4.5 k/uL (1.3-7.7); Neutrophils % (A) 78 %; Platelet Count 140 k/uL (150-450); Poikilocytosis Slight; RBC 2.99 m/uL (4.30-5.90); RDW 19.4 % (11.5-15.5); WBC 5.8 k/uL (3.8-10.6)
[2020-03-30 12:12] LABS: Albumin 3.6 g/dL (3.5-5.0); Calcium 8.9 mg/dL (8.4-10.2); Magnesium 1.9 mg/dL (1.6-2.3); Potassium 3.8 mmol/L (3.5-5.1); Total Bilirubin 0.9 mg/dL (0.2-1.3); Total Protein 7.1 g/dL (6.3-8.2)
[2020-03-30 12:15] LABS: INR 1.1 (<1.2); Partial Thromboplastin Time 29.5 sec (22.0-30.0)
[2020-03-30] MEDS ORDERED: NALOXONE 0.4 MG/ML 1 ML VIAL IV PRN (12:29)
[2020-03-30] MEDS ORDERED: FLUTICASONE 50MCG/SPRAY NASAL 16GM EA NOSTRIL PRN (14:20)
[2020-03-30] MEDS ORDERED: ALBUTEROL NEBULIZED 2.5 MG/3 ML INHALATION PRN (14:20)
[2020-03-30] MEDS ORDERED: ACETAMINOPHEN TAB 325 MG TAB PO PRN (14:20)
[2020-03-30 16:27] VITALS: BP 133/77
--- NOTE | 2020-03-30 16:28 | HP ---
HISTORY AND PHYSICAL DATE OF SERVICE: 03/30/2020 CHIEF COMPLAINT: Symptomatic anemia. HISTORY OF PRESENT ILLNESS: This 54-year-old gentleman with a past medical history of multiple medical problems, including chronic long-standing anemia, history of CHF, history of obesity, diabetes mellitus type 2, chronic hypoxic respiratory failure, being followed by Dr. Crystal in the outpatient setting, was recently admitted with CHF, acute exacerbation, acute on chronic diastolic dysfunction. The patient also had previous anemia. Apparently he had an extensive workup, including EGDs as well as capsule enteroscopy. The patient was found to have anemia and the patient was symptomatically weak and had a presyncopal episode. The patient had a previous transfusion; hemoglobin went up to 6.7. Currently hemoglobin is 7.2. The patient is admitted for further evaluation and treatment. There is no history of any fever, rigor or chills. No history of headache, loss of consciousness, seizures. The patient also had an elevated creatinine up to 2.06. PAST MEDICAL HISTORY: History of atrial fibrillation, COPD, diabetes mellitus, hypertension, hyperlipidemia, history of peripheral neuropathy, history of DJD, history of MRSA. HOME MEDICATIONS: 1. Zyloprim 100 mg p.o. daily. 2. Vitamin E one tablet at bedtime. 3. Xarelto. 4. Multivitamins. 5. Melatonin. 6. Levothyroxine. 7. Lasix. 8. Fluticasone. 9. Salmeterol. 10.Folic acid. 11.Zyrtec. 12.Coreg. 13.PhosLo. 14.Lipitor. 15.Ventolin. 16.Tylenol. ALLERGIES: NONE. FAMILY HISTORY: No history of any heart disease or strokes in the family. SOCIAL HISTORY: Previous history of smoking. Occasional alcohol intake. REVIEW OF SYSTEMS: ENT: No diminished hearing. No diminished vision. CARDIOVASCULAR SYSTEM: No angina, palpitations. RESPIRATORY SYSTEM: As mentioned earlier. GI: As mentioned earlier. : No dysuria or retention. NERVOUS SYSTEM: No numbness, weakness. ALLERGY/IMMUNOLOGY: No asthma, hayfever. MUSCULOSKELETAL: As mentioned earlier. HEMATOLOGY/ONCOLOGY: As mentioned earlier. ENDOCRINE: As mentioned earlier. CONSTITUTIONAL: As mentioned earlier. DERMATOLOGY: Negative. RHEUMATOLOGY: Negative. PSYCHIATRY: As mentioned earlier. PHYSICAL EXAMINATION: Patient alert and oriented x3. Pulse 81, blood pressure 128/73, respiration 18, temperature 98 degrees, pulse ox 93% on room air. HEENT: Conjunctivae pale. Oral mucosa pale. NECK: No jugular venous distention. No carotid bruit. No lymph node enlargement. CARDIOVASCULAR SYSTEM: S1, S2 muffled. RESPIRATORY SYSTEM: Breath sounds diminished at the bases. A few scattered rhonchi and crackles. ABDOMEN: Soft, obese, non-tender. LEGS: No edema. No swelling. NERVOUS SYSTEM: No focal deficit. SKIN: No ulcer, rash, bleeding. JOINTS: No active deforming arthropathy. LABS: WBC 5.8, hemoglobin 7.9, platelets 140. Sodium 138, potassium 3.8. Creatinine is 2.6, glucose 243. ASSESSMENT: 1. Anemia, acute on chronic symptomatic anemia. 2. Thrombocytopenia. 3. Chronic kidney disease, stage 3. 4. Diabetes mellitus, type 2, with hyperglycemia. 5. History of atrial fibrillation. 6. History of congestive heart failure, ejection fraction 50% to 55%, with chronic diastolic dysfunction. 7. History of chronic obstructive pulmonary disease. 8. Diabetes mellitus, type 2. 9. Hyperlipidemia. 10.Hypertension. 11.Hypothyroidism. 12.History of peripheral neuropathy. 13.History of obstructive sleep apnea. 14.Had dialysis for 5 weeks. 15.History of methicillin-resistant Staphylococcus aeruginosa. 16.History of degenerative joint disease. 17.Remote history of ETOH. 18.History of nicotine dependence. 19.Obesity with body mass index 55.4. 20.FULL CODE. RECOMMENDATIONS AND DISCUSSION: In this 54-year-old gentleman who presented with multiple complex medical issues, we will monitor the patient closely. I would recommend at least one unit transfusion for symptomatic anemia with the Lasix. Otherwise, closely monitor with multiple consultants, including Hematology/Oncology and Nephrology. Resume the home medications. Avoid nephrotoxic medications. Prognosis guarded because of multiple complex medical issues. A copy of this dictation is being forwarded to Dr. Crystal, who is the primary physician. MMODL / IJN: [id number] /
[2020-03-30] MEDS ORDERED: carvediloL 12.5 MG TAB PO SCH (17:30)
[2020-03-30] MEDS ORDERED: CALCIUM ACETATE 667 MG TAB PO SCH (17:30)
[2020-03-30 18:07] VITALS: PULSE 80; RESP 18; TEMP 97
[2020-03-30 19:04] LABS: Anisocytosis Slight; HCT 27.1 % (39.0-53.0); HGB 8.2 gm/dL (13.0-17.5); Hypochromasia Marked; MCH 27.3 pg (25.0-35.0); MCHC 30.4 g/dL (31.0-37.0); MCV 89.8 fL (80.0-100.0); Mean Platelet Volume 8.9; Platelet Count 131 k/uL (150-450); Poikilocytosis Slight; RBC 3.01 m/uL (4.30-5.90); WBC 7.6 k/uL (3.8-10.6)
[2020-03-30] MEDS ORDERED: SYMBICORT 160-4.5 MCG INHALER INHALATION SCH (20:00)
[2020-03-30] MEDS ORDERED: CHOLECALCIFEROL 1,000 UNIT TAB PO SCH (21:00)
[2020-03-30] MEDS ORDERED: GABAPENTIN 300 MG CAP PO SCH (21:00)
[2020-03-30] MEDS ORDERED: MELATONIN 5 MG TABLET PO SCH (21:00)
[2020-03-30] MEDS ORDERED: VITAMIN E 450 MG PO SCH (21:00)
[2020-03-30] MEDS ORDERED: RIVAROXABAN 20 MG TAB PO SCH (21:00)
[2020-03-30] MEDS ORDERED: MULTIVITAMINS, THERA 1 EACH TAB PO SCH (21:00)
--- NOTE | 2020-03-31 05:52 | DS ---
DISCHARGE SUMMARY FINAL DIAGNOSES: 1. Anemia, acute on chronic symptomatic anemia of undetermined etiology. 2. Thrombocytopenia. 3. Chronic kidney disease, stage 3. 4. Diabetes mellitus type 2 with hyperglycemia. 5. History atrial fibrillation. 6. Multiple medical problems. DISCHARGE DISPOSITION: The patient will be discharged in stable condition with guarded prognosis. The patient is extremely keen on going home. HISTORY OF PRESENT ILLNESS: This 54-year-old gentleman with a past medical history of multiple medical problems admitted with anemia which is symptomatic. Hemoglobin was 7.9. The patient was given transfusion, but however the patient wanted to go home. Patient has had an appointment with Dr. Henderson's for further evaluation including bone marrow so the patient will be discharged in stable condition and guarded prognosis and patient insists. Otherwise on exam, vitals are stable. CARDIOVASCULAR: S1, S2 muffled. ABDOMEN: Soft. NERVOUS SYSTEM: No focal deficits. DISCHARGE ADVICE AND MEDICATIONS: Resume the home medications which include: 1. Zyloprim. 2. Vitamin E. 3. Xarelto. 4. Multivitamins. 5. Melatonin. 6. Synthroid. 7. Gabapentin. 8. Lasix. 9. Fluticasone/salmeterol. 10.Flonase nasal spray. 11.Vitamin D3. 12.Zyrtec. 13.Coreg. 14.PhosLo. 15.Lipitor. 16.Ventolin. 17.Tylenol. Follow up CBC, BMP with Dr. Crystal the primary physician. Follow up with Dr. Henderson as recommended. Once again the patient will be discharged in stable condition with guarded prognosis. MMODL / IJN: [id number] /
[2020-03-31] MEDS ORDERED: LEVOTHYROXINE 50 MCG TAB PO SCH (06:30)
[2020-03-31] MEDS ORDERED: FUROSEMIDE 20 MG TAB PO SCH (08:00)
[2020-03-31] MEDS ORDERED: LORATADINE 10 MG TAB PO SCH (09:00)
[2020-03-31] MEDS ORDERED: allopurinoL 100 MG TAB PO SCH (09:00)
[2020-03-31] MEDS ORDERED: ATORVASTATIN 20 MG TAB PO SCH (09:00)
== END 2020-03-30 19:05 | disposition left against medical advice (07) ==
LOC: EC 11:00 → 6NMEDSUR 12:29
PROVIDERS: ADMIT Hospitalist; ATTEND Hospitalist
DX: D63.1 Anemia in chronic kidney disease (principal); D69.6 Thrombocytopenia, unspecified; N18.30 Chronic kidney disease, stage 3 unspecified; I48.91 Unspecified atrial fibrillation; E11.65 Type 2 diabetes mellitus with hyperglycemia; I13.0 Hypertensive heart and chronic kidney disease with heart failure and stage 1 through stage 4 chronic kidney disease, or unspecified chronic kidney disease; E11.22 Type 2 diabetes mellitus with diabetic chronic kidney disease; I50.32 Chronic diastolic (congestive) heart failure; J44.9 Chronic obstructive pulmonary disease, unspecified; E78.5 Hyperlipidemia, unspecified; E11.42 Type 2 diabetes mellitus with diabetic polyneuropathy; E66.9 Obesity, unspecified; G47.33 Obstructive sleep apnea (adult) (pediatric); E03.9 Hypothyroidism, unspecified; M10.9 Gout, unspecified; J96.11 Chronic respiratory failure with hypoxia; M19.90 Unspecified osteoarthritis, unspecified site; Z79.890 Hormone replacement therapy; Z79.899 Other long term (current) drug therapy; Z79.01 Long term (current) use of anticoagulants; Z79.51 Long term (current) use of inhaled steroids; Z87.09 Personal history of other diseases of the respiratory system; Z68.43 Body mass index [BMI] 50.0-59.9, adult; Z87.448 Personal history of other diseases of urinary system; Z86.14 Personal history of Methicillin resistant Staphylococcus aureus infection; Z90.89 Acquired absence of other organs; Z87.891 Personal history of nicotine dependence; Z98.890 Other specified postprocedural states
CPT/HCPCS: 36430; 99284; 36415; 86900; 86901; 80053; 83735; 85025; 85027; 85610; 85730; 86850; 86920; G0378; P9016

== ENCOUNTER 2020-05-19 14:02 | Emergency (ER) | payer OTHER ==
--- NOTE | 2020-05-19 14:40 | ED ---
General Adult HPI - General Chief complaint: Dizziness Stated complaint: Feeling faint Time Seen by Provider: 05/19/20 14:10 Source: patient, RN notes reviewed, old records reviewed Mode of arrival: wheelchair Limitations: no limitations - History of Present Illness Initial comments: This a 54-year-old male with a past medical history significant for some kidney dysfunction COPD and congestive heart failure. Patient presents to the emergency department today because he is feeling dizzy when he stands up. Patient states that he has had this before and has been anemia that is made him feel this way. Patient believes he is anemic again. Patient denies any black or bloody stools. Patient states have not come up with or expiration as to why he is anemic. Patient denies any fever chills or cough per patient denies shortness of breath or difficulty breathing. Patient denies chest pain or palpitations. Patient denies any leg swelling. - Related Data Home Medications Medication Instructions Recorded Confirmed Levothyroxine Sodium [Synthroid] 50 mcg PO QAM 04/08/15 05/19/20 Rivaroxaban [Xarelto] 20 mg PO HS 02/18/18 05/19/20 Acetaminophen Tab [Tylenol] 325 mg PO Q4H PRN 04/03/19 05/19/20 Cetirizine HCl [Zyrtec] 10 mg PO QAM 04/03/19 05/19/20 Fluticasone Nasal [place] [Flonase 2 spray EA NOSTRIL DAILY PRN 04/03/19 05/19/20 Nasal [place]] Multivitamins, Thera [Multivitamin 1 tab PO HS 04/03/19 05/19/20 (formulary)] Albuterol Inhaler [Ventolin Hfa 2 puff INHALATION RT-Q4H PRN 02/23/20 05/19/20 Inhaler] Cholecalciferol [Vitamin D3 (25 2,000 unit PO HS 02/23/20 05/19/20 Mcg = 1000 Iu)] Fluticasone/Salmeterol 1 puff INHALATION RT-BID 02/23/20 05/19/20 [Fluticasone-Salmeterol 232-14] Vitamin E 450mg 1 tab PO HS 02/23/20 05/19/20 Furosemide [Lasix] 60 mg PO BID 10/13/20 12/02/20 Gabapentin 600 mg PO BID 03/30/20 05/19/20 Melatonin 12 mg PO HS 03/30/20 05/19/20 Atorvastatin Calcium [Lipitor] 20 mg PO DAILY 05/19/20 05/19/20 Previous Rx's Medication Instructions Recorded Carvedilol [Coreg] 25 mg PO BID #60 tablet 03/02/20 allopurinoL [Zyloprim] 100 mg PO DAILY #30 tablet 03/02/20 Meclizine [Antivert] 25 mg PO TID #20 tab 05/19/20 Allergies Allergy/AdvReac Type Severity Reaction Status Date / Time No Known Allergies Allergy Verified 05/19/20 15:22 Review of Systems ROS Statement: Those systems with pertinent positive or pertinent negative responses have been documented in the HPI. ROS Other: All systems not noted in ROS Statement are negative. Past Medical History Past Medical History: Atrial Fibrillation, Heart Failure, COPD, Diabetes Mellitus, Hyperlipidemia, Hypertension, Thyroid Disorder Additional Past Medical History / Comment(s): NIDDM type II, neuropathy bilateral feet, 2012 acute respiratory failure-d/t obesity/hypoventilatory syndrome/DELORES/bronchospasms, DELORES-pt states he has not been wearing device lately, trach/vent-had renal failure with dialysis for 5 weeks, chronic anemia, hypothyroid, gout L arm, pt states he is a binge drinker. anemia History of Any Multi-Drug Resistant Organisms: MRSA Date of last positivie culture/infection: 2012 MDRO Source:: bronchial washing Past Surgical History: Orthopedic Surgery, Tonsillectomy Additional Past Surgical History / Comment(s): EGD, colonoscopies, R knee arthroscopy, R shoulder arthroscopy, trach, peg, BAL left lower lobe, cardioversion. Past Anesthesia/Blood Transfusion Reactions: No Reported Reaction Additional Past Anesthesia/Blood Transfusion Reaction / Comment(s): Pt has received blood in past without reaction. Past Psychological History: No Psychological Hx Reported Smoking Status: Former smoker Past Alcohol Use History: Abuse, Heavy Past Drug Use History: None Reported - Past Family History Father History Unknown: Yes Family Medical History: No Reported History Mother Family Medical History: No Reported History Additional Family Medical History / Comment(s): Mother is healthy. General Exam - General Exam Comments Initial Comments: GENERAL: Patient is well-developed and well-nourished. Patient is nontoxic and well- hydrated and is in mild distress. ENT: Neck is soft and supple. No significant lymphadenopathy is noted. Oropharynx is clear. Moist mucous membranes. Neck has full range of motion without eliciting any pain. EYES: The sclera were anicteric and conjunctiva were pink and moist. Extraocular movements were intact and pupils were equal round and reactive to light. Eyelids were unremarkable. PULMONARY: Unlabored respirations. Good breath sounds bilaterally. No audible rales rhonchi or wheezing was noted. CARDIOVASCULAR: There is a regular rate and rhythm without any murmurs gallops or rubs. ABDOMEN: Soft and nontender with normal bowel sounds. No palpable organomegaly was noted. There is no palpable pulsatile mass. SKIN: Skin is clear with no lesions or rashes and otherwise unremarkable. NEUROLOGIC: Patient is alert and oriented x3. Cranial nerves II through XII are grossly intact. Motor and sensory are also intact. Normal speech, volume and content. Symmetrical smile. MUSCULOSKELETAL: Normal extremities with adequate strength and full range of motion. LYMPHATICS: No significant lymphadenopathy is noted PSYCHIATRIC: Normal psychiatric evaluation. Limitations: no limitations Course Vital Signs 05/19/20 05/19/20 14:09 15:10 Temperature 98.0 F Pulse Rate 89 Pulse Rate [ 82 Sitting [employer]] Pulse Rate [ 87 Standing [employer] ] Respiratory 24 Rate Blood Pressure 180/105 Blood Pressure 142/81 [Right Arm Sitting] Blood Pressure 153/81 [Right Arm Standing] O2 Sat by Pulse 91 L Oximetry Medical Decision Making - Medical Decision Making EKG shows atrial fibrillation with a right bundle leticia block at 77 bpm QRS is under 28 QT interval 42 QTC is 454. Patient's EKG shows no ST segment elevation or depression Chest x-ray shows no acute abnormality. Orthostatics were negative. - Lab Data Result diagrams: 05/19/20 15:08 05/19/20 15:08 Lab Results 05/19/20 05/19/20 05/19/20 Range/Units 15:08 15:08 15:08 WBC 6.8 (3.8-10.6) k/uL RBC 4.09 L (4.30-5.90) m/uL Hgb 10.9 L (13.0-17.5) gm/dL Hct 34.6 L (39.0-53.0) % MCV 84.7 D (80.0-100.0) fL MCH 26.7 (25.0-35.0) pg MCHC 31.5 (31.0-37.0) g/dL RDW 15.8 H (11.5-15.5) % Plt Count 173 (150-450) k/uL MPV 8.2 Neutrophils % 75 % Lymphocytes % 13 % Monocytes % 6 % Eosinophils % 4 % Basophils % 0 % Neutrophils # 5.1 (1.3-7.7) k/uL Lymphocytes # 0.9 L (1.0-4.8) k/uL Monocytes # 0.4 (0-1.0) k/uL Eosinophils # 0.3 (0-0.7) k/uL Basophils # 0.0 (0-0.2) k/uL Hypochromasia Slight PT 10.9 (9.0-12.0) sec INR 1.1 (<1.2) APTT 27.8 (22.0-30.0) sec Sodium 134 L (137-145) mmol/L Potassium 3.4 L (3.5-5.1) mmol/L Chloride 89 L (98-107) mmol/L Carbon Dioxide 39 H (22-30) mmol/L Anion Gap 6 mmol/L BUN 32 H (9-20) mg/dL Creatinine 1.35 H (0.66-1.25) mg/dL Est GFR (CKD-EPI)AfAm 68 (>60 ml/min/1.73 sqM) Est GFR (CKD-EPI)NonAf 59 (>60 ml/min/1.73 sqM) Glucose 129 H (74-99) mg/dL Calcium 10.0 (8.4-10.2) mg/dL Magnesium 1.7 (1.6-2.3) mg/dL Total Bilirubin 0.9 (0.2-1.3) mg/dL AST 25 (17-59) U/L ALT 20 (4-49) U/L Alkaline Phosphatase 134 H (38-126) U/L Troponin I (0.000-0.034) ng/mL Total Protein 7.6 (6.3-8.2) g/dL Albumin 4.0 (3.5-5.0) g/dL 05/19/20 Range/Units 15:08 WBC (3.8-10.6) k/uL RBC (4.30-5.90) m/uL Hgb (13.0-17.5) gm/dL Hct (39.0-53.0) % MCV (80.0-100.0) fL MCH (25.0-35.0) pg MCHC (31.0-37.0) g/dL RDW (11.5-15.5) % Plt Count (150-450) k/uL MPV Neutrophils % % Lymphocytes % % Monocytes % % Eosinophils % % Basophils % % Neutrophils # (1.3-7.7) k/uL Lymphocytes # (1.0-4.8) k/uL Monocytes # (0-1.0) k/uL Eosinophils # (0-0.7) k/uL Basophils # (0-0.2) k/uL Hypochromasia PT (9.0-12.0) sec INR (<1.2) APTT (22.0-30.0) sec Sodium (137-145) mmol/L Potassium (3.5-5.1) mmol/L Chloride (98-107) mmol/L Carbon Dioxide (22-30) mmol/L Anion Gap mmol/L BUN (9-20) mg/dL Creatinine (0.66-1.25) mg/dL Est GFR (CKD-EPI)AfAm (>60 ml/min/1.73 sqM) Est GFR (CKD-EPI)NonAf (>60 ml/min/1.73 sqM) Glucose (74-99) mg/dL Calcium (8.4-10.2) mg/dL Magnesium (1.6-2.3) mg/dL Total Bilirubin (0.2-1.3) mg/dL AST (17-59) U/L ALT (4-49) U/L Alkaline Phosphatase (38-126) U/L Troponin I <0.012 (0.000-0.034) ng/mL Total Protein (6.3-8.2) g/dL Albumin (3.5-5.0) g/dL Disposition Clinical Impression: Vertigo Disposition: HOME SELF-CARE Condition: Good Instructions (If sedation given, give patient instructions): Vertigo (ED) Prescriptions: Meclizine [Antivert] 25 mg PO TID #20 tab Is patient prescribed a controlled substance at d/c from ED?: No Referrals: Levar Crystal MD [Primary Care Provider] - 1-2 days Time of Disposition: 16:05
[2020-05-19 15:34] LABS: Basophils % (A) 0 %; Eosinophils # (A) 0.3 k/uL (0-0.7); Eosinophils % (A) 4 %; HCT 34.6 % (39.0-53.0); HGB 10.9 gm/dL (13.0-17.5); Hypochromasia Slight; Lymphocytes # (A) 0.9 k/uL (1.0-4.8); Lymphocytes % (A) 13 %; MCH 26.7 pg (25.0-35.0); MCHC 31.5 g/dL (31.0-37.0); Mean Platelet Volume 8.2; Monocytes # (A) 0.4 k/uL (0-1.0); Monocytes % (A) 6 %; Neutrophils # (A) 5.1 k/uL (1.3-7.7); Neutrophils % (A) 75 %; Platelet Count 173 k/uL (150-450); RBC 4.09 m/uL (4.30-5.90); RDW 15.8 % (11.5-15.5); WBC 6.8 k/uL (3.8-10.6)
[2020-05-19 15:37] LABS: MCV 84.7 fL (80.0-100.0); Total Bilirubin 0.9 mg/dL (0.2-1.3); Total Protein 7.6 g/dL (6.3-8.2)
[2020-05-19 15:39] LABS: INR 1.1 (<1.2); Partial Thromboplastin Time 27.8 sec (22.0-30.0); Prothrombin Time 10.9 sec (9.0-12.0)
[2020-05-19 15:41] LABS: Magnesium 1.7 mg/dL (1.6-2.3); Potassium 3.4 mmol/L (3.5-5.1)
--- NOTE | 2020-05-19 15:46 | XR ---
EXAMINATION TYPE: XR chest 2V DATE OF EXAM: 05/19/2020 COMPARISON: Right chest x-ray 02/26/2020 HISTORY: Chest pain TECHNIQUE: Frontal and lateral views of the chest are obtained on 3 images. FINDINGS: There is no focal air space opacity, pleural effusion, or pneumothorax seen. The cardiac silhouette size is enlarged, stable. The osseous structures are intact. IMPRESSION: Stable cardiomegaly.
[2020-05-19 16:30] VITALS: BP 141/74; PULSE 87; RESP 18; TEMP 98.2
== END 2020-05-19 16:30 | disposition home or self-care (01) ==
LOC: EC 14:02
DX: R42 Dizziness and giddiness (principal); I45.10 Unspecified right bundle-branch block; I48.91 Unspecified atrial fibrillation; I13.0 Hypertensive heart and chronic kidney disease with heart failure and stage 1 through stage 4 chronic kidney disease, or unspecified chronic kidney disease; N18.9 Chronic kidney disease, unspecified; I50.9 Heart failure, unspecified; J44.9 Chronic obstructive pulmonary disease, unspecified; E78.5 Hyperlipidemia, unspecified; E03.9 Hypothyroidism, unspecified; Z79.890 Hormone replacement therapy; Z79.899 Other long term (current) drug therapy; Z79.01 Long term (current) use of anticoagulants; Z79.51 Long term (current) use of inhaled steroids; Z87.891 Personal history of nicotine dependence
CPT/HCPCS: 36415; 71046; 80053; 83735; 84484; 85025; 85610; 85730; 86850; 86900; 86901; 93005; 99284

== ENCOUNTER → 2020-05-26 | Outpatient (CLI) | payer OTHER ==
--- NOTE | 2020-05-26 14:41 | US ---
EXAMINATION TYPE: US liver DATE OF EXAM: 05/26/2020 COMPARISON: CT 02/25/2020 CLINICAL HISTORY: R94.5 abnormal liver function tests. Elevated liver enzymes EXAM MEASUREMENTS: Liver Length: 18.3 cm Gallbladder Wall: 0.2 cm CBD: 0.5 cm Right Kidney: 12.3 x 6.2 x 6.4 cm Technically difficult and limited study due to morbidly obese patient Pancreas: visualized portions wnl, limited by overlying midline bowel gas Liver: enlarged, mildly heterogeneous Gallbladder: wnl Evidence for sonographic Dixon's sign: no CBD: visualized portions wnl, limited by overlying bowel gas Right Kidney: wnl IMPRESSION: Correlate for hepatocellular disease, hepatic steatosis, suspect hepatomegaly is present
== END | disposition home or self-care (01) ==
LOC: RADUSWWP 10:56
PROVIDERS: ATTEND Internal Medicine Hematology & Oncology
DX: R94.5 Abnormal results of liver function studies (principal)
CPT/HCPCS: 76705

== ENCOUNTER → 2020-11-30 | Day surgery (SDC) | payer OTHER ==
[2020-11-25 11:36] VITALS: BMI 54.6
[~2020-11-30] MED LIST: LACTATED RINGERS 1,000 ML IV SCH; LIDOCAINE 1% (10MG/ML) FOR IV START INTRADERMA PRN; PROPOFOL 10 MG/ML 20 ML VIAL IV ONE; SODIUM CHLORIDE 0.9% 1,000 ML IV SCH; SODIUM CHLORIDE 0.9% 500 ML 500 ML IV ONE
[2020-11-30 07:56] VITALS: RESP 18; TEMP 98.6
[2020-11-30 08:35] LABS: Calcium 9.2 mg/dL (8.4-10.2); Potassium 3.6 mmol/L (3.5-5.1)
--- NOTE | 2020-11-30 10:11 | P.EPPROC ---
- EP Procedure Note Electrophysiology Procedure Note: Diagnosis Persistent atrial fibrillation with mild cardio myopathy History of heavy alcohol intake History of GI bleeding which has resolved Morbid obesity BMI 54 Type 2 diabetes, history of chronic kidney disease, hypertension Electrical cardioversion for atrial fibrillation 360 J shock in the AP configuration failed to defibrillated the patient Repeat electrical cardioversion performed with 2 simultaneous 360 J shocks, one in the AP configuration and the other in the anterior apical configuration 2 simultaneous shocks delivered Successful electrical cardioversion to sinus rhythm Plan Continue Xarelto 20 mg by mouth daily Continue carvedilol 25 mg twice daily Continue atorvastatin 20 mg by mouth daily Continue diabetes medications Continue Lasix Complete abstinence from alcohol, including beer and every single kind of alcoholic beverage Reassessment of LV function Stress test as an outpatient Follow Dr. Bravo thereafter
--- NOTE | 2020-11-30 10:12 | P.PRLE ---
RE: Nabil Simeon Dear Dr. Bonilla Ferrer underwent an electrical cardioversion with a 720 J biphasic shock 360 J shock failed previously He is now in sinus rhythm I will advised him to avoid alcoholic beverages completely including beer He will continue xarelto and his other cardiac medications as before Thank you for entrusting me with the care of the patient Warm regards Sincerely Justo Bravo
--- NOTE | 2020-11-30 10:52 | P.PRLE ---
RE: Nabil Simeon Dear Charles Nabilchristopher Simeon underwent electrical cardioversion with a 720 J biphasic shock At 360 J was unsuccessful I advised him to continue xarelto and carvedilol and completely abstain from alcohol consumption Thank you for entrusting me with the care of the patient Warm regards Sincerely Justo Bravo
[2020-11-30 13:28] VITALS: BP 138/60; PULSE 76
[2020-12-01 05:34] LABS: Chol/HDL Ratio 6.36; LDL Cholesterol,Calculated 151.4 mg/dL (0.0-131.0); VLDL Calculation 41.6 mg/dL (5.00-40.00)
== END | disposition home or self-care (01) ==
LOC: CATHEP 07:29
PROVIDERS: ATTEND Internal Medicine Clinical Cardiac Electrophysiology
DX: I48.19 Other persistent atrial fibrillation (principal); I42.9 Cardiomyopathy, unspecified; E66.01 Morbid (severe) obesity due to excess calories; I12.9 Hypertensive chronic kidney disease with stage 1 through stage 4 chronic kidney disease, or unspecified chronic kidney disease; E11.22 Type 2 diabetes mellitus with diabetic chronic kidney disease; N18.9 Chronic kidney disease, unspecified; Z68.43 Body mass index [BMI] 50.0-59.9, adult; I47.1 Supraventricular tachycardia; E78.5 Hyperlipidemia, unspecified; Z87.19 Personal history of other diseases of the digestive system; Z79.890 Hormone replacement therapy; Z79.51 Long term (current) use of inhaled steroids; Z79.899 Other long term (current) drug therapy; Z82.49 Family history of ischemic heart disease and other diseases of the circulatory system; Z87.891 Personal history of nicotine dependence
CPT/HCPCS: 92960; 80061; 80048; 84443; 87635; J2704

== ENCOUNTER → 2021-02-07 | Outpatient (CLI) | payer OTHER ==
--- NOTE | 2021-02-07 12:48 | XR ---
EXAMINATION TYPE: XR Hip Complete LT DATE OF EXAM: 02/07/2021 CLINICAL HISTORY: pain TECHNIQUE: AP and frogleg views of the left hip are obtained. COMPARISON: None. FINDINGS: There is no acute fracture/dislocation evident. Severe degenerative narrowing left hip darren nt space. Spur formation left supra-acetabular region and left femoral neck likely resulting in femor al acetabular impingement. The overlying soft tissue appears unremarkable. IMPRESSION: 1. There is no acute fracture or dislocation.ICD 10 NO FRACTURE, INITIAL EVALUATION
== END | disposition home or self-care (01) ==
LOC: RADXRMAIN 12:12
PROVIDERS: ATTEND Internal Medicine
DX: M25.552 Pain in left hip (principal)
CPT/HCPCS: 73502

== ENCOUNTER → 2021-03-08 | Outpatient (CLI) | payer OTHER ==
[2021-03-08 15:01] LABS: HCT 35.6 % (39.6-50.0); HGB 10.3 g/dL (13.0-17.0); MCH 27.7 pg (27.0-32.0); MCHC 28.9 g/dL (32.0-37.0); MCV 95.7 fL (80.0-97.0); Mean Platelet Volume 11.5 fL (9.5-12.2); Platelet Count 188 X 10*3/uL (140-440); RBC 3.72 X 10*6/uL (4.40-5.60); RDW 14.6 % (11.5-14.5); WBC 8.59 X 10*3/uL (4.50-10.00)
[2021-03-08 19:02] LABS: Hemoglobin A1C 6.7 % (4.0-6.0)
[2021-03-08 20:14] LABS: African American GFR (CKD) 64.6 (60.0-200.0); Albumin/Globulin Ratio 1.38 (1.60-3.17); Anion Gap 12.6 mmol/L (4.00-12.00); BUN/Creat Ratio 23.57 Ratio (12.00-20.00); Calcium 9.4 mg/dL (8.7-10.3); Carbon Dioxide 33.4 mmol/L (21.6-31.8); Chol/HDL Ratio 3.43; Globulin 2.9 g/dL (1.6-3.3); LDL Cholesterol,Calculated 65.4 mg/dL (0.0-131.0); Non-African American GFR(CKD) 55.8 (60.0-200.0); Total Bilirubin 0.8 mg/dL (0.2-1.2); Total Protein 6.9 g/dL (6.2-8.2); Uric Acid 3.8 mg/dL (3.7-8.7); VLDL Calculation 24.6 mg/dL (5.00-40.00)
[2021-03-08 20:36] LABS: Folate, Serum 15.2 ng/mL
== END | disposition home or self-care (01) ==
LOC: LABWHC1 09:35
PROVIDERS: ATTEND Internal Medicine
DX: I12.9 Hypertensive chronic kidney disease with stage 1 through stage 4 chronic kidney disease, or unspecified chronic kidney disease (principal); E11.65 Type 2 diabetes mellitus with hyperglycemia; E11.22 Type 2 diabetes mellitus with diabetic chronic kidney disease; M10.9 Gout, unspecified; N18.31 Chronic kidney disease, stage 3a
CPT/HCPCS: 36415; 80053; 80061; 82607; 82746; 83036; 84100; 84443; 84550; 85027

== ENCOUNTER → 2023-03-23 | Outpatient (CLI) | payer OTHER | END | disposition home or self-care (01) | LOC: LABWHC1 09:23 | PROVIDERS: ATTEND Orthopaedic Surgery | DX: Z01.89 Encounter for other specified special examinations (principal) | CPT/HCPCS: 87070 ==

== ENCOUNTER → 2023-09-05 | Outpatient (CLI) | payer OTHER ==
[2023-09-05 11:01] VITALS: BP 133/72; PULSE 98; RESP 15; TEMP 98.6
--- NOTE | 2023-09-05 12:20 | XR ---
EXAMINATION TYPE: XR lumbar spine 2 or 3V DATE OF EXAM: 09/05/2023 11:18 AM CLINICAL INDICATION:Male, 58 years old with history of M51.36 Other DDD; PHH COMPARISON: None TECHNIQUE: XR lumbar spine 2 or 3V - Frontal, lateral and coned in L5-S1 lateral views of the spine. FINDINGS: No evidence of any acute osseous pathology. No evidence of loss of vertebral body height i s seen. There is normal alignment of the lumbar vertebral bodies. Mild scattered disc space narrowing . Multilevel marginal osteophyte formation throughout the visualized spine. There is facet joint arth ropathy throughout the spine. Scattered at least mild neural foraminal stenosis. Diffuse course of th e arterial vasculature. Hip arthroplasty partially visualized. IMPRESSION: 1. No acute fracture. 2. Mild multilevel disc degeneration.
--- NOTE | 2023-09-05 13:52 | P.PAINPG ---
PQRS Measure Charge Sheet Comment: HISTORY OF PRESENT ILLNESS: A 58 yr old male as a referral from Dalia JAVIER presents today w severe and chronic LBP x 1 yr secondary to DDD, spondylosis and facet arthropathy without myelopathy for evaluation. Pt states pain level is provoked at 9 /10 in intensity, constant, localized in the lumbar spine, predominantly axial, burning in character w occasional shooting pain towards the RLE. Pain is provoked by sitting. Pain is alleviated by PT x 6 wks in Apr-May 2023, physician guided home exercises/ stretches daily since May 2023, working out 2-3 days/ wk at the gym since May 2023, medications (Tramadol, Neurontin), alternating heat & ice, repositioning and rest . Oswestry axial pain score at 26. PMH: OA, aFib, CHF, COPD, NIDDM II, Hyperlipidemia, HTN, Hypothyroid Disorder, Gout PSH: Hip Arthroplasty (2022), EGD/ Colonoscopy (2019), Cardioversion, R Knee Arthroscopy, R Shoulder Arthroscopy, Tracheotomy, PEG placement, Tonsillectomy SH: Former tobacco user, Binge ETOH use, No illicit drug use FH: No Reported History All: See list Meds: See list REVIEW OF ORGAN SYSTEMS: CONSTITUTIONAL: No fevers or chills. No recent weight loss. NEUROLOGICAL: + numbness and tingling along the distal extremities. No seizure disorders or headaches. MUSCULOSKELETAL: + pain PSYCHIATRIC: Denies current depression or suicidal thoughts. Physical Examinations : Constitutional : Cooperative , not in acute distress . Neurologic : Cranial nerve II to XII intact. No focal neurological deficits. Psychiatric : alert & oriented x 3. Matching mood & appropriate affect. Judgment & insight intact. Musculoskeletal : Cervical Spine Motor strength in the deltoid and biceps: Normal right side. Normal Left side Motor strength biceps and the wrist extensors: Normal right side . Normal left side Motor strength in the triceps muscle: Normal right side. Normal left side Deep tendon reflexes: Normal at the biceps. Normal at Brachioradialis. Normal at triceps Vertebral body tenderness to deep palpation over Cervical facet loading test: positive bilaterally Spurling test: positive bilaterally Neck distraction test: positive bilaterally Mireya sign: positive bilaterally Lumbar spine Motor strength lower extremities ,thigh and legs 5/5 Right side , 5/5 Left side Deep tendon reflexes : Normal Knee Jerk. Normal Ankle Jerk Vertebral body tenderness over Jones Test positive Lumbar facet Loading Test: positive Right / positive Left Range of motion of the lumbar spine Flexion 30 degrees, extension 10 degrees Straight Leg Raise test: Left/ Right positive at < 35 degrees Marti test: positive right / positive left. Severe tenderness over the Sacroiliac joint on the Right / Left sides Gaenslen test: positive bilaterally Seated flexion test: positive bilaterally. Sacral spine : Severe tenderness over the Sacroiliac joint: right side / left side Range of motion: Flexion of the lumbar spine <60 degrees Range of motion: Extension of the lumbar spine <20 degrees Gaenslen's Test positive Marti test: positive right side / left side Thigh Thrust Test Sacral Thrust Test Imaging: None on file Assessment/ Plan : Lumbar DDD Recommendation of lumbar x ray M51.36 May need additional testing if indicated. All questions answered. I have spent greater than 30 minutes on patient care today. Dr Henry was available by phone for the evaluation of this patient. The time was used to review the medical records including relevant urine studies and Prescription history (MAPs), review of the available imaging, evaluation and examination of the patient, coordination of care with the medical staff and if applicable referring physicians, as well as creation of the medical record PQRS Narrative: Smoking Status Former smoker Home Medications: Ambulatory Orders Levothyroxine Sodium [Synthroid] 50 mcg PO QAM 04/08/15 Rivaroxaban [Xarelto] 20 mg PO HS 02/18/18 Acetaminophen Tab [Tylenol] 325 mg PO Q4H PRN 04/03/19 Cetirizine HCl [Zyrtec] 10 mg PO QAM 04/03/19 Fluticasone Nasal [place] [Flonase Nasal [place]] 2 spray EA NOSTRIL DAILY PRN 04/03/19 Multivitamins, Thera [Multivitamin (formulary)] 1 tab PO HS 04/03/19 Albuterol Inhaler [Ventolin Hfa Inhaler] 2 puff INHALATION RT-Q4H PRN 02/23/20 Fluticasone [place]/Salmeterol [Fluticasone-Salmeterol 232-14] 1 puff INHALATION DIRECTED PRN 02/23/20 Vitamin E 450mg 1 tab PO HS 02/23/20 carvediloL [Coreg] 25 mg PO BID #60 tablet 03/02/20 Furosemide [Lasix] 20 mg PO BID 03/30/20 Gabapentin 600 mg PO BID 03/30/20 Melatonin 12 mg PO HS PRN 03/30/20 Atorvastatin Calcium [Lipitor] 20 mg PO DAILY 05/19/20 Cholecalciferol [Vitamin D3 (25 Mcg = 1000 Iu)] 50 mcg PO HS 11/25/20 Furosemide [Lasix] 40 mg PO BID 11/25/20 Metformin(Dose Unknown) 1 tab PO BID 11/25/20 allopurinoL [Zyloprim] 300 mg PO DAILY 11/25/20 Controlled Substance Measures - Controlled Substance Measures Is patient prescribed a controlled substance at discharge?: No
== END ==
LOC: PNWHC3 10:00
PROVIDERS: ATTEND Specialist
DX: M51.36 Other intervertebral disc degeneration, lumbar region (principal); M54.31 Sciatica, right side; F12.90 Cannabis use, unspecified, uncomplicated; Z87.891 Personal history of nicotine dependence
CPT/HCPCS: 72100; G0463; 99211

== ENCOUNTER → 2023-09-20 | Outpatient (CLI) | payer OTHER ==
--- NOTE | 2023-09-20 12:54 | MR ---
EXAMINATION TYPE: MR lumbar spine wo con DATE OF EXAM: 09/20/2023 9:44 AM CLINICAL INDICATION:Male, 58 years old with history of M51.36 Lumbar DDD; Low back pain that radiates down right leg. COMPARISON: 09/05/2023. TECHNIQUE: Multi planar, multi sequence imaging was performed utilizing: T1-weighted, T2-weighted, a nd turbo inversion recovery imaging of the lumbar spine. IV Contrast: (None if empty) FINDINGS: Alignment: The lumbar vertebral bodies have preserved heights and alignment. Cord: The conus medullaris and the distal spinal cord appear unremarkable with regards to their signa l intensity and morphology. Bones/Discs: Mild degeneration changes throughout the spine with osteophyte formation and facet joint arthropathy. Intervertebral disc signal is maintained. T12-L1: No evidence of significant spinal canal stenosis. Facet joint arthropathy mild bilateral neur al foraminal stenosis. L1-L2: No evidence of significant spinal canal stenosis. Facet joint arthropathy mild bilateral neura l foraminal stenosis. L2-L3: No evidence of significant spinal canal stenosis. Facet joint arthropathy mild bilateral neura l foraminal stenosis. L3-L4: No evidence of significant spinal canal stenosis. Facet joint arthropathy mild bilateral neura l foraminal stenosis. L4-L5: Disc bulge and facet joint arthropathy result in mild spinal canal and moderate neural foramin al stenosis. Extraforaminal osteophyte abuts the nerve on the right series 601 image 9. L5-S1: Disc bulge and facet joint arthropathy result in mild spinal canal and moderate right and mode rate to severe left neural foraminal stenosis. Osteophyte displaces the left exiting nerve series 301 image 4 No significant spinal canal or neural foraminal stenosis in the remainder of the visualized levels. Other findings: None. IMPRESSION: 1. No definitive evidence of disc herniation or significant spinal canal stenosis. 2. Degeneration changes with extraforaminal osteophyte abutting the right L4-L5 nerve. 3. L5-S1 degeneration with osteophyte displacing the left exiting nerve at the neural foramen.
== END | disposition home or self-care (01) ==
LOC: RADMRIMAIN 08:52
PROVIDERS: ATTEND Specialist
DX: M51.17 Intervertebral disc disorders with radiculopathy, lumbosacral region (principal); M25.78 Osteophyte, vertebrae
CPT/HCPCS: 72148

== ENCOUNTER → 2023-09-20 | Outpatient (CLI) | payer OTHER ==
[2023-09-20 14:48] LABS: HCT 39.6 % (39.6-50.0); HGB 12.2 g/dL (13.0-17.0); MCH 26.7 pg (27.0-32.0); MCHC 30.8 g/dL (32.0-37.0); MCV 86.7 FL (80.0-97.0); Mean Platelet Volume 11.9 FL (9.5-12.2); NRBC Per 100 WBC 0 X 10*3/uL (0.00-0.01); Platelet Count 230 X 10*3/uL (140-440); RBC 4.57 X 10*6/uL (4.40-5.60); RDW 16.8 % (11.5-14.5); WBC 7.42 X 10*3/uL (4.50-10.00)
[2023-09-20 14:50] LABS: Blood Urea Nitrogen 44.8 mg/dL (9.0-27.0); Carbon Dioxide 32.7 mmol/L (21.6-31.8); Chloride 95 mmol/L (96-109); Potassium 3.6 mmol/L (3.5-5.5); Sodium 139 mmol/L (135-145)
== END | disposition home or self-care (01) ==
LOC: LABPAT 09:47
PROVIDERS: ATTEND Internal Medicine Clinical Cardiac Electrophysiology
DX: Z01.812 Encounter for preprocedural laboratory examination (principal); I48.19 Other persistent atrial fibrillation
CPT/HCPCS: 36415; 80051; 82565; 84520; 85027

== ENCOUNTER 2023-09-24 09:40 | Day surgery (SDC) | payer OTHER ==
[2023-09-19 14:32] VITALS: BMI 39.5
[2023-09-24 10:15] LABS: Glucose,Whole Blood 140 mg/dL (70-110)
[2023-09-24] MEDS: SODIUM CHLORIDE 0.9% 1,000 ML IV SCH (10:17)
[2023-09-24 10:44] LABS: ALT 23 U/L (4-49); AST 28 U/L (17-59); African American GFR (CKD) 61 (>60 ml/min/1.73 sqM); Albumin 4.2 g/dL (3.5-5.0); Alkaline Phosphatase 134 U/L (38-126); Anion Gap 10 mmol/L; Blood Urea Nitrogen 50 mg/dL (9-20); Calcium 9.4 mg/dL (8.4-10.2); Carbon Dioxide 31 mmol/L (22-30); Chloride 98 mmol/L (98-107); Glucose 151 mg/dL (74-99); Non-African American GFR(CKD) 52 (>60 ml/min/1.73 sqM); Potassium 3.4 mmol/L (3.5-5.1); Sodium 139 mmol/L (137-145); Total Bilirubin 0.8 mg/dL (0.2-1.3); Total Protein 7.2 g/dL (6.3-8.2)
[2023-09-24] MEDS ORDERED: MIDAZOLAM 2 MG/2 ML VIAL ONE (13:08)
[2023-09-24] MEDS ORDERED: PROPOFOL 10 MG/ML 20 ML VIAL IV ONE (13:08)
[2023-09-24] MEDS ORDERED: SUCCINYLCHOLINE CHLORIDE 200 MG/10 ML VIAL IV ONE (13:08)
[2023-09-24] MEDS ORDERED: HEPARIN SODIUM,PORCINE 5,000 UNIT/ML 1 ML VIAL ONE (13:08)
[2023-09-24] MEDS ORDERED: LIDOCAINE 1% INJ 10MG/ML (20 ML MDV) ONE ×2 (13:08→13:23)
[2023-09-24] MEDS ORDERED: HEPARIN SODIUM,PORCINE 10,000 UNIT/ML 1 ML VIAL ONE (13:08)
[2023-09-24] MEDS ORDERED: fentaNYL (PF) 50 MCG/ML 2 ML AMP ONE (13:08)
[2023-09-24] MEDS: LIDOCAINE 1% INJ 10MG/ML (20 ML MDV) SQ ONE (13:42)
[2023-09-24] MEDS: FAMOTIDINE 20 MG/2 ML VIAL IVP ONE (14:31)
[2023-09-24] MEDS: diphenhydrAMINE 50 MG/ML 1 ML VIAL IVP ONE (14:31)
[2023-09-24] MEDS: IOPAMIDOL-370 125ML BTL INJ ONE (15:34)
[2023-09-24] MEDS ORDERED: ALBUTEROL NEBULIZED 2.5 MG/3 ML INHALATION PRN (15:42)
--- NOTE | 2023-09-24 15:52 | P.HPCAR ---
History of Present Illness This is Dr. Bravo dictating an H/P on this patient The patient was interviewed and examined IMPRESSION / ASSESSMENT: Persistent A-fib with RVR despite medical treatment Intolerant of higher doses of carvedilol Preserved LV systolic function with LVH and diastolic heart failure Type 2 diabetes Increased BMI Creatinine 1.9 Normal TSH PLAN: Proceed with A-fib ablation with PVI and linear ablation Continue anticoagulation reassess dose of carvedilol when in sinus rhythm Reassess dose of Lasix once in sinus rhythm Low-dose JANICE inhibitors to be started thereafter Follow-up [facility] tomorrow transfer to [facility] Patient continues to complain of shortness of breath with exertion Intermittently has A-fib with RVR and is intolerant of higher doses of beta- blockers for rate control He remains on anticoagulation Denies any chest discomfort dizziness or lightheadedness recently in the last week's ROS: No fever chills or rigors, no cough, phlegm or expectoration, no nausea, vomiting or diarrhea, no hematuria, dysuria, no musculoskeletal complaints, no strokes or seizures, no skin lesions. EXAMINATION: Afebrile Normal respirations Blood pressure 148/88 mmHg No JVD Rhythm is irregular no murmurs Lungs are decreased air entry bilaterally with rhonchi Extremities warm no edema Abdomen is soft REVIEW OF LABS, ECG & MEDICAL DATA Sodium 139 potassium 3.4 BUN 15 creatinine 1.45 TSH 0.48 Liver function normal Physical Exam Vitals: Vital Signs Temp Resp BP Pulse Ox 09/24/23 10:09 98.7 F 18 149/88 98 Intake and Output 09/24/23 09/24/23 09/24/23 06:59 14:59 22:59 Intake Total 800 Balance 800 Intake: IV 800 Other: Weight 121.2 kg Past Medical History Past Medical History: Asthma, COPD, Diabetes Mellitus, Hyperlipidemia, Pneu monia, Thyroid Disorder Additional Past Medical History / Comment(s): see Dr Bravo H&P, neuropathy bilateral feet, 2012 acute respiratory failure-d/t obesity/hypoventilatory syndrome/DELORES/bronchospasms, (denies current problems with sleep apnea), trach/vent-had renal failure with dialysis for 5 weeks, chronic anemia, hypothyroid, gout, hx anemia History of Any Multi-Drug Resistant Organisms: MRSA Date of last positivie culture/infection: 2012 MDRO Source:: bronchial washing Past Surgical History: Orthopedic Surgery, Tonsillectomy Additional Past Surgical History / Comment(s): EGD, colonoscopies, R knee arthroscopy, R shoulder arthroscopy, trach, peg, bronchoscopy with washing, cardioversion. Past Anesthesia/Blood Transfusion Reactions: No Reported Reaction Additional Past Anesthesia/Blood Transfusion Reaction / Comment(s): Pt has received blood in past without reaction. Smoking Status: Former smoker Additional Drug Use History / Comment(s): edible marijuana - Past Family History Father History Unknown: Yes Mother Family Medical History: Deep Vein Thrombosis (DVT) Additional Family Medical History / Comment(s): . Physical Examination Vital Signs Temp Resp BP Pulse Ox 09/24/23 10:09 98.7 F 18 149/88 98 Intake and Output 09/24/23 09/24/23 09/24/23 06:59 14:59 22:59 Intake Total 800 Balance 800 Intake: IV 800 Other: Weight 121.2 kg Results 09/24/23 09:50 Cardiac Enzymes 09/24/23 Range/Units 09:50 AST 28 (17-59) U/L Comprehensive Metabolic Panel 09/24/23 Range/Units 09:50 Sodium 139 (137-145) mmol/L Potassium 3.4 L (3.5-5.1) mmol/L Chloride 98 (98-107) mmol/L Carbon Dioxide 31 H (22-30) mmol/L BUN 50 H (9-20) mg/dL Creatinine 1.45 H (0.66-1.25) mg/dL Glucose 151 H (74-99) mg/dL Calcium 9.4 (8.4-10.2) mg/dL AST 28 (17-59) U/L ALT 23 (4-49) U/L Alkaline Phosphatase 134 H (38-126) U/L Total Protein 7.2 (6.3-8.2) g/dL Albumin 4.2 (3.5-5.0) g/dL Current Medications Generic Name Dose Route Start Last Admin Trade Name Freq PRN Reason Stop Dose Admin Acetaminophen 650 mg 09/24/23 15:44 Acetaminophen Tab 325 Mg Tab PO 10/24/23 15:45 Q6HR PRN Mild Pain (Scale 1 to 3) Albuterol Sulfate 2.5 mg 09/24/23 15:42 Albuterol Nebulized 2.5 Mg/3 Ml INHALATION 10/24/23 15:43 RT-Q4H PRN Shortness Of Breath Allopurinol 300 mg 09/24/23 21:00 Allopurinol 300 Mg Tab PO 10/24/23 21:01 BID [facility] Carvedilol 3.125 mg 09/24/23 21:00 Carvedilol 6.25 Mg Tab PO 10/24/23 21:01 BID [facility] Dapagliflozin 10 mg 09/25/23 09:00 Dapagliflozin Propanediol 10 Mg Tablet PO 10/25/23 09:01 DAILY [facility] Duloxetine HCl 60 mg 09/25/23 09:00 Duloxetine Hcl 60 Mg Capsule.Dr PO 10/25/23 09:01 DAILY [facility] Sodium Chloride 1,000 mls @ 20 mls/hr 09/24/23 05:54 09/24/23 10:17 Saline 0.9% IV 10/24/23 05:55 800 mls .Q24H [facility] Administration Lactated Ringer's 1,000 mls @ 20 mls/hr 09/24/23 05:54 Lactated Ringers IV 10/24/23 05:55 .Q24H [facility] Acetaminophen 1,000 mg/ IV 100 mls @ 400 mls/hr 09/24/23 15:44 Solution IVPB 09/24/23 15:58 ONCE ONE Levothyroxine Sodium 50 mcg 09/25/23 09:00 Levothyroxine 50 Mcg Tab PO 10/25/23 09:01 QAM [facility] Non-Formulary Medication 600 mg 09/24/23 16:00 Gabapentin [Gabapentin] PO 10/24/23 16:01 TID [facility] Non-Formulary Medication 20 mg 09/25/23 09:00 Rosuvastatin PO 10/25/23 09:01 DAILY [facility] Non-Formulary Medication 1 mg 09/28/23 15:42 Semaglutide [Wegovy] SQ 10/28/23 15:43 FR [facility] Rivaroxaban 20 mg 09/24/23 21:00 Rivaroxaban 20 Mg Tab PO 10/24/23 21:01 HS [facility] Protocol Sodium Chloride 12 ml 09/24/23 15:44 Sodium Chloride 0.9% Flush 10 Ml Syringe IV 10/24/23 15:45 Q12HR PRN Line Flush Intake and Output 09/24/23 09/24/23 09/24/23 06:59 14:59 22:59 Intake Total 800 Balance 800 Intake: IV 800 Other: Weight 121.2 kg Patient Weight 09/25/23 06:59 Weight 121.2 kg 09/24/23 09:50
--- NOTE | 2023-09-24 15:53 | P.PN ---
Progress Note - Text Patient underwent A-fib ablation with PVI, left atrial septal ablation and left atrial roof ablation successfully Plan Check BMP tomorrow Restart metformin Low-dose JANICE inhibitors Reassess dose of Lasix Watch for bradycardia Patient has a prolonged MS interval and sinus rhythm Reassessed dose of carvedilol
--- NOTE | 2023-09-24 15:59 | P.EPPROC ---
- EP Procedure Note Electrophysiology Procedure Note: PROCEDURE A. fib ablation DIAGNOSIS Atrial fibrillation, symptomatic, refractory to therapy RESULT No left atrial appendage mass seen on intracardiac echo, LVH with preserved systolic function Thickened pericardium with small pericardial effusion Successful A. fib ablation/pulmonary vein isolation of all veins using cryo- ablation Complete entrance block in all 4 veins confirmed No evidence for phrenic nerve injury Left atrial septal ablation Ablation in the yady between the left superior and left inferior pulmonary veins Left atrial roof ablation Esophageal deflection YES Electrical cardioversion with a synchronized shock across the chest YES Prolonged PA interval and AH interval in sinus rhythm, prolonged HV interval PROCEDURE DETAILS Written informed consent prior to procedure. Patient brought to the EP lab. General anesthesia given. Heparin administered. A city maintained above 300 seconds Both groins prepped and draped per protocol and venous sheaths placed. Esophagus intubated, circa catheter for temperature monitoring an endoscope for possible esophageal deflection. Phrenic nerve monitoring performed. Esophageal temperature monitoring performed. Esophageal deflection performed if circa catheter overlapping with the balloon or circa temperature less than 27.5C Intracardiac echocardiography performed. Pericardium evaluated. Left atrial appendage evaluated. Left atrium evaluated along with pulmonary veins Transseptal catheterization performed under fluoroscopic guidance and intracardiac echo guidance Cryoablation sheath exchanged, balloon catheter along with achieve catheter placed in the left atrium. Pulmonary veins isolated in the following sequence: Left superior pulmonary vein followed by left inferior pulmonary vein, followed by right inferior pulmonary vein and lastly right superior pulmonary vein. Phrenic nerve stimulation along with capture thresholds within the SVC and right superior pulmonary vein to identify the phrenic nerve proximity to the cryo- balloon. Pulmonary veins isolated and confirmed with entrance and exit block. Phrenic nerve integrity confirmed at the end of the procedure Ablation of the left atrial roof performed with sequential lesions from the left superior to the right superior pulmonary veins. Ablation of the electrograms confirmed Ablation of the left atrial septum performed with cannulation of the superior branch of the right inferior or the inferior branch of the right superior vein to achieve ablation of the posterior septum of the left atrium. Ablation of electrograms confirmed Electrical cardioversion performed for persistence of atrial fibrillation despite successful ablation. Diagnostic catheters for the high right atrium, His bundle, coronary sinus placed. LA and RA pressures recorded RA pressure: 6/4 LA pressure: 113/7 Diagnostic EP study with coronary sinus pacing and recording Baseline measurements: AH 179, HV 80 Venous sheaths were removed and hemostasis assured with a closure device. Patient extubated and transferred to recovery PROCEDURES PERFORMED Diagnostic EP study CS pacing and recording Left and right transseptal catheterization Catheter the mapping of the tachycardia Intracardiac echocardiography Left atrial roof line, +[id number] Linear ablation, left atrium, +[id number] Electrical cardioversion with a synchronized shock across the chest [id number]
[2023-09-24] MEDS ORDERED: HEPARIN SODIUM 1,000 UN/ML (10ML VL) ONE (16:09)
[2023-09-24] MEDS: HYDROmorphone 0.5 MG/0.5 ML SYRINGE IVP ONE (16:11)
[2023-09-24] MEDS: ACETAMINOPHEN IV (For NPO) 1,000 MG/100 ML VIAL IVPB ONE (16:15)
[2023-09-24 16:23] LABS: Glucose,Whole Blood 107 mg/dL (70-110)
[2023-09-24] MEDS: DEXAMETHASONE SOD PHOSPHATE 10 MG/ML 1 ML VIAL IVP ONE (16:38)
[2023-09-24] MEDS: ACETAMINOPHEN IV (For NPO) 1,000 MG in EMPTY BAG 1 BAG IVPB ONE (18:13)
[2023-09-24 18:14] LABS: Glucose,Whole Blood 105 mg/dL (70-110)
[2023-09-24] MEDS: GABAPENTIN 300 MG CAP PO SCH (18:15)
[2023-09-24 20:27] LABS: Glucose,Whole Blood 138 mg/dL (70-110)
[2023-09-24] MEDS: LACTATED RINGERS 1,000 ML IV SCH (20:27)
[2023-09-24] MEDS: ACETAMINOPHEN TAB 325 MG TAB PO PRN (20:30)
[2023-09-24] MEDS: allopurinoL 300 MG TAB PO SCH (20:30)
[2023-09-24] MEDS: carvediloL 3.125 MG TAB PO SCH (20:31)
[2023-09-24] MEDS: RIVAROXABAN 20 MG TAB PO SCH (20:31)
[2023-09-25] MEDS: LEVOTHYROXINE 50 MCG TAB PO SCH (06:04)
[2023-09-25 06:07] LABS: Glucose,Whole Blood 147 mg/dL (70-110)
[2023-09-25] MEDS: ATORVASTATIN 40 MG TAB PO SCH (10:47)
[2023-09-25] MEDS: DAPAGLIFLOZIN PROPANEDIOL 10 MG TABLET PO SCH (10:47)
[2023-09-25] MEDS: DULoxetine HCL 60 MG CAPSULE.DR PO SCH (10:47)
[2023-09-25 11:21] LABS: African American GFR (CKD) 64 (>60 ml/min/1.73 sqM); Anion Gap 9 mmol/L; Blood Urea Nitrogen 44 mg/dL (9-20); Calcium 9.4 mg/dL (8.4-10.2); Carbon Dioxide 26 mmol/L (22-30); Chloride 103 mmol/L (98-107); Glucose 128 mg/dL (74-99); Non-African American GFR(CKD) 55 (>60 ml/min/1.73 sqM); Sodium 138 mmol/L (137-145)
[2023-09-25 11:43] LABS: Glucose,Whole Blood 170 mg/dL (70-110)
[2023-09-25 11:49] VITALS: BP 149/92; PULSE 90; RESP 16; TEMP 98.1
[2023-09-28] MEDS ORDERED: SEMAGLUTIDE 1 MG/0.5 ML SQ SCH (09:00)
== END 2023-09-25 14:51 | disposition home or self-care (01) ==
LOC: CATHEP 09:40 → 3SCARD 15:40 → CATHEP 09-25 14:51
PROVIDERS: ATTEND Internal Medicine Clinical Cardiac Electrophysiology
DX: I48.19 Other persistent atrial fibrillation (principal); E11.9 Type 2 diabetes mellitus without complications; E07.9 Disorder of thyroid, unspecified; E66.9 Obesity, unspecified; E78.5 Hyperlipidemia, unspecified; G47.33 Obstructive sleep apnea (adult) (pediatric); J44.89 Other specified chronic obstructive pulmonary disease; M10.9 Gout, unspecified; Z79.01 Long term (current) use of anticoagulants; Z79.84 Long term (current) use of oral hypoglycemic drugs; Z87.891 Personal history of nicotine dependence; Z99.2 Dependence on renal dialysis; Z79.899 Other long term (current) drug therapy
CPT/HCPCS: 93656; 93657; 86900; 86901; 80053; 80048; 84443; 86850; C1894 ×2; C1769 ×3; C1760; C1730 ×2; C1759; C1893; C1733; C1766; J1200; J1100; J2001; J3490; J0131; J1170; Q9967

== ENCOUNTER → 2023-10-04 | Outpatient (CLI) | payer OTHER ==
--- NOTE | 2023-10-04 14:29 | P.PAINPG ---
Objective - Vital Signs Vital signs: Intake & Output 10/03/23 10/04/23 10/04/23 18:59 06:59 18:59 Weight 117.934 kg PQRS Measure Charge Sheet Comment: HISTORY OF PRESENT ILLNESS: A 58 yr old male presents today w severe and chronic LBP > 2 yrs secondary to DDD, spondylosis and facet arthropathy without myelopathy for evaluation. Pt states pain level is provoked at 9 /10 in intensity, constant, localized in the lumbar spine, predominantly axial, burning in character w occasional shooting pain towards the RLE. Pain is provoked by sitting. Pain is alleviated by PT x 6 wks in Apr-May 2023, physician guided home exercises/ stretches daily since May 2023, working out 2-3 days/ wk at the gym since May 2023, medications , alternating heat & ice, repositioning and rest . Oswestry axial pain score at 26. Interventional procedures include Medications include Tramadol, Neurontin, Cannabis use REVIEW OF ORGAN SYSTEMS: CONSTITUTIONAL: No fevers or chills. No recent weight loss. NEUROLOGICAL: + numbness and tingling along the distal extremities. No seizure disorders or headaches. MUSCULOSKELETAL: + pain PSYCHIATRIC: Denies current depression or suicidal thoughts. Physical Examinations : Constitutional : Cooperative , not in acute distress . Neurologic : Cranial nerve II to XII intact. No focal neurological deficits. Psychiatric : alert & oriented x 3. Matching mood & appropriate affect. Judgment & insight intact. Musculoskeletal : Cervical Spine Motor strength in the deltoid and biceps: Normal right side. Normal Left side Motor strength biceps and the wrist extensors: Normal right side . Normal left side Motor strength in the triceps muscle: Normal right side. Normal left side Deep tendon reflexes: Normal at the biceps. Normal at Brachioradialis. Normal at triceps Vertebral body tenderness to deep palpation over Cervical facet loading test: positive bilaterally Spurling test: positive bilaterally Neck distraction test: positive bilaterally Mireya sign: positive bilaterally Lumbar spine Motor strength lower extremities ,thigh and legs 5/5 Right side , 5/5 Left side Deep tendon reflexes : Normal Knee Jerk. Normal Ankle Jerk Vertebral body tenderness over Jones Test positive Lumbar facet Loading Test: positive Right / positive Left Range of motion of the lumbar spine Flexion 30 degrees, extension 10 degrees Straight Leg Raise test: Left/ Right positive at < 35 degrees Marti test: positive right / positive left. Severe tenderness over the Sacroiliac joint on the Right / Left sides Gaenslen test: positive bilaterally Seated flexion test: positive bilaterally. Sacral spine : Severe tenderness over the Sacroiliac joint: right side / left side Range of motion: Flexion of the lumbar spine <60 degrees Range of motion: Extension of the lumbar spine <20 degrees Gaenslen's Test positive on R Marti test: positive right side / left side Thigh Thrust Test R positive Sacral Thrust Test Imaging: MRI non contrast of the lumbar spine from 09/20/23 reviewed Assessment/ Plan : Lumbar DDD Recommendation of R SI injection #1. May need a series of injections for optimal pain relief. Risks, benefits of procedure discussed and patient verbalized understanding. Protocol for discontinuation/continuation of medication surrounding procedure discussed. Would benefit from a R TFESI L5-S1 if pain persists. All questions answered. I have spent greater than 30 minutes on patient care today. Dr Henry was available by phone for the evaluation of this patient. The time was used to review the medical records including relevant urine studies and Prescription history (MAPs), review of the available imaging, evaluation and examination of the patient, coordination of care with the medical staff and if applicable referring physicians, as well as creation of the medical record PQRS Narrative: Smoking Status Former smoker Hx Alcohol Use (MH) No Home Medications: Ambulatory Orders Levothyroxine Sodium [Synthroid] 50 mcg PO QAM 04/08/15 Rivaroxaban [Xarelto] 20 mg PO HS 02/18/18 Multivitamins, Thera [Multivitamin (formulary)] 1 tab PO HS 04/03/19 Albuterol Inhaler [Ventolin Hfa Inhaler] 2 puff INHALATION RT-Q4H PRN 02/23/20 Gabapentin 600 mg PO TID 03/30/20 allopurinoL [Zyloprim] 300 mg PO BID 11/25/20 Cyclobenzaprine [Flexeril] 10 mg PO DAILY PRN 09/19/23 DULoxetine HCL [Cymbalta] 60 mg PO DAILY 09/19/23 Dapagliflozin Propanediol [Farxiga] 10 mg PO DAILY 09/19/23 Rosuvastatin [Crestor] 20 mg PO DAILY 09/19/23 Semaglutide [Wegovy] 1 mg SQ FR 09/19/23 metFORMIN HCL ER [Glucophage XR] 500 mg PO BID 09/19/23 traMADol HCL 50 mg PO Q6H PRN 09/19/23 Furosemide [Lasix] 20 mg PO DAILY #0 09/25/23 carvediloL [Coreg] 6.25 mg PO BID #1 tablet 09/25/23 lisinopriL [Zestril] 5 mg PO DAILY #90 tab 09/25/23 Controlled Substance Measures - Controlled Substance Measures Is patient prescribed a controlled substance at discharge?: No
[2023-10-04 15:12] VITALS: BP 109/63; PULSE 72; RESP 15; TEMP 98.5
== END ==
LOC: PNWHC3 14:10
PROVIDERS: ATTEND Specialist
DX: M51.36 Other intervertebral disc degeneration, lumbar region (principal); Z87.891 Personal history of nicotine dependence
CPT/HCPCS: 99211

== ENCOUNTER 2023-10-30 10:29 | Day surgery (SDC) | payer OTHER ==
[~2023-10-30 10:29] MED LIST changes: -LIDOCAINE 1% (10MG/ML) FOR IV START INTRADERMA PRN; -PROPOFOL 10 MG/ML 20 ML VIAL IV ONE; -SODIUM CHLORIDE 0.9% 1,000 ML IV SCH; -SODIUM CHLORIDE 0.9% 500 ML 500 ML IV ONE
[2023-10-30] MEDS ORDERED: ROPIVACAINE 5MG/ML 20ML VIAL ONE (10:59)
[2023-10-30] MEDS ORDERED: IOPAMIDOL M200 10 ML VIAL ONE (10:59)
[2023-10-30] MEDS ORDERED: methylPREDNISolone ACETATE 40 MG/ML 1 ML VIAL ONE (10:59)
--- NOTE | 2023-10-30 11:04 | P.PCN ---
Date of Procedure: 10/30/23 Description of Procedure: Procedure: Sacroiliac joint injection right Preoperative diagnosis: Sacroiliitis Postoperative diagnosis: Sacroiliitis Imaging: Fluoroscopy was used, images where saved to the medical record Complications: none ANESTHESIA: local only 1% lidocaine Description of the procedure: procedure risk and benefits discussed with the patient, including but not limited, risk of infection and bleeding, and allergic reaction to the medication and incomplete pain relief. Patient agreed and signed consent. Patient was taken to the room and placed in a prone position. Chlorhexidine was used to cleanse the skin. Under sterile conditions patient skin was anesthetized 1% lidocaine. Subcutaneous tissues were also anesthetized with a total 5 mL of 1% lidocaine. After that, a 22-gauge spinal needle was advanced through the anesthetized location under fluoroscopic guidance. Needle was advanced into the inferior portion of the sacroiliac joint. IV contrast was used to confirm spread within the joint. After adequate spread was achieved, 2.5 ML's of 0.5% ropivacaine with 40 mg of depomedrol was injected into the joint (steroid split between both sides if bilateral). Patient tolerated the procedure well. Sent to the recovery room in stable condition. Patient will follow up as directed.
[2023-10-30 11:16] VITALS: RESP 16; TEMP 98
--- NOTE | 2023-10-30 11:47 | FL ---
EXAMINATION TYPE: FL guided pain mgmt statistic Intraoperative/procedural fluoroscopic services were provided. Total fluoroscopy time is 8.3 seconds with a total of 1 submitted images to PACS. Please se e the operative/procedural note for further details. DAP: 0.02556 mGym2
[2023-10-30 12:10] VITALS: BP 119/77; PULSE 86
== END 2023-10-30 11:44 | disposition home or self-care (01) ==
LOC: ORPAIN 10:29
PROVIDERS: ATTEND Hospitalist
DX: M46.1 Sacroiliitis, not elsewhere classified (principal); I48.91 Unspecified atrial fibrillation; Z79.01 Long term (current) use of anticoagulants
CPT/HCPCS: 27096

== ENCOUNTER 2023-11-06 05:43 | Day surgery (SDC) | payer OTHER ==
[2023-11-02 11:27] VITALS: BMI 36.6
[2023-11-06] MEDS: SODIUM CHLORIDE 0.9% 1,000 ML IV SCH (06:09)
[2023-11-06] MEDS: SODIUM CHLORIDE 0.9% 1,000 ML IV ONE (06:10)
[2023-11-06 06:57] VITALS: RESP 16; TEMP 98
[2023-11-06 07:03] LABS: African American GFR (CKD) 49 (>60 ml/min/1.73 sqM); Anion Gap 7 mmol/L; Blood Urea Nitrogen 57 mg/dL (9-20); Calcium 9.6 mg/dL (8.4-10.2); Carbon Dioxide 28 mmol/L (22-30); Chloride 101 mmol/L (98-107); Glucose 119 mg/dL (74-99); Non-African American GFR(CKD) 43 (>60 ml/min/1.73 sqM); Potassium 4.3 mmol/L (3.5-5.1); Sodium 136 mmol/L (137-145)
[2023-11-06] MEDS ORDERED: PROPOFOL 10 MG/ML 20 ML VIAL IV ONE (07:13)
--- NOTE | 2023-11-06 07:49 | P.EPPROC ---
- EP Procedure Note Electrophysiology Procedure Note: Diagnosis Persistent atrial fibrillation, recurrence after A-fib ablation with PVI and left atrial roof ablation and left atrial septal ablation Intracardiac echo revealed thickened pericardium with small pericardial effusion Started on flecainide 50 mg twice daily prior to electrical cardioversion BUN 57 creatinine 1.72 today Procedure Successful electrical cardioversion with 200 J biphasic shock in the AP configuration to sinus rhythm Type II conversion Rhythm strip shows sinus rhythm with a prolonged IL interval Twelve-lead EKG shows sinus rhythm with a prolonged IL interval at 286 ms and a QRS width of 126 ms Plan Discontinue flecainide Continue anticoagulation Continue Farxiga Reduce Lasix to once daily Avoid phentermine for weight loss given the side effect profile
--- NOTE | 2023-11-06 08:09 | P.PN ---
Progress Note - Text Patient underwent electrical cardioversion for atrial fibrillation Type II conversion was noted Follow-up twelve-lead EKG showed a prolonged ND interval with IVCD. ND interval was 286 ms and QRS width 126 ms In the EP lab his HV interval was prolonged and therefore decision was made to discontinue flecainide The most likely reason for recurrence of atrial fibrillation is the fact that he has obesity, permanent atrial fibrillation and fairly prominent pericarditis on intracardiac echo with organized effusion He is diabetic hypertensive with preserved systolic function It is quite likely he will need to do A-fib ablation after 3 months of his original ablation
[2023-11-06 09:42] VITALS: BP 93/56; PULSE 65
== END 2023-11-06 09:14 | disposition home or self-care (01) ==
LOC: CATHEP 05:43
PROVIDERS: ATTEND Internal Medicine Clinical Cardiac Electrophysiology
DX: I48.19 Other persistent atrial fibrillation (principal); I31.39 Other pericardial effusion (noninflammatory); I10 Essential (primary) hypertension; E78.5 Hyperlipidemia, unspecified; E11.9 Type 2 diabetes mellitus without complications; Z79.01 Long term (current) use of anticoagulants; Z79.899 Other long term (current) drug therapy; Z82.49 Family history of ischemic heart disease and other diseases of the circulatory system
CPT/HCPCS: 92960; 80048; J2704

== ENCOUNTER → 2024-01-16 | Outpatient (CLI) | payer OTHER ==
--- NOTE | 2024-01-16 08:34 | US ---
EXAMINATION TYPE: US abdomen complete DATE OF EXAM: 01/16/2024 COMPARISON: 05/26/2020 US liver CLINICAL INDICATION: Male, 58 years old with history of N18.32 Stage III moderate kidney disease; TECHNIQUE: Multiple sonographic images of the abdomen are obtained. FINDINGS: EXAM MEASUREMENTS: Liver Length: 16.9 cm Gallbladder Wall: 0.18 cm CBD: 0.37 cm Spleen: 10.6 x 9.9 x 4.5 cm Right Kidney: 10.6 x 6.0 x 5.1 cm Left Kidney: 10.4 x 4.7 x 4.2 cm PELT SALTER NOTES: Pancreas: limited visualization Liver: Increased echogenicity Gallbladder: Appears wnl Evidence for sonographic Dixon's sign: no CBD: wnl Spleen: wnl Right Kidney: wnl Left Kidney: wnl The liver is homogenous. The intrahepatic portion of the IVC and proximal abdominal aorta are within normal limits. There is no evidence of cholelithiasis. Common bile duct is unremarkable. The visu alized portions of the pancreas are homogenous. The spleen is unremarkable. Kidneys are symmetric a nd free of hydronephrosis. No renal lesions are seen. IMPRESSION: No evidence for acute process.
== END | disposition home or self-care (01) ==
LOC: RADUSWWP 06:51
PROVIDERS: ATTEND Internal Medicine Geriatric Medicine
DX: R74.01 Elevation of levels of liver transaminase levels (principal); N18.32 Chronic kidney disease, stage 3b
CPT/HCPCS: 76700

== ENCOUNTER → 2024-05-21 | Outpatient (CLI) | payer OTHER ==
[2024-05-21 14:26] VITALS: BP 120/76; PULSE 94; RESP 16; TEMP 98.4; BMI 31.4
--- NOTE | 2024-05-21 14:35 | P.HPBAR ---
Bariatric H&P - History & Physicial H&P Date: 05/21/24 History & Physicial: Visit/CC: f/u Patient initial contact: Initial weight: 93.894 kg Initial weight in pounds: 207.00 Height: 5 ft 8 in Initial BMI: 31.4 Last weight: Current weight: 93.894 kg Current weight in pounds: 207.00 Current BMI: 31.4 [place] body weight (based on NIH guidelines): 69.853 kg Excess body weight loss: 0.0% The patient is a 58 year-old M who presents for Bariatric Assessment. He comes in for panniculectomy. He is at his goal of 207 pounds. Highest 402 pounds. Lowest was 197 pounds. For 1 month. Needs total weight loss. Look MVI and full labs. He sees Dr. Bravo. NO belly button. Panniculectomy. He eats 80 to 100 grams of protein daily. Drinks over 100 oz daily of fluids. He is on ozempic. Treatment of skin for over 1 year. He has troubles grooming and wearing clothes. Has troubles with lower back pain with weight and skin. SKin infection. Need pictures. He is very active. Past Medical History Past Medical History: Atrial Fibrillation, Asthma, COPD, Diabetes Mellitus, Hyperlipidemia, Hypertension, Pneumonia, Thyroid Disorder Additional Past Medical History / Comment(s): NIDDM, neuropathy bilateral feet, 2012 acute respiratory failure-d/t obesity/hypoventilatory syndrome/DELORES/bronchospasms, (denies current problems with sleep apnea), trach/vent-had renal failure with dialysis for 5 weeks, hypothyroid, gout History of Any Multi-Drug Resistant Organisms: MRSA Year Discovered:: 2013 MDRO Source:: bronchial washing Past Surgical History: Cardiac Ablation, EPS, Joint Replacement, Orthopedic Surgery, Tonsillectomy Additional Past Surgical History / Comment(s): EGD, colonoscopies, L total hip, R knee arthroscopy, R shoulder arthroscopy, trach, peg, bronchoscopy with washing, cardioversion. PAIN CLINIC PROCEDURE, Past Anesthesia/Blood Transfusion Reactions: No Reported Reaction Additional Past Anesthesia/Blood Transfusion Reaction / Comm: Pt has received blood in past without reaction. Past Psychological History: No Psychological Hx Reported Additional Psychological History / Comment(s): Resides with spouse. No device. Smoking Status: Former smoker Past Alcohol Use History: Occasional Additional Past Alcohol Use History / Comment(s): Pt started smoking in 1980 and quit in 2010. heavy alcohol use until 02/2020, now only occ beer Past Drug Use History: Marijuana Additional Drug Use History / Comment(s): edible marijuana daily-INSTRUCTED TO REFRAIN FROM USE FOR AT LEAST 24 HOURS PRIOR TO PROCEDURE - Past Family History Father History Unknown: Yes Mother Family Medical History: Deep Vein Thrombosis (DVT) Additional Family Medical History / Comment(s): . Surgical - Exam Vital Signs Temp Pulse Resp BP 98.4 F 94 16 120/76 05/21/24 14:12 05/21/24 14:12 05/21/24 14:12 05/21/24 14:12 Bariatric Checklist Checklist: Plan: Checklist: EGD: 1. Hiatal hernia: 2. H. Pylori: HgbA1c: Vitamin D: Smoking: Former smoker Primary care physician referral: farheen becker/ dr de luna Psychiatry clearance: Cardiology clearance: Sleep study: Diet journal: VTE risk score: VTE risk level: Rehab needs at discharge:
[2024-05-21 15:22] LABS: INR 0.9 (<1.2); Partial Thromboplastin Time 26.1 sec (22.0-30.0); Prothrombin Time 10.5 sec (10.0-12.5)
[2024-05-21 19:31] LABS: HCT 41.9 % (39.6-50.0); HGB 13.6 g/dL (13.0-17.0); MCH 28.7 pg (27.0-32.0); MCHC 32.5 g/dL (32.0-37.0); MCV 88.4 FL (80.0-97.0); Mean Platelet Volume 11.3 FL (9.5-12.2); NRBC Per 100 WBC 0 X 10*3/uL (0.00-0.01); Platelet Count 207 X 10*3/uL (140-440); RBC 4.74 X 10*6/uL (4.40-5.60); WBC 6.93 X 10*3/uL (4.50-10.00)
[2024-05-21 20:16] LABS: % Iron Saturation 19.88 (15.00-50.00); Chol/HDL Ratio 2.62 Ratio; Iron 67 UG/DL (65-175); LDL Cholesterol,Calculated 70.2 mg/dL (0.0-131.0); Total Iron Binding Capacity 337 UG/DL (228-460); VLDL Calculation 16.96 mg/dL (5.00-40.00)
[2024-05-21 21:07] LABS: Magnesium 2.8 mg/dL (1.5-2.4)
[2024-05-21 21:11] LABS: ALT 27 U/L (10-49); AST 23 U/L (14-35); Albumin/Globulin Ratio 1.67 Ratio (1.60-3.17); Alkaline Phosphatase 131 U/L (41-126); BUN/Creat Ratio 20.93 Ratio (12.00-20.00); Blood Urea Nitrogen 29.3 mg/dL (9.0-27.0); Calcium 9.4 mg/dL (8.7-10.3); Carbon Dioxide 24.8 mmol/L (21.6-31.8); Chloride 104 mmol/L (96-109); Globulin 2.4 g/dL (1.6-3.3); Glucose 104 mg/dL (70-110); Potassium 3.7 mmol/L (3.5-5.5); Sodium 140 mmol/L (135-145); Total Bilirubin 0.5 mg/dL (0.3-1.2); Total Protein 6.4 g/dL (6.2-8.2)
[2024-05-21 22:25] LABS: Cardiolipin Ab IgG Interp Negative (Negative); Cardiolipin Ab IgM Interp Negative (Negative); Cardiolipin IgA Antibody <2.0 U/mL; Cardiolipin IgM Antibody 3.5 U/mL
[2024-05-22 12:19] LABS: Zinc, Serum 67 ug/dL (60-130)
[2024-05-23 05:58] LABS: Vitamin A 80 ug/dL (38-106)
[2024-05-23 06:26] LABS: Vit B1(Thiamine) 90 ug/L (38-122)
== END ==
LOC: BARWHC3 13:52
PROVIDERS: ATTEND Surgery Plastic and Reconstructive Surgery
DX: E66.01 Morbid (severe) obesity due to excess calories (principal); E89.1 Postprocedural hypoinsulinemia; D50.8 Other iron deficiency anemias; D50.9 Iron deficiency anemia, unspecified; K91.2 Postsurgical malabsorption, not elsewhere classified; E44.0 Moderate protein-calorie malnutrition; E45 Retarded development following protein-calorie malnutrition; E55.9 Vitamin D deficiency, unspecified; K74.1 Hepatic sclerosis; N19 Unspecified kidney failure; T56.894A Toxic effect of other metals, undetermined, initial encounter; K50.90 Crohn's disease, unspecified, without complications; Z68.31 Body mass index [BMI] 31.0-31.9, adult; Z87.891 Personal history of nicotine dependence
CPT/HCPCS: 84255; 84425; 80061; 80053; 82607; 82728; 82525; 82746; 83540; 83550; 83735; 84443; 84590; 84630; 85027; 85610; 85730; 82306; 83970; 87086; 86147; 83036; 80307; 93005; G0463; 99202

== ENCOUNTER → 2024-05-23 | Outpatient (CLI) | payer OTHER | END | disposition home or self-care (01) | LOC: LABWHC1 10:08 | PROVIDERS: ATTEND Surgery Plastic and Reconstructive Surgery | DX: Z53.9 Procedure and treatment not carried out, unspecified reason (principal) ==

== ENCOUNTER → 2024-12-17 | Outpatient (CLI) | payer OTHER ==
[2024-12-17 14:24] VITALS: BP 154/93; PULSE 89; RESP 16; TEMP 97.9; BMI 31.0
--- NOTE | 2024-12-17 14:49 | P.BASOAP ---
Subjective Progress Note Date: 12/17/24 His weight has gone up and down with weight. Xarelto makes it even more risky for complications and blood loss. Possible approval or denial pending insurance. Objective - Vital Signs Vital signs: Vital Signs Temp 97.9 F 12/17/24 14:21 Pulse 89 12/17/24 14:21 Resp 16 12/17/24 14:21 BP 154/93 12/17/24 14:21 Pulse Ox FiO2 Intake & Output 12/16/24 12/17/24 12/17/24 18:59 06:59 18:59 Weight 92.703 kg Assessment/Plan Plan: Date: 12/17/24 Initial Weight: 93.894 kg Initial BMI: 31.4 Current Weight: 92.703 kg Current BMI: 31.0 Type of Surgery: Total Volume in Band: Previous Volume: Volume Removed: Volume Added: Band Size:
== END ==
LOC: BARWHC3 13:49
PROVIDERS: ATTEND Surgery Plastic and Reconstructive Surgery
DX: E66.01 Morbid (severe) obesity due to excess calories (principal); F12.90 Cannabis use, unspecified, uncomplicated; Z87.891 Personal history of nicotine dependence; Z68.31 Body mass index [BMI] 31.0-31.9, adult
CPT/HCPCS: 99211